=== PATIENT | male | born 1985 | race Caucasian/White ===

== ENCOUNTER 2017-10-22 20:14 | Inpatient (IN) | payer SELFPAY ==
[2017-10-22 22:25] LABS: BASO # 0.1 K/uL (0.0-0.2); BASO % 0.7 % (0.0-2.0); EOS # 0.3 K/uL (0.0-0.7); EOS % 2.9 % (0.0-4.0); HEMOGLOBIN 14.3 g/dL (12.0-18.0); LYMPH # 1.3 K/uL (1.0-4.3); LYMPH % 14.8 % (20.0-40.0); MEAN CELL VOLUME 81.7 fL (80.0-94.0); MEAN CORPUSCULAR HEMOGLOBIN 27.4 pg (27.0-31.0); MEAN CORPUSCULAR HGB CONC 33.5 g/dL (33.0-37.0); MEAN PLATELET VOLUME 7.8 fL (7.2-11.7); MONO # 0.8 K/uL (0.0-0.8); MONO % 8.7 % (0.0-10.0); NEUT # 6.6 K/uL (1.8-7.0); NEUT % 72.9 % (50.0-75.0); NRBC % 0.2 % (0.0-2.0); RBC 5.23 Mil/uL (4.40-5.90); RED CELL DISTRIBUTION WIDTH 20.6 % (11.5-14.5)
--- NOTE | 2017-10-22 22:36 | C.PDOC ---
History Of Present Illness 32yo male, with history of ID, PE, sickle cell disease, protein c deficiency, presents to ED for evaluation of chest pain, present since an hour prior to arrival. Patient states the pain is present to his bilateral chest and radiates to his arm. He states the pain is worse with deep inspiration. Patient reports he is on a daily regimen of Aspirin, Coumadin and Plavix due to his extensive history. He also reports an active DVT in his right lower extremity which was diagnosed 2 months ago. He denies any other complaints. Time Seen by Provider: 10/22/17 22:20 Chief Complaint (Nursing): Chest Pain History Per: Patient History/Exam Limitations: no limitations Onset/Duration Of Symptoms: Hrs (1 hour [employer]) Current Symptoms Are (Timing): Still Present Quality: "Pain" Exacerbating Factors: Deep Breathing Past Medical History Reviewed: Historical Data, Nursing Documentation, Vital Signs Vital Signs: Last Vital Signs Temp 98.0 F 10/22/17 20:25 Pulse 92 H 10/23/17 05:45 Resp 16 10/23/17 05:45 BP 150/64 10/23/17 05:45 Pulse Ox 98 10/23/17 06:16 - Medical History PMH: Asthma, Pulmonary Embolism, Seizures, Sickle Cell Disease Surgical History: Coronary Stent Family History: States: ID, CAD - Social History Hx Alcohol Use: No Hx Substance Use: No - Immunization History Hx Tetanus Toxoid Vaccination: No Hx Influenza Vaccination: No Hx Pneumococcal Vaccination: No Review Of Systems Except As Marked, All Systems Reviewed And Found Negative. Constitutional: Negative for: Fever, Chills Cardiovascular: Positive for: Chest Pain Physical Exam - Physical Exam Appears: Non-toxic Skin: Normal Color Head: Normacephalic Eye(s): bilateral: Normal Inspection Nose: Normal Neck: Normal ROM, Supple Chest: Symmetrical, No Tenderness Cardiovascular: Rhythm Regular Respiratory: Normal Breath Sounds, No Wheezing Neurological/Psych: Oriented x3, Normal Speech ED Course And Treatment - Laboratory Results Result Diagrams: 10/22/17 22:19 10/22/17 22:19 ECG: Interpreted By Me, Viewed By Me ECG Interpretation: Normal Interpretation Of ECG: Normal sinus rhythm, normal intervals, normal axis. No ectopy. No ST/T wave changes. Rate From EC O2 Sat by Pulse Oximetry: 98 Central Line Placement - Central Line Placement Indication: Unable To Obtain Adequate Peripheral Access Central Line Placement: Right: Femoral, Internal Jugular (unsuccessful, switched to femoral) The Area Was Thoroughly Prepared With: Betadine, Draped Using Sterile Technique Area Was Locally Anesthetized With: Lidocaine 1% Procedure: Triple Lumen, Placed Using Standard Seldinger Technique, Catheter Was Sewn Into Place, Sterile Dressing Placed Over Line, Procedure Tolerated Well Critical Care Time - Critical Care Note Total Time (in mins): 70 Documented critical care: time excludes all time spent performing seperately billable procedures. Medical Decision Making Medical Decision Making: Plan: -- Patient with low pulse oxygen levels, around 92% on room air during evaluation. -- O2 via Nasal cannula -- CT Angio Chest -- Labs -- EKG Time: [address] and complained he was about to have a seizure. At 0450 patient with generalized tonic clonic seizure. First seizure lasted 10 minutes despite patient being given 4mg Ativan and 1000mg bolus of Fosphenytoin. Seizure stopped at 05:11, and patient was seizure free for 3 minutes. Patient with another seizure lasting 10 minutes and resolved for total for 5-7 minutes. Patient with 3rd episode of seizure. Patient now receiving infusion 3gm of valproic acid and 6mg of Ativan. Decided patient better off metabolically to intubate and patient given Propofol bolus and intubated in RSI fashion w/o complication. Currently on propofol drip. Patient pending CT Head. Time: 0510 EXAM: CT Angiography Chest With Intravenous Contrast CLINICAL HISTORY: 32 years old, male; Pain; Chest pain; Additional info: R/O pe TECHNIQUE: Axial computed tomographic angiography images of the chest with intravenous contrast using pulmonary embolism protocol. All CT scans at this facility use one or more dose reduction techniques, viz.: automated exposure control; ma/kV adjustment per patient size (including targeted exams where dose is matched to indication; i.e. head); or iterative reconstruction technique. MIP reconstructed images were created and reviewed. Coronal and sagittal reformatted images were created and reviewed. CONTRAST: 100 mL of [id number] administered intravenously. COMPARISON: No relevant prior studies available. FINDINGS: Limitations: Suboptimal timing of bolus. Pulmonary arteries: No definite filling defects within main, lobar, segmental branches. Suboptimal evaluation of subsegmental branches. Aorta: No aneurysm. No dissection. Inferior vena cava: IVC filter. Lungs: Minimal atelectasis/scarring. No consolidation. Pleural space: No significant effusion. No pneumothorax. Heart: No cardiomegaly. No significant pericardial effusion. Bones/joints: Minimal gas within left glenohumeral joint. No acute fracture. Soft tissues: Minimal gynecomastia. Small midline ventral hernia containing fat within upper abdomen, incompletely imaged. Lymph nodes: No pathologically enlarged lymph nodes. Stomach and bowel: Postsurgical changes of stomach. IMPRESSION: 1. No definite pulmonary embolism. 2. Incidental/non-acute findings are described above. Time: 0616 Repeat EKG: Normal sinus rhythm, 80 BPM No ectopy. No interval abnormalities. ST segments within normal limits. Disposition - Disposition Disposition: HOSPITALIZED Disposition Time: 06:32 Condition: SERIOUS - Clinical Impression Clinical Impression: Status epilepticus - Scribe Statement The provider has reviewed the documentation as recorded by the Scribe (Estefanía Pulliam) Provider Attestation: All medical record entries made by the Scribe were at my direction and personally dictated by me. I have reviewed the chart and agree that the record accurately reflects my personal performance of the history, physical exam, medical decision making, and the department course for this patient. I have also personally directed, reviewed, and agree with the discharge instructions and disposition. Procedure: Intubation - Time Performed Time Performed: 05:40 - Time Out Time Out: Side verified, Site verified, Patient ID confirmed - Consent Obtained Consent obtained: Emergent consent implied - Performed By Performed by: Attending Physician - Indications Indication(s):: Airway protection - Method Method:: Oral-Laryngoscopy - Rapid Sequence Intubation Anesthetic:: Propofol - Tube type Tube type:: Endotracheal tube Tube size:: Cuffed (7.5) Number of attempts:: 1 Depth measured at lip: cm: 25 - Patient Tolerated Procedure Patient Tolerated Procedure:: Well
[2017-10-22 22:37] LABS: ALBUMIN 4.5 g/dL (3.5-5.0); CALCIUM 9.7 mg/dl (8.6-10.4); GFR AFRICAN-AMERICAN > 60; GFR NON-AFRICAN AMERICAN > 60
[2017-10-22 22:40] LABS: ALT/SGPT 32 U/L (21-72); AST/SGOT 56 U/L (17-59); BLOOD UREA NITROGEN 4 mg/dL (9-20)
[2017-10-22] MEDS ORDERED: Iodixanol 320 MG/ML 100 ML BOTTLE IV ONE (22:51)
[2017-10-23] MEDS ORDERED: DiphenhydrAMINE 50 mg/ml Inj IVP STA (00:29)
[2017-10-23] MEDS ORDERED: Morphine 4 MG/ML VIAL ONE (01:46)
[2017-10-23] MEDS ORDERED: Lidocaine 1% Inj (20ml) ONE (02:30)
[2017-10-23] MEDS ORDERED: Morphine 4 MG/ML VIAL IV ONE (03:02)
[2017-10-23 03:25] LABS: INR 1.1; PROTHROMBIN TIME 11.9 SECONDS (9.7-12.2)
[2017-10-23] MEDS ORDERED: DiphenhydrAMINE 50 mg/ml Inj ONE (03:46)
[2017-10-23] MEDS ORDERED: Fosphenytoin 500 MG in Dextrose 5% In Water 50 ML IV STA (04:42)
[2017-10-23] MEDS ORDERED: FOSPHENYTOIN IV STA (05:00)
[2017-10-23] MEDS ORDERED: SODIUM CHLORIDE 0.9% IV STA (05:00)
[2017-10-23] MEDS ORDERED: Magnesium Sulfate 1 gm in D5W 2 GM/200 ML BAG IVPB ONE (05:02)
[2017-10-23] MEDS ORDERED: VALPROATE IVPB ONE ×2 (05:10→11:19)
[2017-10-23] MEDS ORDERED: SODIUM CHLORIDE 0.9% IVPB ONE ×2 (05:10→11:19)
--- NOTE | 2017-10-23 05:10 | CT ---
EXAM: CT Angiography Chest With Intravenous Contrast CLINICAL HISTORY: 32 years old, male; Pain; Chest pain; Additional info: R/O pe TECHNIQUE: Axial computed tomographic angiography images of the chest with intravenous contrast using pulmonary embolism protocol. All CT scans at this facility use one or more dose reduction techniques, viz.: automated exposure control; ma/kV adjustment per patient size (including targeted exams where dose is matched to indication; i.e. head); or iterative reconstruction technique. MIP reconstructed images were created and reviewed. Coronal and sagittal reformatted images were created and reviewed. CONTRAST: 100 mL of [id number] administered intravenously. COMPARISON: No relevant prior studies available. FINDINGS: Limitations: Suboptimal timing of bolus. Pulmonary arteries: No definite filling defects within main, lobar, segmental branches. Suboptimal evaluation of subsegmental branches. Aorta: No aneurysm. No dissection. Inferior vena cava: IVC filter. Lungs: Minimal atelectasis/scarring. No consolidation. Pleural space: No significant effusion. No pneumothorax. Heart: No cardiomegaly. No significant pericardial effusion. Bones/joints: Minimal gas within left glenohumeral joint. No acute fracture. Soft tissues: Minimal gynecomastia. Small midline ventral hernia containing fat within upper abdomen, incompletely imaged. Lymph nodes: No pathologically enlarged lymph nodes. Stomach and bowel: Postsurgical changes of stomach. IMPRESSION: 1. No definite pulmonary embolism. 2. Incidental/non-acute findings are described above.
[2017-10-23] MEDS: Magnesium Sulfate 1 gm in D5W 1 GM/100 ML BAG IVPB SCH ×2 (05:17→05:19)
[2017-10-23] MEDS ORDERED: Propofol 10 mg/ml Inj (20 ML) ONE (05:40)
[2017-10-23] MEDS ORDERED: Propofol 10 mg/ml 1,000 MG/100 ML VIAL ONE (05:42)
[2017-10-23 05:48] LABS: SQUAMOUS EPITHIAL < 1 /hpf (0-5); URINE BILIRUBIN NEGATIVE (NEGATIVE); URINE BLOOD NEGATIVE (NEGATIVE); URINE CLARITY Clear (Clear); URINE COLOR Yellow (YELLOW); URINE GLUCOSE (UA) NORMAL (Normal); URINE LEUKOCYTE ESTERASE NEG Leu/uL (Negative); URINE NITRATE NEGATIVE (NEGATIVE); URINE PROTEIN NEGATIVE (NEGATIVE); URINE UROBILINOGEN NORMAL mg/dL (0.2-1.0)
[2017-10-23] MEDS ORDERED: Etomidate 20 mg/10ml Inj IV ONE (05:49)
[2017-10-23] MEDS ORDERED: Propofol 10 mg/ml 1,000 MG/100 ML VIAL IV PRN (05:50)
[2017-10-23] MEDS ORDERED: Propofol 10 mg/ml Inj (20 ML) IV ONE (05:55)
[2017-10-23 05:57] LABS: PHENCYCLIDINE, UR NEGATIVE (NEGATIVE)
[2017-10-23 06:07] LABS: BARBITURATES, UR POSITIVE (NEGATIVE); BENZODIAZEPINES, UR POSITIVE (NEGATIVE); OPIATES, UR POSITIVE (NEGATIVE)
[2017-10-23] MEDS: Propofol 10 mg/ml Inj (100 ml) IV ONE ×2 (06:17→07:08)
[2017-10-23 06:28] LABS: BASO % 0.3 % (0.0-2.0); EOS # 0.1 K/uL (0.0-0.7); EOS % 1.4 % (0.0-4.0); HEMOGLOBIN 10.4 g/dL (12.0-18.0); LYMPH # 0.7 K/uL (1.0-4.3); LYMPH % 12.3 % (20.0-40.0); MEAN CELL VOLUME 81.1 fL (80.0-94.0); MEAN CORPUSCULAR HEMOGLOBIN 27.5 pg (27.0-31.0); MEAN CORPUSCULAR HGB CONC 33.9 g/dL (33.0-37.0); MEAN PLATELET VOLUME 7.3 fL (7.2-11.7); MONO # 0.2 K/uL (0.0-0.8); MONO % 3.3 % (0.0-10.0); NEUT # 4.7 K/uL (1.8-7.0); NEUT % 82.7 % (50.0-75.0); RBC 3.78 Mil/uL (4.40-5.90); RED CELL DISTRIBUTION WIDTH 20.3 % (11.5-14.5); WHITE BLOOD COUNT 5.7 K/uL (4.8-10.8)
[2017-10-23] MEDS: Lactated Ringer's 1,000 ML IV SCH ×5 (06:31→20:30)
[2017-10-23] MEDS: Propofol 10 mg/ml 1,000 MG/100 ML VIAL IV PRN ×4 (06:32→22:07)
[2017-10-23 06:33] LABS: VENOUS BLOOD GAS BASE EXCESS -8.4 mmol/L (0.0-2.0); VENOUS BLOOD GAS PCO2 31 mmHg (40-60); VENOUS BLOOD GAS PO2 62 mm/Hg (30-55); VENOUS BLOOD PH 7.33 (7.32-7.43)
[2017-10-23 06:35] LABS: INR 1.1; PROTHROMBIN TIME 12.2 SECONDS (9.7-12.2)
--- NOTE | 2017-10-23 06:52 | CP.PCM.CON ---
History of Present Illness - History of Present Illness History of Present Illness: 32 M with h/o seizure disorder, ? CAD, VT, on plavix, h/o PE, on coumedin, h/o protein C deficiency, icu consult called for status epilepticus. Patient seen at the time of the seizures, hence not history could be obtained directly but from the ER records. Patient came ambulatory, was alert oriented x3 and came for chest pain. Had right groin femoral cath placed in ER due to poor iv access. Patient had normal inr on coumedin, hence PE study done, when patient came back form CT mentioned to the staff that he has having aura and soon he started to seize, patient was unresponsive during episode, rhythmic movement of the upper body, right arm more then left, foaming of the mouth. Patient received ativan 2mg x3, then iv cerebex 1000mg. Patient continued unresponsive and hence decision was made to give propofol and intubate. Intubated in ER etomidate 20mg, propofol 100mg iv bolus for intubation, when patient stopped jerking movement. PMH as above PSH, not known Meds allergies, as above Social not available Patient needed propofol 50mg twice post intubation, patient coughing vigorously , ng placed, jeffries placed, running iv LR, on propofol drip, going for head ct. Review of Systems - Review of Systems All systems: reviewed and no additional remarkable complaints except (HPI) Past Patient History - Past Social History Smoking Status: Never Smoked Alcohol: None Home Situation {Lives}: With Family Domestic Violence: Negative - CARDIAC Hx Heart Attack: Yes - PULMONARY Hx Asthma: Yes Hx Pulmonary Embolism: Yes - NEUROLOGICAL Hx Seizures: Yes - HEMATOLOGICAL/ONCOLOGICAL Hx Sickle Cell Disease: Yes - PSYCHIATRIC Hx Substance Use: No - SURGICAL HISTORY Hx Coronary Stent: Yes Meds Allergies/Adverse Reactions: Allergies Allergy/AdvReac Type Severity Reaction Status Date / Time ketorolac [From Toradol] Allergy Verified 10/22/17 20:39 shellfish derived Allergy Verified 10/22/17 20:39 - Medications Medications: Current Medications Aspirin (Aspirin Chewable) 81 mg PO DAILY KEVIN Clopidogrel Bisulfate (Plavix) 75 mg PO DAILY KEVIN Folic Acid (Folic Acid) 1 mg PO DAILY KEVIN Hydroxyurea (Hydrea) 500 mg PO BID KEVIN Propofol (Diprivan) 1,000 mg in 100 mls @ 11.43 mls/hr IV .Q8H45M PRN; Protocol ; 20 MCG/KG/MIN PRN Reason: TITRATE PER MD ORDER Levetiracetam 750 mg/ Sodium (Chloride) 107.5 mls @ 420 mls/hr IVPB Q12H KEVIN Lactated Ringer's (Lactated Ringer's) 1,000 mls @ 200 mls/hr IV .Q5H KEVIN Pantoprazole Sodium (Protonix Inj) 40 mg IVP DAILY KEVIN Phenytoin Sodium (Dilantin) 300 mg PO BID KEVIN Physical Exam - Additional Findings Additional findings: * HEENT eyes rolled up, foam on the mouth * Neck Supple * Chest a/e b/l post intubation * PA soft * Ext no edema * [employer] patient bending forward and coughing, still not following, no rhythmic or tonic clonic movements. * Skin normal turgor. Results - Vital Signs Recent Vital Signs: Last Vital Signs Temp 98.0 F 10/22/17 20:25 Pulse 92 H 10/23/17 05:45 Resp 16 10/23/17 05:45 BP 150/64 10/23/17 05:45 Pulse Ox 98 10/23/17 06:16 - Labs Result Diagrams: 10/22/17 22:19 10/22/17 22:19 Labs: Laboratory Results - last 24 hr 10/22/17 10/22/17 10/22/17 22:19 22:19 22:19 WBC 9.0 RBC 5.23 Hgb 14.3 Hct 42.7 MCV 81.7 MCH 27.4 MCHC 33.5 RDW 20.6 H Plt Count 492 H MPV 7.8 Neut % (Auto) 72.9 Lymph % (Auto) 14.8 L [place] % (Auto) 8.7 Eos % (Auto) 2.9 Baso % (Auto) 0.7 Neut # (Auto) 6.6 Lymph # (Auto) 1.3 [place] # (Auto) 0.8 Eos # (Auto) 0.3 Baso # (Auto) 0.1 Differential Comment PT INR APTT 19 L Sodium 143 Potassium 4.7 Chloride 100 Carbon Dioxide 28 Anion Gap 19 BUN 4 L Creatinine 0.7 L Est GFR ( Amer) > 60 Est GFR (Non-Af Amer) > 60 POC Glucose (mg/dL) Random Glucose 95 Calcium 9.7 Total Bilirubin 0.7 AST 56 ALT 32 Alkaline Phosphatase 98 Total Protein 9.1 H Albumin 4.5 Globulin 4.5 H Albumin/Globulin Ratio 1.0 Urine Color Urine Clarity Urine pH Ur Specific [place] Urine Protein Urine Glucose (UA) Urine Ketones Urine Blood Urine Nitrate Urine Bilirubin Urine Urobilinogen Ur Leukocyte Esterase Urine WBC (Auto) Urine RBC (Auto) Ur Squamous Epith Cells Hyaline Casts Urine Opiates Screen Urine Methadone Screen Ur Barbiturates Screen Phenytoin Ur Phencyclidine Scrn Ur Amphetamines Screen U Benzodiazepines Scrn U Oth Cocaine Metabols U Cannabinoids Screen 10/23/17 10/23/17 10/23/17 03:00 04:48 04:54 WBC RBC Hgb Hct MCV MCH MCHC RDW Plt Count MPV Neut % (Auto) Lymph % (Auto) [place] % (Auto) Eos % (Auto) Baso % (Auto) Neut # (Auto) Lymph # (Auto) [place] # (Auto) Eos # (Auto) Baso # (Auto) Differential Comment PT 11.9 INR 1.1 APTT Sodium Potassium Chloride Carbon Dioxide Anion Gap BUN Creatinine Est GFR ( Amer) Est GFR (Non-Af Amer) POC Glucose (mg/dL) 90 Random Glucose Calcium Total Bilirubin AST ALT Alkaline Phosphatase Total Protein Albumin Globulin Albumin/Globulin Ratio Urine Color Urine Clarity Urine pH Ur Specific [place] Urine Protein Urine Glucose (UA) Urine Ketones Urine Blood Urine Nitrate Urine Bilirubin Urine Urobilinogen Ur Leukocyte Esterase Urine WBC (Auto) Urine RBC (Auto) Ur Squamous Epith Cells Hyaline Casts Urine Opiates Screen Urine Methadone Screen Ur Barbiturates Screen Phenytoin 22.3 H Ur Phencyclidine Scrn Ur Amphetamines Screen U Benzodiazepines Scrn U Oth Cocaine Metabols U Cannabinoids Screen 10/23/17 10/23/17 05:36 05:36 WBC RBC Hgb Hct MCV MCH MCHC RDW Plt Count MPV Neut % (Auto) Lymph % (Auto) [place] % (Auto) Eos % (Auto) Baso % (Auto) Neut # (Auto) Lymph # (Auto) [place] # (Auto) Eos # (Auto) Baso # (Auto) Differential Comment PT INR APTT Sodium Potassium Chloride Carbon Dioxide Anion Gap BUN Creatinine Est GFR ( Amer) Est GFR (Non-Af Amer) POC Glucose (mg/dL) Random Glucose Calcium Total Bilirubin AST ALT Alkaline Phosphatase Total Protein Albumin Globulin Albumin/Globulin Ratio Urine Color Yellow Urine Clarity Clear Urine pH 6.0 Ur Specific [place] 1.020 Urine Protein Negative Urine Glucose (UA) Normal Urine Ketones Negative Urine Blood Negative Urine Nitrate Negative Urine Bilirubin Negative Urine Urobilinogen Normal Ur Leukocyte Esterase Neg Urine WBC (Auto) 2 Urine RBC (Auto) < 1 Ur Squamous Epith Cells < 1 Hyaline Casts 11-20 H Urine Opiates Screen Positive H Urine Methadone Screen Negative Ur Barbiturates Screen Positive H Phenytoin Ur Phencyclidine Scrn Negative Ur Amphetamines Screen Negative U Benzodiazepines Scrn Positive U Oth Cocaine Metabols Negative U Cannabinoids Screen Negative Assessment & Plan - Assessment and Plan (Free Text) Assessment: * Status epilepticus, hence intubated on propofol , going for head CT, s/p cerebex bolus, iv ativan * Came with cp, PE study not optimal but no cental pe visible * H/o CAD, * H/o PE, protein C def, on coumedin, not therapeutic. Plan: * Head CT * IVF, stat labs * maintain sedation for now * EEG, neurlogy consult * Kepra increased to 750mg q12 iv * Gi/DVT prophylaxis * See orders for detail * Obtain detailed history from records/family.
[2017-10-23 06:53] LABS: ALB/GLOB RATIO 1.1 (1.0-2.1); ALBUMIN 3.1 g/dL (3.5-5.0); ALT/SGPT 27 U/L (21-72); AST/SGOT 25 U/L (17-59); BLOOD UREA NITROGEN 5 mg/dL (9-20); CALCIUM 7.9 mg/dl (8.6-10.4); GFR AFRICAN-AMERICAN > 60; GFR NON-AFRICAN AMERICAN > 60; MAGNESIUM 2.6 mg/dL (1.6-2.3)
[2017-10-23] MEDS ORDERED: levETIRAcetam 1,000 MG in Sodium Chloride 0.9% 100 ML IVPB SCH (08:00)
--- NOTE | 2017-10-23 08:16 | CT ---
PROCEDURE: CT HEAD WITHOUT CONTRAST. HISTORY: status epilepticus COMPARISON: None available. TECHNIQUE: Axial computed tomography images were obtained through the head/brain without intravenous contrast. Radiation dose: Total exam DLP = 969 mGy-cm. This CT exam was performed using one or more of the following dose reduction techniques: Automated exposure control, adjustment of the mA and/or kV according to patient size, and/or use of iterative reconstruction technique. FINDINGS: HEMORRHAGE: No intracranial hemorrhage. BRAIN: No mass effect or edema. No atrophy or chronic microvascular ischemic changes. VENTRICLES: Unremarkable. No hydrocephalus. CALVARIUM: Unremarkable. PARANASAL SINUSES: Unremarkable as visualized. No significant inflammatory changes. MASTOID AIR CELLS: Unremarkable as visualized. No inflammatory changes. OTHER FINDINGS: Endotracheal tube in place. IMPRESSION: No acute intracranial abnormality. Endotracheal tube in place. If focal neurologic deficit persists, consider MRI. These findings were preliminarily reported at 7:50 a.m. on 10/23/[address] Dario Wright from [facility].
[2017-10-23 08:33] LABS: ARTERIAL BLOOD GAS HCO3 24.4 mmol/L (21-28); ARTERIAL BLOOD GAS O2 SAT 99.5 % (95-98); ARTERIAL BLOOD GAS PCO2 44 mm/Hg (35-45); ARTERIAL BLOOD GAS PH 7.36 (7.35-7.45); ARTERIAL BLOOD GAS PO2 208 mm/Hg (80-100); ARTERIAL BLOOD GAS TCO2 26.3 mmol/L (22-28)
--- NOTE | 2017-10-23 08:35 | RAD ---
HISTORY: s/p intubation COMPARISON: 10/22/2017 FINDINGS: The endotracheal tube terminates 2 cm proximal to the [place]. LUNGS: The lungs are clear. PLEURA: No significant pleural effusion identified, no pneumothorax apparent. CARDIOVASCULAR: Normal. OSSEOUS STRUCTURES: No significant abnormalities. VISUALIZED UPPER ABDOMEN: Normal. OTHER FINDINGS: None. IMPRESSION: Endotracheal tube terminates 2 cm proximal to the [place]. No acute findings.
--- NOTE | 2017-10-23 08:38 | RAD ---
HISTORY: post ng placement COMPARISON: 10/23/2017 at 6:16 a.m. FINDINGS: Endotracheal tube terminates 2.2 cm proximal to the [place]. The nasogastric tube terminates in the stomach. LUNGS: There is right lower lobe consolidation. The left lung is clear. PLEURA: Bilateral pleural effusions, larger on the right, no pneumothorax apparent. CARDIOVASCULAR: Normal. OSSEOUS STRUCTURES: No significant abnormalities. VISUALIZED UPPER ABDOMEN: Normal. OTHER FINDINGS: None. IMPRESSION: Nasogastric tube terminates in the stomach. Endotracheal tube terminates 2.2 cm proximal to the [place]. Right lower lobe consolidation and bilateral pleural effusions, larger on the right.
[2017-10-23] MEDS: levETIRAcetam 1,000 MG in Sodium Chloride 0.9% 100 ML IVPB SCH ×2 (09:08→20:35)
[2017-10-23 09:20] LABS: HDL CHOLESTEROL 43 mg/dL (30-70)
[2017-10-23 09:31] LABS: LDL CHOLESTEROL 111 mg/dL (0-129)
[2017-10-23] MEDS ORDERED: SODIUM CHLORIDE 0.9% IV ONE ×2 (09:34→16:00)
[2017-10-23] MEDS ORDERED: HEPARIN IV ONE (09:34)
[2017-10-23 09:41] LABS: IRON 21 ug/dL (49-181)
[2017-10-23 09:50] LABS: % IRON SATURATION 8 (20-55); TOTAL IRON BINDING CAPACITY 249 ug/dL (250-450)
--- NOTE | 2017-10-23 09:51 | CP.PCM.CON ---
History of Present Illness - History of Present Illness History of Present Illness: Neurology Consult Note for Dr. Laws Reason for consult: Status epilepticus This is a 32 year old male currently intubated and sedated in the ICU on propofol with PMHx presumed seizure disorder, ME, right leg DVT, sickle cell disease, protein c deficiency who initially presented with complaint of chest pain. History is limited to review of the EMR since the patient is currently sedated. After a CTA PE protocol was performed, patient had complained of an aura before he started seizing. Per review of the records, there was tonic movement of the upper extremities and foaming at the mouth. Patient then received three doses of Ativan 2 mg and Cerebex 1000 mg. This did not resolve the seizures, and so the patient was intubated thereafter. PMHx: presumed seizure disorder, ME, right leg DVT, sickle cell disease, protein c deficiency PSH, Unknown Allergies: Per EMR, Toradol and shellfish--reactions unknown Social Hx: Unknown Family Hx: Unknown Review of Systems - Review of Systems Systems not reviewed;Unavailable: Acuity of Condition, Intubated Past Patient History - Past Medical History & Family History Past Medical History?: Yes - Past Social History Smoking Status: Unknown If Ever Smoked - CARDIAC Hx Heart Attack: Yes - PULMONARY Hx Asthma: Yes Hx Pulmonary Embolism: Yes - NEUROLOGICAL Hx Seizures: Yes - HEMATOLOGICAL/ONCOLOGICAL Hx Sickle Cell Disease: Yes - MUSCULOSKELETAL/RHEUMATOLOGICAL Hx Falls: No - PSYCHIATRIC Hx Substance Use: No - SURGICAL HISTORY Hx Coronary Stent: Yes - ANESTHESIA Hx Anesthesia: Yes Hx Anesthesia Reactions: No Hx Malignant Hyperthermia: No Meds Allergies/Adverse Reactions: Allergies Allergy/AdvReac Type Severity Reaction Status Date / Time ketorolac [From Toradol] Allergy Verified 10/22/17 20:39 shellfish derived Allergy Verified 10/22/17 20:39 - Medications Medications: Current Medications Aspirin (Aspirin Chewable) 81 mg PO DAILY KEVIN Clopidogrel Bisulfate (Plavix) 75 mg PO DAILY KEVIN Folic Acid (Folic Acid) 1 mg PO DAILY KEVIN Hydroxyurea (Hydrea) 500 mg PO BID KEVIN Propofol (Diprivan) 1,000 mg in 100 mls @ 11.43 mls/hr IV .[id number] PRN; Protocol ; 20 MCG/KG/MIN PRN Reason: TITRATE PER MD ORDER Last Admin: 10/23/17 06:32 Dose: 20 mcg/kg/min, 11.43 mls/hr Lactated Ringer's (Lactated Ringer's) 1,000 mls @ 200 mls/hr IV .Q5H KEVIN Last Admin: 10/23/17 08:05 Dose: 200 mls/hr Levetiracetam 1,000 mg/ Sodium (Chloride) 110 mls @ 100 mls/hr IVPB Q12H KEVIN Last Admin: 10/23/17 09:08 Dose: 100 mls/hr Heparin Sodium/Sodium Chloride (Heparin 46758 Units/250ml 1/2 Normal Saline) 25 ,000 units in 250 mls @ 17.146 mls/hr IV .[id number] PRN; Protocol; 18 U/KG/HR PRN Reason: PROTOCOL Heparin Sodium (Porcine) 2,400 (units/ Sodium Chloride) 1,700 mls @ 50 mls/hr IV ONCE ONE Stop: 10/24/17 05:33 Pantoprazole Sodium (Protonix Inj) 40 mg IVP DAILY [facility] Phenytoin Sodium (Dilantin) 200 mg PO BID [facility] Physical Exam - Constitutional Appears: No Acute Distress - Head Exam Head Exam: ATRAUMATIC, NORMOCEPHALIC - Eye Exam Eye Exam: absent: Normal appearance (pinpoint pupils) - ENT Exam ENT Exam: Mucous Membranes Moist - Respiratory Exam Respiratory Exam: Clear to Auscultation Bilateral. absent: Rales, Rhonchi, Wheezes Additional comments: On mechanical ventilation - Cardiovascular Exam Cardiovascular Exam: REGULAR RHYTHM, +S1, +S2 - GI/Abdominal Exam GI & Abdominal Exam: Normal Bowel Sounds, Soft - Extremities Exam Extremities exam: Negative for: pedal edema - Neurological Exam Neurological exam: Altered (intubated and sedated) - Skin Skin Exam: Dry, Warm Results - Vital Signs Recent Vital Signs: Last Vital Signs Temp 98.7 F 10/23/17 02:30 Pulse 80 10/23/17 06:45 Resp 16 10/23/17 07:26 BP 100/45 L 10/23/17 06:45 Pulse Ox 100 10/23/17 07:26 - Labs Result Diagrams: 10/23/17 06:12 10/23/17 06:12 Labs: Laboratory Results - last 24 hr 10/22/17 10/22/17 10/22/17 22:19 22:19 22:19 WBC 9.0 RBC 5.23 Hgb 14.3 Hct 42.7 MCV 81.7 MCH 27.4 MCHC 33.5 RDW 20.6 H Plt Count 492 H MPV 7.8 Neut % (Auto) 72.9 Lymph % (Auto) 14.8 L [place] % (Auto) 8.7 Eos % (Auto) 2.9 Baso % (Auto) 0.7 Neut # (Auto) 6.6 Lymph # (Auto) 1.3 [place] # (Auto) 0.8 Eos # (Auto) 0.3 Baso # (Auto) 0.1 Differential Comment Retic Count PT INR APTT 19 L Fibrinogen Puncture Site pCO2 pO2 HCO3 ABG pH ABG Total CO2 ABG O2 Saturation ABG Base Excess Errol Test ABG Potassium VBG pH VBG pCO2 VBG HCO3 VBG Total CO2 VBG O2 Sat (Calc) VBG Base Excess VBG Potassium A-a O2 Difference Respiratory Index Glucose Lactate Vent Mode Mechanical Rate FiO2 Tidal Volume PEEP Sodium 143 Potassium 4.7 Chloride 100 Carbon Dioxide 28 Anion Gap 19 BUN 4 L Creatinine 0.7 L Est GFR ( Amer) > 60 Est GFR (Non-Af Amer) > 60 POC Glucose (mg/dL) Random Glucose 95 Hemoglobin A1c Calcium 9.7 Phosphorus Magnesium Iron Total Bilirubin 0.7 AST 56 ALT 32 Alkaline Phosphatase 98 Total Creatine Kinase Troponin I Total Protein 9.1 H Albumin 4.5 Globulin 4.5 H Albumin/Globulin Ratio 1.0 Triglycerides Cholesterol LDL Cholesterol Direct HDL Cholesterol Arterial Blood Potassium Venous Blood Potassium Urine Color Urine Clarity Urine pH Ur Specific [place] Urine Protein Urine Glucose (UA) Urine Ketones Urine Blood Urine Nitrate Urine Bilirubin Urine Urobilinogen Ur Leukocyte Esterase Urine WBC (Auto) Urine RBC (Auto) Ur Squamous Epith Cells Hyaline Casts Urine Opiates Screen Urine Methadone Screen Ur Barbiturates Screen Phenytoin Ur Phencyclidine Scrn Ur Amphetamines Screen U Benzodiazepines Scrn U Oth Cocaine Metabols U Cannabinoids Screen Alcohol, Quantitative 10/23/17 10/23/17 10/23/17 03:00 04:48 04:54 WBC RBC Hgb Hct MCV MCH MCHC RDW Plt Count MPV Neut % (Auto) Lymph % (Auto) [place] % (Auto) Eos % (Auto) Baso % (Auto) Neut # (Auto) Lymph # (Auto) [place] # (Auto) Eos # (Auto) Baso # (Auto) Differential Comment Retic Count PT 11.9 INR 1.1 APTT Fibrinogen Puncture Site pCO2 pO2 HCO3 ABG pH ABG Total CO2 ABG O2 Saturation ABG Base Excess Errol Test ABG Potassium VBG pH VBG pCO2 VBG HCO3 VBG Total CO2 VBG O2 Sat (Calc) VBG Base Excess VBG Potassium A-a O2 Difference Respiratory Index Glucose Lactate Vent Mode Mechanical Rate FiO2 Tidal Volume PEEP Sodium Potassium Chloride Carbon Dioxide Anion Gap BUN Creatinine Est GFR ( Amer) Est GFR (Non-Af Amer) POC Glucose (mg/dL) 90 Random Glucose Hemoglobin A1c Calcium Phosphorus Magnesium Iron Total Bilirubin AST ALT Alkaline Phosphatase Total Creatine Kinase Troponin I Total Protein Albumin Globulin Albumin/Globulin Ratio Triglycerides Cholesterol LDL Cholesterol Direct HDL Cholesterol Arterial Blood Potassium Venous Blood Potassium Urine Color Urine Clarity Urine pH Ur Specific [place] Urine Protein Urine Glucose (UA) Urine Ketones Urine Blood Urine Nitrate Urine Bilirubin Urine Urobilinogen Ur Leukocyte Esterase Urine WBC (Auto) Urine RBC (Auto) Ur Squamous Epith Cells Hyaline Casts Urine Opiates Screen Urine Methadone Screen Ur Barbiturates Screen Phenytoin 22.3 H Ur Phencyclidine Scrn Ur Amphetamines Screen U Benzodiazepines Scrn U Oth Cocaine Metabols U Cannabinoids Screen Alcohol, Quantitative 10/23/17 10/23/17 10/23/17 05:36 05:36 06:12 WBC 5.7 RBC 3.78 L Hgb 10.4 L D Hct 30.6 L MCV 81.1 MCH 27.5 MCHC 33.9 RDW 20.3 H Plt Count 435 H MPV 7.3 Neut % (Auto) 82.7 H Lymph % (Auto) 12.3 L [place] % (Auto) 3.3 Eos % (Auto) 1.4 Baso % (Auto) 0.3 Neut # (Auto) 4.7 Lymph # (Auto) 0.7 L [place] # (Auto) 0.2 Eos # (Auto) 0.1 Baso # (Auto) 0.0 Differential Comment Retic Count PT INR APTT Fibrinogen Puncture Site pCO2 pO2 HCO3 ABG pH ABG Total CO2 ABG O2 Saturation ABG Base Excess Errol Test ABG Potassium VBG pH VBG pCO2 VBG HCO3 VBG Total CO2 VBG O2 Sat (Calc) VBG Base Excess VBG Potassium A-a O2 Difference Respiratory Index Glucose Lactate Vent Mode Mechanical Rate FiO2 Tidal Volume PEEP Sodium Potassium Chloride Carbon Dioxide Anion Gap BUN Creatinine Est GFR ( Amer) Est GFR (Non-Af Amer) POC Glucose (mg/dL) Random Glucose Hemoglobin A1c Calcium Phosphorus Magnesium Iron Total Bilirubin AST ALT Alkaline Phosphatase Total Creatine Kinase Troponin I Total Protein Albumin Globulin Albumin/Globulin Ratio Triglycerides Cholesterol LDL Cholesterol Direct HDL Cholesterol Arterial Blood Potassium Venous Blood Potassium Urine Color Yellow Urine Clarity Clear Urine pH 6.0 Ur Specific [place] 1.020 Urine Protein Negative Urine Glucose (UA) Normal Urine Ketones Negative Urine Blood Negative Urine Nitrate Negative Urine Bilirubin Negative Urine Urobilinogen Normal Ur Leukocyte Esterase Neg Urine WBC (Auto) 2 Urine RBC (Auto) < 1 Ur Squamous Epith Cells < 1 Hyaline Casts 11-20 H Urine Opiates Screen Positive H Urine Methadone Screen Negative Ur Barbiturates Screen Positive H Phenytoin Ur Phencyclidine Scrn Negative Ur Amphetamines Screen Negative U Benzodiazepines Scrn Positive U Oth Cocaine Metabols Negative U Cannabinoids Screen Negative Alcohol, Quantitative 10/23/17 10/23/17 10/23/17 06:12 06:12 06:20 WBC RBC Hgb Hct MCV MCH MCHC RDW Plt Count MPV Neut % (Auto) Lymph % (Auto) [place] % (Auto) Eos % (Auto) Baso % (Auto) Neut # (Auto) Lymph # (Auto) [place] # (Auto) Eos # (Auto) Baso # (Auto) Differential Comment Retic Count PT 12.2 INR 1.1 APTT 31 D Fibrinogen Puncture Site pCO2 pO2 HCO3 ABG pH ABG Total CO2 ABG O2 Saturation ABG Base Excess Errol Test ABG Potassium VBG pH VBG pCO2 VBG HCO3 VBG Total CO2 VBG O2 Sat (Calc) VBG Base Excess VBG Potassium A-a O2 Difference Respiratory Index Glucose Lactate Vent Mode Mechanical Rate FiO2 Tidal Volume PEEP Sodium 141 Potassium 4.1 Chloride 105 Carbon Dioxide 24 Anion Gap 16 BUN 5 L Creatinine 0.6 L Est GFR ( Amer) > 60 Est GFR (Non-Af Amer) > 60 POC Glucose (mg/dL) Random Glucose 145 H Hemoglobin A1c Calcium 7.9 L Phosphorus 2.6 Magnesium 2.6 H Iron Total Bilirubin 0.2 AST 25 ALT 27 Alkaline Phosphatase 66 Total Creatine Kinase 79 Troponin I < 0.0120 Total Protein 6.0 L Albumin 3.1 L D Globulin 2.9 Albumin/Globulin Ratio 1.1 Triglycerides Cholesterol LDL Cholesterol Direct HDL Cholesterol Arterial Blood Potassium Venous Blood Potassium Urine Color Urine Clarity Urine pH Ur Specific [place] Urine Protein Urine Glucose (UA) Urine Ketones Urine Blood Urine Nitrate Urine Bilirubin Urine Urobilinogen Ur Leukocyte Esterase Urine WBC (Auto) Urine RBC (Auto) Ur Squamous Epith Cells Hyaline Casts Urine Opiates Screen Urine Methadone Screen Ur Barbiturates Screen Phenytoin 19.6 Ur Phencyclidine Scrn Ur Amphetamines Screen U Benzodiazepines Scrn U Oth Cocaine Metabols U Cannabinoids Screen Alcohol, Quantitative 10/23/17 10/23/17 10/23/17 06:27 08:30 08:37 WBC RBC Hgb Hct MCV MCH MCHC RDW Plt Count MPV Neut % (Auto) Lymph % (Auto) [place] % (Auto) Eos % (Auto) Baso % (Auto) Neut # (Auto) Lymph # (Auto) [place] # (Auto) Eos # (Auto) Baso # (Auto) Differential Comment Retic Count 3.7 H PT INR APTT Fibrinogen Puncture Site Rba pCO2 44 pO2 62 H 208 H HCO3 24.4 ABG pH 7.36 ABG Total CO2 26.3 ABG O2 Saturation 99.5 H ABG Base Excess -0.8 Errol Test Na ABG Potassium 4.9 VBG pH 7.33 VBG pCO2 31 L VBG HCO3 18.2 VBG Total CO2 17.3 L VBG O2 Sat (Calc) 95.6 H VBG Base Excess -8.4 L VBG Potassium 2.6 L A-a O2 Difference 612.0 379.0 Respiratory Index 1.8 Glucose 104 136 H Lactate 1.4 2.2 H Vent Mode Prvc Mechanical Rate 16 FiO2 100.0 90.0 Tidal Volume 470 PEEP 5 5 Sodium 143.0 138.0 Potassium Chloride 117.0 H 109.0 H Carbon Dioxide Anion Gap BUN Creatinine Est GFR ( Amer) Est GFR (Non-Af Amer) POC Glucose (mg/dL) Random Glucose Hemoglobin A1c Calcium Phosphorus Magnesium Iron Total Bilirubin AST ALT Alkaline Phosphatase Total Creatine Kinase Troponin I Total Protein Albumin Globulin Albumin/Globulin Ratio Triglycerides Cholesterol LDL Cholesterol Direct HDL Cholesterol Arterial Blood Potassium 4.9 Venous Blood Potassium 2.6 L Urine Color Urine Clarity Urine pH Ur Specific [place] Urine Protein Urine Glucose (UA) Urine Ketones Urine Blood Urine Nitrate Urine Bilirubin Urine Urobilinogen Ur Leukocyte Esterase Urine WBC (Auto) Urine RBC (Auto) Ur Squamous Epith Cells Hyaline Casts Urine Opiates Screen Urine Methadone Screen Ur Barbiturates Screen Phenytoin Ur Phencyclidine Scrn Ur Amphetamines Screen U Benzodiazepines Scrn U Oth Cocaine Metabols U Cannabinoids Screen Alcohol, Quantitative 10/23/17 10/23/17 10/23/17 08:37 08:37 08:47 WBC RBC Hgb Hct MCV MCH MCHC RDW Plt Count MPV Neut % (Auto) Lymph % (Auto) [place] % (Auto) Eos % (Auto) Baso % (Auto) Neut # (Auto) Lymph # (Auto) [place] # (Auto) Eos # (Auto) Baso # (Auto) Differential Comment Retic Count PT INR APTT Fibrinogen Puncture Site pCO2 pO2 HCO3 ABG pH ABG Total CO2 ABG O2 Saturation ABG Base Excess Errol Test ABG Potassium VBG pH VBG pCO2 VBG HCO3 VBG Total CO2 VBG O2 Sat (Calc) VBG Base Excess VBG Potassium A-a O2 Difference Respiratory Index Glucose Lactate Vent Mode Mechanical Rate FiO2 Tidal Volume PEEP Sodium Potassium Chloride Carbon Dioxide Anion Gap BUN Creatinine Est GFR ( Amer) Est GFR (Non-Af Amer) POC Glucose (mg/dL) Random Glucose Hemoglobin A1c 4.8 Calcium Phosphorus Magnesium Iron 21 L Total Bilirubin AST ALT Alkaline Phosphatase Total Creatine Kinase Troponin I Total Protein Albumin Globulin Albumin/Globulin Ratio Triglycerides 115 Cholesterol 199 LDL Cholesterol Direct 111 HDL Cholesterol 43 Arterial Blood Potassium Venous Blood Potassium Urine Color Urine Clarity Urine pH Ur Specific [place] Urine Protein Urine Glucose (UA) Urine Ketones Urine Blood Urine Nitrate Urine Bilirubin Urine Urobilinogen Ur Leukocyte Esterase Urine WBC (Auto) Urine RBC (Auto) Ur Squamous Epith Cells Hyaline Casts Urine Opiates Screen Urine Methadone Screen Ur Barbiturates Screen Phenytoin Ur Phencyclidine Scrn Ur Amphetamines Screen U Benzodiazepines Scrn U Oth Cocaine Metabols U Cannabinoids Screen Alcohol, Quantitative < 10 10/23/17 08:47 WBC RBC Hgb Hct MCV MCH MCHC RDW Plt Count MPV Neut % (Auto) Lymph % (Auto) [place] % (Auto) Eos % (Auto) Baso % (Auto) Neut # (Auto) Lymph # (Auto) [place] # (Auto) Eos # (Auto) Baso # (Auto) Differential Comment Retic Count PT INR APTT Fibrinogen 325 Puncture Site pCO2 pO2 HCO3 ABG pH ABG Total CO2 ABG O2 Saturation ABG Base Excess Errol Test ABG Potassium VBG pH VBG pCO2 VBG HCO3 VBG Total CO2 VBG O2 Sat (Calc) VBG Base Excess VBG Potassium A-a O2 Difference Respiratory Index Glucose Lactate Vent Mode Mechanical Rate FiO2 Tidal Volume PEEP Sodium Potassium Chloride Carbon Dioxide Anion Gap BUN Creatinine Est GFR ( Amer) Est GFR (Non-Af Amer) POC Glucose (mg/dL) Random Glucose Hemoglobin A1c Calcium Phosphorus Magnesium Iron Total Bilirubin AST ALT Alkaline Phosphatase Total Creatine Kinase Troponin I Total Protein Albumin Globulin Albumin/Globulin Ratio Triglycerides Cholesterol LDL Cholesterol Direct HDL Cholesterol Arterial Blood Potassium Venous Blood Potassium Urine Color Urine Clarity Urine pH Ur Specific [place] Urine Protein Urine Glucose (UA) Urine Ketones Urine Blood Urine Nitrate Urine Bilirubin Urine Urobilinogen Ur Leukocyte Esterase Urine WBC (Auto) Urine RBC (Auto) Ur Squamous Epith Cells Hyaline Casts Urine Opiates Screen Urine Methadone Screen Ur Barbiturates Screen Phenytoin Ur Phencyclidine Scrn Ur Amphetamines Screen U Benzodiazepines Scrn U Oth Cocaine Metabols U Cannabinoids Screen Alcohol, Quantitative Assessment & Plan - Assessment and Plan (Free Text) Assessment: This is a 32 year old male currently intubated and sedated in the ICU on propofol with PMHx presumed seizure disorder, ME, right leg DVT, sickle cell disease, protein c deficiency who initially presented with complaint of chest pain. However, he later experienced intractable seizures and was admitted to the ICU due to status epilepticus. Plan: Status Epilepticus Wean off of sedation slowly as tolerated Keppra 1000 mg IV Q12 Dilantin 200 mg BID Vimpat 200 mg loading dose and then switch to 100 mg Q12 thereafter Avoid hypo or hypertensive events Maintain euglycemia Avoid and limit night time interruptions EEG Infectious workup to investigate seizure triggers
[2017-10-23] MEDS ORDERED: Heparin25000 units/250ml 1/2NS 25,000 UNITS/250 ML BAG IV PRN (10:00)
--- NOTE | 2017-10-23 10:07 | RAD ---
HISTORY: Sepsis Patient COMPARISON: 10/23/2017. FINDINGS: LUNGS: The lungs are well inflated and clear. PLEURA: No significant pleural effusion identified, no pneumothorax apparent. CARDIOVASCULAR: Normal. OSSEOUS STRUCTURES: No significant abnormalities. VISUALIZED UPPER ABDOMEN: Normal. OTHER FINDINGS: None. IMPRESSION: No active pulmonary disease.
[2017-10-23 10:49] LABS: FOLATE 8.2 ng/mL
[2017-10-23] MEDS ORDERED: Midazolam 50 mg/10 ml 100 MG in Sodium Chloride 0.9% 80 ML IV SCH (12:00)
[2017-10-23] MEDS ORDERED: Phenylephrine 30 MG in Sodium Chloride 0.9% 247 ML IV PRN (12:44)
--- NOTE | 2017-10-23 12:48 | CP.PCM.HP ---
<Fadi Mosley - Last Filed: 10/23/17 17:16> History of Present Illness - History of Present Illness History of Present Illness: CC: Chest pain 32 year old male with a past medical history of mi cad (s/p stents), sickle cell disease, protein c deficiency, asthma, and seizure disorder who comes in to the emergency department complaining of chest pain. At the time of obtaining the history the patient was already sedated. Patient came ambulatory , was alert oriented x3 and came for chest pain. Had right groin femoral cath placed in ER due to poor iv access. Patient had normal inr on coumedin, hence PE study done, when patient came back form CT mentioned to the staff that he has having aura and soon he started to seize, patient was unresponsive during episode, rhythmic movement of the upper body, right arm more then left, foaming of the mouth. Patient received ativan 2mg x3, then iv cerebex 1000mg. Patient continued unresponsive and hence decision was made to give propofol and intubate. Intubated in ER etomidate 20mg, propofol 100mg iv bolus for intubation, when patient stopped jerking movement ICU was consulted for further close monitoring of seizure activity. Past medical history: mi, cad (s/p stents), sickle cell disease, protein c deficiency, asthma, seizure disorder Allergies: ketorolac, shellfish derived Past surgical history: s/p cardiac stents Social history history: sedated and intubated. Unable to obtain Family history: sedated and intubated. Unable to obtain at this time. Present on Admission - Present on Admission Any Indicators Present on Admission: Yes History of DVT/PE: Yes Review of Systems - Review of Systems Systems not reviewed;Unavailable: Acuity of Condition Past Patient History - Past Medical History & Family History Past Medical History?: Yes - Past Social History Smoking Status: Unknown If Ever Smoked - CARDIAC Hx Heart Attack: Yes - PULMONARY Hx Asthma: Yes Hx Pulmonary Embolism: Yes - NEUROLOGICAL Hx Seizures: Yes - HEMATOLOGICAL/ONCOLOGICAL Hx Sickle Cell Disease: Yes - MUSCULOSKELETAL/RHEUMATOLOGICAL Hx Falls: No - PSYCHIATRIC Hx Substance Use: No - SURGICAL HISTORY Hx Coronary Stent: Yes - ANESTHESIA Hx Anesthesia: Yes Hx Anesthesia Reactions: No Hx Malignant Hyperthermia: No Meds Allergies/Adverse Reactions: Allergies Allergy/AdvReac Type Severity Reaction Status Date / Time ketorolac [From Toradol] Allergy Verified 10/22/17 20:39 shellfish derived Allergy Verified 10/22/17 20:39 Physical Exam - Head Exam Head Exam: ATRAUMATIC, NORMAL INSPECTION, NORMOCEPHALIC - Eye Exam Eye Exam: EOMI, Normal appearance, PERRL. absent: Periorbital tenderness Pupil Exam: Miosis. absent: Irregular, Unequal Additional comments: pupils non-reactive, no accomodation - ENT Exam ENT Exam: Mucous Membranes Moist, Normal Oropharynx. absent: TM's Normal Bilaterally - Neck Exam Neck exam: Negative for: Lymphadenopathy, Thyromegaly - Respiratory Exam Respiratory Exam: Clear to Auscultation Bilateral, NORMAL BREATHING PATTERN. absent: Chest Wall Tenderness, Prolonged Expiratory Phase, Respiratory Distress - Cardiovascular Exam Cardiovascular Exam: Diastolic murmur, REGULAR RHYTHM, +S1, +S2. absent: Systolic Murmur - GI/Abdominal Exam GI & Abdominal Exam: Normal Bowel Sounds, Soft. absent: Organomegaly, Tenderness - Extremities Exam Extremities exam: Positive for: normal inspection. Negative for: full ROM, pedal edema - Back Exam Back exam: NORMAL INSPECTION. absent: CVA tenderness (R), paraspinal tenderness - Neurological Exam Neurological exam: Altered - Skin Skin Exam: Dry, Intact, Normal Color Results - Vital Signs Recent Vital Signs: Last Vital Signs Temp 98.7 F 10/23/17 02:30 Pulse 79 10/23/17 12:28 Resp 16 10/23/17 12:28 BP 91/48 L 10/23/17 12:28 Pulse Ox 100 10/23/17 12:28 - Labs Result Diagrams: 10/23/17 06:12 10/23/17 06:12 Labs: Laboratory Results - last 24 hr 10/22/17 10/22/17 10/22/17 22:19 22:19 22:19 WBC 9.0 RBC 5.23 Hgb 14.3 Hct 42.7 MCV 81.7 MCH 27.4 MCHC 33.5 RDW 20.6 H Plt Count 492 H MPV 7.8 Neut % (Auto) 72.9 Lymph % (Auto) 14.8 L Lucas % (Auto) 8.7 Eos % (Auto) 2.9 Baso % (Auto) 0.7 Neut # (Auto) 6.6 Lymph # (Auto) 1.3 Lucas # (Auto) 0.8 Eos # (Auto) 0.3 Baso # (Auto) 0.1 Differential Comment Retic Count PT INR APTT 19 L Fibrinogen Puncture Site pCO2 pO2 HCO3 ABG pH ABG Total CO2 ABG O2 Saturation ABG Base Excess Errol Test ABG Potassium VBG pH VBG pCO2 VBG HCO3 VBG Total CO2 VBG O2 Sat (Calc) VBG Base Excess VBG Potassium A-a O2 Difference Respiratory Index Glucose Lactate Vent Mode Mechanical Rate FiO2 Tidal Volume PEEP Sodium 143 Potassium 4.7 Chloride 100 Carbon Dioxide 28 Anion Gap 19 BUN 4 L Creatinine 0.7 L Est GFR ( Amer) > 60 Est GFR (Non-Af Amer) > 60 POC Glucose (mg/dL) Random Glucose 95 Hemoglobin A1c Calcium 9.7 Phosphorus Magnesium Iron TIBC % Saturation Total Bilirubin 0.7 AST 56 ALT 32 Alkaline Phosphatase 98 Total Creatine Kinase Troponin I Total Protein 9.1 H Albumin 4.5 Globulin 4.5 H Albumin/Globulin Ratio 1.0 Triglycerides Cholesterol LDL Cholesterol Direct HDL Cholesterol Vitamin B12 Folate Arterial Blood Potassium Venous Blood Potassium Urine Color Urine Clarity Urine pH Ur Specific [place] Urine Protein Urine Glucose (UA) Urine Ketones Urine Blood Urine Nitrate Urine Bilirubin Urine Urobilinogen Ur Leukocyte Esterase Urine WBC (Auto) Urine RBC (Auto) Ur Squamous Epith Cells Hyaline Casts Urine Opiates Screen Urine Methadone Screen Ur Barbiturates Screen Phenytoin Ur Phencyclidine Scrn Ur Amphetamines Screen U Benzodiazepines Scrn U Oth Cocaine Metabols U Cannabinoids Screen Alcohol, Quantitative 10/23/17 10/23/17 10/23/17 03:00 04:48 04:54 WBC RBC Hgb Hct MCV MCH MCHC RDW Plt Count MPV Neut % (Auto) Lymph % (Auto) Lucas % (Auto) Eos % (Auto) Baso % (Auto) Neut # (Auto) Lymph # (Auto) Lucas # (Auto) Eos # (Auto) Baso # (Auto) Differential Comment Retic Count PT 11.9 INR 1.1 APTT Fibrinogen Puncture Site pCO2 pO2 HCO3 ABG pH ABG Total CO2 ABG O2 Saturation ABG Base Excess Errol Test ABG Potassium VBG pH VBG pCO2 VBG HCO3 VBG Total CO2 VBG O2 Sat (Calc) VBG Base Excess VBG Potassium A-a O2 Difference Respiratory Index Glucose Lactate Vent Mode Mechanical Rate FiO2 Tidal Volume PEEP Sodium Potassium Chloride Carbon Dioxide Anion Gap BUN Creatinine Est GFR ( Amer) Est GFR (Non-Af Amer) POC Glucose (mg/dL) 90 Random Glucose Hemoglobin A1c Calcium Phosphorus Magnesium Iron TIBC % Saturation Total Bilirubin AST ALT Alkaline Phosphatase Total Creatine Kinase Troponin I Total Protein Albumin Globulin Albumin/Globulin Ratio Triglycerides Cholesterol LDL Cholesterol Direct HDL Cholesterol Vitamin B12 Folate Arterial Blood Potassium Venous Blood Potassium Urine Color Urine Clarity Urine pH Ur Specific [place] Urine Protein Urine Glucose (UA) Urine Ketones Urine Blood Urine Nitrate Urine Bilirubin Urine Urobilinogen Ur Leukocyte Esterase Urine WBC (Auto) Urine RBC (Auto) Ur Squamous Epith Cells Hyaline Casts Urine Opiates Screen Urine Methadone Screen Ur Barbiturates Screen Phenytoin 22.3 H Ur Phencyclidine Scrn Ur Amphetamines Screen U Benzodiazepines Scrn U Oth Cocaine Metabols U Cannabinoids Screen Alcohol, Quantitative 10/23/17 10/23/17 10/23/17 05:36 05:36 06:12 WBC 5.7 RBC 3.78 L Hgb 10.4 L D Hct 30.6 L MCV 81.1 MCH 27.5 MCHC 33.9 RDW 20.3 H Plt Count 435 H MPV 7.3 Neut % (Auto) 82.7 H Lymph % (Auto) 12.3 L Lucas % (Auto) 3.3 Eos % (Auto) 1.4 Baso % (Auto) 0.3 Neut # (Auto) 4.7 Lymph # (Auto) 0.7 L Lucas # (Auto) 0.2 Eos # (Auto) 0.1 Baso # (Auto) 0.0 Differential Comment Retic Count PT INR APTT Fibrinogen Puncture Site pCO2 pO2 HCO3 ABG pH ABG Total CO2 ABG O2 Saturation ABG Base Excess Errol Test ABG Potassium VBG pH VBG pCO2 VBG HCO3 VBG Total CO2 VBG O2 Sat (Calc) VBG Base Excess VBG Potassium A-a O2 Difference Respiratory Index Glucose Lactate Vent Mode Mechanical Rate FiO2 Tidal Volume PEEP Sodium Potassium Chloride Carbon Dioxide Anion Gap BUN Creatinine Est GFR ( Amer) Est GFR (Non-Af Amer) POC Glucose (mg/dL) Random Glucose Hemoglobin A1c Calcium Phosphorus Magnesium Iron TIBC % Saturation Total Bilirubin AST ALT Alkaline Phosphatase Total Creatine Kinase Troponin I Total Protein Albumin Globulin Albumin/Globulin Ratio Triglycerides Cholesterol LDL Cholesterol Direct HDL Cholesterol Vitamin B12 Folate Arterial Blood Potassium Venous Blood Potassium Urine Color Yellow Urine Clarity Clear Urine pH 6.0 Ur Specific [place] 1.020 Urine Protein Negative Urine Glucose (UA) Normal Urine Ketones Negative Urine Blood Negative Urine Nitrate Negative Urine Bilirubin Negative Urine Urobilinogen Normal Ur Leukocyte Esterase Neg Urine WBC (Auto) 2 Urine RBC (Auto) < 1 Ur Squamous Epith Cells < 1 Hyaline Casts 11-20 H Urine Opiates Screen Positive H Urine Methadone Screen Negative Ur Barbiturates Screen Positive H Phenytoin Ur Phencyclidine Scrn Negative Ur Amphetamines Screen Negative U Benzodiazepines Scrn Positive U Oth Cocaine Metabols Negative U Cannabinoids Screen Negative Alcohol, Quantitative 10/23/17 10/23/17 10/23/17 06:12 06:12 06:20 WBC RBC Hgb Hct MCV MCH MCHC RDW Plt Count MPV Neut % (Auto) Lymph % (Auto) Lucas % (Auto) Eos % (Auto) Baso % (Auto) Neut # (Auto) Lymph # (Auto) Lucas # (Auto) Eos # (Auto) Baso # (Auto) Differential Comment Retic Count PT 12.2 INR 1.1 APTT 31 D Fibrinogen Puncture Site pCO2 pO2 HCO3 ABG pH ABG Total CO2 ABG O2 Saturation ABG Base Excess Errol Test ABG Potassium VBG pH VBG pCO2 VBG HCO3 VBG Total CO2 VBG O2 Sat (Calc) VBG Base Excess VBG Potassium A-a O2 Difference Respiratory Index Glucose Lactate Vent Mode Mechanical Rate FiO2 Tidal Volume PEEP Sodium 141 Potassium 4.1 Chloride 105 Carbon Dioxide 24 Anion Gap 16 BUN 5 L Creatinine 0.6 L Est GFR ( Amer) > 60 Est GFR (Non-Af Amer) > 60 POC Glucose (mg/dL) Random Glucose 145 H Hemoglobin A1c Calcium 7.9 L Phosphorus 2.6 Magnesium 2.6 H Iron TIBC % Saturation Total Bilirubin 0.2 AST 25 ALT 27 Alkaline Phosphatase 66 Total Creatine Kinase 79 Troponin I < 0.0120 Total Protein 6.0 L Albumin 3.1 L D Globulin 2.9 Albumin/Globulin Ratio 1.1 Triglycerides Cholesterol LDL Cholesterol Direct HDL Cholesterol Vitamin B12 Folate Arterial Blood Potassium Venous Blood Potassium Urine Color Urine Clarity Urine pH Ur Specific [place] Urine Protein Urine Glucose (UA) Urine Ketones Urine Blood Urine Nitrate Urine Bilirubin Urine Urobilinogen Ur Leukocyte Esterase Urine WBC (Auto) Urine RBC (Auto) Ur Squamous Epith Cells Hyaline Casts Urine Opiates Screen Urine Methadone Screen Ur Barbiturates Screen Phenytoin 19.6 Ur Phencyclidine Scrn Ur Amphetamines Screen U Benzodiazepines Scrn U Oth Cocaine Metabols U Cannabinoids Screen Alcohol, Quantitative 10/23/17 10/23/17 10/23/17 06:27 08:30 08:37 WBC RBC Hgb Hct MCV MCH MCHC RDW Plt Count MPV Neut % (Auto) Lymph % (Auto) Lucas % (Auto) Eos % (Auto) Baso % (Auto) Neut # (Auto) Lymph # (Auto) Lucas # (Auto) Eos # (Auto) Baso # (Auto) Differential Comment Retic Count 3.7 H PT INR APTT Fibrinogen Puncture Site Rba pCO2 44 pO2 62 H 208 H HCO3 24.4 ABG pH 7.36 ABG Total CO2 26.3 ABG O2 Saturation 99.5 H ABG Base Excess -0.8 Errol Test Na ABG Potassium 4.9 VBG pH 7.33 VBG pCO2 31 L VBG HCO3 18.2 VBG Total CO2 17.3 L VBG O2 Sat (Calc) 95.6 H VBG Base Excess -8.4 L VBG Potassium 2.6 L A-a O2 Difference 612.0 379.0 Respiratory Index 1.8 Glucose 104 136 H Lactate 1.4 2.2 H Vent Mode Prvc Mechanical Rate 16 FiO2 100.0 90.0 Tidal Volume 470 PEEP 5 5 Sodium 143.0 138.0 Potassium Chloride 117.0 H 109.0 H Carbon Dioxide Anion Gap BUN Creatinine Est GFR ( Amer) Est GFR (Non-Af Amer) POC Glucose (mg/dL) Random Glucose Hemoglobin A1c Calcium Phosphorus Magnesium Iron TIBC % Saturation Total Bilirubin AST ALT Alkaline Phosphatase Total Creatine Kinase Troponin I Total Protein Albumin Globulin Albumin/Globulin Ratio Triglycerides Cholesterol LDL Cholesterol Direct HDL Cholesterol Vitamin B12 Folate Arterial Blood Potassium 4.9 Venous Blood Potassium 2.6 L Urine Color Urine Clarity Urine pH Ur Specific [place] Urine Protein Urine Glucose (UA) Urine Ketones Urine Blood Urine Nitrate Urine Bilirubin Urine Urobilinogen Ur Leukocyte Esterase Urine WBC (Auto) Urine RBC (Auto) Ur Squamous Epith Cells Hyaline Casts Urine Opiates Screen Urine Methadone Screen Ur Barbiturates Screen Phenytoin Ur Phencyclidine Scrn Ur Amphetamines Screen U Benzodiazepines Scrn U Oth Cocaine Metabols U Cannabinoids Screen Alcohol, Quantitative 10/23/17 10/23/17 10/23/17 08:37 08:37 08:47 WBC RBC Hgb Hct MCV MCH MCHC RDW Plt Count MPV Neut % (Auto) Lymph % (Auto) Lucas % (Auto) Eos % (Auto) Baso % (Auto) Neut # (Auto) Lymph # (Auto) Lucas # (Auto) Eos # (Auto) Baso # (Auto) Differential Comment Retic Count PT INR APTT Fibrinogen Puncture Site pCO2 pO2 HCO3 ABG pH ABG Total CO2 ABG O2 Saturation ABG Base Excess Errol Test ABG Potassium VBG pH VBG pCO2 VBG HCO3 VBG Total CO2 VBG O2 Sat (Calc) VBG Base Excess VBG Potassium A-a O2 Difference Respiratory Index Glucose Lactate Vent Mode Mechanical Rate FiO2 Tidal Volume PEEP Sodium Potassium Chloride Carbon Dioxide Anion Gap BUN Creatinine Est GFR ( Amer) Est GFR (Non-Af Amer) POC Glucose (mg/dL) Random Glucose Hemoglobin A1c 4.8 Calcium Phosphorus Magnesium Iron 21 L TIBC 249 L % Saturation 8 L Total Bilirubin AST ALT Alkaline Phosphatase Total Creatine Kinase Troponin I Total Protein Albumin Globulin Albumin/Globulin Ratio Triglycerides 115 Cholesterol 199 LDL Cholesterol Direct 111 HDL Cholesterol 43 Vitamin B12 735 Folate 8.2 Arterial Blood Potassium Venous Blood Potassium Urine Color Urine Clarity Urine pH Ur Specific [place] Urine Protein Urine Glucose (UA) Urine Ketones Urine Blood Urine Nitrate Urine Bilirubin Urine Urobilinogen Ur Leukocyte Esterase Urine WBC (Auto) Urine RBC (Auto) Ur Squamous Epith Cells Hyaline Casts Urine Opiates Screen Urine Methadone Screen Ur Barbiturates Screen Phenytoin Ur Phencyclidine Scrn Ur Amphetamines Screen U Benzodiazepines Scrn U Oth Cocaine Metabols U Cannabinoids Screen Alcohol, Quantitative < 10 10/23/17 10/23/17 08:47 11:52 WBC RBC Hgb Hct MCV MCH MCHC RDW Plt Count MPV Neut % (Auto) Lymph % (Auto) Lucas % (Auto) Eos % (Auto) Baso % (Auto) Neut # (Auto) Lymph # (Auto) Lucas # (Auto) Eos # (Auto) Baso # (Auto) Differential Comment Retic Count PT INR APTT Fibrinogen 325 Puncture Site pCO2 pO2 HCO3 ABG pH ABG Total CO2 ABG O2 Saturation ABG Base Excess Errol Test ABG Potassium VBG pH VBG pCO2 VBG HCO3 VBG Total CO2 VBG O2 Sat (Calc) VBG Base Excess VBG Potassium A-a O2 Difference Respiratory Index Glucose Lactate Vent Mode Mechanical Rate FiO2 Tidal Volume PEEP Sodium Potassium Chloride Carbon Dioxide Anion Gap BUN Creatinine Est GFR ( Amer) Est GFR (Non-Af Amer) POC Glucose (mg/dL) 132 H Random Glucose Hemoglobin A1c Calcium Phosphorus Magnesium Iron TIBC % Saturation Total Bilirubin AST ALT Alkaline Phosphatase Total Creatine Kinase Troponin I Total Protein Albumin Globulin Albumin/Globulin Ratio Triglycerides Cholesterol LDL Cholesterol Direct HDL Cholesterol Vitamin B12 Folate Arterial Blood Potassium Venous Blood Potassium Urine Color Urine Clarity Urine pH Ur Specific [place] Urine Protein Urine Glucose (UA) Urine Ketones Urine Blood Urine Nitrate Urine Bilirubin Urine Urobilinogen Ur Leukocyte Esterase Urine WBC (Auto) Urine RBC (Auto) Ur Squamous Epith Cells Hyaline Casts Urine Opiates Screen Urine Methadone Screen Ur Barbiturates Screen Phenytoin Ur Phencyclidine Scrn Ur Amphetamines Screen U Benzodiazepines Scrn U Oth Cocaine Metabols U Cannabinoids Screen Alcohol, Quantitative Assessment & Plan - Assessment and Plan (Free Text) Assessment: 32 year old male with a past medical history of cad(s/p cardiac stents), mi, pe , asthma, protein c deficiency, sickle cell disease who was admitted for status epilepticus. Plan: Neurology: Status epilepticus ED Course: 1 seizure @4:50a.m. (Alfa clonic): last 10 minutes: given 4 mg Ativan and 1000mg Fosphenytoin: seizure stopped @ 5:11a.m. 2 seizure last 5-7 minutes After 3 rd seizure patient was placed on propofol drip Head ct: shows no acute intracranial abnormality Dilantin 200mg PO BID Keppra 1000mg q12h IV Neurology consulted. Help appreciated Cardiology: CAD (s/p stents), [facility] Echo ordered. Will follow up with results Aspirin 81mg PO Daily Plavix 75mg PO Daily Hematology: Protein C deficiency, Sickle cell anemia Hydroxyurea 500mg PO BID Anemia profile ordered. Will f/u with results. PPX -Propofol drip @20mcg/hr -Phenylephrine @20mcg/hr -Heparin @18units/kg/hr -LR @ 200mls/hr <Denise Lee V - Last Filed: 10/23/17 22:52> Physical Exam - Head Exam Additional comments: no apparent head trauma no ecchyoses patient has swollen lips on exam intubated sedated - GI/Abdominal Exam Additional comments: markings of prior surgeries noted hard nodules palpated over left and right lower quadrants which appeared fixed - Extremities Exam Extremities exam: Positive for: pedal pulses present. Negative for: joint swelling - Skin Additional comments: has tatoos Results - Vital Signs Recent Vital Signs: Last Vital Signs Temp 98.7 F 10/23/17 02:30 Pulse 69 10/23/17 13:30 Resp 16 10/23/17 13:30 BP 122/65 10/23/17 13:19 Pulse Ox 100 10/23/17 13:30 - Labs Result Diagrams: 10/23/17 06:12 10/23/17 06:12 Labs: Laboratory Results - last 24 hr 10/22/17 10/22/17 10/22/17 22:19 22:19 22:19 WBC 9.0 RBC 5.23 Hgb 14.3 Hct 42.7 MCV 81.7 MCH 27.4 MCHC 33.5 RDW 20.6 H Plt Count 492 H MPV 7.8 Neut % (Auto) 72.9 Lymph % (Auto) 14.8 L Lucas % (Auto) 8.7 Eos % (Auto) 2.9 Baso % (Auto) 0.7 Neut # (Auto) 6.6 Lymph # (Auto) 1.3 Lucas # (Auto) 0.8 Eos # (Auto) 0.3 Baso # (Auto) 0.1 Differential Comment Retic Count PT INR APTT 19 L Fibrinogen Puncture Site pCO2 pO2 HCO3 ABG pH ABG Total CO2 ABG O2 Saturation ABG Base Excess Errol Test ABG Potassium VBG pH VBG pCO2 VBG HCO3 VBG Total CO2 VBG O2 Sat (Calc) VBG Base Excess VBG Potassium A-a O2 Difference Respiratory Index Glucose Lactate Vent Mode Mechanical Rate FiO2 Tidal Volume PEEP Sodium 143 Potassium 4.7 Chloride 100 Carbon Dioxide 28 Anion Gap 19 BUN 4 L Creatinine 0.7 L Est GFR ( Amer) > 60 Est GFR (Non-Af Amer) > 60 POC Glucose (mg/dL) Random Glucose 95 Hemoglobin A1c Calcium 9.7 Phosphorus Magnesium Iron TIBC % Saturation Total Bilirubin 0.7 AST 56 ALT 32 Alkaline Phosphatase 98 Total Creatine Kinase Troponin I Total Protein 9.1 H Albumin 4.5 Globulin 4.5 H Albumin/Globulin Ratio 1.0 Triglycerides Cholesterol LDL Cholesterol Direct HDL Cholesterol Vitamin B12 Folate Arterial Blood Potassium Venous Blood Potassium Urine Color Urine Clarity Urine pH Ur Specific [place] Urine Protein Urine Glucose (UA) Urine Ketones Urine Blood Urine Nitrate Urine Bilirubin Urine Urobilinogen Ur Leukocyte Esterase Urine WBC (Auto) Urine RBC (Auto) Ur Squamous Epith Cells Hyaline Casts Urine Opiates Screen Urine Methadone Screen Ur Barbiturates Screen Phenytoin Ur Phencyclidine Scrn Ur Amphetamines Screen U Benzodiazepines Scrn U Oth Cocaine Metabols U Cannabinoids Screen Alcohol, Quantitative 10/23/17 10/23/17 10/23/17 03:00 04:48 04:54 WBC RBC Hgb Hct MCV MCH MCHC RDW Plt Count MPV Neut % (Auto) Lymph % (Auto) Lucas % (Auto) Eos % (Auto) Baso % (Auto) Neut # (Auto) Lymph # (Auto) Lucas # (Auto) Eos # (Auto) Baso # (Auto) Differential Comment Retic Count PT 11.9 INR 1.1 APTT Fibrinogen Puncture Site pCO2 pO2 HCO3 ABG pH ABG Total CO2 ABG O2 Saturation ABG Base Excess Errol Test ABG Potassium VBG pH VBG pCO2 VBG HCO3 VBG Total CO2 VBG O2 Sat (Calc) VBG Base Excess VBG Potassium A-a O2 Difference Respiratory Index Glucose Lactate Vent Mode Mechanical Rate FiO2 Tidal Volume PEEP Sodium Potassium Chloride Carbon Dioxide Anion Gap BUN Creatinine Est GFR ( Amer) Est GFR (Non-Af Amer) POC Glucose (mg/dL) 90 Random Glucose Hemoglobin A1c Calcium Phosphorus Magnesium Iron TIBC % Saturation Total Bilirubin AST ALT Alkaline Phosphatase Total Creatine Kinase Troponin I Total Protein Albumin Globulin Albumin/Globulin Ratio Triglycerides Cholesterol LDL Cholesterol Direct HDL Cholesterol Vitamin B12 Folate Arterial Blood Potassium Venous Blood Potassium Urine Color Urine Clarity Urine pH Ur Specific [place] Urine Protein Urine Glucose (UA) Urine Ketones Urine Blood Urine Nitrate Urine Bilirubin Urine Urobilinogen Ur Leukocyte Esterase Urine WBC (Auto) Urine RBC (Auto) Ur Squamous Epith Cells Hyaline Casts Urine Opiates Screen Urine Methadone Screen Ur Barbiturates Screen Phenytoin 22.3 H Ur Phencyclidine Scrn Ur Amphetamines Screen U Benzodiazepines Scrn U Oth Cocaine Metabols U Cannabinoids Screen Alcohol, Quantitative 10/23/17 10/23/17 10/23/17 05:36 05:36 06:12 WBC 5.7 RBC 3.78 L Hgb 10.4 L D Hct 30.6 L MCV 81.1 MCH 27.5 MCHC 33.9 RDW 20.3 H Plt Count 435 H MPV 7.3 Neut % (Auto) 82.7 H Lymph % (Auto) 12.3 L Lucas % (Auto) 3.3 Eos % (Auto) 1.4 Baso % (Auto) 0.3 Neut # (Auto) 4.7 Lymph # (Auto) 0.7 L Lucas # (Auto) 0.2 Eos # (Auto) 0.1 Baso # (Auto) 0.0 Differential Comment Retic Count PT INR APTT Fibrinogen Puncture Site pCO2 pO2 HCO3 ABG pH ABG Total CO2 ABG O2 Saturation ABG Base Excess Errol Test ABG Potassium VBG pH VBG pCO2 VBG HCO3 VBG Total CO2 VBG O2 Sat (Calc) VBG Base Excess VBG Potassium A-a O2 Difference Respiratory Index Glucose Lactate Vent Mode Mechanical Rate FiO2 Tidal Volume PEEP Sodium Potassium Chloride Carbon Dioxide Anion Gap BUN Creatinine Est GFR ( Amer) Est GFR (Non-Af Amer) POC Glucose (mg/dL) Random Glucose Hemoglobin A1c Calcium Phosphorus Magnesium Iron TIBC % Saturation Total Bilirubin AST ALT Alkaline Phosphatase Total Creatine Kinase Troponin I Total Protein Albumin Globulin Albumin/Globulin Ratio Triglycerides Cholesterol LDL Cholesterol Direct HDL Cholesterol Vitamin B12 Folate Arterial Blood Potassium Venous Blood Potassium Urine Color Yellow Urine Clarity Clear Urine pH 6.0 Ur Specific [place] 1.020 Urine Protein Negative Urine Glucose (UA) Normal Urine Ketones Negative Urine Blood Negative Urine Nitrate Negative Urine Bilirubin Negative Urine Urobilinogen Normal Ur Leukocyte Esterase Neg Urine WBC (Auto) 2 Urine RBC (Auto) < 1 Ur Squamous Epith Cells < 1 Hyaline Casts 11-20 H Urine Opiates Screen Positive H Urine Methadone Screen Negative Ur Barbiturates Screen Positive H Phenytoin Ur Phencyclidine Scrn Negative Ur Amphetamines Screen Negative U Benzodiazepines Scrn Positive U Oth Cocaine Metabols Negative U Cannabinoids Screen Negative Alcohol, Quantitative 10/23/17 10/23/17 10/23/17 06:12 06:12 06:20 WBC RBC Hgb Hct MCV MCH MCHC RDW Plt Count MPV Neut % (Auto) Lymph % (Auto) Lucas % (Auto) Eos % (Auto) Baso % (Auto) Neut # (Auto) Lymph # (Auto) Lucas # (Auto) Eos # (Auto) Baso # (Auto) Differential Comment Retic Count PT 12.2 INR 1.1 APTT 31 D Fibrinogen Puncture Site pCO2 pO2 HCO3 ABG pH ABG Total CO2 ABG O2 Saturation ABG Base Excess Errol Test ABG Potassium VBG pH VBG pCO2 VBG HCO3 VBG Total CO2 VBG O2 Sat (Calc) VBG Base Excess VBG Potassium A-a O2 Difference Respiratory Index Glucose Lactate Vent Mode Mechanical Rate FiO2 Tidal Volume PEEP Sodium 141 Potassium 4.1 Chloride 105 Carbon Dioxide 24 Anion Gap 16 BUN 5 L Creatinine 0.6 L Est GFR ( Amer) > 60 Est GFR (Non-Af Amer) > 60 POC Glucose (mg/dL) Random Glucose 145 H Hemoglobin A1c Calcium 7.9 L Phosphorus 2.6 Magnesium 2.6 H Iron TIBC % Saturation Total Bilirubin 0.2 AST 25 ALT 27 Alkaline Phosphatase 66 Total Creatine Kinase 79 Troponin I < 0.0120 Total Protein 6.0 L Albumin 3.1 L D Globulin 2.9 Albumin/Globulin Ratio 1.1 Triglycerides Cholesterol LDL Cholesterol Direct HDL Cholesterol Vitamin B12 Folate Arterial Blood Potassium Venous Blood Potassium Urine Color Urine Clarity Urine pH Ur Specific [place] Urine Protein Urine Glucose (UA) Urine Ketones Urine Blood Urine Nitrate Urine Bilirubin Urine Urobilinogen Ur Leukocyte Esterase Urine WBC (Auto) Urine RBC (Auto) Ur Squamous Epith Cells Hyaline Casts Urine Opiates Screen Urine Methadone Screen Ur Barbiturates Screen Phenytoin 19.6 Ur Phencyclidine Scrn Ur Amphetamines Screen U Benzodiazepines Scrn U Oth Cocaine Metabols U Cannabinoids Screen Alcohol, Quantitative 10/23/17 10/23/17 10/23/17 06:27 08:30 08:37 WBC RBC Hgb Hct MCV MCH MCHC RDW Plt Count MPV Neut % (Auto) Lymph % (Auto) Lucas % (Auto) Eos % (Auto) Baso % (Auto) Neut # (Auto) Lymph # (Auto) Lucas # (Auto) Eos # (Auto) Baso # (Auto) Differential Comment Retic Count 3.7 H PT INR APTT Fibrinogen Puncture Site Rba pCO2 44 pO2 62 H 208 H HCO3 24.4 ABG pH 7.36 ABG Total CO2 26.3 ABG O2 Saturation 99.5 H ABG Base Excess -0.8 Errol Test Na ABG Potassium 4.9 VBG pH 7.33 VBG pCO2 31 L VBG HCO3 18.2 VBG Total CO2 17.3 L VBG O2 Sat (Calc) 95.6 H VBG Base Excess -8.4 L VBG Potassium 2.6 L A-a O2 Difference 612.0 379.0 Respiratory Index 1.8 Glucose 104 136 H Lactate 1.4 2.2 H Vent Mode Prvc Mechanical Rate 16 FiO2 100.0 90.0 Tidal Volume 470 PEEP 5 5 Sodium 143.0 138.0 Potassium Chloride 117.0 H 109.0 H Carbon Dioxide Anion Gap BUN Creatinine Est GFR ( Amer) Est GFR (Non-Af Amer) POC Glucose (mg/dL) Random Glucose Hemoglobin A1c Calcium Phosphorus Magnesium Iron TIBC % Saturation Total Bilirubin AST ALT Alkaline Phosphatase Total Creatine Kinase Troponin I Total Protein Albumin Globulin Albumin/Globulin Ratio Triglycerides Cholesterol LDL Cholesterol Direct HDL Cholesterol Vitamin B12 Folate Arterial Blood Potassium 4.9 Venous Blood Potassium 2.6 L Urine Color Urine Clarity Urine pH Ur Specific [place] Urine Protein Urine Glucose (UA) Urine Ketones Urine Blood Urine Nitrate Urine Bilirubin Urine Urobilinogen Ur Leukocyte Esterase Urine WBC (Auto) Urine RBC (Auto) Ur Squamous Epith Cells Hyaline Casts Urine Opiates Screen Urine Methadone Screen Ur Barbiturates Screen Phenytoin Ur Phencyclidine Scrn Ur Amphetamines Screen U Benzodiazepines Scrn U Oth Cocaine Metabols U Cannabinoids Screen Alcohol, Quantitative 10/23/17 10/23/17 10/23/17 08:37 08:37 08:47 WBC RBC Hgb Hct MCV MCH MCHC RDW Plt Count MPV Neut % (Auto) Lymph % (Auto) Lucas % (Auto) Eos % (Auto) Baso % (Auto) Neut # (Auto) Lymph # (Auto) Lucas # (Auto) Eos # (Auto) Baso # (Auto) Differential Comment Retic Count PT INR APTT Fibrinogen Puncture Site pCO2 pO2 HCO3 ABG pH ABG Total CO2 ABG O2 Saturation ABG Base Excess Errol Test ABG Potassium VBG pH VBG pCO2 VBG HCO3 VBG Total CO2 VBG O2 Sat (Calc) VBG Base Excess VBG Potassium A-a O2 Difference Respiratory Index Glucose Lactate Vent Mode Mechanical Rate FiO2 Tidal Volume PEEP Sodium Potassium Chloride Carbon Dioxide Anion Gap BUN Creatinine Est GFR ( Amer) Est GFR (Non-Af Amer) POC Glucose (mg/dL) Random Glucose Hemoglobin A1c 4.8 Calcium Phosphorus Magnesium Iron 21 L TIBC 249 L % Saturation 8 L Total Bilirubin AST ALT Alkaline Phosphatase Total Creatine Kinase Troponin I Total Protein Albumin Globulin Albumin/Globulin Ratio Triglycerides 115 Cholesterol 199 LDL Cholesterol Direct 111 HDL Cholesterol 43 Vitamin B12 735 Folate 8.2 Arterial Blood Potassium Venous Blood Potassium Urine Color Urine Clarity Urine pH Ur Specific [place] Urine Protein Urine Glucose (UA) Urine Ketones Urine Blood Urine Nitrate Urine Bilirubin Urine Urobilinogen Ur Leukocyte Esterase Urine WBC (Auto) Urine RBC (Auto) Ur Squamous Epith Cells Hyaline Casts Urine Opiates Screen Urine Methadone Screen Ur Barbiturates Screen Phenytoin Ur Phencyclidine Scrn Ur Amphetamines Screen U Benzodiazepines Scrn U Oth Cocaine Metabols U Cannabinoids Screen Alcohol, Quantitative < 10 10/23/17 10/23/17 10/23/17 08:47 11:52 12:30 WBC RBC Hgb Hct MCV MCH MCHC RDW Plt Count MPV Neut % (Auto) Lymph % (Auto) Lucas % (Auto) Eos % (Auto) Baso % (Auto) Neut # (Auto) Lymph # (Auto) Lucas # (Auto) Eos # (Auto) Baso # (Auto) Differential Comment Retic Count PT INR APTT Fibrinogen 325 Puncture Site pCO2 pO2 HCO3 ABG pH ABG Total CO2 ABG O2 Saturation ABG Base Excess Errol Test ABG Potassium VBG pH VBG pCO2 VBG HCO3 VBG Total CO2 VBG O2 Sat (Calc) VBG Base Excess VBG Potassium A-a O2 Difference Respiratory Index Glucose Lactate Vent Mode Mechanical Rate FiO2 Tidal Volume PEEP Sodium Potassium Chloride Carbon Dioxide Anion Gap BUN Creatinine Est GFR ( Amer) Est GFR (Non-Af Amer) POC Glucose (mg/dL) 132 H Random Glucose Hemoglobin A1c Calcium Phosphorus Magnesium Iron TIBC % Saturation Total Bilirubin AST ALT Alkaline Phosphatase Total Creatine Kinase Troponin I < 0.0120 Total Protein Albumin Globulin Albumin/Globulin Ratio Triglycerides Cholesterol LDL Cholesterol Direct HDL Cholesterol Vitamin B12 Folate Arterial Blood Potassium Venous Blood Potassium Urine Color Urine Clarity Urine pH Ur Specific [place] Urine Protein Urine Glucose (UA) Urine Ketones Urine Blood Urine Nitrate Urine Bilirubin Urine Urobilinogen Ur Leukocyte Esterase Urine WBC (Auto) Urine RBC (Auto) Ur Squamous Epith Cells Hyaline Casts Urine Opiates Screen Urine Methadone Screen Ur Barbiturates Screen Phenytoin Ur Phencyclidine Scrn Ur Amphetamines Screen U Benzodiazepines Scrn U Oth Cocaine Metabols U Cannabinoids Screen Alcohol, Quantitative Assessment & Plan (1) Status epilepticus Status: Acute Priority: High (2) Protein C deficiency Status: Acute (3) CAD (coronary artery disease) Status: Acute (4) Stented coronary artery Status: Acute (5) Pulmonary embolism Status: Acute (6) Prophylactic measure Status: Acute Attending/Attestation - Attestation I have personally seen and examined this patient.: Yes I have fully participated in the care of the patient.: Yes I have reviewed all pertinent clinical information: Yes Notes (Text): Patient seen, examined and case discussed with ICU resident. Patient seen at 7:30 AM this morning in the ICU Bed 1. Patient came following 3 witnessed episodes of seizures in the emergency room requiring intubation in the ED to protect the airway. Per ED Physician and ED nursing notes reviewed. * At 0450AM patient with generalized tonic clonic seizure. First seizure lasted 10 minutes despite patient being given 4mg Ativan and 1000mg bolus of Fosphenytoin. Seizure stopped at 05:11, and patient was seizure free for 3 minutes. * Pt began having tonic-clonic seizure again at 05:13 lasting until 05:23. * Patient with another seizure lasting 10 minutes and resolved for total for 5- 7 minutes. Patient with 3rd episode of seizure. * Patient now receiving infusion 3gm of valproic acid and 6mg of Ativan. Patient with a known history of seizure disorder, taking Dilantin and Keppa 500mg PO BID; Dilantin 300mg PO BID as outpatient medications. History obtained per review of EMR. Patient's family not present at bedside. Attempted to call brother's number however was directed to a [employer] on voice recording. Urine drug screen: shows opiates, barbiturates, Dilantin: 22.3 positive for benzos. Per review of record, patient has history of prior pulmonary embolus, DVT, protein C deficiency, and prior hx of CAD w stent. It is unclear if patient is compliant on his medications. Per review of ED triage, patient had came in as chest pain X1 hour radiating left arm. Troponin negative, NSR. CT Angio negative for PE. Patient has IVC filter. Will check for cardiac risk factors and check echocardiogram Will check venous dopplers to verify DVT+ Will check sickle screen/hemoglobinopathy electrophoresis to confirm prior hx Assessment/Plan 1) Status Epilepticus Known Seizure Disorder * Home medications: Keppa 500mg PO BID; Dilantin 300mg PO BID as outpatient medications. * Witnessed seizures in the ED * Intubated in the Ed 10/23/17 to protect airway * CT Head (10/23/17): no acute intracranial abnormality. Endotracheal tube in place. * Urine Drug Screen: +opiates, +barbiturates +Benzos * Blood alcohol <10 * Neurology (Dr. Laws) on consult * Seizure medications: * Keppra 1000mg IVPB Q12H * Dilantin 200mg PO BID * Seizures were refractory to propofol-->ICU needed to start Versed drip during the day 2) Chest Pain Possible History of Coronary Artery Disease Possible Stent/ Prior [facility]? * Aspirin 81mg PO daily * Plavix 75mg PO daily * Lipid panel ordered: T, Cholestrol: 199, LDL:111, HDL: 43 * Troponin X2: negative * EKG on admission: NSR * CT angio: No definite PE; post surgical changes of the stomach * Echocardiogram ordered * A1c: 4.8 3. History of Protein C deficiency History of Pulmonary Embolus History of DVT+ * Anthrombin III * Hemoglobinopathy eval * Sickle cell screen * pending protein C and S * INR: subtherapeutic * CT angio: No definite PE; post surgical changes of the stomach * +IVC filter * Ordered for venous dopplers to check for DVT; SCDS contraindicated * On heparin drip (CT Head negative for bleed) 4. History of Sickle Cell Disease * Hemoglobinopathy eval * Sickle cell screen 5. Anemia * Elevated reticulocyte count * Low iron, low TIBC, low percent iron * B12: 735, Folate: 8.2 * pending Ferritin * Hemoglobinopathy eval * Sickle cell screen 6. Prophylactic measure * Heparin drip * +IVC filter * Protonix 40mg IV daily * SCDS contraindicated given DVT+
[2017-10-23] MEDS ORDERED: Lacosamide 200mg/20ml Inj IVP ONE (15:43)
[2017-10-23] MEDS ORDERED: LACOSAMIDE IV ONE (16:00)
[2017-10-23] MEDS ORDERED: Dextrose 50% SYRINGE Inj (50 ml) IV STA (17:44)
--- NOTE | 2017-10-23 19:13 | CP.PCM.CON ---
History of Present Illness - History of Present Illness History of Present Illness: 32 year old male with a history of ? sickle cell disease, DVT ? protein C deficiency on coumadin, presented with chest pain and subsequently developed seizures and was intubated for airway protection. I was asked to see the patient to evaluate for sickle cell disease and the possibility that this could be contributing to his seizures. Review of his blood work shows the patient was admitted with a normal H/H, normal bilirubin, and low retic index. I have spoken to his brother Art Mcadams ([phone]) and he is not sure if his brother has sickle cell anemia. He does know of family who may have it but his parents and siblings do not have sickle cell anemia. His brother recently moved from [place] but was recently at [facility]. He also notes to his brother having lots of admissions in the past for seizures. Past medical, surgical, family, social history cannot be obtained from the patient. Allergies: Ketorolac, shellfish Review of systems cannot be obtained. Past Patient History - Past Medical History & Family History Past Medical History?: Yes - Past Social History Smoking Status: Unknown If Ever Smoked - CARDIAC Hx Heart Attack: Yes - PULMONARY Hx Asthma: Yes Hx Pulmonary Embolism: Yes - NEUROLOGICAL Hx Seizures: Yes - HEMATOLOGICAL/ONCOLOGICAL Hx Sickle Cell Disease: Yes - MUSCULOSKELETAL/RHEUMATOLOGICAL Hx Falls: No - PSYCHIATRIC Hx Substance Use: No - SURGICAL HISTORY Hx Coronary Stent: Yes - ANESTHESIA Hx Anesthesia: Yes Hx Anesthesia Reactions: No Hx Malignant Hyperthermia: No Meds Allergies/Adverse Reactions: Allergies Allergy/AdvReac Type Severity Reaction Status Date / Time ketorolac [From Toradol] Allergy Verified 10/22/17 20:39 shellfish derived Allergy Verified 10/22/17 20:39 - Medications Medications: Current Medications Aspirin (Aspirin Chewable) 81 mg PO DAILY [facility] Last Admin: 10/23/17 10:13 Dose: 81 mg Clopidogrel Bisulfate (Plavix) 75 mg PO DAILY [facility] Last Admin: 10/23/17 10:13 Dose: 75 mg Folic Acid (Folic Acid) 1 mg PO DAILY [facility] Last Admin: 10/23/17 10:13 Dose: 1 mg Hydroxyurea (Hydrea) 500 mg PO BID [facility] Last Admin: 10/23/17 17:20 Dose: 500 mg Propofol (Diprivan) 1,000 mg in 100 mls @ 11.43 mls/hr IV .[id number] PRN; Protocol ; 20 MCG/KG/MIN PRN Reason: TITRATE PER MD ORDER Last Titration: 10/23/17 18:42 Dose: 50 mcg/kg/min, 28.576 mls/hr Lactated Ringer's (Lactated Ringer's) 1,000 mls @ 200 mls/hr IV .Q5H KEVIN Last Admin: 10/23/17 15:30 Dose: 200 mls/hr Levetiracetam 1,000 mg/ Sodium (Chloride) 110 mls @ 100 mls/hr IVPB Q12H KEVIN Last Admin: 10/23/17 09:08 Dose: 100 mls/hr Heparin Sodium/Sodium Chloride (Heparin 76901 Units/250ml 1/2 Normal Saline) 25 ,000 units in 250 mls @ 17.146 mls/hr IV .[id number] PRN; Protocol; 18 U/KG/HR PRN Reason: PROTOCOL Last Titration: 10/23/17 18:47 Dose: 15 u/kg/hr, 14.288 mls/hr Midazolam HCl 100 mg/ Sodium (Chloride) 100 mls @ 1.95 mls/hr IV .Q24H KEVIN; 0.02 MG/KG/HR PRN Reason: Protocol Last Titration: 10/23/17 18:00 Dose: 0.08 mg/kg/hr, 8 mls/hr Phenylephrine HCl 30 mg/ (Sodium Chloride) 250 mls @ 10 mls/hr IV .Q24H PRN; Protocol; 20 MCG/MIN PRN Reason: TITRATE PER MD ORDER Pantoprazole Sodium (Protonix Inj) 40 mg IVP DAILY [facility] Last Admin: 10/23/17 10:12 Dose: 40 mg Phenytoin Sodium (Dilantin) 200 mg PO BID [facility] Last Admin: 10/23/17 17:20 Dose: 200 mg Physical Exam - Head Exam Head Exam: ATRAUMATIC - ENT Exam ENT Exam: Mucous Membranes Dry - Respiratory Exam Respiratory Exam: NORMAL BREATHING PATTERN - Cardiovascular Exam Cardiovascular Exam: +S1, +S2 - GI/Abdominal Exam GI & Abdominal Exam: Normal Bowel Sounds - Extremities Exam Extremities exam: Positive for: pedal edema - Neurological Exam Neurological exam: Oriented x3 - Psychiatric Exam Psychiatric exam: Normal Affect, Normal Mood - Skin Skin Exam: Warm Results - Vital Signs Recent Vital Signs: Last Vital Signs Temp 97.7 F 10/23/17 16:00 Pulse 82 10/23/17 18:27 Resp 15 10/23/17 18:27 BP 127/46 L 10/23/17 18:27 Pulse Ox 100 10/23/17 18:27 - Labs Result Diagrams: 10/23/17 06:12 10/23/17 06:12 Labs: Laboratory Results - last 24 hr 10/22/17 10/22/17 10/22/17 22:19 22:19 22:19 WBC 9.0 RBC 5.23 Hgb 14.3 Hct 42.7 MCV 81.7 MCH 27.4 MCHC 33.5 RDW 20.6 H Plt Count 492 H MPV 7.8 Neut % (Auto) 72.9 Lymph % (Auto) 14.[address] % (Auto) 8.7 Eos % (Auto) 2.9 Baso % (Auto) 0.7 Neut # (Auto) 6.6 Lymph # (Auto) 1.3 [place] # (Auto) 0.8 Eos # (Auto) 0.3 Baso # (Auto) 0.1 Differential Comment Retic Count PT INR APTT 19 L Fibrinogen Puncture Site pCO2 pO2 HCO3 ABG pH ABG Total CO2 ABG O2 Saturation ABG Base Excess Errol Test ABG Potassium VBG pH VBG pCO2 VBG HCO3 VBG Total CO2 VBG O2 Sat (Calc) VBG Base Excess VBG Potassium A-a O2 Difference Respiratory Index Glucose Lactate Vent Mode Mechanical Rate FiO2 Tidal Volume PEEP Sodium 143 Potassium 4.7 Chloride 100 Carbon Dioxide 28 Anion Gap 19 BUN 4 L Creatinine 0.7 L Est GFR ( Amer) > 60 Est GFR (Non-Af Amer) > 60 POC Glucose (mg/dL) Random Glucose 95 Hemoglobin A1c Lactic Acid Calcium 9.7 Phosphorus Magnesium Iron TIBC % Saturation Ferritin Total Bilirubin 0.7 AST 56 ALT 32 Alkaline Phosphatase 98 Total Creatine Kinase Troponin I Total Protein 9.1 H Albumin 4.5 Globulin 4.5 H Albumin/Globulin Ratio 1.0 Triglycerides Cholesterol LDL Cholesterol Direct HDL Cholesterol Vitamin B12 Folate Procalcitonin Arterial Blood Potassium Venous Blood Potassium Urine Color Urine Clarity Urine pH Ur Specific Marvin Urine Protein Urine Glucose (UA) Urine Ketones Urine Blood Urine Nitrate Urine Bilirubin Urine Urobilinogen Ur Leukocyte Esterase Urine WBC (Auto) Urine RBC (Auto) Ur Squamous Epith Cells Hyaline Casts Urine Opiates Screen Urine Methadone Screen Ur Barbiturates Screen Phenytoin Ur Phencyclidine Scrn Ur Amphetamines Screen U Benzodiazepines Scrn U Oth Cocaine Metabols U Cannabinoids Screen Alcohol, Quantitative 10/23/17 10/23/17 10/23/17 03:00 04:48 04:54 WBC RBC Hgb Hct MCV MCH MCHC RDW Plt Count MPV Neut % (Auto) Lymph % (Auto) [place] % (Auto) Eos % (Auto) Baso % (Auto) Neut # (Auto) Lymph # (Auto) [place] # (Auto) Eos # (Auto) Baso # (Auto) Differential Comment Retic Count PT 11.9 INR 1.1 APTT Fibrinogen Puncture Site pCO2 pO2 HCO3 ABG pH ABG Total CO2 ABG O2 Saturation ABG Base Excess Errol Test ABG Potassium VBG pH VBG pCO2 VBG HCO3 VBG Total CO2 VBG O2 Sat (Calc) VBG Base Excess VBG Potassium A-a O2 Difference Respiratory Index Glucose Lactate Vent Mode Mechanical Rate FiO2 Tidal Volume PEEP Sodium Potassium Chloride Carbon Dioxide Anion Gap BUN Creatinine Est GFR ( Amer) Est GFR (Non-Af Amer) POC Glucose (mg/dL) 90 Random Glucose Hemoglobin A1c Lactic Acid Calcium Phosphorus Magnesium Iron TIBC % Saturation Ferritin Total Bilirubin AST ALT Alkaline Phosphatase Total Creatine Kinase Troponin I Total Protein Albumin Globulin Albumin/Globulin Ratio Triglycerides Cholesterol LDL Cholesterol Direct HDL Cholesterol Vitamin B12 Folate Procalcitonin Arterial Blood Potassium Venous Blood Potassium Urine Color Urine Clarity Urine pH Ur Specific Marvin Urine Protein Urine Glucose (UA) Urine Ketones Urine Blood Urine Nitrate Urine Bilirubin Urine Urobilinogen Ur Leukocyte Esterase Urine WBC (Auto) Urine RBC (Auto) Ur Squamous Epith Cells Hyaline Casts Urine Opiates Screen Urine Methadone Screen Ur Barbiturates Screen Phenytoin 22.3 H Ur Phencyclidine Scrn Ur Amphetamines Screen U Benzodiazepines Scrn U Oth Cocaine Metabols U Cannabinoids Screen Alcohol, Quantitative 10/23/17 10/23/17 10/23/17 05:36 05:36 06:12 WBC 5.7 RBC 3.78 L Hgb 10.4 L D Hct 30.6 L MCV 81.1 MCH 27.5 MCHC 33.9 RDW 20.3 H Plt Count 435 H MPV 7.3 Neut % (Auto) 82.7 H Lymph % (Auto) 12.[address] % (Auto) 3.3 Eos % (Auto) 1.4 Baso % (Auto) 0.3 Neut # (Auto) 4.7 Lymph # (Auto) 0.[address] [place] # (Auto) 0.2 Eos # (Auto) 0.1 Baso # (Auto) 0.0 Differential Comment Retic Count PT INR APTT Fibrinogen Puncture Site pCO2 pO2 HCO3 ABG pH ABG Total CO2 ABG O2 Saturation ABG Base Excess Errol Test ABG Potassium VBG pH VBG pCO2 VBG HCO3 VBG Total CO2 VBG O2 Sat (Calc) VBG Base Excess VBG Potassium A-a O2 Difference Respiratory Index Glucose Lactate Vent Mode Mechanical Rate FiO2 Tidal Volume PEEP Sodium Potassium Chloride Carbon Dioxide Anion Gap BUN Creatinine Est GFR ( Amer) Est GFR (Non-Af Amer) POC Glucose (mg/dL) Random Glucose Hemoglobin A1c Lactic Acid Calcium Phosphorus Magnesium Iron TIBC % Saturation Ferritin Total Bilirubin AST ALT Alkaline Phosphatase Total Creatine Kinase Troponin I Total Protein Albumin Globulin Albumin/Globulin Ratio Triglycerides Cholesterol LDL Cholesterol Direct HDL Cholesterol Vitamin B12 Folate Procalcitonin Arterial Blood Potassium Venous Blood Potassium Urine Color Yellow Urine Clarity Clear Urine pH 6.0 Ur Specific Marvin 1.020 Urine Protein Negative Urine Glucose (UA) Normal Urine Ketones Negative Urine Blood Negative Urine Nitrate Negative Urine Bilirubin Negative Urine Urobilinogen Normal Ur Leukocyte Esterase Neg Urine WBC (Auto) 2 Urine RBC (Auto) < 1 Ur Squamous Epith Cells < 1 Hyaline Casts 11-20 H Urine Opiates Screen Positive H Urine Methadone Screen Negative Ur Barbiturates Screen Positive H Phenytoin Ur Phencyclidine Scrn Negative Ur Amphetamines Screen Negative U Benzodiazepines Scrn Positive U Oth Cocaine Metabols Negative U Cannabinoids Screen Negative Alcohol, Quantitative 10/23/17 10/23/17 10/23/17 06:12 06:12 06:20 WBC RBC Hgb Hct MCV MCH MCHC RDW Plt Count MPV Neut % (Auto) Lymph % (Auto) [place] % (Auto) Eos % (Auto) Baso % (Auto) Neut # (Auto) Lymph # (Auto) [place] # (Auto) Eos # (Auto) Baso # (Auto) Differential Comment Retic Count PT 12.2 INR 1.1 APTT 31 D Fibrinogen Puncture Site pCO2 pO2 HCO3 ABG pH ABG Total CO2 ABG O2 Saturation ABG Base Excess Errol Test ABG Potassium VBG pH VBG pCO2 VBG HCO3 VBG Total CO2 VBG O2 Sat (Calc) VBG Base Excess VBG Potassium A-a O2 Difference Respiratory Index Glucose Lactate Vent Mode Mechanical Rate FiO2 Tidal Volume PEEP Sodium 141 Potassium 4.1 Chloride 105 Carbon Dioxide 24 Anion Gap 16 BUN 5 L Creatinine 0.6 L Est GFR ( Amer) > 60 Est GFR (Non-Af Amer) > 60 POC Glucose (mg/dL) Random Glucose 145 H Hemoglobin A1c Lactic Acid Calcium 7.9 L Phosphorus 2.6 Magnesium 2.6 H Iron TIBC % Saturation Ferritin Total Bilirubin 0.2 AST 25 ALT 27 Alkaline Phosphatase 66 Total Creatine Kinase 79 Troponin I < 0.0120 Total Protein 6.0 L Albumin 3.1 L D Globulin 2.9 Albumin/Globulin Ratio 1.1 Triglycerides Cholesterol LDL Cholesterol Direct HDL Cholesterol Vitamin B12 Folate Procalcitonin Arterial Blood Potassium Venous Blood Potassium Urine Color Urine Clarity Urine pH Ur Specific Marvin Urine Protein Urine Glucose (UA) Urine Ketones Urine Blood Urine Nitrate Urine Bilirubin Urine Urobilinogen Ur Leukocyte Esterase Urine WBC (Auto) Urine RBC (Auto) Ur Squamous Epith Cells Hyaline Casts Urine Opiates Screen Urine Methadone Screen Ur Barbiturates Screen Phenytoin 19.6 Ur Phencyclidine Scrn Ur Amphetamines Screen U Benzodiazepines Scrn U Oth Cocaine Metabols U Cannabinoids Screen Alcohol, Quantitative 10/23/17 10/23/17 10/23/17 06:27 08:30 08:37 WBC RBC Hgb Hct MCV MCH MCHC RDW Plt Count MPV Neut % (Auto) Lymph % (Auto) [place] % (Auto) Eos % (Auto) Baso % (Auto) Neut # (Auto) Lymph # (Auto) [place] # (Auto) Eos # (Auto) Baso # (Auto) Differential Comment Retic Count 3.7 H PT INR APTT Fibrinogen Puncture Site Rba pCO2 44 pO2 62 H 208 H HCO3 24.4 ABG pH 7.36 ABG Total CO2 26.3 ABG O2 Saturation 99.5 H ABG Base Excess -0.8 Errol Test Na ABG Potassium 4.9 VBG pH 7.33 VBG pCO2 31 L VBG HCO3 18.2 VBG Total CO2 17.3 L VBG O2 Sat (Calc) 95.6 H VBG Base Excess -8.4 L VBG Potassium 2.6 L A-a O2 Difference 612.0 379.0 Respiratory Index 1.8 Glucose 104 136 H Lactate 1.4 2.2 H Vent Mode Prvc Mechanical Rate 16 FiO2 100.0 90.0 Tidal Volume 470 PEEP 5 5 Sodium 143.0 138.0 Potassium Chloride 117.0 H 109.0 H Carbon Dioxide Anion Gap BUN Creatinine Est GFR ( Amer) Est GFR (Non-Af Amer) POC Glucose (mg/dL) Random Glucose Hemoglobin A1c Lactic Acid Calcium Phosphorus Magnesium Iron TIBC % Saturation Ferritin Total Bilirubin AST ALT Alkaline Phosphatase Total Creatine Kinase Troponin I Total Protein Albumin Globulin Albumin/Globulin Ratio Triglycerides Cholesterol LDL Cholesterol Direct HDL Cholesterol Vitamin B12 Folate Procalcitonin Arterial Blood Potassium 4.9 Venous Blood Potassium 2.6 L Urine Color Urine Clarity Urine pH Ur Specific Marvin Urine Protein Urine Glucose (UA) Urine Ketones Urine Blood Urine Nitrate Urine Bilirubin Urine Urobilinogen Ur Leukocyte Esterase Urine WBC (Auto) Urine RBC (Auto) Ur Squamous Epith Cells Hyaline Casts Urine Opiates Screen Urine Methadone Screen Ur Barbiturates Screen Phenytoin Ur Phencyclidine Scrn Ur Amphetamines Screen U Benzodiazepines Scrn U Oth Cocaine Metabols U Cannabinoids Screen Alcohol, Quantitative 10/23/17 10/23/17 10/23/17 08:37 08:37 08:47 WBC RBC Hgb Hct MCV MCH MCHC RDW Plt Count MPV Neut % (Auto) Lymph % (Auto) [place] % (Auto) Eos % (Auto) Baso % (Auto) Neut # (Auto) Lymph # (Auto) [place] # (Auto) Eos # (Auto) Baso # (Auto) Differential Comment Retic Count PT INR APTT Fibrinogen Puncture Site pCO2 pO2 HCO3 ABG pH ABG Total CO2 ABG O2 Saturation ABG Base Excess Errol Test ABG Potassium VBG pH VBG pCO2 VBG HCO3 VBG Total CO2 VBG O2 Sat (Calc) VBG Base Excess VBG Potassium A-a O2 Difference Respiratory Index Glucose Lactate Vent Mode Mechanical Rate FiO2 Tidal Volume PEEP Sodium Potassium Chloride Carbon Dioxide Anion Gap BUN Creatinine Est GFR ( Amer) Est GFR (Non-Af Amer) POC Glucose (mg/dL) Random Glucose Hemoglobin A1c 4.8 Lactic Acid Calcium Phosphorus Magnesium Iron 21 L TIBC 249 L % Saturation 8 L Ferritin Total Bilirubin AST ALT Alkaline Phosphatase Total Creatine Kinase Troponin I Total Protein Albumin Globulin Albumin/Globulin Ratio Triglycerides 115 Cholesterol 199 LDL Cholesterol Direct 111 HDL Cholesterol 43 Vitamin B12 735 Folate 8.2 Procalcitonin Arterial Blood Potassium Venous Blood Potassium Urine Color Urine Clarity Urine pH Ur Specific Marvin Urine Protein Urine Glucose (UA) Urine Ketones Urine Blood Urine Nitrate Urine Bilirubin Urine Urobilinogen Ur Leukocyte Esterase Urine WBC (Auto) Urine RBC (Auto) Ur Squamous Epith Cells Hyaline Casts Urine Opiates Screen Urine Methadone Screen Ur Barbiturates Screen Phenytoin Ur Phencyclidine Scrn Ur Amphetamines Screen U Benzodiazepines Scrn U Oth Cocaine Metabols U Cannabinoids Screen Alcohol, Quantitative < 10 10/23/17 10/23/17 10/23/17 08:47 11:52 12:30 WBC RBC Hgb Hct MCV MCH MCHC RDW Plt Count MPV Neut % (Auto) Lymph % (Auto) [place] % (Auto) Eos % (Auto) Baso % (Auto) Neut # (Auto) Lymph # (Auto) [place] # (Auto) Eos # (Auto) Baso # (Auto) Differential Comment Retic Count PT INR APTT Fibrinogen 325 Puncture Site pCO2 pO2 HCO3 ABG pH ABG Total CO2 ABG O2 Saturation ABG Base Excess Errol Test ABG Potassium VBG pH VBG pCO2 VBG HCO3 VBG Total CO2 VBG O2 Sat (Calc) VBG Base Excess VBG Potassium A-a O2 Difference Respiratory Index Glucose Lactate Vent Mode Mechanical Rate FiO2 Tidal Volume PEEP Sodium Potassium Chloride Carbon Dioxide Anion Gap BUN Creatinine Est GFR ( Amer) Est GFR (Non-Af Amer) POC Glucose (mg/dL) 132 H Random Glucose Hemoglobin A1c Lactic Acid Calcium Phosphorus Magnesium Iron TIBC % Saturation Ferritin Total Bilirubin AST ALT Alkaline Phosphatase Total Creatine Kinase Troponin I < 0.0120 Total Protein Albumin Globulin Albumin/Globulin Ratio Triglycerides Cholesterol LDL Cholesterol Direct HDL Cholesterol Vitamin B12 Folate Procalcitonin Arterial Blood Potassium Venous Blood Potassium Urine Color Urine Clarity Urine pH Ur Specific Marvin Urine Protein Urine Glucose (UA) Urine Ketones Urine Blood Urine Nitrate Urine Bilirubin Urine Urobilinogen Ur Leukocyte Esterase Urine WBC (Auto) Urine RBC (Auto) Ur Squamous Epith Cells Hyaline Casts Urine Opiates Screen Urine Methadone Screen Ur Barbiturates Screen Phenytoin Ur Phencyclidine Scrn Ur Amphetamines Screen U Benzodiazepines Scrn U Oth Cocaine Metabols U Cannabinoids Screen Alcohol, Quantitative 10/23/17 10/23/17 10/23/17 13:15 16:01 16:26 WBC RBC Hgb Hct MCV MCH MCHC RDW Plt Count MPV Neut % (Auto) Lymph % (Auto) [place] % (Auto) Eos % (Auto) Baso % (Auto) Neut # (Auto) Lymph # (Auto) [place] # (Auto) Eos # (Auto) Baso # (Auto) Differential Comment Retic Count PT INR APTT Fibrinogen Puncture Site pCO2 pO2 HCO3 ABG pH ABG Total CO2 ABG O2 Saturation ABG Base Excess Errol Test ABG Potassium VBG pH VBG pCO2 VBG HCO3 VBG Total CO2 VBG O2 Sat (Calc) VBG Base Excess VBG Potassium A-a O2 Difference Respiratory Index Glucose Lactate Vent Mode Mechanical Rate FiO2 Tidal Volume PEEP Sodium Potassium Chloride Carbon Dioxide Anion Gap BUN Creatinine Est GFR ( Amer) Est GFR (Non-Af Amer) POC Glucose (mg/dL) Random Glucose Hemoglobin A1c Lactic Acid 1.0 Calcium Phosphorus Magnesium Iron TIBC % Saturation Ferritin 109.0 Total Bilirubin AST ALT Alkaline Phosphatase Total Creatine Kinase Troponin I Total Protein Albumin Globulin Albumin/Globulin Ratio Triglycerides Cholesterol LDL Cholesterol Direct HDL Cholesterol Vitamin B12 Folate Procalcitonin < 0.05 L Arterial Blood Potassium Venous Blood Potassium Urine Color Urine Clarity Urine pH Ur Specific Marvin Urine Protein Urine Glucose (UA) Urine Ketones Urine Blood Urine Nitrate Urine Bilirubin Urine Urobilinogen Ur Leukocyte Esterase Urine WBC (Auto) Urine RBC (Auto) Ur Squamous Epith Cells Hyaline Casts Urine Opiates Screen Urine Methadone Screen Ur Barbiturates Screen Phenytoin Ur Phencyclidine Scrn Ur Amphetamines Screen U Benzodiazepines Scrn U Oth Cocaine Metabols U Cannabinoids Screen Alcohol, Quantitative 10/23/17 10/23/17 10/23/17 17:17 17:37 17:41 WBC RBC Hgb Hct MCV MCH MCHC RDW Plt Count MPV Neut % (Auto) Lymph % (Auto) [place] % (Auto) Eos % (Auto) Baso % (Auto) Neut # (Auto) Lymph # (Auto) [place] # (Auto) Eos # (Auto) Baso # (Auto) Differential Comment Retic Count PT INR APTT 186 H* D Fibrinogen Puncture Site pCO2 pO2 HCO3 ABG pH ABG Total CO2 ABG O2 Saturation ABG Base Excess Errol Test ABG Potassium VBG pH VBG pCO2 VBG HCO3 VBG Total CO2 VBG O2 Sat (Calc) VBG Base Excess VBG Potassium A-a O2 Difference Respiratory Index Glucose Lactate Vent Mode Mechanical Rate FiO2 Tidal Volume PEEP Sodium Potassium Chloride Carbon Dioxide Anion Gap BUN Creatinine Est GFR ( Amer) Est GFR (Non-Af Amer) POC Glucose (mg/dL) 64 L 53 L Random Glucose Hemoglobin A1c Lactic Acid Calcium Phosphorus Magnesium Iron TIBC % Saturation Ferritin Total Bilirubin AST ALT Alkaline Phosphatase Total Creatine Kinase Troponin I Total Protein Albumin Globulin Albumin/Globulin Ratio Triglycerides Cholesterol LDL Cholesterol Direct HDL Cholesterol Vitamin B12 Folate Procalcitonin Arterial Blood Potassium Venous Blood Potassium Urine Color Urine Clarity Urine pH Ur Specific Marvin Urine Protein Urine Glucose (UA) Urine Ketones Urine Blood Urine Nitrate Urine Bilirubin Urine Urobilinogen Ur Leukocyte Esterase Urine WBC (Auto) Urine RBC (Auto) Ur Squamous Epith Cells Hyaline Casts Urine Opiates Screen Urine Methadone Screen Ur Barbiturates Screen Phenytoin Ur Phencyclidine Scrn Ur Amphetamines Screen U Benzodiazepines Scrn U Oth Cocaine Metabols U Cannabinoids Screen Alcohol, Quantitative 10/23/17 18:07 WBC RBC Hgb Hct MCV MCH MCHC RDW Plt Count MPV Neut % (Auto) Lymph % (Auto) [place] % (Auto) Eos % (Auto) Baso % (Auto) Neut # (Auto) Lymph # (Auto) [place] # (Auto) Eos # (Auto) Baso # (Auto) Differential Comment Retic Count PT INR APTT Fibrinogen Puncture Site pCO2 pO2 HCO3 ABG pH ABG Total CO2 ABG O2 Saturation ABG Base Excess Errol Test ABG Potassium VBG pH VBG pCO2 VBG HCO3 VBG Total CO2 VBG O2 Sat (Calc) VBG Base Excess VBG Potassium A-a O2 Difference Respiratory Index Glucose Lactate Vent Mode Mechanical Rate FiO2 Tidal Volume PEEP Sodium Potassium Chloride Carbon Dioxide Anion Gap BUN Creatinine Est GFR ( Amer) Est GFR (Non-Af Amer) POC Glucose (mg/dL) 131 H Random Glucose Hemoglobin A1c Lactic Acid Calcium Phosphorus Magnesium Iron TIBC % Saturation Ferritin Total Bilirubin AST ALT Alkaline Phosphatase Total Creatine Kinase Troponin I Total Protein Albumin Globulin Albumin/Globulin Ratio Triglycerides Cholesterol LDL Cholesterol Direct HDL Cholesterol Vitamin B12 Folate Procalcitonin Arterial Blood Potassium Venous Blood Potassium Urine Color Urine Clarity Urine pH Ur Specific Marvin Urine Protein Urine Glucose (UA) Urine Ketones Urine Blood Urine Nitrate Urine Bilirubin Urine Urobilinogen Ur Leukocyte Esterase Urine WBC (Auto) Urine RBC (Auto) Ur Squamous Epith Cells Hyaline Casts Urine Opiates Screen Urine Methadone Screen Ur Barbiturates Screen Phenytoin Ur Phencyclidine Scrn Ur Amphetamines Screen U Benzodiazepines Scrn U Oth Cocaine Metabols U Cannabinoids Screen Alcohol, Quantitative Assessment & Plan (1) Anemia Assessment and Plan: will check ferritin, retic count, b12, folate, hgb electropheresis suspicious of disease as H/H were normal and hemolysis labs negative for now no transfusion indication can hold hydroxyurea for now Status: Acute (2) Protein C deficiency Assessment and Plan: hx of DVT on heparin drip Status: Acute (3) Coagulopathy Assessment and Plan: secondary to anticoagulation Thank you for this ineresting consult. Status: Acute
--- NOTE | 2017-10-23 21:54 | CT ---
EXAM: CT Head Without Intravenous Contrast CLINICAL HISTORY: 32 years old, male; Signs and symptoms; Other: Seizure; Patient HX: F/u; Additional info: Assess for stroke, still seizing TECHNIQUE: Axial computed tomography images of the head/brain without intravenous contrast. All CT scans at this facility use one or more dose reduction techniques, viz.: automated exposure control; ma/kV adjustment per patient size (including targeted exams where dose is matched to indication; i.e. head); or iterative reconstruction technique. Coronal and sagittal reformatted images were created and reviewed. COMPARISON: CT - HEAD W/O CONTRAST 2017-10-23 06:51 FINDINGS: Limitations: Suboptimal positioning. Brain: Minimal atrophy. No intracranial hemorrhage. No mass. No definite edema. Ventricles: No hydrocephalus. Bones/joints: No acute fracture. Soft tissues: Unremarkable. Sinuses: No acute sinusitis. Mastoid air cells: No mastoid effusion. Orbits: Unremarkable as visualized. Tubes, lines and devices: Endotracheal tube. Orogastric tube. IMPRESSION: 1. No definite acute intracranial abnormality. 2. Incidental/non-acute findings are described above.
[2017-10-24] MEDS: Propofol 10 mg/ml 1,000 MG/100 ML VIAL IV PRN ×5 (02:00→20:30)
[2017-10-24] MEDS: Lactated Ringer's 1,000 ML IV SCH ×4 (02:35→16:33)
[2017-10-24 04:36] LABS: SICKLE CELL SCREEN Negative (Negative)
[2017-10-24 06:18] LABS: ARTERIAL BLOOD GAS HCO3 24.9 mmol/L (21-28); ARTERIAL BLOOD GAS HEMOGLOBIN 9.3 g/dL (11.7-17.4); ARTERIAL BLOOD GAS O2 SAT 99.7 % (95-98); ARTERIAL BLOOD GAS PCO2 34 mm/Hg (35-45); ARTERIAL BLOOD GAS PH 7.45 (7.35-7.45); ARTERIAL BLOOD GAS PO2 154 mm/Hg (80-100); ARTERIAL BLOOD GAS TCO2 24.6 mmol/L (22-28)
[2017-10-24 06:43] LABS: BASO % 0.6 % (0.0-2.0); EOS # 0.2 K/uL (0.0-0.7); EOS % 3.6 % (0.0-4.0); HEMOGLOBIN 9.1 g/dL (12.0-18.0); LYMPH # 1.2 K/uL (1.0-4.3); LYMPH % 27.5 % (20.0-40.0); MEAN CELL VOLUME 81.5 fL (80.0-94.0); MEAN CORPUSCULAR HEMOGLOBIN 27.9 pg (27.0-31.0); MEAN CORPUSCULAR HGB CONC 34.2 g/dL (33.0-37.0); MEAN PLATELET VOLUME 7.5 fL (7.2-11.7); MONO # 0.5 K/uL (0.0-0.8); MONO % 10.2 % (0.0-10.0); NEUT # 2.6 K/uL (1.8-7.0); NEUT % 58.1 % (50.0-75.0); NRBC % 0.1 % (0.0-2.0); RBC 3.26 Mil/uL (4.40-5.90); RED CELL DISTRIBUTION WIDTH 20.5 % (11.5-14.5); WHITE BLOOD COUNT 4.4 K/uL (4.8-10.8)
[2017-10-24 06:59] LABS: ALBUMIN 2.8 g/dL (3.5-5.0); ALT/SGPT 27 U/L (21-72); AST/SGOT 19 U/L (17-59); BLOOD UREA NITROGEN 2 mg/dL (9-20); GFR AFRICAN-AMERICAN > 60; GFR NON-AFRICAN AMERICAN > 60; MAGNESIUM 2.2 mg/dL (1.6-2.3)
--- NOTE | 2017-10-24 07:50 | CARD ---
APPROVED REPORT EKG Measurement Heart [id number] <Conclusion> Normal sinus rhythm Prolonged QT Abnormal ECG
[2017-10-24] MEDS: Midazolam 50 mg/10 ml 100 MG in Sodium Chloride 0.9% 80 ML IV PRN ×2 (08:16→22:20)
--- NOTE | 2017-10-24 08:43 | RAD ---
PROCEDURE: CHEST RADIOGRAPH, 1 VIEW HISTORY: vent COMPARISON: 10/23/2017 FINDINGS: The endotracheal tube terminates 3.5 cm proximal to the [place]. The nasogastric tube terminates in the stomach LUNGS: There is improved aeration in the right lower lobe. The left lung is clear the PLEURA: No pneumothorax. Bilateral small pleural effusions. CARDIOVASCULAR: Normal. OSSEOUS STRUCTURES: No significant abnormalities. VISUALIZED UPPER ABDOMEN: Normal. OTHER FINDINGS: None. IMPRESSION: Interval mild improved aeration in the right lower lobe with residual atelectasis/pneumonia. Small pleural effusions. Stable position of endotracheal and nasogastric tubes.
[2017-10-24] MEDS ORDERED: PHENOBARBITAL IV ONE (09:00)
[2017-10-24] MEDS ORDERED: SODIUM CHLORIDE 0.9% IV ONE (09:00)
[2017-10-24] MEDS: levETIRAcetam 1,000 MG in Sodium Chloride 0.9% 100 ML IVPB SCH (09:06)
[2017-10-24 09:13] LABS: MCH 26.8 pg (27.0-33.0); MCV 83.7 fL (80.0-100.0)
[2017-10-24] MEDS: Enoxaparin 100 mg Syringe SC SCH ×2 (11:00→21:02)
[2017-10-24] MEDS ORDERED: Phenytoin 100 mg/4 ml Oral Susp UD PO SCH (11:15)
[2017-10-24] MEDS: Phenytoin 100 mg/4 ml Oral Susp UD PO SCH ×2 (11:17→17:44)
--- NOTE | 2017-10-24 12:51 | CP.CCUPN ---
<DimitriVan - Last Filed: 10/24/17 13:11> CCU Subjective - Physician Review Subjective (Free Text): 10/24/17 12:50 Patient seen and examined at bedside. Per nursing no acute events occurred overnight. Critical Care Time Spent (in minutes): 45 CCU Objective - Vital Signs / Intake & Output Vital Signs (Last 4 hours): Vital Signs Temp Pulse Resp BP Pulse Ox 10/24/17 12:00 97.4 F L 56 L 16 99 10/24/17 11:10 57 L 16 98/45 L 100 10/24/17 11:00 56 L 16 100 10/24/17 10:00 48 L 16 100 10/24/17 09:36 47 L 16 105/38 L 100 10/24/17 09:00 55 L 16 99 Intake and Output (Last 8hrs): Intake & Output 10/23/17 10/24/17 10/24/17 22:59 06:59 14:59 Intake Total 1780.10 2482.6 1768 Output Total 1300 800 900 Balance 480.10 1682.6 868 Weight 223 lb 12.307 oz 223 lb 12.307 oz Intake: IV 261 334 150 Intake, IV Amount 1519.10 2148.6 1618 Right Distal Port Femoral 90 350 1200 Right Femoral 800 Right Femoral Distal 51.3 Right Femoral Medial Port 13.90 Right Medial Port Femoral 500 1706 223 Right Medial Port Femoral 21 46 Y-site Right Proximal Port 42.9 46.6 195 Femoral Output: Urine 1300 800 900 Urethral (Hawkins) 1300 800 900 - Physical Exam Head: Positive for: Atraumatic, Normocephalic Pupils: Positive for: PERRL Extroacular Muscles: Positive for: EOMI Conjunctiva: Positive for: Normal Mouth: Positive for: Moist Mucous Membranes Neck: Positive for: Normal Range of Motion. Negative for: Meningeal Signs, JVD , Lymphadenopathy Respiratory/Chest: Positive for: Clear to Auscultation, Good Air Exchange. Negative for: Wheezes Cardiovascular: Positive for: Regular Rate and Rhythm, Normal S1, S2 Abdomen: Positive for: Normal Bowel Sounds. Negative for: McBurney's Point Tender, Ostomy Tubes Upper Extremity: Positive for: Normal Inspection, Edema. Negative for: Cyanosis Lower Extremity: Positive for: Normal Inspection Skin: Positive for: Warm, Dry, Normal Color Psychiatric: Positive for: Alert - Medications Active Medications: Active Medications Generic Name Dose Route Start Last Admin Trade Name Freq PRN Reason Stop Dose Admin Aspirin 81 mg 10/23/17 10:00 10/24/17 10:52 Aspirin Chewable PO 81 mg DAILY KEVIN Administration Clopidogrel Bisulfate 75 mg 10/23/17 10:00 10/24/17 10:52 Plavix PO 75 mg DAILY KEVIN Administration Enoxaparin Sodium 100 mg 10/24/17 10:00 10/24/17 11:00 Lovenox SC 100 mg Q12 KEVIN Administration Folic Acid 1 mg 10/23/17 10:00 10/24/17 10:52 Folic Acid PO 1 mg DAILY KEVIN Administration Hydroxyurea 500 mg 10/23/17 10:00 10/23/17 17:20 Hydrea PO 500 mg BID KEVIN Administration Propofol 1,000 mg in 100 mls @ 11.43 mls/hr 10/23/17 06:00 10/24/17 12:05 Diprivan IV 20 mcg/kg/min .Q8H45M PRN 11.43 mls/hr TITRATE PER MD ORDER Titration Protocol 20 MCG/KG/MIN Lactated Ringer's 1,000 mls @ 200 mls/hr 10/23/17 06:15 10/24/17 12:26 Lactated Ringer's IV Not Given .Q5H KEVIN Levetiracetam 1,000 mg/ Sodium 110 mls @ 100 mls/hr 10/23/17 09:00 10/24/17 09:06 Chloride IVPB 100 mls/hr Q12H KEVIN Administration Phenylephrine HCl 30 mg/ 250 mls @ 10 mls/hr 10/23/17 12:44 Sodium Chloride IV .Q24H PRN TITRATE PER MD ORDER Protocol 20 MCG/MIN Midazolam HCl 100 mg/ Sodium 100 mls @ 1.95 mls/hr 10/24/17 08:15 10/24/17 08 :16 Chloride IV 0.06 mg/kg/hr .Q24H PRN 6 mls/hr Protocol Administration 0.02 MG/KG/HR Lorazepam 2 mg 10/24/17 07:17 Ativan IVP Q4H PRN Seizure activity Pantoprazole Sodium 40 mg 10/23/17 10:00 10/24/17 11:02 Protonix Inj IVP 40 mg DAILY KEVIN Administration Phenobarbital 97.2 mg 10/24/17 22:00 Phenobarbital Tab PO Q12 KEVIN Phenytoin 200 mg 10/24/17 11:15 10/24/17 11:17 Dilantin PO 200 mg BID KEVIN Administration - Patient Studies Lab Studies: Lab Studies 10/24/17 10/24/17 10/24/17 Range/Units 11:40 06:30 06:30 WBC (4.8-10.8) K/uL RBC (4.40-5.90) Mil/uL Hgb (12.0-18.0) g/dL Hct (35.0-51.0) % MCV (80.0-94.0) fL MCH (27.0-31.0) pg MCHC (33.0-37.0) g/dL RDW (11.5-14.5) % Plt Count (130-400) K/uL MPV (7.2-11.7) fL Neut % (Auto) (50.0-75.0) % Lymph % (Auto) (20.0-40.0) % Hayes % (Auto) (0.0-10.0) % Eos % (Auto) (0.0-4.0) % Baso % (Auto) (0.0-2.0) % Neut # (Auto) (1.8-7.0) K/uL Lymph # (Auto) (1.0-4.3) K/uL Hayes # (Auto) (0.0-0.8) K/uL Eos # (Auto) (0.0-0.7) K/uL Baso # (Auto) (0.0-0.2) K/uL Sickle Cell Screen (Negative) Hemoglobinopathy Red Blood Count (4.20-5.80) Mill/mcL Hemoglobinopathy Hct (38.5-50.0) % Hemoglobinopathy Hgb (13.2-17.1) g/dL Hemoglobinopathy MCV (80.0-100.0) fL Hemoglobinopathy MCH (27.0-33.0) pg Hemoglobinopathy RDW (11.0-15.0) % APTT 40 H D (21-34) SECONDS Puncture Site pCO2 (35-45) mm/Hg pO2 (80-100) mm/Hg HCO3 (21-28) mmol/L ABG pH (7.35-7.45) ABG Total CO2 (22-28) mmol/L ABG O2 Saturation (95-98) % ABG Base Excess (-2.0-3.0) mmol/L ABG Hemoglobin (11.7-17.4) g/dL ABG Carboxyhemoglobin (0.5-1.5) % POC ABG HHb (Measured) (0.0-5.0) % ABG Methemoglobin (0.0-3.0) % Errol Test A-a O2 Difference mm/Hg Respiratory Index Hgb O2 Saturation (95.0-98.0) % Vent Mode Mechanical Rate FiO2 % Tidal Volume PEEP Sodium 143 (132-148) mmol/L Potassium 3.5 L (3.6-5.2) mmol/L Chloride 110 H (98-107) mmol/L Carbon Dioxide 26 (22-30) mmol/L Anion Gap 12 (10-20) BUN 2 L (9-20) mg/dL Creatinine 0.5 L (0.8-1.5) mg/dL Est GFR ( Amer) > 60 Est GFR (Non-Af Amer) > 60 POC Glucose (mg/dL) 79 (65-110) mg/dL Random Glucose 80 (75-110) mg/dL Lactic Acid (0.7-2.1) mmol/L Calcium 8.0 L (8.6-10.4) mg/dl Phosphorus 3.3 (2.5-4.5) mg/dL Magnesium 2.2 (1.6-2.3) mg/dL Ferritin ng/mL Total Bilirubin 0.2 (0.2-1.3) mg/dL AST 19 (17-59) U/L ALT 27 (21-72) U/L Alkaline Phosphatase 60 (38-126) U/L Troponin I (0.00-0.120) ng/mL Total Protein 5.4 L (6.3-8.3) g/dL Albumin 2.8 L (3.5-5.0) g/dL Globulin 2.7 (2.2-3.9) gm/dL Albumin/Globulin Ratio 1.0 (1.0-2.1) Procalcitonin (0.19-0.49) NG/ML Blood Type Blood Type Confirm Antibody Screen 10/24/17 10/24/17 10/24/17 Range/Units 06:30 05:22 05:15 WBC 4.4 L (4.8-10.8) K/uL RBC 3.26 L (4.40-5.90) Mil/uL Hgb 9.1 L (12.0-18.0) g/dL Hct 26.6 L (35.0-51.0) % MCV 81.5 (80.0-94.0) fL MCH 27.9 (27.0-31.0) pg MCHC 34.2 (33.0-37.0) g/dL RDW 20.5 H (11.5-14.5) % Plt Count 385 (130-400) K/uL MPV 7.5 (7.2-11.7) fL Neut % (Auto) 58.1 (50.0-75.0) % Lymph % (Auto) 27.5 (20.0-40.0) % Hayes % (Auto) 10.2 H (0.0-10.0) % Eos % (Auto) 3.6 (0.0-4.0) % Baso % (Auto) 0.6 (0.0-2.0) % Neut # (Auto) 2.6 (1.8-7.0) K/uL Lymph # (Auto) 1.2 (1.0-4.3) K/uL Hayes # (Auto) 0.5 (0.0-0.8) K/uL Eos # (Auto) 0.2 (0.0-0.7) K/uL Baso # (Auto) 0.0 (0.0-0.2) K/uL Sickle Cell Screen (Negative) Hemoglobinopathy Red Blood Count (4.20-5.80) Mill/mcL Hemoglobinopathy Hct (38.5-50.0) % Hemoglobinopathy Hgb (13.2-17.1) g/dL Hemoglobinopathy MCV (80.0-100.0) fL Hemoglobinopathy MCH (27.0-33.0) pg Hemoglobinopathy RDW (11.0-15.0) % APTT (21-34) SECONDS Puncture Site Rb pCO2 34 L (35-45) mm/Hg pO2 154 H (80-100) mm/Hg HCO3 24.9 (21-28) mmol/L ABG pH 7.45 (7.35-7.45) ABG Total CO2 24.6 (22-28) mmol/L ABG O2 Saturation 99.7 H (95-98) % ABG Base Excess -0.1 (-2.0-3.0) mmol/L ABG Hemoglobin 9.3 L (11.7-17.4) g/dL ABG Carboxyhemoglobin 1.6 H (0.5-1.5) % POC ABG HHb (Measured) 0.3 (0.0-5.0) % ABG Methemoglobin 1.0 (0.0-3.0) % Errol Test Na A-a O2 Difference 89.0 mm/Hg Respiratory Index 0.6 Hgb O2 Saturation 97.1 (95.0-98.0) % Vent Mode Prvc Mechanical Rate 16 FiO2 40.0 % Tidal Volume 500 PEEP 5 Sodium (132-148) mmol/L Potassium (3.6-5.2) mmol/L Chloride (98-107) mmol/L Carbon Dioxide (22-30) mmol/L Anion Gap (10-20) BUN (9-20) mg/dL Creatinine (0.8-1.5) mg/dL Est GFR ( Amer) Est GFR (Non-Af Amer) POC Glucose (mg/dL) 77 (65-110) mg/dL Random Glucose (75-110) mg/dL Lactic Acid (0.7-2.1) mmol/L Calcium (8.6-10.4) mg/dl Phosphorus (2.5-4.5) mg/dL Magnesium (1.6-2.3) mg/dL Ferritin ng/mL Total Bilirubin (0.2-1.3) mg/dL AST (17-59) U/L ALT (21-72) U/L Alkaline Phosphatase (38-126) U/L Troponin I (0.00-0.120) ng/mL Total Protein (6.3-8.3) g/dL Albumin (3.5-5.0) g/dL Globulin (2.2-3.9) gm/dL Albumin/Globulin Ratio (1.0-2.1) Procalcitonin (0.19-0.49) NG/ML Blood Type Blood Type Confirm Antibody Screen 10/23/17 10/23/17 10/23/17 Range/Units 23:26 19:42 18:43 WBC (4.8-10.8) K/uL RBC (4.40-5.90) Mil/uL Hgb (12.0-18.0) g/dL Hct (35.0-51.0) % MCV (80.0-94.0) fL MCH (27.0-31.0) pg MCHC (33.0-37.0) g/dL RDW (11.5-14.5) % Plt Count (130-400) K/uL MPV (7.2-11.7) fL Neut % (Auto) (50.0-75.0) % Lymph % (Auto) (20.0-40.0) % Hayes % (Auto) (0.0-10.0) % Eos % (Auto) (0.0-4.0) % Baso % (Auto) (0.0-2.0) % Neut # (Auto) (1.8-7.0) K/uL Lymph # (Auto) (1.0-4.3) K/uL Hayes # (Auto) (0.0-0.8) K/uL Eos # (Auto) (0.0-0.7) K/uL Baso # (Auto) (0.0-0.2) K/uL Sickle Cell Screen (Negative) Hemoglobinopathy Red Blood Count (4.20-5.80) Mill/mcL Hemoglobinopathy Hct (38.5-50.0) % Hemoglobinopathy Hgb (13.2-17.1) g/dL Hemoglobinopathy MCV (80.0-100.0) fL Hemoglobinopathy MCH (27.0-33.0) pg Hemoglobinopathy RDW (11.0-15.0) % APTT (21-34) SECONDS Puncture Site pCO2 (35-45) mm/Hg pO2 (80-100) mm/Hg HCO3 (21-28) mmol/L ABG pH (7.35-7.45) ABG Total CO2 (22-28) mmol/L ABG O2 Saturation (95-98) % ABG Base Excess (-2.0-3.0) mmol/L ABG Hemoglobin (11.7-17.4) g/dL ABG Carboxyhemoglobin (0.5-1.5) % POC ABG HHb (Measured) (0.0-5.0) % ABG Methemoglobin (0.0-3.0) % Errol Test A-a O2 Difference mm/Hg Respiratory Index Hgb O2 Saturation (95.0-98.0) % Vent Mode Mechanical Rate FiO2 % Tidal Volume PEEP Sodium (132-148) mmol/L Potassium (3.6-5.2) mmol/L Chloride (98-107) mmol/L Carbon Dioxide (22-30) mmol/L Anion Gap (10-20) BUN (9-20) mg/dL Creatinine (0.8-1.5) mg/dL Est GFR ( Amer) Est GFR (Non-Af Amer) POC Glucose (mg/dL) 71 (65-110) mg/dL Random Glucose (75-110) mg/dL Lactic Acid (0.7-2.1) mmol/L Calcium (8.6-10.4) mg/dl Phosphorus (2.5-4.5) mg/dL Magnesium (1.6-2.3) mg/dL Ferritin ng/mL Total Bilirubin (0.2-1.3) mg/dL AST (17-59) U/L ALT (21-72) U/L Alkaline Phosphatase (38-126) U/L Troponin I < 0.0120 (0.00-0.120) ng/mL Total Protein (6.3-8.3) g/dL Albumin (3.5-5.0) g/dL Globulin (2.2-3.9) gm/dL Albumin/Globulin Ratio (1.0-2.1) Procalcitonin (0.19-0.49) NG/ML Blood Type A POSITIVE Blood Type Confirm A POSITIVE Antibody Screen Negative 10/23/17 10/23/17 10/23/17 Range/Units 18:07 17:41 17:37 WBC (4.8-10.8) K/uL RBC (4.40-5.90) Mil/uL Hgb (12.0-18.0) g/dL Hct (35.0-51.0) % MCV (80.0-94.0) fL MCH (27.0-31.0) pg MCHC (33.0-37.0) g/dL RDW (11.5-14.5) % Plt Count (130-400) K/uL MPV (7.2-11.7) fL Neut % (Auto) (50.0-75.0) % Lymph % (Auto) (20.0-40.0) % Hayes % (Auto) (0.0-10.0) % Eos % (Auto) (0.0-4.0) % Baso % (Auto) (0.0-2.0) % Neut # (Auto) (1.8-7.0) K/uL Lymph # (Auto) (1.0-4.3) K/uL Hayes # (Auto) (0.0-0.8) K/uL Eos # (Auto) (0.0-0.7) K/uL Baso # (Auto) (0.0-0.2) K/uL Sickle Cell Screen (Negative) Hemoglobinopathy Red Blood Count (4.20-5.80) Mill/mcL Hemoglobinopathy Hct (38.5-50.0) % Hemoglobinopathy Hgb (13.2-17.1) g/dL Hemoglobinopathy MCV (80.0-100.0) fL Hemoglobinopathy MCH (27.0-33.0) pg Hemoglobinopathy RDW (11.0-15.0) % APTT (21-34) SECONDS Puncture Site pCO2 (35-45) mm/Hg pO2 (80-100) mm/Hg HCO3 (21-28) mmol/L ABG pH (7.35-7.45) ABG Total CO2 (22-28) mmol/L ABG O2 Saturation (95-98) % ABG Base Excess (-2.0-3.0) mmol/L ABG Hemoglobin (11.7-17.4) g/dL ABG Carboxyhemoglobin (0.5-1.5) % POC ABG HHb (Measured) (0.0-5.0) % ABG Methemoglobin (0.0-3.0) % Errol Test A-a O2 Difference mm/Hg Respiratory Index Hgb O2 Saturation (95.0-98.0) % Vent Mode Mechanical Rate FiO2 % Tidal Volume PEEP Sodium (132-148) mmol/L Potassium (3.6-5.2) mmol/L Chloride (98-107) mmol/L Carbon Dioxide (22-30) mmol/L Anion Gap (10-20) BUN (9-20) mg/dL Creatinine (0.8-1.5) mg/dL Est GFR ( Amer) Est GFR (Non-Af Amer) POC Glucose (mg/dL) 131 H 53 L 64 L (65-110) mg/dL Random Glucose (75-110) mg/dL Lactic Acid (0.7-2.1) mmol/L Calcium (8.6-10.4) mg/dl Phosphorus (2.5-4.5) mg/dL Magnesium (1.6-2.3) mg/dL Ferritin ng/mL Total Bilirubin (0.2-1.3) mg/dL AST (17-59) U/L ALT (21-72) U/L Alkaline Phosphatase (38-126) U/L Troponin I (0.00-0.120) ng/mL Total Protein (6.3-8.3) g/dL Albumin (3.5-5.0) g/dL Globulin (2.2-3.9) gm/dL Albumin/Globulin Ratio (1.0-2.1) Procalcitonin (0.19-0.49) NG/ML Blood Type Blood Type Confirm Antibody Screen 10/23/17 10/23/17 10/23/17 Range/Units 17:17 16:26 16:01 WBC (4.8-10.8) K/uL RBC (4.40-5.90) Mil/uL Hgb (12.0-18.0) g/dL Hct (35.0-51.0) % MCV (80.0-94.0) fL MCH (27.0-31.0) pg MCHC (33.0-37.0) g/dL RDW (11.5-14.5) % Plt Count (130-400) K/uL MPV (7.2-11.7) fL Neut % (Auto) (50.0-75.0) % Lymph % (Auto) (20.0-40.0) % Hayes % (Auto) (0.0-10.0) % Eos % (Auto) (0.0-4.0) % Baso % (Auto) (0.0-2.0) % Neut # (Auto) (1.8-7.0) K/uL Lymph # (Auto) (1.0-4.3) K/uL Hayes # (Auto) (0.0-0.8) K/uL Eos # (Auto) (0.0-0.7) K/uL Baso # (Auto) (0.0-0.2) K/uL Sickle Cell Screen (Negative) Hemoglobinopathy Red Blood Count (4.20-5.80) Mill/mcL Hemoglobinopathy Hct (38.5-50.0) % Hemoglobinopathy Hgb (13.2-17.1) g/dL Hemoglobinopathy MCV (80.0-100.0) fL Hemoglobinopathy MCH (27.0-33.0) pg Hemoglobinopathy RDW (11.0-15.0) % APTT 186 H* D (21-34) SECONDS Puncture Site pCO2 (35-45) mm/Hg pO2 (80-100) mm/Hg HCO3 (21-28) mmol/L ABG pH (7.35-7.45) ABG Total CO2 (22-28) mmol/L ABG O2 Saturation (95-98) % ABG Base Excess (-2.0-3.0) mmol/L ABG Hemoglobin (11.7-17.4) g/dL ABG Carboxyhemoglobin (0.5-1.5) % POC ABG HHb (Measured) (0.0-5.0) % ABG Methemoglobin (0.0-3.0) % Errol Test A-a O2 Difference mm/Hg Respiratory Index Hgb O2 Saturation (95.0-98.0) % Vent Mode Mechanical Rate FiO2 % Tidal Volume PEEP Sodium (132-148) mmol/L Potassium (3.6-5.2) mmol/L Chloride (98-107) mmol/L Carbon Dioxide (22-30) mmol/L Anion Gap (10-20) BUN (9-20) mg/dL Creatinine (0.8-1.5) mg/dL Est GFR ( Amer) Est GFR (Non-Af Amer) POC Glucose (mg/dL) (65-110) mg/dL Random Glucose (75-110) mg/dL Lactic Acid 1.0 (0.7-2.1) mmol/L Calcium (8.6-10.4) mg/dl Phosphorus (2.5-4.5) mg/dL Magnesium (1.6-2.3) mg/dL Ferritin 109.0 ng/mL Total Bilirubin (0.2-1.3) mg/dL AST (17-59) U/L ALT (21-72) U/L Alkaline Phosphatase (38-126) U/L Troponin I (0.00-0.120) ng/mL Total Protein (6.3-8.3) g/dL Albumin (3.5-5.0) g/dL Globulin (2.2-3.9) gm/dL Albumin/Globulin Ratio (1.0-2.1) Procalcitonin (0.19-0.49) NG/ML Blood Type Blood Type Confirm Antibody Screen 10/23/17 10/23/17 10/23/17 Range/Units 13:15 12:30 08:53 WBC (4.8-10.8) K/uL RBC (4.40-5.90) Mil/uL Hgb (12.0-18.0) g/dL Hct (35.0-51.0) % MCV (80.0-94.0) fL MCH (27.0-31.0) pg MCHC (33.0-37.0) g/dL RDW (11.5-14.5) % Plt Count (130-400) K/uL MPV (7.2-11.7) fL Neut % (Auto) (50.0-75.0) % Lymph % (Auto) (20.0-40.0) % Hayes % (Auto) (0.0-10.0) % Eos % (Auto) (0.0-4.0) % Baso % (Auto) (0.0-2.0) % Neut # (Auto) (1.8-7.0) K/uL Lymph # (Auto) (1.0-4.3) K/uL Hayes # (Auto) (0.0-0.8) K/uL Eos # (Auto) (0.0-0.7) K/uL Baso # (Auto) (0.0-0.2) K/uL Sickle Cell Screen (Negative) Hemoglobinopathy Red Blood Count 3.89 L (4.20-5.80) Mill/mcL Hemoglobinopathy Hct 32.6 L (38.5-50.0) % Hemoglobinopathy Hgb 10.4 L (13.2-17.1) g/dL Hemoglobinopathy MCV 83.7 (80.0-100.0) fL Hemoglobinopathy MCH 26.8 L (27.0-33.0) pg Hemoglobinopathy RDW 21.5 H (11.0-15.0) % APTT (21-34) SECONDS Puncture Site pCO2 (35-45) mm/Hg pO2 (80-100) mm/Hg HCO3 (21-28) mmol/L ABG pH (7.35-7.45) ABG Total CO2 (22-28) mmol/L ABG O2 Saturation (95-98) % ABG Base Excess (-2.0-3.0) mmol/L ABG Hemoglobin (11.7-17.4) g/dL ABG Carboxyhemoglobin (0.5-1.5) % POC ABG HHb (Measured) (0.0-5.0) % ABG Methemoglobin (0.0-3.0) % Errol Test A-a O2 Difference mm/Hg Respiratory Index Hgb O2 Saturation (95.0-98.0) % Vent Mode Mechanical Rate FiO2 % Tidal Volume PEEP Sodium (132-148) mmol/L Potassium (3.6-5.2) mmol/L Chloride (98-107) mmol/L Carbon Dioxide (22-30) mmol/L Anion Gap (10-20) BUN (9-20) mg/dL Creatinine (0.8-1.5) mg/dL Est GFR ( Amer) Est GFR (Non-Af Amer) POC Glucose (mg/dL) (65-110) mg/dL Random Glucose (75-110) mg/dL Lactic Acid (0.7-2.1) mmol/L Calcium (8.6-10.4) mg/dl Phosphorus (2.5-4.5) mg/dL Magnesium (1.6-2.3) mg/dL Ferritin ng/mL Total Bilirubin (0.2-1.3) mg/dL AST (17-59) U/L ALT (21-72) U/L Alkaline Phosphatase (38-126) U/L Troponin I < 0.0120 (0.00-0.120) ng/mL Total Protein (6.3-8.3) g/dL Albumin (3.5-5.0) g/dL Globulin (2.2-3.9) gm/dL Albumin/Globulin Ratio (1.0-2.1) Procalcitonin < 0.05 L (0.19-0.49) NG/ML Blood Type Blood Type Confirm Antibody Screen 10/23/17 Range/Units 08:37 WBC (4.8-10.8) K/uL RBC (4.40-5.90) Mil/uL Hgb (12.0-18.0) g/dL Hct (35.0-51.0) % MCV (80.0-94.0) fL MCH (27.0-31.0) pg MCHC (33.0-37.0) g/dL RDW (11.5-14.5) % Plt Count (130-400) K/uL MPV (7.2-11.7) fL Neut % (Auto) (50.0-75.0) % Lymph % (Auto) (20.0-40.0) % Hayes % (Auto) (0.0-10.0) % Eos % (Auto) (0.0-4.0) % Baso % (Auto) (0.0-2.0) % Neut # (Auto) (1.8-7.0) K/uL Lymph # (Auto) (1.0-4.3) K/uL Hayes # (Auto) (0.0-0.8) K/uL Eos # (Auto) (0.0-0.7) K/uL Baso # (Auto) (0.0-0.2) K/uL Sickle Cell Screen Negative (Negative) Hemoglobinopathy Red Blood Count (4.20-5.80) Mill/mcL Hemoglobinopathy Hct (38.5-50.0) % Hemoglobinopathy Hgb (13.2-17.1) g/dL Hemoglobinopathy MCV (80.0-100.0) fL Hemoglobinopathy MCH (27.0-33.0) pg Hemoglobinopathy RDW (11.0-15.0) % APTT (21-34) SECONDS Puncture Site pCO2 (35-45) mm/Hg pO2 (80-100) mm/Hg HCO3 (21-28) mmol/L ABG pH (7.35-7.45) ABG Total CO2 (22-28) mmol/L ABG O2 Saturation (95-98) % ABG Base Excess (-2.0-3.0) mmol/L ABG Hemoglobin (11.7-17.4) g/dL ABG Carboxyhemoglobin (0.5-1.5) % POC ABG HHb (Measured) (0.0-5.0) % ABG Methemoglobin (0.0-3.0) % Errol Test A-a O2 Difference mm/Hg Respiratory Index Hgb O2 Saturation (95.0-98.0) % Vent Mode Mechanical Rate FiO2 % Tidal Volume PEEP Sodium (132-148) mmol/L Potassium (3.6-5.2) mmol/L Chloride (98-107) mmol/L Carbon Dioxide (22-30) mmol/L Anion Gap (10-20) BUN (9-20) mg/dL Creatinine (0.8-1.5) mg/dL Est GFR ( Amer) Est GFR (Non-Af Amer) POC Glucose (mg/dL) (65-110) mg/dL Random Glucose (75-110) mg/dL Lactic Acid (0.7-2.1) mmol/L Calcium (8.6-10.4) mg/dl Phosphorus (2.5-4.5) mg/dL Magnesium (1.6-2.3) mg/dL Ferritin ng/mL Total Bilirubin (0.2-1.3) mg/dL AST (17-59) U/L ALT (21-72) U/L Alkaline Phosphatase (38-126) U/L Troponin I (0.00-0.120) ng/mL Total Protein (6.3-8.3) g/dL Albumin (3.5-5.0) g/dL Globulin (2.2-3.9) gm/dL Albumin/Globulin Ratio (1.0-2.1) Procalcitonin (0.19-0.49) NG/ML Blood Type Blood Type Confirm Antibody Screen Laboratory Results - last 24 hr 10/23/17 10/23/17 10/23/17 08:37 08:53 12:30 WBC RBC Hgb Hct MCV MCH MCHC RDW Plt Count MPV Neut % (Auto) Lymph % (Auto) Hayes % (Auto) Eos % (Auto) Baso % (Auto) Neut # (Auto) Lymph # (Auto) Hayes # (Auto) Eos # (Auto) Baso # (Auto) Sickle Cell Screen Negative Hemoglobinopathy Red Blood Count 3.89 L Hemoglobinopathy Hct 32.6 L Hemoglobinopathy Hgb 10.4 L Hemoglobinopathy MCV 83.7 Hemoglobinopathy MCH 26.8 L Hemoglobinopathy RDW 21.5 H APTT Puncture Site pCO2 pO2 HCO3 ABG pH ABG Total CO2 ABG O2 Saturation ABG Base Excess ABG Hemoglobin ABG Carboxyhemoglobin POC ABG HHb (Measured) ABG Methemoglobin Errol Test A-a O2 Difference Respiratory Index Hgb O2 Saturation Vent Mode Mechanical Rate FiO2 Tidal Volume PEEP Sodium Potassium Chloride Carbon Dioxide Anion Gap BUN Creatinine Est GFR ( Amer) Est GFR (Non-Af Amer) POC Glucose (mg/dL) Random Glucose Lactic Acid Calcium Phosphorus Magnesium Ferritin Total Bilirubin AST ALT Alkaline Phosphatase Troponin I < 0.0120 Total Protein Albumin Globulin Albumin/Globulin Ratio Procalcitonin Blood Type Blood Type Confirm Antibody Screen 10/23/17 10/23/17 10/23/17 13:15 16:01 16:26 WBC RBC Hgb Hct MCV MCH MCHC RDW Plt Count MPV Neut % (Auto) Lymph % (Auto) Hayes % (Auto) Eos % (Auto) Baso % (Auto) Neut # (Auto) Lymph # (Auto) Hayes # (Auto) Eos # (Auto) Baso # (Auto) Sickle Cell Screen Hemoglobinopathy Red Blood Count Hemoglobinopathy Hct Hemoglobinopathy Hgb Hemoglobinopathy MCV Hemoglobinopathy MCH Hemoglobinopathy RDW APTT Puncture Site pCO2 pO2 HCO3 ABG pH ABG Total CO2 ABG O2 Saturation ABG Base Excess ABG Hemoglobin ABG Carboxyhemoglobin POC ABG HHb (Measured) ABG Methemoglobin Errol Test A-a O2 Difference Respiratory Index Hgb O2 Saturation Vent Mode Mechanical Rate FiO2 Tidal Volume PEEP Sodium Potassium Chloride Carbon Dioxide Anion Gap BUN Creatinine Est GFR ( Amer) Est GFR (Non-Af Amer) POC Glucose (mg/dL) Random Glucose Lactic Acid 1.0 Calcium Phosphorus Magnesium Ferritin 109.0 Total Bilirubin AST ALT Alkaline Phosphatase Troponin I Total Protein Albumin Globulin Albumin/Globulin Ratio Procalcitonin < 0.05 L Blood Type Blood Type Confirm Antibody Screen 10/23/17 10/23/17 10/23/17 17:17 17:37 17:41 WBC RBC Hgb Hct MCV MCH MCHC RDW Plt Count MPV Neut % (Auto) Lymph % (Auto) Hayes % (Auto) Eos % (Auto) Baso % (Auto) Neut # (Auto) Lymph # (Auto) Hayes # (Auto) Eos # (Auto) Baso # (Auto) Sickle Cell Screen Hemoglobinopathy Red Blood Count Hemoglobinopathy Hct Hemoglobinopathy Hgb Hemoglobinopathy MCV Hemoglobinopathy MCH Hemoglobinopathy RDW APTT 186 H* D Puncture Site pCO2 pO2 HCO3 ABG pH ABG Total CO2 ABG O2 Saturation ABG Base Excess ABG Hemoglobin ABG Carboxyhemoglobin POC ABG HHb (Measured) ABG Methemoglobin Errol Test A-a O2 Difference Respiratory Index Hgb O2 Saturation Vent Mode Mechanical Rate FiO2 Tidal Volume PEEP Sodium Potassium Chloride Carbon Dioxide Anion Gap BUN Creatinine Est GFR ( Amer) Est GFR (Non-Af Amer) POC Glucose (mg/dL) 64 L 53 L Random Glucose Lactic Acid Calcium Phosphorus Magnesium Ferritin Total Bilirubin AST ALT Alkaline Phosphatase Troponin I Total Protein Albumin Globulin Albumin/Globulin Ratio Procalcitonin Blood Type Blood Type Confirm Antibody Screen 10/23/17 10/23/17 10/23/17 18:07 18:43 19:42 WBC RBC Hgb Hct MCV MCH MCHC RDW Plt Count MPV Neut % (Auto) Lymph % (Auto) Hayes % (Auto) Eos % (Auto) Baso % (Auto) Neut # (Auto) Lymph # (Auto) Hayes # (Auto) Eos # (Auto) Baso # (Auto) Sickle Cell Screen Hemoglobinopathy Red Blood Count Hemoglobinopathy Hct Hemoglobinopathy Hgb Hemoglobinopathy MCV Hemoglobinopathy MCH Hemoglobinopathy RDW APTT Puncture Site pCO2 pO2 HCO3 ABG pH ABG Total CO2 ABG O2 Saturation ABG Base Excess ABG Hemoglobin ABG Carboxyhemoglobin POC ABG HHb (Measured) ABG Methemoglobin Errol Test A-a O2 Difference Respiratory Index Hgb O2 Saturation Vent Mode Mechanical Rate FiO2 Tidal Volume PEEP Sodium Potassium Chloride Carbon Dioxide Anion Gap BUN Creatinine Est GFR ( Amer) Est GFR (Non-Af Amer) POC Glucose (mg/dL) 131 H Random Glucose Lactic Acid Calcium Phosphorus Magnesium Ferritin Total Bilirubin AST ALT Alkaline Phosphatase Troponin I < 0.0120 Total Protein Albumin Globulin Albumin/Globulin Ratio Procalcitonin Blood Type A POSITIVE Blood Type Confirm A POSITIVE Antibody Screen Negative 10/23/17 10/24/17 10/24/17 23:26 05:15 05:22 WBC RBC Hgb Hct MCV MCH MCHC RDW Plt Count MPV Neut % (Auto) Lymph % (Auto) Hayes % (Auto) Eos % (Auto) Baso % (Auto) Neut # (Auto) Lymph # (Auto) Hayes # (Auto) Eos # (Auto) Baso # (Auto) Sickle Cell Screen Hemoglobinopathy Red Blood Count Hemoglobinopathy Hct Hemoglobinopathy Hgb Hemoglobinopathy MCV Hemoglobinopathy MCH Hemoglobinopathy RDW APTT Puncture Site Rb pCO2 34 L pO2 154 H HCO3 24.9 ABG pH 7.45 ABG Total CO2 24.6 ABG O2 Saturation 99.7 H ABG Base Excess -0.1 ABG Hemoglobin 9.3 L ABG Carboxyhemoglobin 1.6 H POC ABG HHb (Measured) 0.3 ABG Methemoglobin 1.0 Errol Test Na A-a O2 Difference 89.0 Respiratory Index 0.6 Hgb O2 Saturation 97.1 Vent Mode Prvc Mechanical Rate 16 FiO2 40.0 Tidal Volume 500 PEEP 5 Sodium Potassium Chloride Carbon Dioxide Anion Gap BUN Creatinine Est GFR ( Amer) Est GFR (Non-Af Amer) POC Glucose (mg/dL) 71 77 Random Glucose Lactic Acid Calcium Phosphorus Magnesium Ferritin Total Bilirubin AST ALT Alkaline Phosphatase Troponin I Total Protein Albumin Globulin Albumin/Globulin Ratio Procalcitonin Blood Type Blood Type Confirm Antibody Screen 10/24/17 10/24/17 10/24/17 06:30 06:30 06:30 WBC 4.4 L RBC 3.26 L Hgb 9.1 L Hct 26.6 L MCV 81.5 MCH 27.9 MCHC 34.2 RDW 20.5 H Plt Count 385 MPV 7.5 Neut % (Auto) 58.1 Lymph % (Auto) 27.5 Hayes % (Auto) 10.2 H Eos % (Auto) 3.6 Baso % (Auto) 0.6 Neut # (Auto) 2.6 Lymph # (Auto) 1.2 Hayes # (Auto) 0.5 Eos # (Auto) 0.2 Baso # (Auto) 0.0 Sickle Cell Screen Hemoglobinopathy Red Blood Count Hemoglobinopathy Hct Hemoglobinopathy Hgb Hemoglobinopathy MCV Hemoglobinopathy MCH Hemoglobinopathy RDW APTT 40 H D Puncture Site pCO2 pO2 HCO3 ABG pH ABG Total CO2 ABG O2 Saturation ABG Base Excess ABG Hemoglobin ABG Carboxyhemoglobin POC ABG HHb (Measured) ABG Methemoglobin Errol Test A-a O2 Difference Respiratory Index Hgb O2 Saturation Vent Mode Mechanical Rate FiO2 Tidal Volume PEEP Sodium 143 Potassium 3.5 L Chloride 110 H Carbon Dioxide 26 Anion Gap 12 BUN 2 L Creatinine 0.5 L Est GFR ( Amer) > 60 Est GFR (Non-Af Amer) > 60 POC Glucose (mg/dL) Random Glucose 80 Lactic Acid Calcium 8.0 L Phosphorus 3.3 Magnesium 2.2 Ferritin Total Bilirubin 0.2 AST 19 ALT 27 Alkaline Phosphatase 60 Troponin I Total Protein 5.4 L Albumin 2.8 L Globulin 2.7 Albumin/Globulin Ratio 1.0 Procalcitonin Blood Type Blood Type Confirm Antibody Screen 10/24/17 11:40 WBC RBC Hgb Hct MCV MCH MCHC RDW Plt Count MPV Neut % (Auto) Lymph % (Auto) Hayes % (Auto) Eos % (Auto) Baso % (Auto) Neut # (Auto) Lymph # (Auto) Hayes # (Auto) Eos # (Auto) Baso # (Auto) Sickle Cell Screen Hemoglobinopathy Red Blood Count Hemoglobinopathy Hct Hemoglobinopathy Hgb Hemoglobinopathy MCV Hemoglobinopathy MCH Hemoglobinopathy RDW APTT Puncture Site pCO2 pO2 HCO3 ABG pH ABG Total CO2 ABG O2 Saturation ABG Base Excess ABG Hemoglobin ABG Carboxyhemoglobin POC ABG HHb (Measured) ABG Methemoglobin Errol Test A-a O2 Difference Respiratory Index Hgb O2 Saturation Vent Mode Mechanical Rate FiO2 Tidal Volume PEEP Sodium Potassium Chloride Carbon Dioxide Anion Gap BUN Creatinine Est GFR ( Amer) Est GFR (Non-Af Amer) POC Glucose (mg/dL) 79 Random Glucose Lactic Acid Calcium Phosphorus Magnesium Ferritin Total Bilirubin AST ALT Alkaline Phosphatase Troponin I Total Protein Albumin Globulin Albumin/Globulin Ratio Procalcitonin Blood Type Blood Type Confirm Antibody Screen Fingerstick Blood Sugar Results: 79 Review of Systems - Review of Systems Systems not reviewed;Unavailable: Acuity of Condition Assessment/Plan - Assessment and Plan (Free Text) Assessment: 32 year old male with a past medical history of cad(s/p cardiac stents), mi, pe , asthma, protein c deficiency, sickle cell disease who was admitted for status epilepticus. Plan: Neurology: Status epilepticus ED Course: 1 seizure @4:50a.m. (Alfa clonic): last 10 minutes: given 4 mg Ativan and 1000mg Fosphenytoin: seizure stopped @ 5:11a.m. 2 seizure last 5-7 minutes After 3 rd seizure patient was placed on propofol drip Repeat Head ct: shows no acute intracranial abnormality Dilantin 200mg PO BID soln. Diprivan 20mcg/kg/min Keppra 100mg Q12 Phenobarbital 92.2 PO q12 Ativan 2 q4 PRN Neurology consulted. Help appreciated Cardiology: CAD (s/p stents), ND Echo ordered. Will follow up with results Aspirin 81mg PO Daily Plavix 75mg PO Daily Hematology: Protein C deficiency, Sickle cell anemia? Hydroxyurea 500mg PO BID held at this time. Anemia profile ordered. Will f/u with results. PPX -Propofol drip @20mcg/hr -LR @ 200mls/hr <Aidan Oliveira - Last Filed: 10/24/17 18:19> CCU Objective - Vital Signs / Intake & Output Vital Signs (Last 4 hours): Vital Signs Temp Pulse Resp BP Pulse Ox 10/24/17 14:12 53 L 16 130/75 100 10/24/17 14:00 59 L 16 100 10/24/17 13:00 51 L 16 102/60 99 10/24/17 12:00 97.4 F L 56 L 16 99 10/24/17 11:10 57 L 16 98/45 L 100 Intake and Output (Last 8hrs): Intake & Output 10/24/17 10/24/17 10/24/17 06:59 14:59 22:59 Intake Total 2482.6 2256 Output Total 800 1075 Balance 1682.6 1181 Weight 223 lb 12.307 oz 223 lb 12.307 oz Intake: IV 334 200 Intake, IV Amount 2148.6 2056 Right Distal Port Femoral 350 1600 Right Medial Port Femoral 1706 239 Right Medial Port Femoral 46 Y-site Right Proximal Port 46.6 217 Femoral Output: Urine 800 1075 Urethral (Hawkins) 800 1075 - Medications Active Medications: Active Medications Generic Name Dose Route Start Last Admin Trade Name Freq PRN Reason Stop Dose Admin Aspirin 81 mg 10/23/17 10:00 10/24/17 10:52 Aspirin Chewable PO 81 mg DAILY KEVIN Administration Clopidogrel Bisulfate 75 mg 10/23/17 10:00 10/24/17 10:52 Plavix PO 75 mg DAILY KEVIN Administration Enoxaparin Sodium 100 mg 10/24/17 10:00 10/24/17 11:00 Lovenox SC 100 mg Q12 KEVIN Administration Folic Acid 1 mg 10/23/17 10:00 10/24/17 10:52 Folic Acid PO 1 mg DAILY KEVIN Administration Hydroxyurea 500 mg 10/23/17 10:00 10/23/17 17:20 Hydrea PO 500 mg BID KEVIN Administration Propofol 1,000 mg in 100 mls @ 11.43 mls/hr 10/23/17 06:00 10/24/17 12:51 Diprivan IV 10 mcg/kg/min .Q8H45M PRN 5.715 mls/hr TITRATE PER MD ORDER Titration Protocol 20 MCG/KG/MIN Lactated Ringer's 1,000 mls @ 200 mls/hr 10/23/17 06:15 10/24/17 12:26 Lactated Ringer's IV Not Given .Q5H KEVIN Levetiracetam 1,000 mg/ Sodium 110 mls @ 100 mls/hr 10/23/17 09:00 10/24/17 09:06 Chloride IVPB 100 mls/hr Q12H KEVIN Administration Phenylephrine HCl 30 mg/ 250 mls @ 10 mls/hr 10/23/17 12:44 Sodium Chloride IV .Q24H PRN TITRATE PER MD ORDER Protocol 20 MCG/MIN Midazolam HCl 100 mg/ Sodium 100 mls @ 1.95 mls/hr 10/24/17 08:15 10/24/17 08 :16 Chloride IV 0.06 mg/kg/hr .Q24H PRN 6 mls/hr Protocol Administration 0.02 MG/KG/HR Lacosamide 100 mg/ Sodium 110 mls @ 440 mls/hr 10/24/17 14:00 10/24/17 14:31 Chloride IV 440 mls/hr Q12H KEVIN Administration Lorazepam 2 mg 10/24/17 07:17 Ativan IVP Q4H PRN Seizure activity Pantoprazole Sodium 40 mg 10/23/17 10:00 10/24/17 11:02 Protonix Inj IVP 40 mg DAILY KEVIN Administration Phenobarbital 97.2 mg 10/24/17 22:00 Phenobarbital Tab PO Q12 KEVIN Phenytoin 200 mg 10/24/17 11:15 10/24/17 11:17 Dilantin PO 200 mg BID KEVIN Administration - Patient Studies Lab Studies: Lab Studies 10/24/17 10/24/17 10/24/17 Range/Units 13:04 11:40 06:30 WBC 4.1 L (4.8-10.8) K/uL RBC 3.34 L (4.40-5.90) Mil/uL Hgb 9.3 L (12.0-18.0) g/dL Hct 27.1 L (35.0-51.0) % MCV 81.4 (80.0-94.0) fL MCH 27.8 (27.0-31.0) pg MCHC 34.1 (33.0-37.0) g/dL RDW 21.1 H (11.5-14.5) % Plt Count 388 (130-400) K/uL MPV 7.3 (7.2-11.7) fL Neut % (Auto) 56.1 (50.0-75.0) % Lymph % (Auto) 26.1 (20.0-40.0) % Hayes % (Auto) 10.8 H (0.0-10.0) % Eos % (Auto) 6.0 H (0.0-4.0) % Baso % (Auto) 1.0 (0.0-2.0) % Neut # (Auto) 2.3 (1.8-7.0) K/uL Lymph # (Auto) 1.1 (1.0-4.3) K/uL Hayes # (Auto) 0.4 (0.0-0.8) K/uL Eos # (Auto) 0.2 (0.0-0.7) K/uL Baso # (Auto) 0.0 (0.0-0.2) K/uL Sickle Cell Screen (Negative) Hemoglobinopathy Red Blood Count (4.20-5.80) Mill/mcL Hemoglobinopathy Hct (38.5-50.0) % Hemoglobinopathy Hgb (13.2-17.1) g/dL Hemoglobinopathy MCV (80.0-100.0) fL Hemoglobinopathy MCH (27.0-33.0) pg Hemoglobinopathy RDW (11.0-15.0) % APTT 40 H D (21-34) SECONDS Puncture Site pCO2 (35-45) mm/Hg pO2 (80-100) mm/Hg HCO3 (21-28) mmol/L ABG pH (7.35-7.45) ABG Total CO2 (22-28) mmol/L ABG O2 Saturation (95-98) % ABG Base Excess (-2.0-3.0) mmol/L ABG Hemoglobin (11.7-17.4) g/dL ABG Carboxyhemoglobin (0.5-1.5) % POC ABG HHb (Measured) (0.0-5.0) % ABG Methemoglobin (0.0-3.0) % Errol Test A-a O2 Difference mm/Hg Respiratory Index Hgb O2 Saturation (95.0-98.0) % Vent Mode Mechanical Rate FiO2 % Tidal Volume PEEP Sodium (132-148) mmol/L Potassium (3.6-5.2) mmol/L Chloride (98-107) mmol/L Carbon Dioxide (22-30) mmol/L Anion Gap (10-20) BUN (9-20) mg/dL Creatinine (0.8-1.5) mg/dL Est GFR ( Amer) Est GFR (Non-Af Amer) POC Glucose (mg/dL) 79 (65-110) mg/dL Random Glucose (75-110) mg/dL Lactic Acid (0.7-2.1) mmol/L Calcium (8.6-10.4) mg/dl Phosphorus (2.5-4.5) mg/dL Magnesium (1.6-2.3) mg/dL Ferritin ng/mL Total Bilirubin (0.2-1.3) mg/dL AST (17-59) U/L ALT (21-72) U/L Alkaline Phosphatase (38-126) U/L Troponin I (0.00-0.120) ng/mL Total Protein (6.3-8.3) g/dL Albumin (3.5-5.0) g/dL Globulin (2.2-3.9) gm/dL Albumin/Globulin Ratio (1.0-2.1) Procalcitonin (0.19-0.49) NG/ML Blood Type Blood Type Confirm Antibody Screen 10/24/17 10/24/17 10/24/17 Range/Units 06:30 06:30 05:22 WBC 4.4 L (4.8-10.8) K/uL RBC 3.26 L (4.40-5.90) Mil/uL Hgb 9.1 L (12.0-18.0) g/dL Hct 26.6 L (35.0-51.0) % MCV 81.5 (80.0-94.0) fL MCH 27.9 (27.0-31.0) pg MCHC 34.2 (33.0-37.0) g/dL RDW 20.5 H (11.5-14.5) % Plt Count 385 (130-400) K/uL MPV 7.5 (7.2-11.7) fL Neut % (Auto) 58.1 (50.0-75.0) % Lymph % (Auto) 27.5 (20.0-40.0) % Hayes % (Auto) 10.2 H (0.0-10.0) % Eos % (Auto) 3.6 (0.0-4.0) % Baso % (Auto) 0.6 (0.0-2.0) % Neut # (Auto) 2.6 (1.8-7.0) K/uL Lymph # (Auto) 1.2 (1.0-4.3) K/uL Hayes # (Auto) 0.5 (0.0-0.8) K/uL Eos # (Auto) 0.2 (0.0-0.7) K/uL Baso # (Auto) 0.0 (0.0-0.2) K/uL Sickle Cell Screen (Negative) Hemoglobinopathy Red Blood Count (4.20-5.80) Mill/mcL Hemoglobinopathy Hct (38.5-50.0) % Hemoglobinopathy Hgb (13.2-17.1) g/dL Hemoglobinopathy MCV (80.0-100.0) fL Hemoglobinopathy MCH (27.0-33.0) pg Hemoglobinopathy RDW (11.0-15.0) % APTT (21-34) SECONDS Puncture Site pCO2 (35-45) mm/Hg pO2 (80-100) mm/Hg HCO3 (21-28) mmol/L ABG pH (7.35-7.45) ABG Total CO2 (22-28) mmol/L ABG O2 Saturation (95-98) % ABG Base Excess (-2.0-3.0) mmol/L ABG Hemoglobin (11.7-17.4) g/dL ABG Carboxyhemoglobin (0.5-1.5) % POC ABG HHb (Measured) (0.0-5.0) % ABG Methemoglobin (0.0-3.0) % Errol Test A-a O2 Difference mm/Hg Respiratory Index Hgb O2 Saturation (95.0-98.0) % Vent Mode Mechanical Rate FiO2 % Tidal Volume PEEP Sodium 143 (132-148) mmol/L Potassium 3.5 L (3.6-5.2) mmol/L Chloride 110 H (98-107) mmol/L Carbon Dioxide 26 (22-30) mmol/L Anion Gap 12 (10-20) BUN 2 L (9-20) mg/dL Creatinine 0.5 L (0.8-1.5) mg/dL Est GFR ( Amer) > 60 Est GFR (Non-Af Amer) > 60 POC Glucose (mg/dL) 77 (65-110) mg/dL Random Glucose 80 (75-110) mg/dL Lactic Acid (0.7-2.1) mmol/L Calcium 8.0 L (8.6-10.4) mg/dl Phosphorus 3.3 (2.5-4.5) mg/dL Magnesium 2.2 (1.6-2.3) mg/dL Ferritin ng/mL Total Bilirubin 0.2 (0.2-1.3) mg/dL AST 19 (17-59) U/L ALT 27 (21-72) U/L Alkaline Phosphatase 60 (38-126) U/L Troponin I (0.00-0.120) ng/mL Total Protein 5.4 L (6.3-8.3) g/dL Albumin 2.8 L (3.5-5.0) g/dL Globulin 2.7 (2.2-3.9) gm/dL Albumin/Globulin Ratio 1.0 (1.0-2.1) Procalcitonin (0.19-0.49) NG/ML Blood Type Blood Type Confirm Antibody Screen 10/24/17 10/23/17 10/23/17 Range/Units 05:15 23:26 19:42 WBC (4.8-10.8) K/uL RBC (4.40-5.90) Mil/uL Hgb (12.0-18.0) g/dL Hct (35.0-51.0) % MCV (80.0-94.0) fL MCH (27.0-31.0) pg MCHC (33.0-37.0) g/dL RDW (11.5-14.5) % Plt Count (130-400) K/uL MPV (7.2-11.7) fL Neut % (Auto) (50.0-75.0) % Lymph % (Auto) (20.0-40.0) % Hayes % (Auto) (0.0-10.0) % Eos % (Auto) (0.0-4.0) % Baso % (Auto) (0.0-2.0) % Neut # (Auto) (1.8-7.0) K/uL Lymph # (Auto) (1.0-4.3) K/uL Hayes # (Auto) (0.0-0.8) K/uL Eos # (Auto) (0.0-0.7) K/uL Baso # (Auto) (0.0-0.2) K/uL Sickle Cell Screen (Negative) Hemoglobinopathy Red Blood Count (4.20-5.80) Mill/mcL Hemoglobinopathy Hct (38.5-50.0) % Hemoglobinopathy Hgb (13.2-17.1) g/dL Hemoglobinopathy MCV (80.0-100.0) fL Hemoglobinopathy MCH (27.0-33.0) pg Hemoglobinopathy RDW (11.0-15.0) % APTT (21-34) SECONDS Puncture Site Rb pCO2 34 L (35-45) mm/Hg pO2 154 H (80-100) mm/Hg HCO3 24.9 (21-28) mmol/L ABG pH 7.45 (7.35-7.45) ABG Total CO2 24.6 (22-28) mmol/L ABG O2 Saturation 99.7 H (95-98) % ABG Base Excess -0.1 (-2.0-3.0) mmol/L ABG Hemoglobin 9.3 L (11.7-17.4) g/dL ABG Carboxyhemoglobin 1.6 H (0.5-1.5) % POC ABG HHb (Measured) 0.3 (0.0-5.0) % ABG Methemoglobin 1.0 (0.0-3.0) % Errol Test Na A-a O2 Difference 89.0 mm/Hg Respiratory Index 0.6 Hgb O2 Saturation 97.1 (95.0-98.0) % Vent Mode Prvc Mechanical Rate 16 FiO2 40.0 % Tidal Volume 500 PEEP 5 Sodium (132-148) mmol/L Potassium (3.6-5.2) mmol/L Chloride (98-107) mmol/L Carbon Dioxide (22-30) mmol/L Anion Gap (10-20) BUN (9-20) mg/dL Creatinine (0.8-1.5) mg/dL Est GFR ( Amer) Est GFR (Non-Af Amer) POC Glucose (mg/dL) 71 (65-110) mg/dL Random Glucose (75-110) mg/dL Lactic Acid (0.7-2.1) mmol/L Calcium (8.6-10.4) mg/dl Phosphorus (2.5-4.5) mg/dL Magnesium (1.6-2.3) mg/dL Ferritin ng/mL Total Bilirubin (0.2-1.3) mg/dL AST (17-59) U/L ALT (21-72) U/L Alkaline Phosphatase (38-126) U/L Troponin I (0.00-0.120) ng/mL Total Protein (6.3-8.3) g/dL Albumin (3.5-5.0) g/dL Globulin (2.2-3.9) gm/dL Albumin/Globulin Ratio (1.0-2.1) Procalcitonin (0.19-0.49) NG/ML Blood Type A POSITIVE Blood Type Confirm A POSITIVE Antibody Screen Negative 10/23/17 10/23/1710/23/18 Range/Units 18:43 18:07 17:41 WBC (4.8-10.8) K/uL RBC (4.40-5.90) Mil/uL Hgb (12.0-18.0) g/dL Hct (35.0-51.0) % MCV (80.0-94.0) fL MCH (27.0-31.0) pg MCHC (33.0-37.0) g/dL RDW (11.5-14.5) % Plt Count (130-400) K/uL MPV (7.2-11.7) fL Neut % (Auto) (50.0-75.0) % Lymph % (Auto) (20.0-40.0) % Hayes % (Auto) (0.0-10.0) % Eos % (Auto) (0.0-4.0) % Baso % (Auto) (0.0-2.0) % Neut # (Auto) (1.8-7.0) K/uL Lymph # (Auto) (1.0-4.3) K/uL Hayes # (Auto) (0.0-0.8) K/uL Eos # (Auto) (0.0-0.7) K/uL Baso # (Auto) (0.0-0.2) K/uL Sickle Cell Screen (Negative) Hemoglobinopathy Red Blood Count (4.20-5.80) Mill/mcL Hemoglobinopathy Hct (38.5-50.0) % Hemoglobinopathy Hgb (13.2-17.1) g/dL Hemoglobinopathy MCV (80.0-100.0) fL Hemoglobinopathy MCH (27.0-33.0) pg Hemoglobinopathy RDW (11.0-15.0) % APTT (21-34) SECONDS Puncture Site pCO2 (35-45) mm/Hg pO2 (80-100) mm/Hg HCO3 (21-28) mmol/L ABG pH (7.35-7.45) ABG Total CO2 (22-28) mmol/L ABG O2 Saturation (95-98) % ABG Base Excess (-2.0-3.0) mmol/L ABG Hemoglobin (11.7-17.4) g/dL ABG Carboxyhemoglobin (0.5-1.5) % POC ABG HHb (Measured) (0.0-5.0) % ABG Methemoglobin (0.0-3.0) % Errol Test A-a O2 Difference mm/Hg Respiratory Index Hgb O2 Saturation (95.0-98.0) % Vent Mode Mechanical Rate FiO2 % Tidal Volume PEEP Sodium (132-148) mmol/L Potassium (3.6-5.2) mmol/L Chloride (98-107) mmol/L Carbon Dioxide (22-30) mmol/L Anion Gap (10-20) BUN (9-20) mg/dL Creatinine (0.8-1.5) mg/dL Est GFR ( Amer) Est GFR (Non-Af Amer) POC Glucose (mg/dL) 131 H 53 L (65-110) mg/dL Random Glucose (75-110) mg/dL Lactic Acid (0.7-2.1) mmol/L Calcium (8.6-10.4) mg/dl Phosphorus (2.5-4.5) mg/dL Magnesium (1.6-2.3) mg/dL Ferritin ng/mL Total Bilirubin (0.2-1.3) mg/dL AST (17-59) U/L ALT (21-72) U/L Alkaline Phosphatase (38-126) U/L Troponin I < 0.0120 (0.00-0.120) ng/mL Total Protein (6.3-8.3) g/dL Albumin (3.5-5.0) g/dL Globulin (2.2-3.9) gm/dL Albumin/Globulin Ratio (1.0-2.1) Procalcitonin (0.19-0.49) NG/ML Blood Type Blood Type Confirm Antibody Screen 10/23/17 10/23/17 10/23/17 Range/Units 17:37 17:17 16:26 WBC (4.8-10.8) K/uL RBC (4.40-5.90) Mil/uL Hgb (12.0-18.0) g/dL Hct (35.0-51.0) % MCV (80.0-94.0) fL MCH (27.0-31.0) pg MCHC (33.0-37.0) g/dL RDW (11.5-14.5) % Plt Count (130-400) K/uL MPV (7.2-11.7) fL Neut % (Auto) (50.0-75.0) % Lymph % (Auto) (20.0-40.0) % Hayes % (Auto) (0.0-10.0) % Eos % (Auto) (0.0-4.0) % Baso % (Auto) (0.0-2.0) % Neut # (Auto) (1.8-7.0) K/uL Lymph # (Auto) (1.0-4.3) K/uL Hayes # (Auto) (0.0-0.8) K/uL Eos # (Auto) (0.0-0.7) K/uL Baso # (Auto) (0.0-0.2) K/uL Sickle Cell Screen (Negative) Hemoglobinopathy Red Blood Count (4.20-5.80) Mill/mcL Hemoglobinopathy Hct (38.5-50.0) % Hemoglobinopathy Hgb (13.2-17.1) g/dL Hemoglobinopathy MCV (80.0-100.0) fL Hemoglobinopathy MCH (27.0-33.0) pg Hemoglobinopathy RDW (11.0-15.0) % APTT 186 H* D (21-34) SECONDS Puncture Site pCO2 (35-45) mm/Hg pO2 (80-100) mm/Hg HCO3 (21-28) mmol/L ABG pH (7.35-7.45) ABG Total CO2 (22-28) mmol/L ABG O2 Saturation (95-98) % ABG Base Excess (-2.0-3.0) mmol/L ABG Hemoglobin (11.7-17.4) g/dL ABG Carboxyhemoglobin (0.5-1.5) % POC ABG HHb (Measured) (0.0-5.0) % ABG Methemoglobin (0.0-3.0) % Errol Test A-a O2 Difference mm/Hg Respiratory Index Hgb O2 Saturation (95.0-98.0) % Vent Mode Mechanical Rate FiO2 % Tidal Volume PEEP Sodium (132-148) mmol/L Potassium (3.6-5.2) mmol/L Chloride (98-107) mmol/L Carbon Dioxide (22-30) mmol/L Anion Gap (10-20) BUN (9-20) mg/dL Creatinine (0.8-1.5) mg/dL Est GFR ( Amer) Est GFR (Non-Af Amer) POC Glucose (mg/dL) 64 L (65-110) mg/dL Random Glucose (75-110) mg/dL Lactic Acid 1.0 (0.7-2.1) mmol/L Calcium (8.6-10.4) mg/dl Phosphorus (2.5-4.5) mg/dL Magnesium (1.6-2.3) mg/dL Ferritin ng/mL Total Bilirubin (0.2-1.3) mg/dL AST (17-59) U/L ALT (21-72) U/L Alkaline Phosphatase (38-126) U/L Troponin I (0.00-0.120) ng/mL Total Protein (6.3-8.3) g/dL Albumin (3.5-5.0) g/dL Globulin (2.2-3.9) gm/dL Albumin/Globulin Ratio (1.0-2.1) Procalcitonin (0.19-0.49) NG/ML Blood Type Blood Type Confirm Antibody Screen 10/23/17 10/23/17 10/23/17 Range/Units 16:01 13:15 08:53 WBC (4.8-10.8) K/uL RBC (4.40-5.90) Mil/uL Hgb (12.0-18.0) g/dL Hct (35.0-51.0) % MCV (80.0-94.0) fL MCH (27.0-31.0) pg MCHC (33.0-37.0) g/dL RDW (11.5-14.5) % Plt Count (130-400) K/uL MPV (7.2-11.7) fL Neut % (Auto) (50.0-75.0) % Lymph % (Auto) (20.0-40.0) % Hayes % (Auto) (0.0-10.0) % Eos % (Auto) (0.0-4.0) % Baso % (Auto) (0.0-2.0) % Neut # (Auto) (1.8-7.0) K/uL Lymph # (Auto) (1.0-4.3) K/uL Hayes # (Auto) (0.0-0.8) K/uL Eos # (Auto) (0.0-0.7) K/uL Baso # (Auto) (0.0-0.2) K/uL Sickle Cell Screen (Negative) Hemoglobinopathy Red Blood Count 3.89 L (4.20-5.80) Mill/mcL Hemoglobinopathy Hct 32.6 L (38.5-50.0) % Hemoglobinopathy Hgb 10.4 L (13.2-17.1) g/dL Hemoglobinopathy MCV 83.7 (80.0-100.0) fL Hemoglobinopathy MCH 26.8 L (27.0-33.0) pg Hemoglobinopathy RDW 21.5 H (11.0-15.0) % APTT (21-34) SECONDS Puncture Site pCO2 (35-45) mm/Hg pO2 (80-100) mm/Hg HCO3 (21-28) mmol/L ABG pH (7.35-7.45) ABG Total CO2 (22-28) mmol/L ABG O2 Saturation (95-98) % ABG Base Excess (-2.0-3.0) mmol/L ABG Hemoglobin (11.7-17.4) g/dL ABG Carboxyhemoglobin (0.5-1.5) % POC ABG HHb (Measured) (0.0-5.0) % ABG Methemoglobin (0.0-3.0) % Errol Test A-a O2 Difference mm/Hg Respiratory Index Hgb O2 Saturation (95.0-98.0) % Vent Mode Mechanical Rate FiO2 % Tidal Volume PEEP Sodium (132-148) mmol/L Potassium (3.6-5.2) mmol/L Chloride (98-107) mmol/L Carbon Dioxide (22-30) mmol/L Anion Gap (10-20) BUN (9-20) mg/dL Creatinine (0.8-1.5) mg/dL Est GFR ( Amer) Est GFR (Non-Af Amer) POC Glucose (mg/dL) (65-110) mg/dL Random Glucose (75-110) mg/dL Lactic Acid (0.7-2.1) mmol/L Calcium (8.6-10.4) mg/dl Phosphorus (2.5-4.5) mg/dL Magnesium (1.6-2.3) mg/dL Ferritin 109.0 ng/mL Total Bilirubin (0.2-1.3) mg/dL AST (17-59) U/L ALT (21-72) U/L Alkaline Phosphatase (38-126) U/L Troponin I (0.00-0.120) ng/mL Total Protein (6.3-8.3) g/dL Albumin (3.5-5.0) g/dL Globulin (2.2-3.9) gm/dL Albumin/Globulin Ratio (1.0-2.1) Procalcitonin < 0.05 L (0.19-0.49) NG/ML Blood Type Blood Type Confirm Antibody Screen 10/23/17 Range/Units 08:37 WBC (4.8-10.8) K/uL RBC (4.40-5.90) Mil/uL Hgb (12.0-18.0) g/dL Hct (35.0-51.0) % MCV (80.0-94.0) fL MCH (27.0-31.0) pg MCHC (33.0-37.0) g/dL RDW (11.5-14.5) % Plt Count (130-400) K/uL MPV (7.2-11.7) fL Neut % (Auto) (50.0-75.0) % Lymph % (Auto) (20.0-40.0) % Hayes % (Auto) (0.0-10.0) % Eos % (Auto) (0.0-4.0) % Baso % (Auto) (0.0-2.0) % Neut # (Auto) (1.8-7.0) K/uL Lymph # (Auto) (1.0-4.3) K/uL Hayes # (Auto) (0.0-0.8) K/uL Eos # (Auto) (0.0-0.7) K/uL Baso # (Auto) (0.0-0.2) K/uL Sickle Cell Screen Negative (Negative) Hemoglobinopathy Red Blood Count (4.20-5.80) Mill/mcL Hemoglobinopathy Hct (38.5-50.0) % Hemoglobinopathy Hgb (13.2-17.1) g/dL Hemoglobinopathy MCV (80.0-100.0) fL Hemoglobinopathy MCH (27.0-33.0) pg Hemoglobinopathy RDW (11.0-15.0) % APTT (21-34) SECONDS Puncture Site pCO2 (35-45) mm/Hg pO2 (80-100) mm/Hg HCO3 (21-28) mmol/L ABG pH (7.35-7.45) ABG Total CO2 (22-28) mmol/L ABG O2 Saturation (95-98) % ABG Base Excess (-2.0-3.0) mmol/L ABG Hemoglobin (11.7-17.4) g/dL ABG Carboxyhemoglobin (0.5-1.5) % POC ABG HHb (Measured) (0.0-5.0) % ABG Methemoglobin (0.0-3.0) % Errol Test A-a O2 Difference mm/Hg Respiratory Index Hgb O2 Saturation (95.0-98.0) % Vent Mode Mechanical Rate FiO2 % Tidal Volume PEEP Sodium (132-148) mmol/L Potassium (3.6-5.2) mmol/L Chloride (98-107) mmol/L Carbon Dioxide (22-30) mmol/L Anion Gap (10-20) BUN (9-20) mg/dL Creatinine (0.8-1.5) mg/dL Est GFR ( Amer) Est GFR (Non-Af Amer) POC Glucose (mg/dL) (65-110) mg/dL Random Glucose (75-110) mg/dL Lactic Acid (0.7-2.1) mmol/L Calcium (8.6-10.4) mg/dl Phosphorus (2.5-4.5) mg/dL Magnesium (1.6-2.3) mg/dL Ferritin ng/mL Total Bilirubin (0.2-1.3) mg/dL AST (17-59) U/L ALT (21-72) U/L Alkaline Phosphatase (38-126) U/L Troponin I (0.00-0.120) ng/mL Total Protein (6.3-8.3) g/dL Albumin (3.5-5.0) g/dL Globulin (2.2-3.9) gm/dL Albumin/Globulin Ratio (1.0-2.1) Procalcitonin (0.19-0.49) NG/ML Blood Type Blood Type Confirm Antibody Screen Laboratory Results - last 24 hr 10/23/17 10/23/17 10/23/17 08:37 08:53 13:15 WBC RBC Hgb Hct MCV MCH MCHC RDW Plt Count MPV Neut % (Auto) Lymph % (Auto) Hayes % (Auto) Eos % (Auto) Baso % (Auto) Neut # (Auto) Lymph # (Auto) Hayes # (Auto) Eos # (Auto) Baso # (Auto) Sickle Cell Screen Negative Hemoglobinopathy Red Blood Count 3.89 L Hemoglobinopathy Hct 32.6 L Hemoglobinopathy Hgb 10.4 L Hemoglobinopathy MCV 83.7 Hemoglobinopathy MCH 26.8 L Hemoglobinopathy RDW 21.5 H APTT Puncture Site pCO2 pO2 HCO3 ABG pH ABG Total CO2 ABG O2 Saturation ABG Base Excess ABG Hemoglobin ABG Carboxyhemoglobin POC ABG HHb (Measured) ABG Methemoglobin Errol Test A-a O2 Difference Respiratory Index Hgb O2 Saturation Vent Mode Mechanical Rate FiO2 Tidal Volume PEEP Sodium Potassium Chloride Carbon Dioxide Anion Gap BUN Creatinine Est GFR ( Amer) Est GFR (Non-Af Amer) POC Glucose (mg/dL) Random Glucose Lactic Acid Calcium Phosphorus Magnesium Ferritin Total Bilirubin AST ALT Alkaline Phosphatase Troponin I Total Protein Albumin Globulin Albumin/Globulin Ratio Procalcitonin < 0.05 L Blood Type Blood Type Confirm Antibody Screen 10/23/17 10/23/17 10/23/17 16:01 16:26 17:17 WBC RBC Hgb Hct MCV MCH MCHC RDW Plt Count MPV Neut % (Auto) Lymph % (Auto) Hayes % (Auto) Eos % (Auto) Baso % (Auto) Neut # (Auto) Lymph # (Auto) Hayes # (Auto) Eos # (Auto) Baso # (Auto) Sickle Cell Screen Hemoglobinopathy Red Blood Count Hemoglobinopathy Hct Hemoglobinopathy Hgb Hemoglobinopathy MCV Hemoglobinopathy MCH Hemoglobinopathy RDW APTT 186 H* D Puncture Site pCO2 pO2 HCO3 ABG pH ABG Total CO2 ABG O2 Saturation ABG Base Excess ABG Hemoglobin ABG Carboxyhemoglobin POC ABG HHb (Measured) ABG Methemoglobin Errol Test A-a O2 Difference Respiratory Index Hgb O2 Saturation Vent Mode Mechanical Rate FiO2 Tidal Volume PEEP Sodium Potassium Chloride Carbon Dioxide Anion Gap BUN Creatinine Est GFR ( Amer) Est GFR (Non-Af Amer) POC Glucose (mg/dL) Random Glucose Lactic Acid 1.0 Calcium Phosphorus Magnesium Ferritin 109.0 Total Bilirubin AST ALT Alkaline Phosphatase Troponin I Total Protein Albumin Globulin Albumin/Globulin Ratio Procalcitonin Blood Type Blood Type Confirm Antibody Screen 10/23/17 10/23/17 10/23/17 17:37 17:41 18:07 WBC RBC Hgb Hct MCV MCH MCHC RDW Plt Count MPV Neut % (Auto) Lymph % (Auto) Hayes % (Auto) Eos % (Auto) Baso % (Auto) Neut # (Auto) Lymph # (Auto) Hayes # (Auto) Eos # (Auto) Baso # (Auto) Sickle Cell Screen Hemoglobinopathy Red Blood Count Hemoglobinopathy Hct Hemoglobinopathy Hgb Hemoglobinopathy MCV Hemoglobinopathy MCH Hemoglobinopathy RDW APTT Puncture Site pCO2 pO2 HCO3 ABG pH ABG Total CO2 ABG O2 Saturation ABG Base Excess ABG Hemoglobin ABG Carboxyhemoglobin POC ABG HHb (Measured) ABG Methemoglobin Errol Test A-a O2 Difference Respiratory Index Hgb O2 Saturation Vent Mode Mechanical Rate FiO2 Tidal Volume PEEP Sodium Potassium Chloride Carbon Dioxide Anion Gap BUN Creatinine Est GFR ( Amer) Est GFR (Non-Af Amer) POC Glucose (mg/dL) 64 L 53 L 131 H Random Glucose Lactic Acid Calcium Phosphorus Magnesium Ferritin Total Bilirubin AST ALT Alkaline Phosphatase Troponin I Total Protein Albumin Globulin Albumin/Globulin Ratio Procalcitonin Blood Type Blood Type Confirm Antibody Screen 10/23/17 10/23/17 10/23/17 18:43 19:42 23:26 WBC RBC Hgb Hct MCV MCH MCHC RDW Plt Count MPV Neut % (Auto) Lymph % (Auto) Hayes % (Auto) Eos % (Auto) Baso % (Auto) Neut # (Auto) Lymph # (Auto) Hayes # (Auto) Eos # (Auto) Baso # (Auto) Sickle Cell Screen Hemoglobinopathy Red Blood Count Hemoglobinopathy Hct Hemoglobinopathy Hgb Hemoglobinopathy MCV Hemoglobinopathy MCH Hemoglobinopathy RDW APTT Puncture Site pCO2 pO2 HCO3 ABG pH ABG Total CO2 ABG O2 Saturation ABG Base Excess ABG Hemoglobin ABG Carboxyhemoglobin POC ABG HHb (Measured) ABG Methemoglobin Errol Test A-a O2 Difference Respiratory Index Hgb O2 Saturation Vent Mode Mechanical Rate FiO2 Tidal Volume PEEP Sodium Potassium Chloride Carbon Dioxide Anion Gap BUN Creatinine Est GFR ( Amer) Est GFR (Non-Af Amer) POC Glucose (mg/dL) 71 Random Glucose Lactic Acid Calcium Phosphorus Magnesium Ferritin Total Bilirubin AST ALT Alkaline Phosphatase Troponin I < 0.0120 Total Protein Albumin Globulin Albumin/Globulin Ratio Procalcitonin Blood Type A POSITIVE Blood Type Confirm A POSITIVE Antibody Screen Negative 10/24/17 10/24/17 10/24/17 05:15 05:22 06:30 WBC 4.4 L RBC 3.26 L Hgb 9.1 L Hct 26.6 L MCV 81.5 MCH 27.9 MCHC 34.2 RDW 20.5 H Plt Count 385 MPV 7.5 Neut % (Auto) 58.1 Lymph % (Auto) 27.5 Hayes % (Auto) 10.2 H Eos % (Auto) 3.6 Baso % (Auto) 0.6 Neut # (Auto) 2.6 Lymph # (Auto) 1.2 Hayes # (Auto) 0.5 Eos # (Auto) 0.2 Baso # (Auto) 0.0 Sickle Cell Screen Hemoglobinopathy Red Blood Count Hemoglobinopathy Hct Hemoglobinopathy Hgb Hemoglobinopathy MCV Hemoglobinopathy MCH Hemoglobinopathy RDW APTT Puncture Site Rb pCO2 34 L pO2 154 H HCO3 24.9 ABG pH 7.45 ABG Total CO2 24.6 ABG O2 Saturation 99.7 H ABG Base Excess -0.1 ABG Hemoglobin 9.3 L ABG Carboxyhemoglobin 1.6 H POC ABG HHb (Measured) 0.3 ABG Methemoglobin 1.0 Rerol Test Na A-a O2 Difference 89.0 Respiratory Index 0.6 Hgb O2 Saturation 97.1 Vent Mode Prvc Mechanical Rate 16 FiO2 40.0 Tidal Volume 500 PEEP 5 Sodium Potassium Chloride Carbon Dioxide Anion Gap BUN Creatinine Est GFR ( Amer) Est GFR (Non-Af Amer) POC Glucose (mg/dL) 77 Random Glucose Lactic Acid Calcium Phosphorus Magnesium Ferritin Total Bilirubin AST ALT Alkaline Phosphatase Troponin I Total Protein Albumin Globulin Albumin/Globulin Ratio Procalcitonin Blood Type Blood Type Confirm Antibody Screen 0210/24/17 10/24/17 06:30 06:30 11:40 WBC RBC Hgb Hct MCV MCH MCHC RDW Plt Count MPV Neut % (Auto) Lymph % (Auto) Hayes % (Auto) Eos % (Auto) Baso % (Auto) Neut # (Auto) Lymph # (Auto) Hayes # (Auto) Eos # (Auto) Baso # (Auto) Sickle Cell Screen Hemoglobinopathy Red Blood Count Hemoglobinopathy Hct Hemoglobinopathy Hgb Hemoglobinopathy MCV Hemoglobinopathy MCH Hemoglobinopathy RDW APTT 40 H D Puncture Site pCO2 pO2 HCO3 ABG pH ABG Total CO2 ABG O2 Saturation ABG Base Excess ABG Hemoglobin ABG Carboxyhemoglobin POC ABG HHb (Measured) ABG Methemoglobin Errol Test A-a O2 Difference Respiratory Index Hgb O2 Saturation Vent Mode Mechanical Rate FiO2 Tidal Volume PEEP Sodium 143 Potassium 3.5 L Chloride 110 H Carbon Dioxide 26 Anion Gap 12 BUN 2 L Creatinine 0.5 L Est GFR ( Amer) > 60 Est GFR (Non-Af Amer) > 60 POC Glucose (mg/dL) 79 Random Glucose 80 Lactic Acid Calcium 8.0 L Phosphorus 3.3 Magnesium 2.2 Ferritin Total Bilirubin 0.2 AST 19 ALT 27 Alkaline Phosphatase 60 Troponin I Total Protein 5.4 L Albumin 2.8 L Globulin 2.7 Albumin/Globulin Ratio 1.0 Procalcitonin Blood Type Blood Type Confirm Antibody Screen 10/24/17 13:04 WBC 4.1 L RBC 3.34 L Hgb 9.3 L Hct 27.1 L MCV 81.4 MCH 27.8 MCHC 34.1 RDW 21.1 H Plt Count 388 MPV 7.3 Neut % (Auto) 56.1 Lymph % (Auto) 26.1 Hayes % (Auto) 10.8 H Eos % (Auto) 6.0 H Baso % (Auto) 1.0 Neut # (Auto) 2.3 Lymph # (Auto) 1.1 Hayes # (Auto) 0.4 Eos # (Auto) 0.2 Baso # (Auto) 0.0 Sickle Cell Screen Hemoglobinopathy Red Blood Count Hemoglobinopathy Hct Hemoglobinopathy Hgb Hemoglobinopathy MCV Hemoglobinopathy MCH Hemoglobinopathy RDW APTT Puncture Site pCO2 pO2 HCO3 ABG pH ABG Total CO2 ABG O2 Saturation ABG Base Excess ABG Hemoglobin ABG Carboxyhemoglobin POC ABG HHb (Measured) ABG Methemoglobin Errol Test A-a O2 Difference Respiratory Index Hgb O2 Saturation Vent Mode Mechanical Rate FiO2 Tidal Volume PEEP Sodium Potassium Chloride Carbon Dioxide Anion Gap BUN Creatinine Est GFR ( Amer) Est GFR (Non-Af Amer) POC Glucose (mg/dL) Random Glucose Lactic Acid Calcium Phosphorus Magnesium Ferritin Total Bilirubin AST ALT Alkaline Phosphatase Troponin I Total Protein Albumin Globulin Albumin/Globulin Ratio Procalcitonin Blood Type Blood Type Confirm Antibody Screen Attending/Attestation - Attestation I have personally seen and examined this patient.: Yes I have fully participated in the care of the patient.: Yes I have reviewed all pertinent clinical information: Yes Notes (Text): 10/24/17 15:12 I have seen and examined the patient. Medical records, lab studies, and imaging were reviewed by me and a management plan was formulated on multidisciplinary rounds with resident Dr. Mayer. I agree with their documented assessment and plan. Refractory seizures despite multiple medications, started on phenobarbital with clinical resolution, f/u EEG. Will titrate off propofol, keep versed drip, keppra, dilantin and phenobarbital. Addendum: patient seizing again, will start Ketamine drip, titrate off phenobarbital, continue keppra and dilantin. Critical Care Time 35 minutes. Multi-disciplinary rounds were performed with house staff, nursing, speech therapy, respiratory therapy, pharmacy and nutrition with integrated input from the primary team/attending and other consulting services. The documented time is cumulative and includes review of patient data/exams/labs/chart review and examination of the patient on rounds and throughout the day; time is exclusive of any procedures or teaching time. 10/24/17 18:19
[2017-10-24 13:24] LABS: EOS # 0.2 K/uL (0.0-0.7); HEMOGLOBIN 9.3 g/dL (12.0-18.0); LYMPH # 1.1 K/uL (1.0-4.3); LYMPH % 26.1 % (20.0-40.0); MEAN CELL VOLUME 81.4 fL (80.0-94.0); MEAN CORPUSCULAR HEMOGLOBIN 27.8 pg (27.0-31.0); MEAN CORPUSCULAR HGB CONC 34.1 g/dL (33.0-37.0); MEAN PLATELET VOLUME 7.3 fL (7.2-11.7); MONO # 0.4 K/uL (0.0-0.8); MONO % 10.8 % (0.0-10.0); NEUT # 2.3 K/uL (1.8-7.0); NEUT % 56.1 % (50.0-75.0); NRBC % 0.1 % (0.0-2.0); RBC 3.34 Mil/uL (4.40-5.90); RED CELL DISTRIBUTION WIDTH 21.1 % (11.5-14.5); WHITE BLOOD COUNT 4.1 K/uL (4.8-10.8)
[2017-10-24] MEDS ORDERED: Lacosamide 200mg/20ml 100 MG in Sodium Chloride 0.9% 100 ML IV SCH (14:00)
[2017-10-24] MEDS ORDERED: Lacosamide 200mg/20ml Inj IV SCH ×3 (14:00→22:00)
--- NOTE | 2017-10-24 14:54 | CP.PCM.PN ---
Subjective - Date & Time of Evaluation Date of Evaluation: 10/24/17 Time of Evaluation: 10:00 - Subjective Subjective: Neurology progress note for Dr. Lwas Patient seen and examined at bedside. Patient remains intubated and sedated. Patient had seizure overnight requiring phenobarbital. He is currently on both Versed and Propofol drips. Cannot ascertain ROS due to clinical status. Objective - Vital Signs/Intake and Output Vital Signs (last 24 hours): Temp Pulse Resp BP Pulse Ox 97.4 F L 53 L 16 130/75 100 10/24/17 12:00 10/24/17 14:12 10/24/17 14:12 10/24/17 14:12 10/24/17 14:12 Intake and Output: 10/24/17 10/24/17 06:59 18:59 Intake Total 3248.5 2256 Output Total 1400 1075 Balance 1848.5 1181 - Medications Medications: Current Medications Aspirin (Aspirin Chewable) 81 mg PO DAILY [facility] Last Admin: 10/24/17 10:52 Dose: 81 mg Clopidogrel Bisulfate (Plavix) 75 mg PO DAILY [facility] Last Admin: 10/24/17 10:52 Dose: 75 mg Enoxaparin Sodium (Lovenox) 100 mg SC Q12 [facility] Last Admin: 10/24/17 11:00 Dose: 100 mg Folic Acid (Folic Acid) 1 mg PO DAILY [facility] Last Admin: 10/24/17 10:52 Dose: 1 mg Hydroxyurea (Hydrea) 500 mg PO BID [facility] Last Admin: 10/23/17 17:20 Dose: 500 mg Propofol (Diprivan) 1,000 mg in 100 mls @ 11.43 mls/hr IV .Q8H45M PRN; Protocol ; 20 MCG/KG/MIN PRN Reason: TITRATE PER MD ORDER Last Titration: 10/24/17 12:51 Dose: 10 mcg/kg/min, 5.715 mls/hr Lactated Ringer's (Lactated Ringer's) 1,000 mls @ 200 mls/hr IV .Q5H [facility] Last Admin: 10/24/17 12:26 Dose: Not Given Levetiracetam 1,000 mg/ Sodium (Chloride) 110 mls @ 100 mls/hr IVPB Q12H [facility] Last Admin: 10/24/17 09:06 Dose: 100 mls/hr Phenylephrine HCl 30 mg/ (Sodium Chloride) 250 mls @ 10 mls/hr IV .Q24H PRN; Protocol; 20 MCG/MIN PRN Reason: TITRATE PER MD ORDER Midazolam HCl 100 mg/ Sodium (Chloride) 100 mls @ 1.95 mls/hr IV .Q24H PRN; 0.02 MG/KG/HR PRN Reason: Protocol Last Admin: 10/24/17 08:16 Dose: 0.06 mg/kg/hr, 6 mls/hr Lacosamide 100 mg/ Sodium (Chloride) 110 mls @ 440 mls/hr IV Q12H [facility] Last Admin: 10/24/17 14:31 Dose: 440 mls/hr Lorazepam (Ativan) 2 mg IVP Q4H PRN PRN Reason: Seizure activity Pantoprazole Sodium (Protonix Inj) 40 mg IVP DAILY [facility] Last Admin: 10/24/17 11:02 Dose: 40 mg Phenobarbital (Phenobarbital Tab) 97.2 mg PO Q12 KEVIN Phenytoin (Dilantin) 200 mg PO BID [facility] Last Admin: 10/24/17 11:17 Dose: 200 mg - Labs Labs: 10/24/17 13:04 10/24/17 06:30 PT 12.2 SECONDS (9.7-12.2) 10/23/17 06:12 INR 1.1 10/23/17 06:12 APTT 40 SECONDS (21-34) H D 10/24/17 06:30 - Additional Findings Additional findings: - Constitutional Appears: No Acute Distress - Head Exam Head Exam: ATRAUMATIC, NORMOCEPHALIC - Eye Exam Eye Exam: absent: Normal appearance (pinpoint pupils) - ENT Exam ENT Exam: Mucous Membranes Moist - Respiratory Exam Respiratory Exam: Clear to Auscultation Bilateral. absent: Rales, Rhonchi, Wheezes Additional comments: On mechanical ventilation - Cardiovascular Exam Cardiovascular Exam: REGULAR RHYTHM, +S1, +S2 - GI/Abdominal Exam GI & Abdominal Exam: Normal Bowel Sounds, Soft - Extremities Exam Extremities exam: Negative for: pedal edema - Neurological Exam Neurological exam: Altered (intubated and sedated) - Skin Skin Exam: Dry, Warm Assessment and Plan - Assessment and Plan (Free Text) Assessment: This is a 32 year old male currently intubated and sedated in the ICU on propofol with PMHx presumed seizure disorder, MN, right leg DVT, sickle cell disease, protein c deficiency who initially presented with complaint of chest pain. However, he later experienced intractable seizures and was admitted to the ICU due to status epilepticus. Plan: Status Epilepticus Wean off of sedation slowly as tolerated. Ideally wean off of the propofol first. Keppra 1000 mg IV Q12 Dilantin 200 mg BID Vimpat 100 mg Q12 Phenobarbital 97.2 mg PO Q12 Avoid hypo or hypertensive events Maintain euglycemia Avoid and limit night time interruptions Follow up EEG F/u Infectious workup to investigate seizure triggers, though procalitonin low If patient is still refractory to seizures after this, start Ketamine to reset the brain receptors. Start at 0.5 mg/kg and can go up to 2 mg/kg. Disposition: If still refractory to seizures, can begin ketamine as stated above. Patient currently on Versed and Propofol drips. Wean off of the propofol first. After weaning off of sedation completely, the seizure medications can be tapered and adjusted so that hopefully the patient is only on two oral agents after resolution of status epilepticus. Patient seen and discussed with Dr. Laws
[2017-10-24] MEDS ORDERED: levETIRAcetam 2,000 MG in Sodium Chloride 0.9% 100 ML IVPB SCH (15:45)
--- NOTE | 2017-10-24 16:31 | PCM.EEG ---
Electroencephalogram Report - Electroencephalogram Report Procedure Date: 10/24/17 Interpretation: Indication: Clinical Seizures. Medications were reviewed. Technical: This is a digitally recorded electroencephalogram. The international 10-20 electrode placement system is used for scalp electrode placement. Eighteen channels of scalp EEG are recorded Another channel was used for for ECG. The data are stored digitally and reviewed in reformatted montages for optimal display. Slower than normal posterior dominant rhythm at 4 Hz. Description: No focal slowing was seen. No seizure like activity was observed during this recording. Diffuse Abnormality: No well formed alpha activity was seen. Impression: This EEG is abnormal. Diffuse slowing is seen, suggestive of a diffuse abnormality of the brain. Lower than normal posterior dominant rhythm at 4 Hz. No seizures, drowsiness or sleep were detected. Clinical correlation is needed.
[2017-10-24] MEDS ORDERED: Dextrose 50% SYRINGE Inj (50 ml) IV STA ×2 (17:32→23:51)
[2017-10-24] MEDS ORDERED: levETIRAcetam 1,500 MG in Sodium Chloride 0.9% 100 ML IVPB SCH (18:20)
[2017-10-24] MEDS: levETIRAcetam 1,500 MG in Sodium Chloride 0.9% 100 ML IVPB SCH (20:30)
[2017-10-24] MEDS ORDERED: Lacosamide 200mg/20ml 200 MG in Sodium Chloride 0.9% 100 ML IV SCH (22:00)
--- NOTE | 2017-10-24 22:05 | CP.PCM.PN ---
Subjective - Date & Time of Evaluation Date of Evaluation: 10/24/17 Time of Evaluation: 17:30 - Subjective Subjective: Medical attending note: Patient seen, examined, case discussed with crabbing machine operator. Patient are phenobarbital light of his seizures and has been switched over to ketamine per recommendation from neurology. Unable to review systems given patient's clinical state. Objective - Vital Signs/Intake and Output Vital Signs (last 24 hours): Temp Pulse Resp BP Pulse Ox 97.5 F L 62 16 139/56 L 100 10/24/17 17:00 10/24/17 18:19 10/24/17 18:19 10/24/17 18:19 10/24/17 18:19 Intake and Output: 10/24/17 10/25/17 18:59 06:59 Intake Total 2949 135 Output Total 1680 Balance 1269 135 - Medications Medications: Current Medications Aspirin (Aspirin Chewable) 81 mg PO DAILY [facility] Last Admin: 10/24/17 10:52 Dose: 81 mg Clopidogrel Bisulfate (Plavix) 75 mg PO DAILY [facility] Last Admin: 10/24/17 10:52 Dose: 75 mg Enoxaparin Sodium (Lovenox) 100 mg SC Q12 [facility] Last Admin: 10/24/17 21:02 Dose: 100 mg Folic Acid (Folic Acid) 1 mg PO DAILY [facility] Last Admin: 10/24/17 10:52 Dose: 1 mg Hydroxyurea (Hydrea) 500 mg PO BID [facility] Last Admin: 10/23/17 17:20 Dose: 500 mg Propofol (Diprivan) 1,000 mg in 100 mls @ 11.43 mls/hr IV .Q8H45M PRN; Protocol ; 20 MCG/KG/MIN PRN Reason: TITRATE PER MD ORDER Last Admin: 10/24/17 20:30 Dose: 20 mcg/kg/min, 11.43 mls/hr Phenylephrine HCl 30 mg/ (Sodium Chloride) 250 mls @ 10 mls/hr IV .Q24H PRN; Protocol; 20 MCG/MIN PRN Reason: TITRATE PER MD ORDER Midazolam HCl 100 mg/ Sodium (Chloride) 100 mls @ 1.95 mls/hr IV .Q24H PRN; 0.02 MG/KG/HR PRN Reason: Protocol Last Titration: 10/24/17 20:35 Dose: 0.06 mg/kg/hr, 6 mls/hr Lactated Ringer's (Lactated Ringer's) 1,000 mls @ 75 mls/hr IV .[id number] [facility] Last Admin: 10/24/17 16:33 Dose: 75 mls/hr Lacosamide 100 mg/ Sodium (Chloride) 110 mls @ 110 mls/hr IV Q12 [facility] Levetiracetam 1,500 mg/ Sodium (Chloride) 115 mls @ 420 mls/hr IVPB Q12H [facility] Last Admin: 10/24/17 20:30 Dose: 420 mls/hr Lorazepam (Ativan) 2 mg IVP Q4H PRN PRN Reason: Seizure activity Last Admin: 10/24/17 15:55 Dose: 2 mg Pantoprazole Sodium (Protonix Inj) 40 mg IVP DAILY [facility] Last Admin: 10/24/17 11:02 Dose: 40 mg Phenobarbital (Phenobarbital Tab) 97.2 mg PO Q12 [facility] Phenytoin (Dilantin) 200 mg PO BID [facility] Last Admin: 10/24/17 17:44 Dose: 200 mg Pneumococcal Polyvalent Vaccine (Pneumovax 23 Vaccine) 0.5 ml IM .ONCE ONE Stop: 10/25/17 10:01 - Labs Labs: 10/24/17 13:04 10/24/17 06:30 PT 12.2 SECONDS (9.7-12.2) 10/23/17 06:12 INR 1.1 10/23/17 06:12 APTT 40 SECONDS (21-34) H D 10/24/17 06:30 - Constitutional Appears: No Acute Distress, Unkempt, Confused - Head Exam Additional comments: Patient's eyes spontaneously blinking and when eyes are confronted he does blink in response patient is not arousable to name Intubated with OG tube and has bilateral mittens had a Prevalon boots - Respiratory Exam Respiratory Exam: Decreased Breath Sounds, NORMAL BREATHING PATTERN. absent: Respiratory Distress, Stridor Additional comments: intubated - Cardiovascular Exam Cardiovascular Exam: REGULAR RHYTHM, +S1, +S2 - GI/Abdominal Exam GI & Abdominal Exam: Soft, Normal Bowel Sounds. absent: Distended, Firm, Guarding, Rigid, Tenderness, Rebound - Extremities Exam Extremities Exam: absent: Pedal Edema, Tenderness - Neurological Exam Neurological Exam: Altered - Skin Skin Exam: Dry, Normal Color, Warm Additional comments: lips remain swollen Assessment and Plan (1) Status epilepticus Status: Acute (2) Protein C deficiency Status: Acute (3) CAD (coronary artery disease) Status: Acute (4) Stented coronary artery Status: Acute (5) Pulmonary embolism Status: Acute (6) Prophylactic measure Status: Acute Attending/Attestation - Attestation I have personally seen and examined this patient.: Yes I have fully participated in the care of the patient.: Yes I have reviewed all pertinent clinical information, including history, physical exam and plan: Yes Notes (Text): Assessment/Plan 1) Status Epilepticus Known Seizure Disorder * Home medications: Keppa 500mg PO BID; Dilantin 300mg PO BID as outpatient medications. * Witnessed seizures in the ED on admission * Intubated in the Ed 10/23/17 to protect airway * CT Head (10/23/17): no acute intracranial abnormality. Endotracheal tube in place. * CT head (10/23/17): no definite acute intracranial abnormality. Incidental/non acute findings are described above * Urine Drug Screen: +opiates, +barbiturates +Benzos * Blood alcohol <10 * Neurology (Dr. Laws) on consult help appreciated * Seizure medications: * Keppra 1000mg IVPB Q12H * Dilantin 200mg PO BID * Seizures were refractory to propofol-->ICU needed to start Versed drip during the day on 10/23/17 * On 10/24/17, patient has recurrent seizure * Per neurology, medications adjusted as follows: * Vimpat 100mg IVQ12 * Keppra 1500mg IVPB Q12H * To titrate off Propofol * Dilantin 200mg PO BID * Phenobarbital 97.2mg PO Q12 * Versed Drip * Start Ketamine given persistent seizures if refractory * Procalcitonin: low * Blood culture: negative * Urine culture: no growth 2) Chest Pain Possible History of Coronary Artery Disease Possible Stent/ Prior NM? * Aspirin 81mg PO daily * Plavix 75mg PO daily * Lipid panel ordered: T, Cholestrol: 199, LDL:111, HDL: 43 * Troponin X2: negative * EKG on admission: NSR * CT angio: No definite PE; post surgical changes of the stomach * Echocardiogram ordered: pending official report * A1c: 4.8 3. History of Protein C deficiency History of Pulmonary Embolus History of DVT+ * Heme-oncology on board-->help appreciated * Anthrombin III * Hemoglobinopathy eval * Sickle cell screen: negative * pending protein C and S * Patient was on Coumadin-->i * INR: subtherapeutic * CT angio: No definite PE; post surgical changes of the stomach * +IVC filter * Ordered for venous dopplers to check for DVT which is pending; SCDS contraindicated * On heparin drip (CT Head negative for bleed) 4. History of Sickle Cell Disease?? * Heme-oncology on board-->Help appreciated * Per consult, I have spoken to his brother Art Mcadams ([phone]) and he is not sure if his brother has sickle cell anemia. He does know of family who may have it but his parents and siblings do not have sickle cell anemia. His brother recently moved from [place] but was recently at [facility]. He also notes to his brother having lots of admissions in the past for seizures. * Hemoglobinopathy eval: pending * Sickle cell screen: negative 5. Anemia * Elevated reticulocyte count * Low iron, low TIBC, low percent iron * B12: 735, Folate: 8.2 * pending Ferritin * Hemoglobinopathy eval: pending * Sickle cell screen: negative 6. Prophylactic measure * Heparin drip * +IVC filter * Protonix 40mg IV daily * SCDS contraindicated given DVT+ * pending venous doppler report * Brother: Art Mcadams ([phone])
[2017-10-24] MEDS: Lacosamide 200mg/20ml 100 MG in Sodium Chloride 0.9% 100 ML IV SCH (22:15)
--- NOTE | 2017-10-24 23:15 | CARD ---
APPROVED REPORT EXAM: Two-dimensional and M-mode echocardiogram with Doppler and color Doppler. Other Information Quality : GoodRhythm : INDICATION Cardiac Disease: CAD Pulmonary Embolism LV Function:Systolic 2D DIMENSIONS IVSd1.2 (0.7-1.1cm)LVDd4.2 (3.9-5.9cm) PWd1.3 (0.7-1.1cm)LVDs2.9 (2.5-4.0cm) FS (%) 31.4 %LVEF (%)59.6 (>50%) M-Mode DIMENSIONS RVDd1.28 (2.1-3.2cm)Left Atrium (MM)3.17 (2.5-4.0cm) IVSd1.91 (0.7-1.1cm)Aortic Root2.82 (2.2-3.7cm) LVDd4.65 (4.0-5.6cm)Aortic Cusp Exc.2.05 (1.5-2.0cm) PWd1.49 (0.7-1.1cm)FS (%) 34 % LVDs3.05 (2.0-3.8cm)LVEF (%)63 (>50%) Mitral Valve MV E Spuyfakg81.0cm/sMV A Mtrtcjlq87.4cm/sE/A ratio2.8 TDI E/Lateral E'0.0E/Medial E'0.0 Tricuspid Valve TR Peak [id number] Peak [id number] LEFT VENTRICLE There is mild to moderate concentric left ventricular hypertrophy. Left ventricle systolic function is normal. The Ejection Fraction is 60-65%. There is normal LV segmental wall motion. The left ventricular diastolic function is normal. No left ventricle thrombus noted on this study. RIGHT VENTRICLE The right ventricle is normal size. The right ventricular systolic function is normal. ATRIA The left atrium size is normal. The right atrium size is normal. AORTIC VALVE The aortic valve is mildly sclerotic. The aortic valve is trileaflet. No aortic regurgitation is present. There is no aortic valvular stenosis. There is no aortic valvular vegetation. MITRAL VALVE Mitral annular calcification is mild. There is no evidence of mitral valve prolapse. There is no mitral valve stenosis. There is no mitral valve regurgitation noted. TRICUSPID VALVE The tricuspid valve is normal in structure. There is mild tricuspid regurgitation. Right ventricular systolic pressure is estimated at less than 30 mmHg. There is no pulmonary hypertension. There is no tricuspid valve prolapse or vegetation. There is no tricuspid valve stenosis. PULMONIC VALVE The pulmonary valve is normal in structure. There is mild pulmonic valvular regurgitation. There is no pulmonic valvular stenosis. GREAT VESSELS The aortic root is normal in size. The IVC is normal in size and collapses >50% with inspiration. PERICARDIAL EFFUSION There is no pericardial effusion. There is no pleural effusion. <Conclusion> There is mild to moderate concentric left ventricular hypertrophy. Left ventricle systolic function is normal. The Ejection Fraction is 60-65%. The left ventricular diastolic function is normal. The right ventricle is normal size. The right ventricular systolic function is normal. The left atrium size is normal. The right atrium size is normal. There is mild tricuspid regurgitation. There is no pulmonary hypertension. There is mild pulmonic valvular regurgitation.
[2017-10-25 00:54] LABS: BLOOD UREA NITROGEN 3 mg/dL (9-20); CALCIUM 8.1 mg/dl (8.6-10.4); GFR AFRICAN-AMERICAN > 60; GFR NON-AFRICAN AMERICAN > 60
[2017-10-25] MEDS: Lactated Ringer's 1,000 ML IV SCH ×2 (01:15→05:00)
[2017-10-25] MEDS: Propofol 10 mg/ml 1,000 MG/100 ML VIAL IV PRN ×4 (05:20→23:00)
[2017-10-25 06:07] LABS: ARTERIAL BLOOD GAS HCO3 24.2 mmol/L (21-28); ARTERIAL BLOOD GAS HEMOGLOBIN 9.3 g/dL (11.7-17.4); ARTERIAL BLOOD GAS O2 SAT 99.5 % (95-98); ARTERIAL BLOOD GAS PCO2 27 mm/Hg (35-45); ARTERIAL BLOOD GAS PH 7.51 (7.35-7.45); ARTERIAL BLOOD GAS PO2 106 mm/Hg (80-100); ARTERIAL BLOOD GAS TCO2 22.3 mmol/L (22-28)
[2017-10-25 06:49] LABS: BASO % 0.8 % (0.0-2.0); EOS # 0.3 K/uL (0.0-0.7); EOS % 6.4 % (0.0-4.0); HEMOGLOBIN 9.8 g/dL (12.0-18.0); LYMPH # 1.2 K/uL (1.0-4.3); LYMPH % 26.8 % (20.0-40.0); MEAN CELL VOLUME 82.1 fL (80.0-94.0); MEAN CORPUSCULAR HEMOGLOBIN 27.6 pg (27.0-31.0); MEAN CORPUSCULAR HGB CONC 33.7 g/dL (33.0-37.0); MEAN PLATELET VOLUME 7.5 fL (7.2-11.7); MONO # 0.5 K/uL (0.0-0.8); MONO % 10.9 % (0.0-10.0); NEUT # 2.5 K/uL (1.8-7.0); NEUT % 55.1 % (50.0-75.0); NRBC % 0.1 % (0.0-2.0); RBC 3.56 Mil/uL (4.40-5.90); RED CELL DISTRIBUTION WIDTH 21.4 % (11.5-14.5); WHITE BLOOD COUNT 4.6 K/uL (4.8-10.8)
[2017-10-25 07:49] LABS: BLOOD UREA NITROGEN 2 mg/dL (9-20)
[2017-10-25 07:50] LABS: ALB/GLOB RATIO 1.1 (1.0-2.1); ALBUMIN 3.1 g/dL (3.5-5.0); CALCIUM 7.9 mg/dl (8.6-10.4); GFR AFRICAN-AMERICAN > 60; GFR NON-AFRICAN AMERICAN > 60
[2017-10-25 07:51] LABS: ALT/SGPT 23 U/L (21-72); AST/SGOT 20 U/L (17-59)
[2017-10-25 08:11] LABS: HEMOGLOBIN A 96.6 Percent (>96.0); HEMOGLOBIN A2 2.4 Percent (1.8-3.5)
--- NOTE | 2017-10-25 08:52 | RAD ---
Chest x-ray single frontal view History: Ventilator. Comparison: 10/24/2017 Findings Lines and tubes in stable position. Confluent consolidative changes at the right lung base with trace right pleural effusion. Right hilar prominence. Venous congestion. Cardiomegaly. Impression: Lines and tubes in stable position. Confluent consolidative changes at the right lung base with trace right pleural effusion. Right hilar prominence. Venous congestion. Cardiomegaly.
[2017-10-25] MEDS ORDERED: Influenza Vaccine 60 mcg/0.5 mL SYR (4YR UP) IM ONE (10:00)
[2017-10-25] MEDS ORDERED: Pneumococcal 23-Valent Vaccine IM ONE (10:00)
[2017-10-25] MEDS: Phenytoin 100 mg/4 ml Oral Susp UD PO SCH ×2 (10:15→18:00)
[2017-10-25] MEDS: Enoxaparin 100 mg Syringe SC SCH ×2 (10:15→22:17)
--- NOTE | 2017-10-25 10:23 | CP.CCUPN ---
<Fadi Mosley - Last Filed: 10/25/17 10:37> CCU Subjective - Physician Review Subjective (Free Text): 10/24/17 12:50 Patient seen and examined at bedside. Per nursing no acute events occurred overnight. 10/25/17 10:22 Patient seen and examined at bedside. Per nursing no seizures occurred overnight. Critical Care Time Spent (in minutes): 40 CCU Objective - Vital Signs / Intake & Output Vital Signs (Last 4 hours): Vital Signs Temp Pulse Resp BP Pulse Ox 10/25/17 08:00 98.3 F 79 18 100 10/25/17 07:16 60 16 151/86 H 100 Intake and Output (Last 8hrs): Intake & Output 10/24/17 10/25/17 10/25/17 22:59 06:59 14:59 Intake Total 1511 1202 278 Output Total 805 300 150 Balance 706 902 128 Weight 224 lb 13.944 oz Intake: IV 170 115 Intake, IV Amount 961 767 198 Right Distal Port Femoral 586 135 150 Right Medial Port Femoral 315 531 12 Right Medial Port Femoral 17 41 Y-site Right Proximal Port 43 60 36 Femoral Oral 220 Tube Feeding 160 320 80 Output: Urine 805 300 150 Urethral (Hawkins) 805 300 150 - Physical Exam Head: Positive for: Atraumatic, Normocephalic Pupils: Positive for: PERRL, Sluggish Extroacular Muscles: Positive for: EOMI Conjunctiva: Positive for: Normal Mouth: Positive for: Moist Mucous Membranes Neck: Positive for: Normal Range of Motion. Negative for: Meningeal Signs, JVD , Lymphadenopathy Respiratory/Chest: Positive for: Clear to Auscultation, Good Air Exchange. Negative for: Wheezes Cardiovascular: Positive for: Regular Rate and Rhythm, Normal S1, S2 Abdomen: Positive for: Normal Bowel Sounds. Negative for: McBurney's Point Tender, Ostomy Tubes Upper Extremity: Positive for: Normal Inspection, Edema. Negative for: Cyanosis Lower Extremity: Positive for: Normal Inspection Skin: Positive for: Warm, Dry, Normal Color Psychiatric: Positive for: Alert - Medications Active Medications: Active Medications Generic Name Dose Route Start Last Admin Trade Name Freq PRN Reason Stop Dose Admin Aspirin 81 mg 10/23/17 10:00 10/25/17 10:16 Aspirin Chewable PO 81 mg DAILY KEVIN Administration Chlordiazepoxide 150 mg 10/25/17 10:17 Librium GT 10/25/17 10:18 STAT STA Chlordiazepoxide 75 mg 10/25/17 12:00 Librium PO Q6 KEVIN Clopidogrel Bisulfate 75 mg 10/23/17 10:00 10/25/17 10:16 Plavix PO 75 mg DAILY KEVIN Administration Enoxaparin Sodium 100 mg 10/24/17 10:00 10/25/17 10:15 Lovenox SC 100 mg Q12 KEVIN Administration Folic Acid 1 mg 10/23/17 10:00 10/25/17 10:16 Folic Acid PO 1 mg DAILY KEVIN Administration Hydroxyurea 500 mg 10/23/17 10:00 10/23/17 17:20 Hydrea PO 500 mg BID KEVIN Administration Phenylephrine HCl 30 mg/ 250 mls @ 10 mls/hr 10/23/17 12:44 Sodium Chloride IV .Q24H PRN TITRATE PER MD ORDER Protocol 20 MCG/MIN Midazolam HCl 100 mg/ Sodium 100 mls @ 1.95 mls/hr 10/24/17 08:15 10/25/17 02 :00 Chloride IV 0.06 mg/kg/hr .Q24H PRN 6 mls/hr Protocol Titration 0.02 MG/KG/HR Lactated Ringer's 1,000 mls @ 75 mls/hr 10/24/17 16:28 10/25/17 05:00 Lactated Ringer's IV Not Given .[id number] KEVIN Lacosamide 100 mg/ Sodium 110 mls @ 110 mls/hr 10/24/17 22:00 10/24/17 22:15 Chloride IV 110 mls/hr Q12 KEVIN Administration Levetiracetam 1,500 mg/ Sodium 115 mls @ 420 mls/hr 10/24/17 21:00 10/24/17 20:30 Chloride IVPB 420 mls/hr Q12H KEVIN Administration Propofol 1,000 mg in 100 mls @ 6.12 mls/hr 10/25/17 09:30 Diprivan IV .[id number] PRN TITRATE PER MD ORDER Protocol 10 MCG/KG/MIN Lorazepam 2 mg 10/24/17 07:17 10/24/17 15:55 Ativan IVP 2 mg Q4H PRN Administration Seizure activity Pantoprazole Sodium 40 mg 10/23/17 10:00 10/25/17 10:12 Protonix Inj IVP 40 mg DAILY KEVIN Administration Phenobarbital 97.2 mg 10/24/17 22:00 10/25/17 10:15 Phenobarbital Tab PO 97.2 mg Q12 KEVIN Administration Phenytoin 200 mg 10/24/17 11:15 10/25/17 10:15 Dilantin PO 200 mg BID KEVIN Administration Pneumococcal Polyvalent Vaccine 0.5 ml 10/28/17 10:15 Pneumovax 23 Vaccine IM 10/28/17 10:16 .ONCE ONE - Patient Studies Lab Studies: Microbiology Studies 10/23/17 10:07 Urine Culture - Final Urine No Growth (<1,000 CFU/ML) 10/23/17 12:30 Blood Culture - Preliminary Blood NO GROWTH AFTER 24 HOURS 10/23/17 13:00 Blood Culture - Preliminary Blood NO GROWTH AFTER 24 HOURS Lab Studies 10/25/17 10/25/17 10/25/17 Range/Units 06:36 06:28 06:08 WBC 4.6 L (4.8-10.8) K/uL RBC 3.56 L (4.40-5.90) Mil/uL Hgb 9.8 L (12.0-18.0) g/dL Hct 29.2 L (35.0-51.0) % MCV 82.1 (80.0-94.0) fL MCH 27.6 (27.0-31.0) pg MCHC 33.7 (33.0-37.0) g/dL RDW 21.4 H (11.5-14.5) % Plt Count 463 H (130-400) K/uL MPV 7.5 (7.2-11.7) fL Neut % (Auto) 55.1 (50.0-75.0) % Lymph % (Auto) 26.8 (20.0-40.0) % [place] % (Auto) 10.9 H (0.0-10.0) % Eos % (Auto) 6.4 H (0.0-4.0) % Baso % (Auto) 0.8 (0.0-2.0) % Neut # (Auto) 2.5 (1.8-7.0) K/uL Lymph # (Auto) 1.2 (1.0-4.3) K/uL [place] # (Auto) 0.5 (0.0-0.8) K/uL Eos # (Auto) 0.3 (0.0-0.7) K/uL Baso # (Auto) 0.0 (0.0-0.2) K/uL Hemoglobin A (>96.0) Percent Hemoglobin A2 (1.8-3.5) Percent Hemoglobin C (0.0-0.0) Percent Hemoglobin F () (<2.0) Percent Hemoglobin S (0.0-0.0) Percent Variant Hemoglobin (0.0-0.0) Percent Hemoglobinopathy Interp Puncture Site pCO2 (35-45) mm/Hg pO2 (80-100) mm/Hg HCO3 (21-28) mmol/L ABG pH (7.35-7.45) ABG Total CO2 (22-28) mmol/L ABG O2 Saturation (95-98) % ABG Base Excess (-2.0-3.0) mmol/L ABG Hemoglobin (11.7-17.4) g/dL ABG Carboxyhemoglobin (0.5-1.5) % POC ABG HHb (Measured) (0.0-5.0) % ABG Methemoglobin (0.0-3.0) % Errol Test A-a O2 Difference mm/Hg Respiratory Index Hgb O2 Saturation (95.0-98.0) % Vent Mode Mechanical Rate FiO2 % Tidal Volume PEEP Sodium 143 (132-148) mmol/L Potassium 3.7 (3.6-5.2) mmol/L Chloride 109 H (98-107) mmol/L Carbon Dioxide 27 (22-30) mmol/L Anion Gap 11 (10-20) BUN 2 L (9-20) mg/dL Creatinine 0.5 L (0.8-1.5) mg/dL Est GFR ( Amer) > 60 Est GFR (Non-Af Amer) > 60 POC Glucose (mg/dL) 72 (65-110) mg/dL Random Glucose 72 L (75-110) mg/dL Calcium 7.9 L (8.6-10.4) mg/dl Phosphorus 4.3 (2.5-4.5) mg/dL Magnesium 2.0 (1.6-2.3) mg/dL Total Bilirubin 0.2 (0.2-1.3) mg/dL AST 20 (17-59) U/L ALT 23 (21-72) U/L Alkaline Phosphatase 65 (38-126) U/L Total Protein 6.0 L (6.3-8.3) g/dL Albumin 3.1 L (3.5-5.0) g/dL Globulin 2.9 (2.2-3.9) gm/dL Albumin/Globulin Ratio 1.1 (1.0-2.1) 10/25/17 10/25/17 10/25/17 Range/Units 05:12 00:24 00:15 WBC (4.8-10.8) K/uL RBC (4.40-5.90) Mil/uL Hgb (12.0-18.0) g/dL Hct (35.0-51.0) % MCV (80.0-94.0) fL MCH (27.0-31.0) pg MCHC (33.0-37.0) g/dL RDW (11.5-14.5) % Plt Count (130-400) K/uL MPV (7.2-11.7) fL Neut % (Auto) (50.0-75.0) % Lymph % (Auto) (20.0-40.0) % [place] % (Auto) (0.0-10.0) % Eos % (Auto) (0.0-4.0) % Baso % (Auto) (0.0-2.0) % Neut # (Auto) (1.8-7.0) K/uL Lymph # (Auto) (1.0-4.3) K/uL [place] # (Auto) (0.0-0.8) K/uL Eos # (Auto) (0.0-0.7) K/uL Baso # (Auto) (0.0-0.2) K/uL Hemoglobin A (>96.0) Percent Hemoglobin A2 (1.8-3.5) Percent Hemoglobin C (0.0-0.0) Percent Hemoglobin F () (<2.0) Percent Hemoglobin S (0.0-0.0) Percent Variant Hemoglobin (0.0-0.0) Percent Hemoglobinopathy Interp Puncture Site Lb pCO2 27 L (35-45) mm/Hg pO2 106 H (80-100) mm/Hg HCO3 24.2 (21-28) mmol/L ABG pH 7.51 H (7.35-7.45) ABG Total CO2 22.3 (22-28) mmol/L ABG O2 Saturation 99.5 H (95-98) % ABG Base Excess -0.9 (-2.0-3.0) mmol/L ABG Hemoglobin 9.3 L (11.7-17.4) g/dL ABG Carboxyhemoglobin 1.7 H (0.5-1.5) % POC ABG HHb (Measured) 0.5 (0.0-5.0) % ABG Methemoglobin 0.9 (0.0-3.0) % Errol Test Na A-a O2 Difference 145.0 mm/Hg Respiratory Index 1.4 Hgb O2 Saturation 96.9 (95.0-98.0) % Vent Mode Prvc Mechanical Rate 16 FiO2 40.0 % Tidal Volume 500 PEEP 5 Sodium 143 (132-148) mmol/L Potassium 3.6 (3.6-5.2) mmol/L Chloride 109 H (98-107) mmol/L Carbon Dioxide 26 (22-30) mmol/L Anion Gap 11 (10-20) BUN 3 L (9-20) mg/dL Creatinine 0.5 L (0.8-1.5) mg/dL Est GFR ( Amer) > 60 Est GFR (Non-Af Amer) > 60 POC Glucose (mg/dL) 81 (65-110) mg/dL Random Glucose 98 (75-110) mg/dL Calcium 8.1 L (8.6-10.4) mg/dl Phosphorus (2.5-4.5) mg/dL Magnesium (1.6-2.3) mg/dL Total Bilirubin (0.2-1.3) mg/dL AST (17-59) U/L ALT (21-72) U/L Alkaline Phosphatase (38-126) U/L Total Protein (6.3-8.3) g/dL Albumin (3.5-5.0) g/dL Globulin (2.2-3.9) gm/dL Albumin/Globulin Ratio (1.0-2.1) 02/28/18 02/28/18 02/28/18 Range/Units 23:22 23:19 17:52 WBC (4.8-10.8) K/uL RBC (4.40-5.90) Mil/uL Hgb (12.0-18.0) g/dL Hct (35.0-51.0) % MCV (80.0-94.0) fL MCH (27.0-31.0) pg MCHC (33.0-37.0) g/dL RDW (11.5-14.5) % Plt Count (130-400) K/uL MPV (7.2-11.7) fL Neut % (Auto) (50.0-75.0) % Lymph % (Auto) (20.0-40.0) % [place] % (Auto) (0.0-10.0) % Eos % (Auto) (0.0-4.0) % Baso % (Auto) (0.0-2.0) % Neut # (Auto) (1.8-7.0) K/uL Lymph # (Auto) (1.0-4.3) K/uL [place] # (Auto) (0.0-0.8) K/uL Eos # (Auto) (0.0-0.7) K/uL Baso # (Auto) (0.0-0.2) K/uL Hemoglobin A (>96.0) Percent Hemoglobin A2 (1.8-3.5) Percent Hemoglobin C (0.0-0.0) Percent Hemoglobin F () (<2.0) Percent Hemoglobin S (0.0-0.0) Percent Variant Hemoglobin (0.0-0.0) Percent Hemoglobinopathy Interp Puncture Site pCO2 (35-45) mm/Hg pO2 (80-100) mm/Hg HCO3 (21-28) mmol/L ABG pH (7.35-7.45) ABG Total CO2 (22-28) mmol/L ABG O2 Saturation (95-98) % ABG Base Excess (-2.0-3.0) mmol/L ABG Hemoglobin (11.7-17.4) g/dL ABG Carboxyhemoglobin (0.5-1.5) % POC ABG HHb (Measured) (0.0-5.0) % ABG Methemoglobin (0.0-3.0) % Errol Test A-a O2 Difference mm/Hg Respiratory Index Hgb O2 Saturation (95.0-98.0) % Vent Mode Mechanical Rate FiO2 % Tidal Volume PEEP Sodium (132-148) mmol/L Potassium (3.6-5.2) mmol/L Chloride (98-107) mmol/L Carbon Dioxide (22-30) mmol/L Anion Gap (10-20) BUN (9-20) mg/dL Creatinine (0.8-1.5) mg/dL Est GFR ( Amer) Est GFR (Non-Af Amer) POC Glucose (mg/dL) 61 L 37 L* 100 (65-110) mg/dL Random Glucose (75-110) mg/dL Calcium (8.6-10.4) mg/dl Phosphorus (2.5-4.5) mg/dL Magnesium (1.6-2.3) mg/dL Total Bilirubin (0.2-1.3) mg/dL AST (17-59) U/L ALT (21-72) U/L Alkaline Phosphatase (38-126) U/L Total Protein (6.3-8.3) g/dL Albumin (3.5-5.0) g/dL Globulin (2.2-3.9) gm/dL Albumin/Globulin Ratio (1.0-2.1) 10/24/17 10/24/17 10/24/17 Range/Units 17:31 17:28 13:04 WBC 4.1 L (4.8-10.8) K/uL RBC 3.34 L (4.40-5.90) Mil/uL Hgb 9.3 L (12.0-18.0) g/dL Hct 27.1 L (35.0-51.0) % MCV 81.4 (80.0-94.0) fL MCH 27.8 (27.0-31.0) pg MCHC 34.1 (33.0-37.0) g/dL RDW 21.1 H (11.5-14.5) % Plt Count 388 (130-400) K/uL MPV 7.3 (7.2-11.7) fL Neut % (Auto) 56.1 (50.0-75.0) % Lymph % (Auto) 26.1 (20.0-40.0) % [place] % (Auto) 10.8 H (0.0-10.0) % Eos % (Auto) 6.0 H (0.0-4.0) % Baso % (Auto) 1.0 (0.0-2.0) % Neut # (Auto) 2.3 (1.8-7.0) K/uL Lymph # (Auto) 1.1 (1.0-4.3) K/uL [place] # (Auto) 0.4 (0.0-0.8) K/uL Eos # (Auto) 0.2 (0.0-0.7) K/uL Baso # (Auto) 0.0 (0.0-0.2) K/uL Hemoglobin A (>96.0) Percent Hemoglobin A2 (1.8-3.5) Percent Hemoglobin C (0.0-0.0) Percent Hemoglobin F () (<2.0) Percent Hemoglobin S (0.0-0.0) Percent Variant Hemoglobin (0.0-0.0) Percent Hemoglobinopathy Interp Puncture Site pCO2 (35-45) mm/Hg pO2 (80-100) mm/Hg HCO3 (21-28) mmol/L ABG pH (7.35-7.45) ABG Total CO2 (22-28) mmol/L ABG O2 Saturation (95-98) % ABG Base Excess (-2.0-3.0) mmol/L ABG Hemoglobin (11.7-17.4) g/dL ABG Carboxyhemoglobin (0.5-1.5) % POC ABG HHb (Measured) (0.0-5.0) % ABG Methemoglobin (0.0-3.0) % Errol Test A-a O2 Difference mm/Hg Respiratory Index Hgb O2 Saturation (95.0-98.0) % Vent Mode Mechanical Rate FiO2 % Tidal Volume PEEP Sodium (132-148) mmol/L Potassium (3.6-5.2) mmol/L Chloride (98-107) mmol/L Carbon Dioxide (22-30) mmol/L Anion Gap (10-20) BUN (9-20) mg/dL Creatinine (0.8-1.5) mg/dL Est GFR ( Amer) Est GFR (Non-Af Amer) POC Glucose (mg/dL) 39 L 35 L* (65-110) mg/dL Random Glucose (75-110) mg/dL Calcium (8.6-10.4) mg/dl Phosphorus (2.5-4.5) mg/dL Magnesium (1.6-2.3) mg/dL Total Bilirubin (0.2-1.3) mg/dL AST (17-59) U/L ALT (21-72) U/L Alkaline Phosphatase (38-126) U/L Total Protein (6.3-8.3) g/dL Albumin (3.5-5.0) g/dL Globulin (2.2-3.9) gm/dL Albumin/Globulin Ratio (1.0-2.1) 10/24/17 10/23/17 Range/Units 11:40 08:53 WBC (4.8-10.8) K/uL RBC (4.40-5.90) Mil/uL Hgb (12.0-18.0) g/dL Hct (35.0-51.0) % MCV (80.0-94.0) fL MCH (27.0-31.0) pg MCHC (33.0-37.0) g/dL RDW (11.5-14.5) % Plt Count (130-400) K/uL MPV (7.2-11.7) fL Neut % (Auto) (50.0-75.0) % Lymph % (Auto) (20.0-40.0) % [place] % (Auto) (0.0-10.0) % Eos % (Auto) (0.0-4.0) % Baso % (Auto) (0.0-2.0) % Neut # (Auto) (1.8-7.0) K/uL Lymph # (Auto) (1.0-4.3) K/uL [place] # (Auto) (0.0-0.8) K/uL Eos # (Auto) (0.0-0.7) K/uL Baso # (Auto) (0.0-0.2) K/uL Hemoglobin A 96.6 (>96.0) Percent Hemoglobin A2 2.4 (1.8-3.5) Percent Hemoglobin C 0.0 (0.0-0.0) Percent Hemoglobin F () <1.0 (<2.0) Percent Hemoglobin S 0.0 (0.0-0.0) Percent Variant Hemoglobin 0.0 (0.0-0.0) Percent Hemoglobinopathy Interp See note Puncture Site pCO2 (35-45) mm/Hg pO2 (80-100) mm/Hg HCO3 (21-28) mmol/L ABG pH (7.35-7.45) ABG Total CO2 (22-28) mmol/L ABG O2 Saturation (95-98) % ABG Base Excess (-2.0-3.0) mmol/L ABG Hemoglobin (11.7-17.4) g/dL ABG Carboxyhemoglobin (0.5-1.5) % POC ABG HHb (Measured) (0.0-5.0) % ABG Methemoglobin (0.0-3.0) % Errol Test A-a O2 Difference mm/Hg Respiratory Index Hgb O2 Saturation (95.0-98.0) % Vent Mode Mechanical Rate FiO2 % Tidal Volume PEEP Sodium (132-148) mmol/L Potassium (3.6-5.2) mmol/L Chloride (98-107) mmol/L Carbon Dioxide (22-30) mmol/L Anion Gap (10-20) BUN (9-20) mg/dL Creatinine (0.8-1.5) mg/dL Est GFR ( Amer) Est GFR (Non-Af Amer) POC Glucose (mg/dL) 79 (65-110) mg/dL Random Glucose (75-110) mg/dL Calcium (8.6-10.4) mg/dl Phosphorus (2.5-4.5) mg/dL Magnesium (1.6-2.3) mg/dL Total Bilirubin (0.2-1.3) mg/dL AST (17-59) U/L ALT (21-72) U/L Alkaline Phosphatase (38-126) U/L Total Protein (6.3-8.3) g/dL Albumin (3.5-5.0) g/dL Globulin (2.2-3.9) gm/dL Albumin/Globulin Ratio (1.0-2.1) Laboratory Results - last 24 hr 10/23/17 10/24/17 10/24/17 08:53 11:40 13:04 WBC 4.1 L RBC 3.34 L Hgb 9.3 L Hct 27.1 L MCV 81.4 MCH 27.8 MCHC 34.1 RDW 21.1 H Plt Count 388 MPV 7.3 Neut % (Auto) 56.1 Lymph % (Auto) 26.1 [place] % (Auto) 10.8 H Eos % (Auto) 6.0 H Baso % (Auto) 1.0 Neut # (Auto) 2.3 Lymph # (Auto) 1.1 [place] # (Auto) 0.4 Eos # (Auto) 0.2 Baso # (Auto) 0.0 Hemoglobin A 96.6 Hemoglobin A2 2.4 Hemoglobin C 0.0 Hemoglobin F () <1.0 Hemoglobin S 0.0 Variant Hemoglobin 0.0 Hemoglobinopathy Interp See note Puncture Site pCO2 pO2 HCO3 ABG pH ABG Total CO2 ABG O2 Saturation ABG Base Excess ABG Hemoglobin ABG Carboxyhemoglobin POC ABG HHb (Measured) ABG Methemoglobin Errol Test A-a O2 Difference Respiratory Index Hgb O2 Saturation Vent Mode Mechanical Rate FiO2 Tidal Volume PEEP Sodium Potassium Chloride Carbon Dioxide Anion Gap BUN Creatinine Est GFR ( Amer) Est GFR (Non-Af Amer) POC Glucose (mg/dL) 79 Random Glucose Calcium Phosphorus Magnesium Total Bilirubin AST ALT Alkaline Phosphatase Total Protein Albumin Globulin Albumin/Globulin Ratio 10/24/17 10/24/17 10/24/17 17:28 17:31 17:52 WBC RBC Hgb Hct MCV MCH MCHC RDW Plt Count MPV Neut % (Auto) Lymph % (Auto) [place] % (Auto) Eos % (Auto) Baso % (Auto) Neut # (Auto) Lymph # (Auto) [place] # (Auto) Eos # (Auto) Baso # (Auto) Hemoglobin A Hemoglobin A2 Hemoglobin C Hemoglobin F () Hemoglobin S Variant Hemoglobin Hemoglobinopathy Interp Puncture Site pCO2 pO2 HCO3 ABG pH ABG Total CO2 ABG O2 Saturation ABG Base Excess ABG Hemoglobin ABG Carboxyhemoglobin POC ABG HHb (Measured) ABG Methemoglobin Errol Test A-a O2 Difference Respiratory Index Hgb O2 Saturation Vent Mode Mechanical Rate FiO2 Tidal Volume PEEP Sodium Potassium Chloride Carbon Dioxide Anion Gap BUN Creatinine Est GFR ( Amer) Est GFR (Non-Af Amer) POC Glucose (mg/dL) 35 L* 39 L 100 Random Glucose Calcium Phosphorus Magnesium Total Bilirubin AST ALT Alkaline Phosphatase Total Protein Albumin Globulin Albumin/Globulin Ratio 10/24/17 10/24/17 10/25/17 23:19 23:22 00:15 WBC RBC Hgb Hct MCV MCH MCHC RDW Plt Count MPV Neut % (Auto) Lymph % (Auto) [place] % (Auto) Eos % (Auto) Baso % (Auto) Neut # (Auto) Lymph # (Auto) [place] # (Auto) Eos # (Auto) Baso # (Auto) Hemoglobin A Hemoglobin A2 Hemoglobin C Hemoglobin F () Hemoglobin S Variant Hemoglobin Hemoglobinopathy Interp Puncture Site pCO2 pO2 HCO3 ABG pH ABG Total CO2 ABG O2 Saturation ABG Base Excess ABG Hemoglobin ABG Carboxyhemoglobin POC ABG HHb (Measured) ABG Methemoglobin Errol Test A-a O2 Difference Respiratory Index Hgb O2 Saturation Vent Mode Mechanical Rate FiO2 Tidal Volume PEEP Sodium 143 Potassium 3.6 Chloride 109 H Carbon Dioxide 26 Anion Gap 11 BUN 3 L Creatinine 0.5 L Est GFR ( Amer) > 60 Est GFR (Non-Af Amer) > 60 POC Glucose (mg/dL) 37 L* 61 L Random Glucose 98 Calcium 8.1 L Phosphorus Magnesium Total Bilirubin AST ALT Alkaline Phosphatase Total Protein Albumin Globulin Albumin/Globulin Ratio 10/25/17 10/25/17 10/25/17 00:24 05:12 06:08 WBC RBC Hgb Hct MCV MCH MCHC RDW Plt Count MPV Neut % (Auto) Lymph % (Auto) [place] % (Auto) Eos % (Auto) Baso % (Auto) Neut # (Auto) Lymph # (Auto) [place] # (Auto) Eos # (Auto) Baso # (Auto) Hemoglobin A Hemoglobin A2 Hemoglobin C Hemoglobin F () Hemoglobin S Variant Hemoglobin Hemoglobinopathy Interp Puncture Site Lb pCO2 27 L pO2 106 H HCO3 24.2 ABG pH 7.51 H ABG Total CO2 22.3 ABG O2 Saturation 99.5 H ABG Base Excess -0.9 ABG Hemoglobin 9.3 L ABG Carboxyhemoglobin 1.7 H POC ABG HHb (Measured) 0.5 ABG Methemoglobin 0.9 Errol Test Na A-a O2 Difference 145.0 Respiratory Index 1.4 Hgb O2 Saturation 96.9 Vent Mode Prvc Mechanical Rate 16 FiO2 40.0 Tidal Volume 500 PEEP 5 Sodium Potassium Chloride Carbon Dioxide Anion Gap BUN Creatinine Est GFR ( Amer) Est GFR (Non-Af Amer) POC Glucose (mg/dL) 81 72 Random Glucose Calcium Phosphorus Magnesium Total Bilirubin AST ALT Alkaline Phosphatase Total Protein Albumin Globulin Albumin/Globulin Ratio 10/25/17 10/25/17 06:28 06:36 WBC 4.6 L RBC 3.56 L Hgb 9.8 L Hct 29.2 L MCV 82.1 MCH 27.6 MCHC 33.7 RDW 21.4 H Plt Count 463 H MPV 7.5 Neut % (Auto) 55.1 Lymph % (Auto) 26.8 [place] % (Auto) 10.9 H Eos % (Auto) 6.4 H Baso % (Auto) 0.8 Neut # (Auto) 2.5 Lymph # (Auto) 1.2 [place] # (Auto) 0.5 Eos # (Auto) 0.3 Baso # (Auto) 0.0 Hemoglobin A Hemoglobin A2 Hemoglobin C Hemoglobin F () Hemoglobin S Variant Hemoglobin Hemoglobinopathy Interp Puncture Site pCO2 pO2 HCO3 ABG pH ABG Total CO2 ABG O2 Saturation ABG Base Excess ABG Hemoglobin ABG Carboxyhemoglobin POC ABG HHb (Measured) ABG Methemoglobin Errol Test A-a O2 Difference Respiratory Index Hgb O2 Saturation Vent Mode Mechanical Rate FiO2 Tidal Volume PEEP Sodium 143 Potassium 3.7 Chloride 109 H Carbon Dioxide 27 Anion Gap 11 BUN 2 L Creatinine 0.5 L Est GFR ( Amer) > 60 Est GFR (Non-Af Amer) > 60 POC Glucose (mg/dL) Random Glucose 72 L Calcium 7.9 L Phosphorus 4.3 Magnesium 2.0 Total Bilirubin 0.2 AST 20 ALT 23 Alkaline Phosphatase 65 Total Protein 6.0 L Albumin 3.1 L Globulin 2.9 Albumin/Globulin Ratio 1.1 Fingerstick Blood Sugar Results: 72 Review of Systems - Review of Systems Systems not reviewed;Unavailable: Acuity of Condition Assessment/Plan - Assessment and Plan (Free Text) Assessment: 32 year old male with a past medical history of cad(s/p cardiac stents), mi, pe , asthma, protein c deficiency, sickle cell disease who was admitted for status epilepticus. Plan: Neurology: Status epilepticus (2/ to benzo withdrawal) ED Course: 1 seizure @4:50a.m. (Alfa clonic): last 10 minutes: given 4 mg Ativan and 1000mg Fosphenytoin: seizure stopped @ 5:11a.m. 2 seizure last 5-7 minutes After 3 rd seizure patient was placed on propofol drip UDS: (+) Opiates, barbituates, benzodiazepines Repeat Head ct: shows no acute intracranial abnormality Brain MRI ordered. Will complete once patient can be removed from ventilation support and moved to imaging. Librium 150mg STAT dose. Librium 75mg Q6 started. Dilantin 200mg PO BID soln. Diprivan 20mcg/kg/min Keppra 100mg Q12 Phenobarbital 92.2 PO q12 Neurology consulted. Help appreciated Cardiology: CAD (s/p stents), [place] Echo (10/23/17): EF 60-65%, mild tricuspid regurgitation, mild pulmonic valvular regurgitation. Aspirin 81mg PO Daily Plavix 75mg PO Daily Hematology: Protein C deficiency, Sickle cell anemia? 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 Hydroxyurea 500mg PO BID held. PPX -Propofol drip @20mcg/hr -LR @ 200mls/hr <Rubina Sinclair - Last Filed: 10/25/17 14:53> CCU Objective - Vital Signs / Intake & Output Vital Signs (Last 4 hours): Vital Signs Pulse Resp BP Pulse Ox 10/25/17 12:02 67 14 140/79 100 10/25/17 12:00 65 14 100 10/25/17 11:18 57 L 16 92/36 L 100 10/25/17 11:03 58 L 16 89/34 L 100 10/25/17 11:00 59 L 16 100 Intake and Output (Last 8hrs): Intake & Output 10/24/17 10/25/17 10/25/17 22:59 06:59 14:59 Intake Total 1511 1202 1183 Output Total 805 300 775 Balance 706 902 408 Weight 224 lb 13.944 oz Intake: IV 170 115 100 Intake, IV Amount 961 767 773 Right Distal Port Femoral 586 135 575 Right Medial Port Femoral 315 531 42 Right Medial Port Femoral 17 41 Y-site Right Proximal Port 43 60 156 Femoral Oral 220 Tube Feeding 160 320 310 Output: Urine 805 300 775 Urethral (Hawkins) 805 300 775 - Medications Active Medications: Active Medications Generic Name Dose Route Start Last Admin Trade Name Freq PRN Reason Stop Dose Admin Albuterol/Ipratropium 3 ml 10/25/17 20:00 Duoneb 3 Mg/0.5 Mg (3 Ml) Ud INH RQ6 KEVIN Aspirin 81 mg 10/23/17 10:00 10/25/17 10:16 Aspirin Chewable PO 81 mg DAILY KEVIN Administration Chlordiazepoxide 75 mg 10/25/17 12:00 10/25/17 13:00 Librium PO Not Given Q6 KEVIN Clopidogrel Bisulfate 75 mg 10/23/17 10:00 10/25/17 10:16 Plavix PO 75 mg DAILY KEVIN Administration Enoxaparin Sodium 100 mg 10/24/17 10:00 10/25/17 10:15 Lovenox SC 100 mg Q12 KEVIN Administration Folic Acid 1 mg 10/23/17 10:00 10/25/17 10:16 Folic Acid PO 1 mg DAILY KEVIN Administration Furosemide 20 mg 10/25/17 15:00 Lasix IVP 10/25/17 15:01 ONCE ONE Hydroxyurea 500 mg 10/23/17 10:00 10/23/17 17:20 Hydrea PO 500 mg BID KEVIN Administration Midazolam HCl 100 mg/ Sodium 100 mls @ 1.95 mls/hr 10/24/17 08:15 10/25/17 02 :00 Chloride IV 0.06 mg/kg/hr .Q24H PRN 6 mls/hr Protocol Titration 0.02 MG/KG/HR Lacosamide 100 mg/ Sodium 110 mls @ 110 mls/hr 10/24/17 22:00 10/25/17 11:46 Chloride IV 110 mls/hr Q12 KEVIN Administration Levetiracetam 1,500 mg/ Sodium 115 mls @ 420 mls/hr 10/24/17 21:00 10/25/17 10:25 Chloride IVPB 420 mls/hr Q12H KEVIN Administration Propofol 1,000 mg in 100 mls @ 6.12 mls/hr 10/25/17 09:30 10/25/17 14:30 Diprivan IV 16.33 mcg/kg/min .[id number] PRN 10 mls/hr TITRATE PER MD ORDER Titration Protocol 10 MCG/KG/MIN Lorazepam 2 mg 10/24/17 07:17 10/24/17 15:55 Ativan IVP 2 mg Q4H PRN Administration Seizure activity Pantoprazole Sodium 40 mg 10/23/17 10:00 10/25/17 10:12 Protonix Inj IVP 40 mg DAILY KEVIN Administration Phenobarbital 97.2 mg 10/24/17 22:00 10/25/17 10:15 Phenobarbital Tab PO 97.2 mg Q12 KEVIN Administration Phenytoin 200 mg 10/24/17 11:15 10/25/17 10:15 Dilantin PO 200 mg BID KEVIN Administration Pneumococcal Polyvalent Vaccine 0.5 ml 10/28/17 10:15 Pneumovax 23 Vaccine IM 10/28/17 10:16 .ONCE ONE - Patient Studies Lab Studies: Microbiology Studies 10/23/17 10:07 Urine Culture - Final Urine No Growth (<1,000 CFU/ML) 10/23/17 12:30 Blood Culture - Preliminary Blood NO GROWTH AFTER 24 HOURS 10/23/17 13:00 Blood Culture - Preliminary Blood NO GROWTH AFTER 24 HOURS Lab Studies 10/25/17 10/25/17 10/25/17 Range/Units 11:27 06:36 06:28 WBC 4.6 L (4.8-10.8) K/uL RBC 3.56 L (4.40-5.90) Mil/uL Hgb 9.8 L (12.0-18.0) g/dL Hct 29.2 L (35.0-51.0) % MCV 82.1 (80.0-94.0) fL MCH 27.6 (27.0-31.0) pg MCHC 33.7 (33.0-37.0) g/dL RDW 21.4 H (11.5-14.5) % Plt Count 463 H (130-400) K/uL MPV 7.5 (7.2-11.7) fL Neut % (Auto) 55.1 (50.0-75.0) % Lymph % (Auto) 26.8 (20.0-40.0) % [place] % (Auto) 10.9 H (0.0-10.0) % Eos % (Auto) 6.4 H (0.0-4.0) % Baso % (Auto) 0.8 (0.0-2.0) % Neut # (Auto) 2.5 (1.8-7.0) K/uL Lymph # (Auto) 1.2 (1.0-4.3) K/uL [place] # (Auto) 0.5 (0.0-0.8) K/uL Eos # (Auto) 0.3 (0.0-0.7) K/uL Baso # (Auto) 0.0 (0.0-0.2) K/uL Hemoglobin A (>96.0) Percent Hemoglobin A2 (1.8-3.5) Percent Hemoglobin C (0.0-0.0) Percent Hemoglobin F () (<2.0) Percent Hemoglobin S (0.0-0.0) Percent Variant Hemoglobin (0.0-0.0) Percent Hemoglobinopathy Interp Puncture Site pCO2 (35-45) mm/Hg pO2 (80-100) mm/Hg HCO3 (21-28) mmol/L ABG pH (7.35-7.45) ABG Total CO2 (22-28) mmol/L ABG O2 Saturation (95-98) % ABG Base Excess (-2.0-3.0) mmol/L ABG Hemoglobin (11.7-17.4) g/dL ABG Carboxyhemoglobin (0.5-1.5) % POC ABG HHb (Measured) (0.0-5.0) % ABG Methemoglobin (0.0-3.0) % Errol Test A-a O2 Difference mm/Hg Respiratory Index Hgb O2 Saturation (95.0-98.0) % Vent Mode Mechanical Rate FiO2 % Tidal Volume PEEP Sodium 143 (132-148) mmol/L Potassium 3.7 (3.6-5.2) mmol/L Chloride 109 H (98-107) mmol/L Carbon Dioxide 27 (22-30) mmol/L Anion Gap 11 (10-20) BUN 2 L (9-20) mg/dL Creatinine 0.5 L (0.8-1.5) mg/dL Est GFR ( Amer) > 60 Est GFR (Non-Af Amer) > 60 POC Glucose (mg/dL) 98 (65-110) mg/dL Random Glucose 72 L (75-110) mg/dL Calcium 7.9 L (8.6-10.4) mg/dl Phosphorus 4.3 (2.5-4.5) mg/dL Magnesium 2.0 (1.6-2.3) mg/dL Total Bilirubin 0.2 (0.2-1.3) mg/dL AST 20 (17-59) U/L ALT 23 (21-72) U/L Alkaline Phosphatase 65 (38-126) U/L Total Protein 6.0 L (6.3-8.3) g/dL Albumin 3.1 L (3.5-5.0) g/dL Globulin 2.9 (2.2-3.9) gm/dL Albumin/Globulin Ratio 1.1 (1.0-2.1) 10/25/17 10/25/17 10/25/17 Range/Units 06:08 05:12 00:24 WBC (4.8-10.8) K/uL RBC (4.40-5.90) Mil/uL Hgb (12.0-18.0) g/dL Hct (35.0-51.0) % MCV (80.0-94.0) fL MCH (27.0-31.0) pg MCHC (33.0-37.0) g/dL RDW (11.5-14.5) % Plt Count (130-400) K/uL MPV (7.2-11.7) fL Neut % (Auto) (50.0-75.0) % Lymph % (Auto) (20.0-40.0) % [place] % (Auto) (0.0-10.0) % Eos % (Auto) (0.0-4.0) % Baso % (Auto) (0.0-2.0) % Neut # (Auto) (1.8-7.0) K/uL Lymph # (Auto) (1.0-4.3) K/uL [place] # (Auto) (0.0-0.8) K/uL Eos # (Auto) (0.0-0.7) K/uL Baso # (Auto) (0.0-0.2) K/uL Hemoglobin A (>96.0) Percent Hemoglobin A2 (1.8-3.5) Percent Hemoglobin C (0.0-0.0) Percent Hemoglobin F () (<2.0) Percent Hemoglobin S (0.0-0.0) Percent Variant Hemoglobin (0.0-0.0) Percent Hemoglobinopathy Interp Puncture Site Lb pCO2 27 L (35-45) mm/Hg pO2 106 H (80-100) mm/Hg HCO3 24.2 (21-28) mmol/L ABG pH 7.51 H (7.35-7.45) ABG Total CO2 22.3 (22-28) mmol/L ABG O2 Saturation 99.5 H (95-98) % ABG Base Excess -0.9 (-2.0-3.0) mmol/L ABG Hemoglobin 9.3 L (11.7-17.4) g/dL ABG Carboxyhemoglobin 1.7 H (0.5-1.5) % POC ABG HHb (Measured) 0.5 (0.0-5.0) % ABG Methemoglobin 0.9 (0.0-3.0) % Errol Test Na A-a O2 Difference 145.0 mm/Hg Respiratory Index 1.4 Hgb O2 Saturation 96.9 (95.0-98.0) % Vent Mode Prvc Mechanical Rate 16 FiO2 40.0 % Tidal Volume 500 PEEP 5 Sodium (132-148) mmol/L Potassium (3.6-5.2) mmol/L Chloride (98-107) mmol/L Carbon Dioxide (22-30) mmol/L Anion Gap (10-20) BUN (9-20) mg/dL Creatinine (0.8-1.5) mg/dL Est GFR ( Amer) Est GFR (Non-Af Amer) POC Glucose (mg/dL) 72 81 (65-110) mg/dL Random Glucose (75-110) mg/dL Calcium (8.6-10.4) mg/dl Phosphorus (2.5-4.5) mg/dL Magnesium (1.6-2.3) mg/dL Total Bilirubin (0.2-1.3) mg/dL AST (17-59) U/L ALT (21-72) U/L Alkaline Phosphatase (38-126) U/L Total Protein (6.3-8.3) g/dL Albumin (3.5-5.0) g/dL Globulin (2.2-3.9) gm/dL Albumin/Globulin Ratio (1.0-2.1) 10/25/17 10/24/17 10/24/17 Range/Units 00:15 23:22 23:19 WBC (4.8-10.8) K/uL RBC (4.40-5.90) Mil/uL Hgb (12.0-18.0) g/dL Hct (35.0-51.0) % MCV (80.0-94.0) fL MCH (27.0-31.0) pg MCHC (33.0-37.0) g/dL RDW (11.5-14.5) % Plt Count (130-400) K/uL MPV (7.2-11.7) fL Neut % (Auto) (50.0-75.0) % Lymph % (Auto) (20.0-40.0) % [place] % (Auto) (0.0-10.0) % Eos % (Auto) (0.0-4.0) % Baso % (Auto) (0.0-2.0) % Neut # (Auto) (1.8-7.0) K/uL Lymph # (Auto) (1.0-4.3) K/uL [place] # (Auto) (0.0-0.8) K/uL Eos # (Auto) (0.0-0.7) K/uL Baso # (Auto) (0.0-0.2) K/uL Hemoglobin A (>96.0) Percent Hemoglobin A2 (1.8-3.5) Percent Hemoglobin C (0.0-0.0) Percent Hemoglobin F () (<2.0) Percent Hemoglobin S (0.0-0.0) Percent Variant Hemoglobin (0.0-0.0) Percent Hemoglobinopathy Interp Puncture Site pCO2 (35-45) mm/Hg pO2 (80-100) mm/Hg HCO3 (21-28) mmol/L ABG pH (7.35-7.45) ABG Total CO2 (22-28) mmol/L ABG O2 Saturation (95-98) % ABG Base Excess (-2.0-3.0) mmol/L ABG Hemoglobin (11.7-17.4) g/dL ABG Carboxyhemoglobin (0.5-1.5) % POC ABG HHb (Measured) (0.0-5.0) % ABG Methemoglobin (0.0-3.0) % Errol Test A-a O2 Difference mm/Hg Respiratory Index Hgb O2 Saturation (95.0-98.0) % Vent Mode Mechanical Rate FiO2 % Tidal Volume PEEP Sodium 143 (132-148) mmol/L Potassium 3.6 (3.6-5.2) mmol/L Chloride 109 H (98-107) mmol/L Carbon Dioxide 26 (22-30) mmol/L Anion Gap 11 (10-20) BUN 3 L (9-20) mg/dL Creatinine 0.5 L (0.8-1.5) mg/dL Est GFR ( Amer) > 60 Est GFR (Non-Af Amer) > 60 POC Glucose (mg/dL) 61 L 37 L* (65-110) mg/dL Random Glucose 98 (75-110) mg/dL Calcium 8.1 L (8.6-10.4) mg/dl Phosphorus (2.5-4.5) mg/dL Magnesium (1.6-2.3) mg/dL Total Bilirubin (0.2-1.3) mg/dL AST (17-59) U/L ALT (21-72) U/L Alkaline Phosphatase (38-126) U/L Total Protein (6.3-8.3) g/dL Albumin (3.5-5.0) g/dL Globulin (2.2-3.9) gm/dL Albumin/Globulin Ratio (1.0-2.1) 10/24/17 10/24/17 10/24/17 Range/Units 17:52 17:31 17:28 WBC (4.8-10.8) K/uL RBC (4.40-5.90) Mil/uL Hgb (12.0-18.0) g/dL Hct (35.0-51.0) % MCV (80.0-94.0) fL MCH (27.0-31.0) pg MCHC (33.0-37.0) g/dL RDW (11.5-14.5) % Plt Count (130-400) K/uL MPV (7.2-11.7) fL Neut % (Auto) (50.0-75.0) % Lymph % (Auto) (20.0-40.0) % [place] % (Auto) (0.0-10.0) % Eos % (Auto) (0.0-4.0) % Baso % (Auto) (0.0-2.0) % Neut # (Auto) (1.8-7.0) K/uL Lymph # (Auto) (1.0-4.3) K/uL [place] # (Auto) (0.0-0.8) K/uL Eos # (Auto) (0.0-0.7) K/uL Baso # (Auto) (0.0-0.2) K/uL Hemoglobin A (>96.0) Percent Hemoglobin A2 (1.8-3.5) Percent Hemoglobin C (0.0-0.0) Percent Hemoglobin F () (<2.0) Percent Hemoglobin S (0.0-0.0) Percent Variant Hemoglobin (0.0-0.0) Percent Hemoglobinopathy Interp Puncture Site pCO2 (35-45) mm/Hg pO2 (80-100) mm/Hg HCO3 (21-28) mmol/L ABG pH (7.35-7.45) ABG Total CO2 (22-28) mmol/L ABG O2 Saturation (95-98) % ABG Base Excess (-2.0-3.0) mmol/L ABG Hemoglobin (11.7-17.4) g/dL ABG Carboxyhemoglobin (0.5-1.5) % POC ABG HHb (Measured) (0.0-5.0) % ABG Methemoglobin (0.0-3.0) % Errol Test A-a O2 Difference mm/Hg Respiratory Index Hgb O2 Saturation (95.0-98.0) % Vent Mode Mechanical Rate FiO2 % Tidal Volume PEEP Sodium (132-148) mmol/L Potassium (3.6-5.2) mmol/L Chloride (98-107) mmol/L Carbon Dioxide (22-30) mmol/L Anion Gap (10-20) BUN (9-20) mg/dL Creatinine (0.8-1.5) mg/dL Est GFR ( Amer) Est GFR (Non-Af Amer) POC Glucose (mg/dL) 100 39 L 35 L* (65-110) mg/dL Random Glucose (75-110) mg/dL Calcium (8.6-10.4) mg/dl Phosphorus (2.5-4.5) mg/dL Magnesium (1.6-2.3) mg/dL Total Bilirubin (0.2-1.3) mg/dL AST (17-59) U/L ALT (21-72) U/L Alkaline Phosphatase (38-126) U/L Total Protein (6.3-8.3) g/dL Albumin (3.5-5.0) g/dL Globulin (2.2-3.9) gm/dL Albumin/Globulin Ratio (1.0-2.1) 10/23/17 Range/Units 08:53 WBC (4.8-10.8) K/uL RBC (4.40-5.90) Mil/uL Hgb (12.0-18.0) g/dL Hct (35.0-51.0) % MCV (80.0-94.0) fL MCH (27.0-31.0) pg MCHC (33.0-37.0) g/dL RDW (11.5-14.5) % Plt Count (130-400) K/uL MPV (7.2-11.7) fL Neut % (Auto) (50.0-75.0) % Lymph % (Auto) (20.0-40.0) % [place] % (Auto) (0.0-10.0) % Eos % (Auto) (0.0-4.0) % Baso % (Auto) (0.0-2.0) % Neut # (Auto) (1.8-7.0) K/uL Lymph # (Auto) (1.0-4.3) K/uL [place] # (Auto) (0.0-0.8) K/uL Eos # (Auto) (0.0-0.7) K/uL Baso # (Auto) (0.0-0.2) K/uL Hemoglobin A 96.6 (>96.0) Percent Hemoglobin A2 2.4 (1.8-3.5) Percent Hemoglobin C 0.0 (0.0-0.0) Percent Hemoglobin F () <1.0 (<2.0) Percent Hemoglobin S 0.0 (0.0-0.0) Percent Variant Hemoglobin 0.0 (0.0-0.0) Percent Hemoglobinopathy Interp See note Puncture Site pCO2 (35-45) mm/Hg pO2 (80-100) mm/Hg HCO3 (21-28) mmol/L ABG pH (7.35-7.45) ABG Total CO2 (22-28) mmol/L ABG O2 Saturation (95-98) % ABG Base Excess (-2.0-3.0) mmol/L ABG Hemoglobin (11.7-17.4) g/dL ABG Carboxyhemoglobin (0.5-1.5) % POC ABG HHb (Measured) (0.0-5.0) % ABG Methemoglobin (0.0-3.0) % Errol Test A-a O2 Difference mm/Hg Respiratory Index Hgb O2 Saturation (95.0-98.0) % Vent Mode Mechanical Rate FiO2 % Tidal Volume PEEP Sodium (132-148) mmol/L Potassium (3.6-5.2) mmol/L Chloride (98-107) mmol/L Carbon Dioxide (22-30) mmol/L Anion Gap (10-20) BUN (9-20) mg/dL Creatinine (0.8-1.5) mg/dL Est GFR ( Amer) Est GFR (Non-Af Amer) POC Glucose (mg/dL) (65-110) mg/dL Random Glucose (75-110) mg/dL Calcium (8.6-10.4) mg/dl Phosphorus (2.5-4.5) mg/dL Magnesium (1.6-2.3) mg/dL Total Bilirubin (0.2-1.3) mg/dL AST (17-59) U/L ALT (21-72) U/L Alkaline Phosphatase (38-126) U/L Total Protein (6.3-8.3) g/dL Albumin (3.5-5.0) g/dL Globulin (2.2-3.9) gm/dL Albumin/Globulin Ratio (1.0-2.1) Laboratory Results - last 24 hr 10/23/17 10/24/17 10/24/17 08:53 17:28 17:31 WBC RBC Hgb Hct MCV MCH MCHC RDW Plt Count MPV Neut % (Auto) Lymph % (Auto) [place] % (Auto) Eos % (Auto) Baso % (Auto) Neut # (Auto) Lymph # (Auto) [place] # (Auto) Eos # (Auto) Baso # (Auto) Hemoglobin A 96.6 Hemoglobin A2 2.4 Hemoglobin C 0.0 Hemoglobin F () <1.0 Hemoglobin S 0.0 Variant Hemoglobin 0.0 Hemoglobinopathy Interp See note Puncture Site pCO2 pO2 HCO3 ABG pH ABG Total CO2 ABG O2 Saturation ABG Base Excess ABG Hemoglobin ABG Carboxyhemoglobin POC ABG HHb (Measured) ABG Methemoglobin Errol Test A-a O2 Difference Respiratory Index Hgb O2 Saturation Vent Mode Mechanical Rate FiO2 Tidal Volume PEEP Sodium Potassium Chloride Carbon Dioxide Anion Gap BUN Creatinine Est GFR ( Amer) Est GFR (Non-Af Amer) POC Glucose (mg/dL) 35 L* 39 L Random Glucose Calcium Phosphorus Magnesium Total Bilirubin AST ALT Alkaline Phosphatase Total Protein Albumin Globulin Albumin/Globulin Ratio 10/24/17 10/24/17 10/24/17 17:52 23:19 23:22 WBC RBC Hgb Hct MCV MCH MCHC RDW Plt Count MPV Neut % (Auto) Lymph % (Auto) [place] % (Auto) Eos % (Auto) Baso % (Auto) Neut # (Auto) Lymph # (Auto) [place] # (Auto) Eos # (Auto) Baso # (Auto) Hemoglobin A Hemoglobin A2 Hemoglobin C Hemoglobin F () Hemoglobin S Variant Hemoglobin Hemoglobinopathy Interp Puncture Site pCO2 pO2 HCO3 ABG pH ABG Total CO2 ABG O2 Saturation ABG Base Excess ABG Hemoglobin ABG Carboxyhemoglobin POC ABG HHb (Measured) ABG Methemoglobin Errol Test A-a O2 Difference Respiratory Index Hgb O2 Saturation Vent Mode Mechanical Rate FiO2 Tidal Volume PEEP Sodium Potassium Chloride Carbon Dioxide Anion Gap BUN Creatinine Est GFR ( Amer) Est GFR (Non-Af Amer) POC Glucose (mg/dL) 100 37 L* 61 L Random Glucose Calcium Phosphorus Magnesium Total Bilirubin AST ALT Alkaline Phosphatase Total Protein Albumin Globulin Albumin/Globulin Ratio 10/25/17 10/25/17 10/25/17 00:15 00:24 05:12 WBC RBC Hgb Hct MCV MCH MCHC RDW Plt Count MPV Neut % (Auto) Lymph % (Auto) [place] % (Auto) Eos % (Auto) Baso % (Auto) Neut # (Auto) Lymph # (Auto) [place] # (Auto) Eos # (Auto) Baso # (Auto) Hemoglobin A Hemoglobin A2 Hemoglobin C Hemoglobin F () Hemoglobin S Variant Hemoglobin Hemoglobinopathy Interp Puncture Site Lb pCO2 27 L pO2 106 H HCO3 24.2 ABG pH 7.51 H ABG Total CO2 22.3 ABG O2 Saturation 99.5 H ABG Base Excess -0.9 ABG Hemoglobin 9.3 L ABG Carboxyhemoglobin 1.7 H POC ABG HHb (Measured) 0.5 ABG Methemoglobin 0.9 Errol Test Na A-a O2 Difference 145.0 Respiratory Index 1.4 Hgb O2 Saturation 96.9 Vent Mode Prvc Mechanical Rate 16 FiO2 40.0 Tidal Volume 500 PEEP 5 Sodium 143 Potassium 3.6 Chloride 109 H Carbon Dioxide 26 Anion Gap 11 BUN 3 L Creatinine 0.5 L Est GFR ( Amer) > 60 Est GFR (Non-Af Amer) > 60 POC Glucose (mg/dL) 81 Random Glucose 98 Calcium 8.1 L Phosphorus Magnesium Total Bilirubin AST ALT Alkaline Phosphatase Total Protein Albumin Globulin Albumin/Globulin Ratio 10/25/17 10/25/17 10/25/17 06:08 06:28 06:36 WBC 4.6 L RBC 3.56 L Hgb 9.8 L Hct 29.2 L MCV 82.1 MCH 27.6 MCHC 33.7 RDW 21.4 H Plt Count 463 H MPV 7.5 Neut % (Auto) 55.1 Lymph % (Auto) 26.8 [place] % (Auto) 10.9 H Eos % (Auto) 6.4 H Baso % (Auto) 0.8 Neut # (Auto) 2.5 Lymph # (Auto) 1.2 [place] # (Auto) 0.5 Eos # (Auto) 0.3 Baso # (Auto) 0.0 Hemoglobin A Hemoglobin A2 Hemoglobin C Hemoglobin F () Hemoglobin S Variant Hemoglobin Hemoglobinopathy Interp Puncture Site pCO2 pO2 HCO3 ABG pH ABG Total CO2 ABG O2 Saturation ABG Base Excess ABG Hemoglobin ABG Carboxyhemoglobin POC ABG HHb (Measured) ABG Methemoglobin Errol Test A-a O2 Difference Respiratory Index Hgb O2 Saturation Vent Mode Mechanical Rate FiO2 Tidal Volume PEEP Sodium 143 Potassium 3.7 Chloride 109 H Carbon Dioxide 27 Anion Gap 11 BUN 2 L Creatinine 0.5 L Est GFR ( Amer) > 60 Est GFR (Non-Af Amer) > 60 POC Glucose (mg/dL) 72 Random Glucose 72 L Calcium 7.9 L Phosphorus 4.3 Magnesium 2.0 Total Bilirubin 0.2 AST 20 ALT 23 Alkaline Phosphatase 65 Total Protein 6.0 L Albumin 3.1 L Globulin 2.9 Albumin/Globulin Ratio 1.1 10/25/17 11:27 WBC RBC Hgb Hct MCV MCH MCHC RDW Plt Count MPV Neut % (Auto) Lymph % (Auto) [place] % (Auto) Eos % (Auto) Baso % (Auto) Neut # (Auto) Lymph # (Auto) [place] # (Auto) Eos # (Auto) Baso # (Auto) Hemoglobin A Hemoglobin A2 Hemoglobin C Hemoglobin F () Hemoglobin S Variant Hemoglobin Hemoglobinopathy Interp Puncture Site pCO2 pO2 HCO3 ABG pH ABG Total CO2 ABG O2 Saturation ABG Base Excess ABG Hemoglobin ABG Carboxyhemoglobin POC ABG HHb (Measured) ABG Methemoglobin Errol Test A-a O2 Difference Respiratory Index Hgb O2 Saturation Vent Mode Mechanical Rate FiO2 Tidal Volume PEEP Sodium Potassium Chloride Carbon Dioxide Anion Gap BUN Creatinine Est GFR ( Amer) Est GFR (Non-Af Amer) POC Glucose (mg/dL) 98 Random Glucose Calcium Phosphorus Magnesium Total Bilirubin AST ALT Alkaline Phosphatase Total Protein Albumin Globulin Albumin/Globulin Ratio Assessment/Plan - Assessment and Plan (Free Text) Plan: Patient seen and examiend at bedside with ICU team. Patient has h/o opoid and benzo abuse now preesnts to [facility] for seizures (suspect benzo withdrawal) -LFts normal -titrate off IV versed, load with oral librium -CXR reveals congestion, avoid IVF and infuse 20 mg of lasix -SeizureS: continue all other AED -CAD/WA: continue dual antiplatelets and full dose AC, MAP >65 off pressors -continue NG tube feeds -ISS Aspart -continue DVT/PUD ppx cc time 40 minutes - Date & Time Date: 10/25/17 Time: 14:53
[2017-10-25] MEDS: levETIRAcetam 1,500 MG in Sodium Chloride 0.9% 100 ML IVPB SCH ×2 (10:25→20:33)
[2017-10-25] MEDS: Lacosamide 200mg/20ml 100 MG in Sodium Chloride 0.9% 100 ML IV SCH ×2 (11:46→22:17)
--- NOTE | 2017-10-25 12:47 | PCM.PROC ---
<Fadi Mosley - Last Filed: 10/25/17 12:44> Procedures Attestation:: I certify that I have explained the specified Operation(s) or Procedure(s), risks, benefits and reasonable alternatives to the Patient and/or other person responsible. The opportunity was given to ask questions and all questions answered - Central Line Placement Left Internal Jugular Aseptic technique was employed throughout the procedure: Hand Hygiene done prior to procedure, Full sterile barriers (mask, hair cover, sterile gown, sterile gloves), Chloraprep Antiseptic: 30 second prep for IJ or SC sites Pt. Placed on Pulse Ox Monitor: Yes Central Line Prep: Povidone-Iodine 1% Local Anesthesia Used: Lidocaine 1% Ultrasound Used for Placement: Yes Central Line Length: 20 cm Post Procedure: Sutured in Place Secured by: Securement device Post procedure dressing: Clear vapor permeable, Chlorhexidine disc (Biopatch) Post Procedure X-Ray: Yes Patient Tolerated Procedure: No Complications Immediate Complications: None Additional Comments: Multiple attempts were made to contact his next of kin via [employer] with no answer this morning. Administrative consent was given. <Rubina Sinclair - Last Filed: 10/25/17 14:49> Procedures Attestation:: I certify that I have explained the specified Operation(s) or Procedure(s), risks, benefits and reasonable alternatives to the Patient and/or other person responsible. The opportunity was given to ask questions and all questions answered - Central Line Placement Left Internal Jugular Additional Comments: I was present during entire procedure. indicatoin: poor IV access -d/c femoral tlc -OK to use left IJ TLC
--- NOTE | 2017-10-25 12:53 | CP.PCM.PN ---
Subjective - Date & Time of Evaluation Date of Evaluation: 10/25/17 Time of Evaluation: 10:00 - Subjective Subjective: Neurology progress note for Dr. Laws Patient seen and examined at bedside. Patient remains intubated and sedated. Patient is now on Dilantin, Phenobarbital, Vimpat, Keppra, Librium for his status epilepticus. He had been started on Librium due to clinical suspicion that his seizures could possibly be due to benzodiazepine withdrawal. He remains currently on both Versed and Propofol drips. Cannot ascertain ROS due to clinical status. Objective - Vital Signs/Intake and Output Vital Signs (last 24 hours): Temp Pulse Resp BP Pulse Ox 98.3 F 67 14 140/79 100 10/25/17 08:00 10/25/17 12:02 10/25/17 12:02 10/25/17 12:02 10/25/17 12:02 Intake and Output: 10/25/17 10/25/17 06:59 18:59 Intake Total 2050 771 Output Total 500 450 Balance 1550 321 - Medications Medications: Current Medications Aspirin (Aspirin Chewable) 81 mg PO DAILY [facility] Last Admin: 10/25/17 10:16 Dose: 81 mg Chlordiazepoxide (Librium) 75 mg PO Q6 [facility] Clopidogrel Bisulfate (Plavix) 75 mg PO DAILY [facility] Last Admin: 10/25/17 10:16 Dose: 75 mg Enoxaparin Sodium (Lovenox) 100 mg SC Q12 [facility] Last Admin: 10/25/17 10:15 Dose: 100 mg Folic Acid (Folic Acid) 1 mg PO DAILY [facility] Last Admin: 10/25/17 10:16 Dose: 1 mg Hydroxyurea (Hydrea) 500 mg PO BID [facility] Last Admin: 10/23/17 17:20 Dose: 500 mg Phenylephrine HCl 30 mg/ (Sodium Chloride) 250 mls @ 10 mls/hr IV .Q24H PRN; Protocol; 20 MCG/MIN PRN Reason: TITRATE PER MD ORDER Midazolam HCl 100 mg/ Sodium (Chloride) 100 mls @ 1.95 mls/hr IV .Q24H PRN; 0.02 MG/KG/HR PRN Reason: Protocol Last Titration: 10/25/17 02:00 Dose: 0.06 mg/kg/hr, 6 mls/hr Lactated Ringer's (Lactated Ringer's) 1,000 mls @ 75 mls/hr IV .[id number] [facility] Last Admin: 10/25/17 05:00 Dose: Not Given Lacosamide 100 mg/ Sodium (Chloride) 110 mls @ 110 mls/hr IV Q12 [facility] Last Admin: 10/25/17 11:46 Dose: 110 mls/hr Levetiracetam 1,500 mg/ Sodium (Chloride) 115 mls @ 420 mls/hr IVPB Q12H [facility] Last Admin: 10/25/17 10:25 Dose: 420 mls/hr Propofol (Diprivan) 1,000 mg in 100 mls @ 6.12 mls/hr IV .[id number] PRN; Protocol ; 10 MCG/KG/MIN PRN Reason: TITRATE PER MD ORDER Last Admin: 10/25/17 10:33 Dose: 40.84 mcg/kg/min, 25 mls/hr Lorazepam (Ativan) 2 mg IVP Q4H PRN PRN Reason: Seizure activity Last Admin: 10/24/17 15:55 Dose: 2 mg Pantoprazole Sodium (Protonix Inj) 40 mg IVP DAILY [facility] Last Admin: 10/25/17 10:12 Dose: 40 mg Phenobarbital (Phenobarbital Tab) 97.2 mg PO Q12 [facility] Last Admin: 10/25/17 10:15 Dose: 97.2 mg Phenytoin (Dilantin) 200 mg PO BID [facility] Last Admin: 10/25/17 10:15 Dose: 200 mg Pneumococcal Polyvalent Vaccine (Pneumovax 23 Vaccine) 0.5 ml IM .ONCE ONE Stop: 10/28/17 10:16 - Labs Labs: 10/25/17 06:36 10/25/17 06:28 PT 12.2 SECONDS (9.7-12.2) 10/23/17 06:12 INR 1.1 10/23/17 06:12 APTT 40 SECONDS (21-34) H D 10/24/17 06:30 - Additional Findings Additional findings: - Constitutional Appears: No Acute Distress - Head Exam Head Exam: ATRAUMATIC, NORMOCEPHALIC - Eye Exam Eye Exam: absent: Normal appearance (pinpoint pupils) - ENT Exam ENT Exam: Mucous Membranes Moist - Respiratory Exam Respiratory Exam: Clear to Auscultation Bilateral. absent: Rales, Rhonchi, Wheezes Additional comments: On mechanical ventilation - Cardiovascular Exam Cardiovascular Exam: REGULAR RHYTHM, +S1, +S2 - GI/Abdominal Exam GI & Abdominal Exam: Normal Bowel Sounds, Soft - Extremities Exam Extremities exam: Negative for: pedal edema - Neurological Exam Neurological exam: Altered (intubated and sedated) - Skin Skin Exam: Dry, Warm Assessment and Plan - Assessment and Plan (Free Text) Assessment: This is a 32 year old male currently intubated and sedated in the ICU on propofol with PMHx presumed seizure disorder, PR, right leg DVT, sickle cell disease, protein c deficiency who initially presented with complaint of chest pain. However, he later experienced intractable seizures and was admitted to the ICU due to status epilepticus. Patient self extubated on rounds today on 10/25. Plan: Status Epilepticus Wean off of Versed as tolerated. Keppra 1500 mg IV Q12 Dilantin 200 mg BID Vimpat 100 mg Q12 Librium 75 mg PO Q6H Reduce the phenobarbital dose by half today (10/25/17) to 50 mg Q12 and maintain for 4-5 days. After 4-5 days, reduce the phenobarbital dose to 25 mg Q12 for another 5 days before discontinuing altogether. Avoid hypo or hypertensive events Maintain euglycemia Avoid and limit night time interruptions EEG 10/24: Abnormal EEG with diffuse slowing. No seizures noted on this study. Disposition: Patient self extubated and was able to speak afterwards. Wean off of Versed. Titrate the phenobarbital as stated above. Ideally, by the end of all this, he will only be on Keppra, Dilantin, and Vimpat. Patient seen and discussed with Dr. Laws
--- NOTE | 2017-10-25 13:32 | VASCLAB ---
PROCEDURE: Lower Extremity Venous Duplex Exam. HISTORY: hx of dvt PRIORS: None. TECHNIQUE: Bilateral common femoral, femoral, popliteal and posterior tibial, peroneal and great saphenous veins were evaluated. Flow was assessed with color Doppler, compressibility, assessment of phasic flow and augmentation response. Report prepared by Omar Hammonds, HEIDI, RVT FINDINGS: RIGHT: 1. Common Femoral Vein: 1.1. Compressibility - Fully compressible: Thrombus - None : Flow - Phasic: Augmentation -Normal: Reflux - None. 2. Femoral Vein: 2.1. Compressibility - Fully compressible: Thrombus - None : Flow - Phasic: Augmentation -Normal: Reflux - None. 3. Popliteal Vein: 3.1. Compressibility - Fully compressible: Thrombus - None : Flow - Phasic: Augmentation -Normal: Reflux - None. 4. Posterior Tibial Vein: 4.1. Compressibility - Fully compressible: Thrombus - None: Flow - Phasic: Augmentation -Normal: Reflux - None. 5. Peroneal Vein: 5.1. Compressibility - Fully compressible: Thrombus - None: Flow - Phasic: Augmentation -Normal: Reflux - None. 6. Great Saphenous Vein: 6.1. Compressibility - : Thrombus - : Flow - : Augmentation - : Reflux - . LEFT: 1. Common Femoral Vein: 1.1. Compressibility - Fully compressible: Thrombus - None: Flow - Phasic: Augmentation -Normal: Reflux - None. 2. Femoral Vein: 2.1. Compressibility - Fully compressible: Thrombus - None: Flow - Phasic: Augmentation -Normal: Reflux - None. 3. Popliteal Vein: 3.1. Compressibility - Fully compressible: Thrombus - None : Flow - Phasic: Augmentation -Normal: Reflux - None. 4. Posterior Tibial Vein: 4.1. Compressibility - Fully compressible: Thrombus - None: Flow - Phasic: Augmentation -Normal: Reflux - None. 5. Peroneal Vein: 5.1. Compressibility - Fully compressible: Thrombus - None: Flow - Phasic: Augmentation -Normal: Reflux - None. 6. Great Saphenous Vein: 6.1. Compressibility - : Thrombus - : Flow - : Augmentation - : Reflux - . OTHER FINDINGS: Technically limited study due to patient continuous movements. IMPRESSION: Right: No evidence of deep or superficial vein thrombosis of the right lower extremity. Normal valve function noted of the right side. Left: No evidence of deep or superficial vein thrombosis of the left lower extremity. Normal valve function noted of the left side.
--- NOTE | 2017-10-25 13:54 | CP.PCM.PN ---
Subjective - Date & Time of Evaluation Date of Evaluation: 10/25/17 Time of Evaluation: 13:50 - Subjective Subjective: Medical Attending Note: Patient seen and examined at bedside. Patient is sedated bedside. Patient has Propfol and Versed running. Propofol being titrated off. Patient received Librium earlier when he was agitated per nursing. No noted seizure per nurse. Patient's femoral removed and TLC replaced this morning. No family present at bedside. Unable to do ROS secondary to clinical condition. Objective - Vital Signs/Intake and Output Vital Signs (last 24 hours): Temp Pulse Resp BP Pulse Ox 98.3 F 67 14 140/79 100 10/25/17 08:00 10/25/17 12:02 10/25/17 12:02 10/25/17 12:02 10/25/17 12:02 Intake and Output: 10/25/17 10/25/17 06:59 18:59 Intake Total 2050 871 Output Total 500 450 Balance 1550 421 - Medications Medications: Current Medications Aspirin (Aspirin Chewable) 81 mg PO DAILY [facility] Last Admin: 10/25/17 10:16 Dose: 81 mg Chlordiazepoxide (Librium) 75 mg PO Q6 [facility] Last Admin: 10/25/17 13:00 Dose: Not Given Clopidogrel Bisulfate (Plavix) 75 mg PO DAILY [facility] Last Admin: 10/25/17 10:16 Dose: 75 mg Enoxaparin Sodium (Lovenox) 100 mg SC Q12 [facility] Last Admin: 10/25/17 10:15 Dose: 100 mg Folic Acid (Folic Acid) 1 mg PO DAILY [facility] Last Admin: 10/25/17 10:16 Dose: 1 mg Hydroxyurea (Hydrea) 500 mg PO BID [facility] Last Admin: 10/23/17 17:20 Dose: 500 mg Phenylephrine HCl 30 mg/ (Sodium Chloride) 250 mls @ 10 mls/hr IV .Q24H PRN; Protocol; 20 MCG/MIN PRN Reason: TITRATE PER MD ORDER Midazolam HCl 100 mg/ Sodium (Chloride) 100 mls @ 1.95 mls/hr IV .Q24H PRN; 0.02 MG/KG/HR PRN Reason: Protocol Last Titration: 10/25/17 02:00 Dose: 0.06 mg/kg/hr, 6 mls/hr Lactated Ringer's (Lactated Ringer's) 1,000 mls @ 75 mls/hr IV .[id number] [facility] Last Admin: 10/25/17 05:00 Dose: Not Given Lacosamide 100 mg/ Sodium (Chloride) 110 mls @ 110 mls/hr IV Q12 [facility] Last Admin: 10/25/17 11:46 Dose: 110 mls/hr Levetiracetam 1,500 mg/ Sodium (Chloride) 115 mls @ 420 mls/hr IVPB Q12H [facility] Last Admin: 10/25/17 10:25 Dose: 420 mls/hr Propofol (Diprivan) 1,000 mg in 100 mls @ 6.12 mls/hr IV .[id number] PRN; Protocol ; 10 MCG/KG/MIN PRN Reason: TITRATE PER MD ORDER Last Admin: 10/25/17 13:37 Dose: 32.67 mcg/kg/min, 20 mls/hr Lorazepam (Ativan) 2 mg IVP Q4H PRN PRN Reason: Seizure activity Last Admin: 10/24/17 15:55 Dose: 2 mg Pantoprazole Sodium (Protonix Inj) 40 mg IVP DAILY [facility] Last Admin: 10/25/17 10:12 Dose: 40 mg Phenobarbital (Phenobarbital Tab) 97.2 mg PO Q12 [facility] Last Admin: 10/25/17 10:15 Dose: 97.2 mg Phenytoin (Dilantin) 200 mg PO BID [facility] Last Admin: 10/25/17 10:15 Dose: 200 mg Pneumococcal Polyvalent Vaccine (Pneumovax 23 Vaccine) 0.5 ml IM .ONCE ONE Stop: 10/28/17 10:16 - Labs Labs: 10/25/17 06:36 10/25/17 06:28 PT 12.2 SECONDS (9.7-12.2) 10/23/17 06:12 INR 1.1 10/23/17 06:12 APTT 40 SECONDS (21-34) H D 10/24/17 06:30 - Constitutional Appears: Non-toxic, No Acute Distress - Head Exam Head Exam: NORMAL INSPECTION Additional comments: lips swelling - Eye Exam Pupil Exam: Miosis - ENT Exam ENT Exam: Mucous Membranes Dry - Respiratory Exam Respiratory Exam: Decreased Breath Sounds. absent: Stridor Additional comments: intubated - Cardiovascular Exam Cardiovascular Exam: Bradycardia, +S1, +S2 - GI/Abdominal Exam GI & Abdominal Exam: Soft, Normal Bowel Sounds. absent: Distended, Firm, Guarding, Rigid, Tenderness, Rebound Additional comments: firmness nodules over the left and right lowe quadrants (present from before) - Neurological Exam Neurological Exam: Altered - Skin Skin Exam: Dry, Intact, Normal Color, Warm Assessment and Plan (1) Status epilepticus Status: Acute (2) Protein C deficiency Status: Acute (3) CAD (coronary artery disease) Status: Acute (4) Stented coronary artery Status: Acute (5) Pulmonary embolism Status: Acute (6) Prophylactic measure Status: Acute Attending/Attestation - Attestation I have personally seen and examined this patient.: Yes I have fully participated in the care of the patient.: Yes I have reviewed all pertinent clinical information, including history, physical exam and plan: Yes Notes (Text): Assessment/Plan 1) Status Epilepticus Known Seizure Disorder * Home medications: Keppa 500mg PO BID; Dilantin 300mg PO BID as outpatient medications. * Witnessed seizures in the ED on admission * Intubated in the Ed 10/23/17 to protect airway * CT Head (10/23/17): no acute intracranial abnormality. Endotracheal tube in place. * CT head (10/23/17): no definite acute intracranial abnormality. Incidental/non acute findings are described above * Urine Drug Screen: +opiates, +barbiturates +Benzos * Blood alcohol <10 * Neurology (Dr. Laws) on consult help appreciated * Seizure medications: * Keppra 1000mg IVPB Q12H * Dilantin 200mg PO BID * Seizures were refractory to propofol-->ICU needed to start Versed drip during the day on 10/23/17 * EEG (10/24/17): EEG is abnormal. Diffuse slowing is seen, suggestive of diffuse abnormality of the brain. Lower than normal posterio dominant rhythm at 4 Hz. No seizures, drowsiness or sleep were detected. * On 10/24/17, patient has recurrent seizure * Per neurology, medications adjusted as follows: * Vimpat 100mg IVQ12 * Keppra 1500mg IVPB Q12H * To titrate off Propofol * Dilantin 200mg PO BID * Phenobarbital 97.2mg PO Q12 * Versed Drip * Start Ketamine given persistent seizures if refractory * 10/25: patient is sedated. No noted visible seizure activity. Needed Librium today. * Procalcitonin: low * Blood culture: negative * Urine culture: no growth 2) Chest Pain Possible History of Coronary Artery Disease Possible Stent/ Prior [place]? * Aspirin 81mg PO daily * Plavix 75mg PO daily * Lipid panel ordered: T, Cholestrol: 199, LDL:111, HDL: 43 * Troponin X2: negative * EKG on admission: NSR * CT angio: No definite PE; post surgical changes of the stomach * Echocardiogram (10/24/17): * Mild to moderate concentric LVH * Left ventricle systolic function is normal. EF: 60-65%, left ventricular diastolic function is normal. Right ventricle is normal size, right ventricular systolic function is normal. Left atrium size is normal. Right atrium size is normal, mild tricuspid regurgitation, no pulmonary hypertension, mild pulmonic valvular regurgitation * A1c: 4.8 3. History of Protein C deficiency (unlikely)? History of Pulmonary Embolus History of DVT+ * Heme-oncology on board-->help appreciated * Anthrombin III * Hemoglobinopathy eval * Sickle cell screen: negative * pending protein C and S * CT angio: No definite PE; post surgical changes of the stomach * +IVC filter * Ordered for venous dopplers to check for DVT which is pending; SCDS contraindicated * On heparin drip (CT Head negative for bleed) * Echocardiogram (10/24/17): * Mild to moderate concentric LVH * Left ventricle systolic function is normal. EF: 60-65%, left ventricular diastolic function is normal. Right ventricle is normal size, right ventricular systolic function is normal. Left atrium size is normal. Right atrium size is normal, mild tricuspid regurgitation, no pulmonary hypertension, mild pulmonic valvular regurgitation 4. Possible Sickle Cell (unlikely) * Heme-oncology on board-->Help appreciated * Per consult, I have spoken to his brother Art Mcadams ([phone]) and he is not sure if his brother has sickle cell anemia. He does know of family who may have it but his parents and siblings do not have sickle cell anemia. His brother recently moved from [place] but was recently at [facility]. He also notes to his brother having lots of admissions in the past for seizures. * Hemoglobinopathy eval: normal pattern, possible alpha thalassemia * Sickle cell screen: negative 5. Anemia * Elevated reticulocyte count * Low iron, low TIBC, low percent iron * B12: 735, Folate: 8.2 * pending Ferritin * Hemoglobinopathy eval: normal pattern, possible alpha thalassemia * Sickle cell screen: negative 6. Prophylactic measure * Heparin drip * +IVC filter * Protonix 40mg IV daily * SCDS contraindicated given DVT+ * pending venous doppler report * Brother: Art Mcadams ([phone]) * TLC 10/25/17
--- NOTE | 2017-10-25 14:31 | RAD ---
Chest, one view Indication: Right IJ procedure Comparison: Chest x-ray performed 10/25/17 at 736 hours Findings: Examination limited by habitus and hypoinflation. Left IJ approach central venous catheter extends expected location of the SVC. Endotracheal tube terminates approximately 5.1 cm above the [place]. Nasogastric tube extends expected location of the stomach. Numerous external wires and leads obscure evaluation of the underlying parenchyma. Cardiomegaly. Consolidative changes re-identified at the right lung base. Small right pleural effusion. No definite pneumothorax. Degenerative changes of the spine. Impression: Limited study. Left IJ approach central venous catheter extends expected location of the SVC. Endotracheal tube terminates approximately 5.1 cm above the [place]. Nasogastric tube extends expected location of the stomach. Cardiomegaly. Consolidative changes re-identified at the right lung base. Small right pleural effusion.
[2017-10-25] MEDS: Midazolam 50 mg/10 ml 100 MG in Sodium Chloride 0.9% 80 ML IV PRN (16:08)
[2017-10-25] MEDS ORDERED: Dextrose 50% SYRINGE Inj (50 ml) IV ONE (17:45)
[2017-10-25] MEDS ORDERED: Dextrose 50% SYRINGE Inj (50 ml) ONE (17:49)
[2017-10-25] MEDS ORDERED: Phenytoin 100 mg/2 ml Inj IVP ONE (18:46)
[2017-10-25] MEDS ORDERED: SODIUM CHLORIDE 0.9% IVP ONE (19:00)
[2017-10-25] MEDS ORDERED: PHENYTOIN IVP ONE (19:00)
[2017-10-25] MEDS ORDERED: Rocuronium 10 mg/ml (5 ml) IV ONE ×2 (19:22→19:36)
[2017-10-25 20:14] LABS: ABG ALLEN TEST UNABLE; ARTERIAL BLOOD GAS HCO3 28.5 mmol/L (21-28); ARTERIAL BLOOD GAS O2 SAT 99.2 % (95-98); ARTERIAL BLOOD GAS PCO2 31 mm/Hg (35-45); ARTERIAL BLOOD GAS PH 7.54 (7.35-7.45); ARTERIAL BLOOD GAS PO2 92 mm/Hg (80-100); ARTERIAL BLOOD GAS TCO2 27.5 mmol/L (22-28)
[2017-10-25 20:18] LABS: ALB/GLOB RATIO 1.1 (1.0-2.1); ALBUMIN 3.3 g/dL (3.5-5.0); ALT/SGPT 22 U/L (21-72); AST/SGOT 18 U/L (17-59); BLOOD UREA NITROGEN < 2 mg/dL (9-20); GFR AFRICAN-AMERICAN > 60; GFR NON-AFRICAN AMERICAN > 60
[2017-10-25] MEDS: Albuterol-Ipratrop 3 mg / 0.5 (3 ml) UD INH SCH (20:18)
[2017-10-25] MEDS ORDERED: Lactated Ringer's 1,000 ML IV SCH (20:30)
[2017-10-25 22:16] VITALS: O2SAT 100
--- NOTE | 2017-10-25 22:20 | CARD ---
APPROVED REPORT EKG Measurement Heart [id number] <Conclusion> Normal sinus rhythm Normal ECG
--- NOTE | 2017-10-25 22:23 | CP.PCM.PN ---
Subjective - Date & Time of Evaluation Date of Evaluation: 10/25/17 Time of Evaluation: 14:45 - Subjective Subjective: Vented Objective - Vital Signs/Intake and Output Vital Signs (last 24 hours): Temp Pulse Resp BP Pulse Ox 98.5 F 72 12 123/81 100 10/25/17 20:00 10/25/17 22:04 10/25/17 22:04 10/25/17 22:04 10/25/17 22:04 Intake and Output: 10/25/17 10/26/17 18:59 06:59 Intake Total 1605 472 Output Total 2200 2100 Balance -595 -4321 - Medications Medications: Current Medications Albuterol/Ipratropium (Duoneb 3 Mg/0.5 Mg (3 Ml) Ud) 3 ml INH RQ6 [facility] Last Admin: 10/25/17 20:18 Dose: 3 ml Aspirin (Aspirin Chewable) 81 mg PO DAILY [facility] Last Admin: 10/25/17 10:16 Dose: 81 mg Chlordiazepoxide (Librium) 75 mg PO Q6 [facility] Last Admin: 10/25/17 18:02 Dose: 75 mg Clopidogrel Bisulfate (Plavix) 75 mg PO DAILY [facility] Last Admin: 10/25/17 10:16 Dose: 75 mg Enoxaparin Sodium (Lovenox) 100 mg SC Q12 [facility] Last Admin: 10/25/17 22:17 Dose: 100 mg Folic Acid (Folic Acid) 1 mg PO DAILY [facility] Last Admin: 10/25/17 10:16 Dose: 1 mg Hydroxyurea (Hydrea) 500 mg PO BID [facility] Last Admin: 10/23/17 17:20 Dose: 500 mg Midazolam HCl 100 mg/ Sodium (Chloride) 100 mls @ 1.95 mls/hr IV .Q24H PRN; 0.02 MG/KG/HR PRN Reason: Protocol Last Admin: 10/25/17 16:08 Dose: 0.06 mg/kg/hr, 6 mls/hr Lacosamide 100 mg/ Sodium (Chloride) 110 mls @ 110 mls/hr IV Q12 [facility] Last Admin: 10/25/17 22:17 Dose: 110 mls/hr Levetiracetam 1,500 mg/ Sodium (Chloride) 115 mls @ 420 mls/hr IVPB Q12H [facility] Last Admin: 10/25/17 20:33 Dose: 420 mls/hr Propofol (Diprivan) 1,000 mg in 100 mls @ 6.12 mls/hr IV .[id number] PRN; Protocol ; 10 MCG/KG/MIN PRN Reason: TITRATE PER MD ORDER Last Titration: 10/25/17 14:30 Dose: 16.33 mcg/kg/min, 10 mls/hr Norepinephrine Bitartrate 4 mg (/ Sodium Chloride) 254 mls @ 15.24 mls/hr IV .[id number] PRN; Protocol; 4 MCG/MIN PRN Reason: TITRATE PER MD ORDER Lactated Ringer's (Lactated Ringer's) 1,000 mls @ 75 mls/hr IV .[id number] [facility] Last Admin: 10/25/17 20:18 Dose: 75 mls/hr Lorazepam (Ativan) 2 mg IVP Q4H PRN PRN Reason: Seizure activity Last Admin: 10/24/17 15:55 Dose: 2 mg Pantoprazole Sodium (Protonix Inj) 40 mg IVP DAILY [facility] Last Admin: 10/25/17 10:12 Dose: 40 mg Phenobarbital (Phenobarbital Tab) 97.2 mg PO Q12 [facility] Last Admin: 10/25/17 22:16 Dose: 32.4 mg Phenytoin (Dilantin) 200 mg PO BID [facility] Last Admin: 10/25/17 18:00 Dose: 200 mg Pneumococcal Polyvalent Vaccine (Pneumovax 23 Vaccine) 0.5 ml IM .ONCE ONE Stop: 10/28/17 10:16 - Labs Labs: 10/25/17 06:36 10/25/17 20:02 PT 12.2 SECONDS (9.7-12.2) 10/23/17 06:12 INR 1.1 10/23/17 06:12 APTT 40 SECONDS (21-34) H D 10/24/17 06:30 - Head Exam Head Exam: ATRAUMATIC - Eye Exam Eye Exam: Normal appearance - ENT Exam ENT Exam: Mucous Membranes Dry - Respiratory Exam Respiratory Exam: NORMAL BREATHING PATTERN - Cardiovascular Exam Cardiovascular Exam: +S1, +S2 - GI/Abdominal Exam GI & Abdominal Exam: Normal Bowel Sounds Assessment and Plan (1) Anemia Assessment & Plan: no evidence of sickle cell anemia aneia of chronic disease can D/C hydroxyurea Status: Acute (2) Protein C deficiency Assessment & Plan: on anticoagulation Status: Acute (3) Coagulopathy Assessment & Plan: secondary to anticoagulation Status: Acute
[2017-10-25] MEDS ORDERED: Dextrose 50% SYRINGE Inj (50 ml) IV STA (23:37)
[2017-10-26] MEDS: Albuterol-Ipratrop 3 mg / 0.5 (3 ml) UD INH SCH ×3 (01:15→14:17)
[2017-10-26 01:56] VITALS: RESP 18
[2017-10-26] MEDS: Propofol 10 mg/ml 1,000 MG/100 ML VIAL IV PRN ×3 (05:39→17:00)
[2017-10-26 06:09] LABS: ARTERIAL BLOOD GAS HCO3 23.8 mmol/L (21-28); ARTERIAL BLOOD GAS HEMOGLOBIN 9.2 g/dL (11.7-17.4); ARTERIAL BLOOD GAS O2 SAT 99.7 % (95-98); ARTERIAL BLOOD GAS PCO2 35 mm/Hg (35-45); ARTERIAL BLOOD GAS PH 7.42 (7.35-7.45); ARTERIAL BLOOD GAS PO2 117 mm/Hg (80-100); ARTERIAL BLOOD GAS TCO2 23.8 mmol/L (22-28)
[2017-10-26 06:24] LABS: BASO % 0.7 % (0.0-2.0); EOS # 0.3 K/uL (0.0-0.7); EOS % 5.6 % (0.0-4.0); HEMOGLOBIN 9.7 g/dL (12.0-18.0); LYMPH # 1.4 K/uL (1.0-4.3); LYMPH % 31.8 % (20.0-40.0); MEAN CELL VOLUME 82.7 fL (80.0-94.0); MEAN CORPUSCULAR HGB CONC 33.9 g/dL (33.0-37.0); MEAN PLATELET VOLUME 7.7 fL (7.2-11.7); MONO # 0.6 K/uL (0.0-0.8); MONO % 12.9 % (0.0-10.0); NEUT # 2.2 K/uL (1.8-7.0); RBC 3.46 Mil/uL (4.40-5.90); RED CELL DISTRIBUTION WIDTH 21.5 % (11.5-14.5); WHITE BLOOD COUNT 4.5 K/uL (4.8-10.8)
[2017-10-26] MEDS: Dextrose 5%/0.9% NS 1,000 ML IV SCH ×2 (06:33→16:00)
[2017-10-26 06:46] LABS: ALB/GLOB RATIO 1.1 (1.0-2.1); ALBUMIN 3.1 g/dL (3.5-5.0); ALT/SGPT 21 U/L (21-72); AST/SGOT 25 U/L (17-59); BLOOD UREA NITROGEN < 2 mg/dL (9-20); CALCIUM 7.6 mg/dl (8.6-10.4); GFR AFRICAN-AMERICAN > 60; GFR NON-AFRICAN AMERICAN > 60; MAGNESIUM 1.9 mg/dL (1.6-2.3)
--- NOTE | 2017-10-26 07:45 | RAD ---
Chest x-ray single frontal view History: Intubation. Comparison: 10/25/2017 Findings: Endotracheal tube extending into the mid thoracic trachea. Left central venous catheter extending into the proximal right SVC. Right hilar prominence. Patchy increased markings at both lung bases which may represent mild atelectasis and or infiltrate. Trace right pleural effusion. Mild cardiomegaly. Degenerative changes in the spine and shoulders. IVC filter in place. Impression: Endotracheal tube extending into the mid thoracic trachea. Left central venous catheter extending into the proximal right SVC. Right hilar prominence. Patchy increased markings at both lung bases which may represent mild atelectasis and or infiltrate. Trace right pleural effusion. Mild cardiomegaly.
--- NOTE | 2017-10-26 09:31 | RAD ---
HISTORY: intubation COMPARISON: Chest x-ray performed 10/25/17 TECHNIQUE: Chest, one view. FINDINGS: Endotracheal tube tip terminates approximately 3 cm above the [place]. Left-sided IJ approach central venous catheter extends to the SVC. Nasogastric tube extends expected location of the stomach. LUNGS: Small layering right pleural effusion and associated consolidation. Mild pulmonary venous congestion. No definite pneumothorax. CARDIOVASCULAR: Cardiomegaly. OSSEOUS STRUCTURES: No acute osseous abnormality identified. VISUALIZED UPPER ABDOMEN: Unremarkable. OTHER FINDINGS: None. IMPRESSION: Endotracheal tube tip terminates approximately 3 cm above the [place]. Left-sided IJ approach central venous catheter extends to the SVC. Nasogastric tube extends expected location of the stomach. Small layering right pleural effusion and associated consolidation. Mild pulmonary venous congestion. Cardiomegaly.
[2017-10-26] MEDS ORDERED: Multiple Vitamins Oral Solution PO SCH (10:00)
--- NOTE | 2017-10-26 10:19 | CP.CCUPN ---
<DimitriVan - Last Filed: 10/26/17 17:30> CCU Subjective - Physician Review Subjective (Free Text): 10/24/17 12:50 Patient seen and examined at bedside. Per nursing no acute events occurred overnight. 10/25/17 10:22 Patient seen and examined at bedside. Per nursing no seizures occurred overnight. 10/26/17 10:17 Patient seen and examined at bedside. Per nursing no seizures occurred overnight. Critical Care Time Spent (in minutes): 40 CCU Objective - Vital Signs / Intake & Output Vital Signs (Last 4 hours): Vital Signs Pulse Resp Pulse Ox 10/26/17 07:00 77 18 100 Intake and Output (Last 8hrs): Intake & Output 10/25/17 10/26/17 10/26/17 22:59 06:59 14:59 Intake Total 753 754 100 Output Total 3675 640 50 Balance -2922 114 50 Weight 224 lb 9 oz Intake: IV 85 0 Intake, IV Amount 518 754 100 Right Distal Port Femoral 395 625 100 Right Medial Port Femoral 25 33 Right Proximal Port 98 96 Femoral Oral 50 Tube Feeding 100 Output: Urine 3675 640 50 Urethral (Hawkins) 3675 640 50 - Physical Exam Head: Positive for: Atraumatic, Normocephalic Pupils: Positive for: PERRL, Sluggish Extroacular Muscles: Positive for: EOMI Conjunctiva: Positive for: Normal Mouth: Positive for: Moist Mucous Membranes, Other (intubated.) Neck: Positive for: Normal Range of Motion. Negative for: Meningeal Signs, JVD , Lymphadenopathy Respiratory/Chest: Positive for: Clear to Auscultation, Good Air Exchange. Negative for: Wheezes Cardiovascular: Positive for: Regular Rate and Rhythm, Normal S1, S2 Abdomen: Positive for: Normal Bowel Sounds. Negative for: McBurney's Point Tender, Ostomy Tubes Upper Extremity: Positive for: Normal Inspection, Edema. Negative for: Cyanosis Lower Extremity: Positive for: Normal Inspection Skin: Positive for: Warm, Dry, Normal Color Psychiatric: Positive for: Alert - Medications Active Medications: Active Medications Generic Name Dose Route Start Last Admin Trade Name Freq PRN Reason Stop Dose Admin Albuterol/Ipratropium 3 ml 10/25/17 20:00 10/26/17 08:56 Duoneb 3 Mg/0.5 Mg (3 Ml) Ud INH 3 ml RQ6 KEVIN Administration Ascorbic Acid 500 mg 10/26/17 10:00 Vitamin C 500 Mg Tab NG DAILY KEVIN Aspirin 81 mg 10/23/17 10:00 10/25/17 10:16 Aspirin Chewable PO 81 mg DAILY KEVIN Administration Chlordiazepoxide 75 mg 10/25/17 12:00 10/26/17 06:00 Librium PO 75 mg Q6 KEVIN Administration Clopidogrel Bisulfate 75 mg 10/23/17 10:00 10/25/17 10:16 Plavix PO 75 mg DAILY KEVIN Administration Enoxaparin Sodium 100 mg 10/24/17 10:00 10/25/17 22:17 Lovenox SC 100 mg Q12 KEVIN Administration Folic Acid 1 mg 10/23/17 10:00 10/25/17 10:16 Folic Acid PO 1 mg DAILY KEVIN Administration Hydroxyurea 500 mg 10/23/17 10:00 10/23/17 17:20 Hydrea PO 500 mg BID KEVIN Administration Midazolam HCl 100 mg/ Sodium 100 mls @ 1.95 mls/hr 10/24/17 08:15 10/25/17 16 :08 Chloride IV 0.06 mg/kg/hr .Q24H PRN 6 mls/hr Protocol Administration 0.02 MG/KG/HR Lacosamide 100 mg/ Sodium 110 mls @ 110 mls/hr 10/24/17 22:00 10/25/17 22:17 Chloride IV 110 mls/hr Q12 KEVIN Administration Levetiracetam 1,500 mg/ Sodium 115 mls @ 420 mls/hr 10/24/17 21:00 10/25/17 20:33 Chloride IVPB 420 mls/hr Q12H KEVIN Administration Propofol 1,000 mg in 100 mls @ 6.12 mls/hr 10/25/17 09:30 10/26/17 05:39 Diprivan IV 19.6 mcg/kg/min .[id number] PRN 12 mls/hr TITRATE PER MD ORDER Administration Protocol 10 MCG/KG/MIN Norepinephrine Bitartrate 4 mg 254 mls @ 15.24 mls/hr 10/25/17 19:15 / Sodium Chloride IV .[id number] PRN TITRATE PER MD ORDER Protocol 4 MCG/MIN Lactated Ringer's 1,000 mls @ 75 mls/hr 10/25/17 20:30 10/25/17 20:18 Lactated Ringer's IV 75 mls/hr .[id number] KEVIN Administration Dextrose/Sodium Chloride 1,000 mls @ 100 mls/hr 10/26/17 06:15 10/26/17 06:33 Dextrose 5%/0.9% Ns 1000 Ml IV 100 mls/hr .Q10H KEVIN Administration Potassium Chloride 10 meq in 100 mls @ 100 mls/hr 10/26/17 10:00 Potassium Chloride 10 Meq/100 Ml IVPB 10/26/17 10:59 ONCE ONE Lorazepam 2 mg 10/24/17 07:17 10/24/17 15:55 Ativan IVP 2 mg Q4H PRN Administration Seizure activity Multivitamins/Vitamin C 5 ml 10/26/17 10:00 Multi-Delyn Liquid PO DAILY [facility] Pantoprazole Sodium 40 mg 10/23/17 10:00 10/25/17 10:12 Protonix Inj IVP 40 mg DAILY KEVIN Administration Phenobarbital 97.2 mg 10/25/17 22:00 10/25/17 22:16 Phenobarbital Tab PO 97.2 mg Q12 KEVIN Administration Phenytoin 200 mg 10/24/17 11:15 10/25/17 18:00 Dilantin PO 200 mg BID KEVIN Administration Pneumococcal Polyvalent Vaccine 0.5 ml 10/28/17 10:15 Pneumovax 23 Vaccine IM 10/28/17 10:16 .ONCE ONE Thiamine HCl 200 mg 10/26/17 08:15 Vitamin B1 Inj IV Q8 [facility] Valproate Sodium 500 mg 10/26/17 10:00 Depakene Cap PO Q8 [facility] - Patient Studies Lab Studies: Microbiology Studies 10/23/17 07:17 MRSA Culture (Admit) - Final Naris MRSA NOT DETECTED 10/23/17 12:30 Blood Culture - Preliminary Blood NO GROWTH AFTER 48 HOURS 10/23/17 13:00 Blood Culture - Preliminary Blood NO GROWTH AFTER 48 HOURS Lab Studies 10/26/17 10/26/17 10/26/17 Range/Units 06:16 06:16 05:47 WBC 4.5 L (4.8-10.8) K/uL RBC 3.46 L (4.40-5.90) Mil/uL Hgb 9.7 L (12.0-18.0) g/dL Hct 28.6 L (35.0-51.0) % MCV 82.7 (80.0-94.0) fL MCH 28.0 (27.0-31.0) pg MCHC 33.9 (33.0-37.0) g/dL RDW 21.5 H (11.5-14.5) % Plt Count 409 H (130-400) K/uL MPV 7.7 (7.2-11.7) fL Neut % (Auto) 49.0 L (50.0-75.0) % Lymph % (Auto) 31.8 (20.0-40.0) % Hudson % (Auto) 12.9 H (0.0-10.0) % Eos % (Auto) 5.6 H (0.0-4.0) % Baso % (Auto) 0.7 (0.0-2.0) % Neut # (Auto) 2.2 (1.8-7.0) K/uL Lymph # (Auto) 1.4 (1.0-4.3) K/uL Hudson # (Auto) 0.6 (0.0-0.8) K/uL Eos # (Auto) 0.3 (0.0-0.7) K/uL Baso # (Auto) 0.0 (0.0-0.2) K/uL Antithrombin III Activ (80-120) % activity Puncture Site pCO2 (35-45) mm/Hg pO2 (80-100) mm/Hg HCO3 (21-28) mmol/L ABG pH (7.35-7.45) ABG Total CO2 (22-28) mmol/L ABG O2 Saturation (95-98) % ABG Base Excess (-2.0-3.0) mmol/L ABG Hemoglobin (11.7-17.4) g/dL ABG Carboxyhemoglobin (0.5-1.5) % POC ABG HHb (Measured) (0.0-5.0) % ABG Methemoglobin (0.0-3.0) % Errol Test ABG Potassium (3.6-5.2) mmol/L A-a O2 Difference mm/Hg Respiratory Index Hgb O2 Saturation (95.0-98.0) % Sodium 143 (132-148) mmol/l Chloride 108 H (98-107) mmol/L Glucose (75-110) mg/dl Lactate (0.7-2.1) mmol/L Vent Mode Mechanical Rate FiO2 % Tidal Volume PEEP Potassium 3.3 L (3.6-5.2) mmol/L Carbon Dioxide 26 (22-30) mmol/L Anion Gap 12 (10-20) BUN < 2 L (9-20) mg/dL Creatinine 0.5 L (0.8-1.5) mg/dL Est GFR ( Amer) > 60 Est GFR (Non-Af Amer) > 60 POC Glucose (mg/dL) 69 (65-110) mg/dL Random Glucose 66 L (75-110) mg/dL Calcium 7.6 L (8.6-10.4) mg/dl Phosphorus 4.2 (2.5-4.5) mg/dL Magnesium 1.9 (1.6-2.3) mg/dL Total Bilirubin 0.3 (0.2-1.3) mg/dL AST 25 (17-59) U/L ALT 21 (21-72) U/L Alkaline Phosphatase 74 (38-126) U/L Total Protein 6.0 L (6.3-8.3) g/dL Albumin 3.1 L (3.5-5.0) g/dL Globulin 2.9 (2.2-3.9) gm/dL Albumin/Globulin Ratio 1.1 (1.0-2.1) Arterial Blood Potassium (3.6-5.2) mmol/L 10/26/17 10/26/17 10/26/17 Range/Units 05:42 05:10 00:59 WBC (4.8-10.8) K/uL RBC (4.40-5.90) Mil/uL Hgb (12.0-18.0) g/dL Hct (35.0-51.0) % MCV (80.0-94.0) fL MCH (27.0-31.0) pg MCHC (33.0-37.0) g/dL RDW (11.5-14.5) % Plt Count (130-400) K/uL MPV (7.2-11.7) fL Neut % (Auto) (50.0-75.0) % Lymph % (Auto) (20.0-40.0) % Hudson % (Auto) (0.0-10.0) % Eos % (Auto) (0.0-4.0) % Baso % (Auto) (0.0-2.0) % Neut # (Auto) (1.8-7.0) K/uL Lymph # (Auto) (1.0-4.3) K/uL Hudson # (Auto) (0.0-0.8) K/uL Eos # (Auto) (0.0-0.7) K/uL Baso # (Auto) (0.0-0.2) K/uL Antithrombin III Activ (80-120) % activity Puncture Site Rb pCO2 35 (35-45) mm/Hg pO2 117 H (80-100) mm/Hg HCO3 23.8 (21-28) mmol/L ABG pH 7.42 (7.35-7.45) ABG Total CO2 23.8 (22-28) mmol/L ABG O2 Saturation 99.7 H (95-98) % ABG Base Excess -1.5 (-2.0-3.0) mmol/L ABG Hemoglobin 9.2 L (11.7-17.4) g/dL ABG Carboxyhemoglobin 1.8 H (0.5-1.5) % POC ABG HHb (Measured) 0.3 (0.0-5.0) % ABG Methemoglobin 0.9 (0.0-3.0) % Errol Test Na ABG Potassium (3.6-5.2) mmol/L A-a O2 Difference 124.0 mm/Hg Respiratory Index 1.1 Hgb O2 Saturation 96.9 (95.0-98.0) % Sodium (132-148) mmol/l Chloride (98-107) mmol/L Glucose (75-110) mg/dl Lactate (0.7-2.1) mmol/L Vent Mode Prvc Mechanical Rate 18 FiO2 40.0 % Tidal Volume 450 PEEP 5 Potassium (3.6-5.2) mmol/L Carbon Dioxide (22-30) mmol/L Anion Gap (10-20) BUN (9-20) mg/dL Creatinine (0.8-1.5) mg/dL Est GFR ( Amer) Est GFR (Non-Af Amer) POC Glucose (mg/dL) 62 L 99 (65-110) mg/dL Random Glucose (75-110) mg/dL Calcium (8.6-10.4) mg/dl Phosphorus (2.5-4.5) mg/dL Magnesium (1.6-2.3) mg/dL Total Bilirubin (0.2-1.3) mg/dL AST (17-59) U/L ALT (21-72) U/L Alkaline Phosphatase (38-126) U/L Total Protein (6.3-8.3) g/dL Albumin (3.5-5.0) g/dL Globulin (2.2-3.9) gm/dL Albumin/Globulin Ratio (1.0-2.1) Arterial Blood Potassium (3.6-5.2) mmol/L 10/25/17 10/25/17 10/25/17 Range/Units 23:38 23:35 20:02 WBC (4.8-10.8) K/uL RBC (4.40-5.90) Mil/uL Hgb (12.0-18.0) g/dL Hct (35.0-51.0) % MCV (80.0-94.0) fL MCH (27.0-31.0) pg MCHC (33.0-37.0) g/dL RDW (11.5-14.5) % Plt Count (130-400) K/uL MPV (7.2-11.7) fL Neut % (Auto) (50.0-75.0) % Lymph % (Auto) (20.0-40.0) % Hudson % (Auto) (0.0-10.0) % Eos % (Auto) (0.0-4.0) % Baso % (Auto) (0.0-2.0) % Neut # (Auto) (1.8-7.0) K/uL Lymph # (Auto) (1.0-4.3) K/uL Hudson # (Auto) (0.0-0.8) K/uL Eos # (Auto) (0.0-0.7) K/uL Baso # (Auto) (0.0-0.2) K/uL Antithrombin III Activ (80-120) % activity Puncture Site pCO2 (35-45) mm/Hg pO2 (80-100) mm/Hg HCO3 (21-28) mmol/L ABG pH (7.35-7.45) ABG Total CO2 (22-28) mmol/L ABG O2 Saturation (95-98) % ABG Base Excess (-2.0-3.0) mmol/L ABG Hemoglobin (11.7-17.4) g/dL ABG Carboxyhemoglobin (0.5-1.5) % POC ABG HHb (Measured) (0.0-5.0) % ABG Methemoglobin (0.0-3.0) % Errol Test ABG Potassium (3.6-5.2) mmol/L A-a O2 Difference mm/Hg Respiratory Index Hgb O2 Saturation (95.0-98.0) % Sodium 145 (132-148) mmol/l Chloride 106 (98-107) mmol/L Glucose (75-110) mg/dl Lactate (0.7-2.1) mmol/L Vent Mode Mechanical Rate FiO2 % Tidal Volume PEEP Potassium 3.3 L (3.6-5.2) mmol/L Carbon Dioxide 28 (22-30) mmol/L Anion Gap 14 (10-20) BUN < 2 L (9-20) mg/dL Creatinine 0.5 L (0.8-1.5) mg/dL Est GFR ( Amer) > 60 Est GFR (Non-Af Amer) > 60 POC Glucose (mg/dL) 63 L 58 L (65-110) mg/dL Random Glucose 81 (75-110) mg/dL Calcium 8.0 L (8.6-10.4) mg/dl Phosphorus 3.5 (2.5-4.5) mg/dL Magnesium 2.0 (1.6-2.3) mg/dL Total Bilirubin 0.2 (0.2-1.3) mg/dL AST 18 (17-59) U/L ALT 22 (21-72) U/L Alkaline Phosphatase 71 (38-126) U/L Total Protein 6.3 (6.3-8.3) g/dL Albumin 3.3 L (3.5-5.0) g/dL Globulin 3.0 (2.2-3.9) gm/dL Albumin/Globulin Ratio 1.1 (1.0-2.1) Arterial Blood Potassium (3.6-5.2) mmol/L 10/25/17 10/25/17 10/25/17 Range/Units 19:59 18:44 17:41 WBC (4.8-10.8) K/uL RBC (4.40-5.90) Mil/uL Hgb (12.0-18.0) g/dL Hct (35.0-51.0) % MCV (80.0-94.0) fL MCH (27.0-31.0) pg MCHC (33.0-37.0) g/dL RDW (11.5-14.5) % Plt Count (130-400) K/uL MPV (7.2-11.7) fL Neut % (Auto) (50.0-75.0) % Lymph % (Auto) (20.0-40.0) % Hudson % (Auto) (0.0-10.0) % Eos % (Auto) (0.0-4.0) % Baso % (Auto) (0.0-2.0) % Neut # (Auto) (1.8-7.0) K/uL Lymph # (Auto) (1.0-4.3) K/uL Hudson # (Auto) (0.0-0.8) K/uL Eos # (Auto) (0.0-0.7) K/uL Baso # (Auto) (0.0-0.2) K/uL Antithrombin III Activ (80-120) % activity Puncture Site Lr pCO2 31 L (35-45) mm/Hg pO2 92 (80-100) mm/Hg HCO3 28.5 H (21-28) mmol/L ABG pH 7.54 H (7.35-7.45) ABG Total CO2 27.5 (22-28) mmol/L ABG O2 Saturation 99.2 H (95-98) % ABG Base Excess 4.5 H (-2.0-3.0) mmol/L ABG Hemoglobin (11.7-17.4) g/dL ABG Carboxyhemoglobin (0.5-1.5) % POC ABG HHb (Measured) (0.0-5.0) % ABG Methemoglobin (0.0-3.0) % Errol Test Unable ABG Potassium 3.0 L (3.6-5.2) mmol/L A-a O2 Difference 154.0 mm/Hg Respiratory Index 1.7 Hgb O2 Saturation (95.0-98.0) % Sodium 144.0 (132-148) mmol/l Chloride 112.0 H (98-107) mmol/L Glucose 77 (75-110) mg/dl Lactate 1.1 (0.7-2.1) mmol/L Vent Mode Prvc Mechanical Rate FiO2 40.0 % Tidal Volume 500 PEEP 5 Potassium (3.6-5.2) mmol/L Carbon Dioxide (22-30) mmol/L Anion Gap (10-20) BUN (9-20) mg/dL Creatinine (0.8-1.5) mg/dL Est GFR ( Amer) Est GFR (Non-Af Amer) POC Glucose (mg/dL) 90 43 L (65-110) mg/dL Random Glucose (75-110) mg/dL Calcium (8.6-10.4) mg/dl Phosphorus (2.5-4.5) mg/dL Magnesium (1.6-2.3) mg/dL Total Bilirubin (0.2-1.3) mg/dL AST (17-59) U/L ALT (21-72) U/L Alkaline Phosphatase (38-126) U/L Total Protein (6.3-8.3) g/dL Albumin (3.5-5.0) g/dL Globulin (2.2-3.9) gm/dL Albumin/Globulin Ratio (1.0-2.1) Arterial Blood Potassium 3.0 L (3.6-5.2) mmol/L 10/25/17 10/25/17 10/23/17 Range/Units 17:39 11:27 08:37 WBC (4.8-10.8) K/uL RBC (4.40-5.90) Mil/uL Hgb (12.0-18.0) g/dL Hct (35.0-51.0) % MCV (80.0-94.0) fL MCH (27.0-31.0) pg MCHC (33.0-37.0) g/dL RDW (11.5-14.5) % Plt Count (130-400) K/uL MPV (7.2-11.7) fL Neut % (Auto) (50.0-75.0) % Lymph % (Auto) (20.0-40.0) % Hudson % (Auto) (0.0-10.0) % Eos % (Auto) (0.0-4.0) % Baso % (Auto) (0.0-2.0) % Neut # (Auto) (1.8-7.0) K/uL Lymph # (Auto) (1.0-4.3) K/uL Hudson # (Auto) (0.0-0.8) K/uL Eos # (Auto) (0.0-0.7) K/uL Baso # (Auto) (0.0-0.2) K/uL Antithrombin III Activ 127 H (80-120) % activity Puncture Site pCO2 (35-45) mm/Hg pO2 (80-100) mm/Hg HCO3 (21-28) mmol/L ABG pH (7.35-7.45) ABG Total CO2 (22-28) mmol/L ABG O2 Saturation (95-98) % ABG Base Excess (-2.0-3.0) mmol/L ABG Hemoglobin (11.7-17.4) g/dL ABG Carboxyhemoglobin (0.5-1.5) % POC ABG HHb (Measured) (0.0-5.0) % ABG Methemoglobin (0.0-3.0) % Errol Test ABG Potassium (3.6-5.2) mmol/L A-a O2 Difference mm/Hg Respiratory Index Hgb O2 Saturation (95.0-98.0) % Sodium (132-148) mmol/l Chloride (98-107) mmol/L Glucose (75-110) mg/dl Lactate (0.7-2.1) mmol/L Vent Mode Mechanical Rate FiO2 % Tidal Volume PEEP Potassium (3.6-5.2) mmol/L Carbon Dioxide (22-30) mmol/L Anion Gap (10-20) BUN (9-20) mg/dL Creatinine (0.8-1.5) mg/dL Est GFR ( Amer) Est GFR (Non-Af Amer) POC Glucose (mg/dL) 36 L* 98 (65-110) mg/dL Random Glucose (75-110) mg/dL Calcium (8.6-10.4) mg/dl Phosphorus (2.5-4.5) mg/dL Magnesium (1.6-2.3) mg/dL Total Bilirubin (0.2-1.3) mg/dL AST (17-59) U/L ALT (21-72) U/L Alkaline Phosphatase (38-126) U/L Total Protein (6.3-8.3) g/dL Albumin (3.5-5.0) g/dL Globulin (2.2-3.9) gm/dL Albumin/Globulin Ratio (1.0-2.1) Arterial Blood Potassium (3.6-5.2) mmol/L Laboratory Results - last 24 hr 10/23/17 10/25/17 10/25/17 08:37 11:27 17:39 WBC RBC Hgb Hct MCV MCH MCHC RDW Plt Count MPV Neut % (Auto) Lymph % (Auto) Hudson % (Auto) Eos % (Auto) Baso % (Auto) Neut # (Auto) Lymph # (Auto) Hudson # (Auto) Eos # (Auto) Baso # (Auto) Antithrombin III Activ 127 H Puncture Site pCO2 pO2 HCO3 ABG pH ABG Total CO2 ABG O2 Saturation ABG Base Excess ABG Hemoglobin ABG Carboxyhemoglobin POC ABG HHb (Measured) ABG Methemoglobin Errol Test ABG Potassium A-a O2 Difference Respiratory Index Hgb O2 Saturation Sodium Chloride Glucose Lactate Vent Mode Mechanical Rate FiO2 Tidal Volume PEEP Potassium Carbon Dioxide Anion Gap BUN Creatinine Est GFR ( Amer) Est GFR (Non-Af Amer) POC Glucose (mg/dL) 98 36 L* Random Glucose Calcium Phosphorus Magnesium Total Bilirubin AST ALT Alkaline Phosphatase Total Protein Albumin Globulin Albumin/Globulin Ratio Arterial Blood Potassium 10/25/17 10/25/17 10/25/17 17:41 18:44 19:59 WBC RBC Hgb Hct MCV MCH MCHC RDW Plt Count MPV Neut % (Auto) Lymph % (Auto) Hudson % (Auto) Eos % (Auto) Baso % (Auto) Neut # (Auto) Lymph # (Auto) Hudson # (Auto) Eos # (Auto) Baso # (Auto) Antithrombin III Activ Puncture Site Lr pCO2 31 L pO2 92 HCO3 28.5 H ABG pH 7.54 H ABG Total CO2 27.5 ABG O2 Saturation 99.2 H ABG Base Excess 4.5 H ABG Hemoglobin ABG Carboxyhemoglobin POC ABG HHb (Measured) ABG Methemoglobin Errol Test Unable ABG Potassium 3.0 L A-a O2 Difference 154.0 Respiratory Index 1.7 Hgb O2 Saturation Sodium 144.0 Chloride 112.0 H Glucose 77 Lactate 1.1 Vent Mode Prvc Mechanical Rate FiO2 40.0 Tidal Volume 500 PEEP 5 Potassium Carbon Dioxide Anion Gap BUN Creatinine Est GFR ( Amer) Est GFR (Non-Af Amer) POC Glucose (mg/dL) 43 L 90 Random Glucose Calcium Phosphorus Magnesium Total Bilirubin AST ALT Alkaline Phosphatase Total Protein Albumin Globulin Albumin/Globulin Ratio Arterial Blood Potassium 3.0 L 10/25/17 10/25/17 10/25/17 20:02 23:35 23:38 WBC RBC Hgb Hct MCV MCH MCHC RDW Plt Count MPV Neut % (Auto) Lymph % (Auto) Hudson % (Auto) Eos % (Auto) Baso % (Auto) Neut # (Auto) Lymph # (Auto) Hudson # (Auto) Eos # (Auto) Baso # (Auto) Antithrombin III Activ Puncture Site pCO2 pO2 HCO3 ABG pH ABG Total CO2 ABG O2 Saturation ABG Base Excess ABG Hemoglobin ABG Carboxyhemoglobin POC ABG HHb (Measured) ABG Methemoglobin Errol Test ABG Potassium A-a O2 Difference Respiratory Index Hgb O2 Saturation Sodium 145 Chloride 106 Glucose Lactate Vent Mode Mechanical Rate FiO2 Tidal Volume PEEP Potassium 3.3 L Carbon Dioxide 28 Anion Gap 14 BUN < 2 L Creatinine 0.5 L Est GFR ( Amer) > 60 Est GFR (Non-Af Amer) > 60 POC Glucose (mg/dL) 58 L 63 L Random Glucose 81 Calcium 8.0 L Phosphorus 3.5 Magnesium 2.0 Total Bilirubin 0.2 AST 18 ALT 22 Alkaline Phosphatase 71 Total Protein 6.3 Albumin 3.3 L Globulin 3.0 Albumin/Globulin Ratio 1.1 Arterial Blood Potassium 10/26/17 10/26/17 10/26/17 00:59 05:10 05:42 WBC RBC Hgb Hct MCV MCH MCHC RDW Plt Count MPV Neut % (Auto) Lymph % (Auto) Hudson % (Auto) Eos % (Auto) Baso % (Auto) Neut # (Auto) Lymph # (Auto) Hudson # (Auto) Eos # (Auto) Baso # (Auto) Antithrombin III Activ Puncture Site Rb pCO2 35 pO2 117 H HCO3 23.8 ABG pH 7.42 ABG Total CO2 23.8 ABG O2 Saturation 99.7 H ABG Base Excess -1.5 ABG Hemoglobin 9.2 L ABG Carboxyhemoglobin 1.8 H POC ABG HHb (Measured) 0.3 ABG Methemoglobin 0.9 Errol Test Na ABG Potassium A-a O2 Difference 124.0 Respiratory Index 1.1 Hgb O2 Saturation 96.9 Sodium Chloride Glucose Lactate Vent Mode Prvc Mechanical Rate 18 FiO2 40.0 Tidal Volume 450 PEEP 5 Potassium Carbon Dioxide Anion Gap BUN Creatinine Est GFR ( Amer) Est GFR (Non-Af Amer) POC Glucose (mg/dL) 99 62 L Random Glucose Calcium Phosphorus Magnesium Total Bilirubin AST ALT Alkaline Phosphatase Total Protein Albumin Globulin Albumin/Globulin Ratio Arterial Blood Potassium 10/26/17 10/26/17 10/26/17 05:47 06:16 06:16 WBC 4.5 L RBC 3.46 L Hgb 9.7 L Hct 28.6 L MCV 82.7 MCH 28.0 MCHC 33.9 RDW 21.5 H Plt Count 409 H MPV 7.7 Neut % (Auto) 49.0 L Lymph % (Auto) 31.8 Hudson % (Auto) 12.9 H Eos % (Auto) 5.6 H Baso % (Auto) 0.7 Neut # (Auto) 2.2 Lymph # (Auto) 1.4 Hudson # (Auto) 0.6 Eos # (Auto) 0.3 Baso # (Auto) 0.0 Antithrombin III Activ Puncture Site pCO2 pO2 HCO3 ABG pH ABG Total CO2 ABG O2 Saturation ABG Base Excess ABG Hemoglobin ABG Carboxyhemoglobin POC ABG HHb (Measured) ABG Methemoglobin Errol Test ABG Potassium A-a O2 Difference Respiratory Index Hgb O2 Saturation Sodium 143 Chloride 108 H Glucose Lactate Vent Mode Mechanical Rate FiO2 Tidal Volume PEEP Potassium 3.3 L Carbon Dioxide 26 Anion Gap 12 BUN < 2 L Creatinine 0.5 L Est GFR ( Amer) > 60 Est GFR (Non-Af Amer) > 60 POC Glucose (mg/dL) 69 Random Glucose 66 L Calcium 7.6 L Phosphorus 4.2 Magnesium 1.9 Total Bilirubin 0.3 AST 25 ALT 21 Alkaline Phosphatase 74 Total Protein 6.0 L Albumin 3.1 L Globulin 2.9 Albumin/Globulin Ratio 1.1 Arterial Blood Potassium Fingerstick Blood Sugar Results: 69 Review of Systems - Review of Systems Systems not reviewed;Unavailable: Acuity of Condition Critical Care Progress Note - Nutrition Nutrition: Nutrition Category Date Time Status Regular Diet [DIET] Diets 10/25/17 Dinner Active Assessment/Plan - Assessment and Plan (Free Text) Assessment: 32 year old male with a past medical history of cad(s/p cardiac stents), mi, pe , asthma, protein c deficiency, sickle cell disease who was admitted for status epilepticus. Plan: Neurology: Status epilepticus (2/ to benzo withdrawal) ED Course: 1 seizure @4:50a.m. (Alfa clonic): last 10 minutes: given 4 mg Ativan and 1000mg Fosphenytoin: seizure stopped @ 5:11a.m. 2 seizure last 5-7 minutes After 3 rd seizure patient was placed on propofol drip UDS: (+) Opiates, barbituates, benzodiazepines Repeat Head ct: shows no acute intracranial abnormality Brain MRI ordered. Will complete once patient can be removed from ventilation support and moved to imaging. Keppra 1500mg q12 Midazolam 100mg @.02mg/kg/hr NE 4MG @4MCG/MIN Phenytoin 200mg PO BID Propofol 1000mg @10mcg/kg/min Valproic acid 500mg NG Q8. Patient self- extubated yesterday. After remaining stable afterwards the patient subsequently started to have seizures and had to re-intubate the patient. Neurology following. Will f/u with further recommendations. Cardiology: CAD (s/p stents), [place] Echo (10/23/17): EF 60-65%, mild tricuspid regurgitation, mild pulmonic valvular regurgitation. Aspirin 81mg PO Daily Plavix 75mg PO Daily Hematology: Protein C deficiency, Sickle cell anemia? 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 Plavix 75mg PO Daily Aspirin 81mg PO Daily Hydroxyurea 500mg PO BID held. PPX -Propofol drip @10mcg/hr -Dextrose 5%/.9% NS @100mls/hr <Rubina Sinclair Luis - Last Filed: 10/26/17 18:10> CCU Objective - Vital Signs / Intake & Output Vital Signs (Last 4 hours): Vital Signs Pulse Resp BP Pulse Ox 10/26/17 16:00 50 L 18 100 10/26/17 15:04 50 L 18 99/42 L 100 10/26/17 15:00 48 L 18 100 Intake and Output (Last 8hrs): Intake & Output 10/26/17 10/26/17 10/26/17 06:59 14:59 22:59 Intake Total 754 187 100 Output Total 640 50 Balance 114 137 100 Weight 224 lb 9 oz Intake: IV 0 100 Intake, IV Amount 754 187 Right Distal Port Femoral 625 100 Right Medial Port Femoral 33 15 Right Proximal Port 96 72 Femoral Output: Urine 640 50 Urethral (Hawkins) 640 50 - Medications Active Medications: Active Medications Generic Name Dose Route Start Last Admin Trade Name Freq PRN Reason Stop Dose Admin Albuterol/Ipratropium 3 ml 10/25/17 20:00 10/26/17 14:17 Duoneb 3 Mg/0.5 Mg (3 Ml) Ud INH 3 ml RQ6 KEVIN Administration Ascorbic Acid 500 mg 10/26/17 10:00 10/26/17 11:22 Vitamin C 500 Mg Tab NG 500 mg DAILY KEVIN Administration Aspirin 81 mg 10/23/17 10:00 10/26/17 11:21 Aspirin Chewable PO 81 mg DAILY KEVIN Administration Chlordiazepoxide 75 mg 10/25/17 12:00 10/26/17 11:49 Librium PO 75 mg Q6 KEVIN Administration Clopidogrel Bisulfate 75 mg 10/23/17 10:00 10/26/17 11:22 Plavix PO 75 mg DAILY KEVIN Administration Enoxaparin Sodium 100 mg 10/24/17 10:00 10/26/17 11:38 Lovenox SC 100 mg Q12 KEVIN Administration Folic Acid 1 mg 10/23/17 10:00 10/26/17 11:22 Folic Acid PO 1 mg DAILY KEVIN Administration Midazolam HCl 100 mg/ Sodium 100 mls @ 1.95 mls/hr 10/24/17 08:15 10/25/17 16 :08 Chloride IV 0.06 mg/kg/hr .Q24H PRN 6 mls/hr Protocol Administration 0.02 MG/KG/HR Lacosamide 100 mg/ Sodium 110 mls @ 110 mls/hr 10/24/17 22:00 10/26/17 11:00 Chloride IV 110 mls/hr Q12 KEVIN Administration Levetiracetam 1,500 mg/ Sodium 115 mls @ 420 mls/hr 10/24/17 21:00 10/26/17 11:22 Chloride IVPB 420 mls/hr Q12H KEVIN Administration Propofol 1,000 mg in 100 mls @ 6.12 mls/hr 10/25/17 09:30 10/26/17 05:39 Diprivan IV 19.6 mcg/kg/min .[id number] PRN 12 mls/hr TITRATE PER MD ORDER Administration Protocol 10 MCG/KG/MIN Norepinephrine Bitartrate 4 mg 254 mls @ 15.24 mls/hr 10/25/17 19:15 / Sodium Chloride IV .[id number] PRN TITRATE PER MD ORDER Protocol 4 MCG/MIN Lactated Ringer's 1,000 mls @ 75 mls/hr 10/25/17 20:30 10/25/17 20:18 Lactated Ringer's IV 75 mls/hr .[id number] KEVIN Administration Dextrose/Sodium Chloride 1,000 mls @ 100 mls/hr 10/26/17 06:15 10/26/17 16:00 Dextrose 5%/0.9% Ns 1000 Ml IV Not Given .Q10H KEVIN Propofol 1,000 mg in 100 mls @ 24.446 mls/hr 10/26/17 11:32 10/26/17 17:00 Diprivan IV 40 mcg/kg/min .Q4H6M PRN 24.446 mls/hr TITRATE PER MD ORDER Administration Protocol 40 MCG/KG/MIN Ketamine HCl 500 mg/ Sodium 500 mls @ 101.86 mls/hr 10/27/17 17:15 Chloride IV .Q4H55M KEVIN 1 MG/KG/HR Ketamine HCl 500 mg/ Sodium 500 mls @ 50.93 mls/hr 10/26/17 17:00 Chloride IV 10/27/17 17:01 .Q9H50M KEVIN 0.5 MG/KG/HR Lorazepam 2 mg 10/24/17 07:17 10/24/17 15:55 Ativan IVP 2 mg Q4H PRN Administration Seizure activity Multivitamins/Vitamin C 5 ml 10/26/17 10:00 10/26/17 11:40 Multi-Delyn Liquid PO 5 ml DAILY KEVIN Administration Pantoprazole Sodium 40 mg 10/23/17 10:00 10/26/17 11:17 Protonix Inj IVP 40 mg DAILY KEVIN Administration Phenobarbital 48.6 mg 10/27/17 10:00 Phenobarbital Tab PO Q12 KEVIN Phenobarbital 64.8 mg 10/26/17 22:00 Phenobarbital Tab PO 10/26/17 22:01 Q12 KEVIN Phenytoin 200 mg 10/24/17 11:15 10/26/17 11:49 Dilantin PO 200 mg BID KEVIN Administration Pneumococcal Polyvalent Vaccine 0.5 ml 10/28/17 10:15 Pneumovax 23 Vaccine IM 10/28/17 10:16 .ONCE ONE Thiamine HCl 200 mg 10/26/17 08:15 10/26/17 14:00 Vitamin B1 Inj IV Not Given Q8 KEVIN Valproate Sodium 500 mg 10/26/17 10:00 10/26/17 14:00 Depakene Cap PO Not Given Q8 KEVIN - Patient Studies Lab Studies: Microbiology Studies 10/23/17 12:30 Blood Culture - Preliminary Blood NO GROWTH AFTER 3 DAYS 10/23/17 13:00 Blood Culture - Preliminary Blood NO GROWTH AFTER 3 DAYS 10/23/17 07:17 MRSA Culture (Admit) - Final Naris MRSA NOT DETECTED Lab Studies 10/26/17 10/26/17 10/26/17 Range/Units 17:09 13:17 12:43 WBC (4.8-10.8) K/uL RBC (4.40-5.90) Mil/uL Hgb (12.0-18.0) g/dL Hct (35.0-51.0) % MCV (80.0-94.0) fL MCH (27.0-31.0) pg MCHC (33.0-37.0) g/dL RDW (11.5-14.5) % Plt Count (130-400) K/uL MPV (7.2-11.7) fL Neut % (Auto) (50.0-75.0) % Lymph % (Auto) (20.0-40.0) % Hudson % (Auto) (0.0-10.0) % Eos % (Auto) (0.0-4.0) % Baso % (Auto) (0.0-2.0) % Neut # (Auto) (1.8-7.0) K/uL Lymph # (Auto) (1.0-4.3) K/uL Hudson # (Auto) (0.0-0.8) K/uL Eos # (Auto) (0.0-0.7) K/uL Baso # (Auto) (0.0-0.2) K/uL Antithrombin III Activ (80-120) % activity Puncture Site pCO2 (35-45) mm/Hg pO2 (80-100) mm/Hg HCO3 (21-28) mmol/L ABG pH (7.35-7.45) ABG Total CO2 (22-28) mmol/L ABG O2 Saturation (95-98) % ABG Base Excess (-2.0-3.0) mmol/L ABG Hemoglobin (11.7-17.4) g/dL ABG Carboxyhemoglobin (0.5-1.5) % POC ABG HHb (Measured) (0.0-5.0) % ABG Methemoglobin (0.0-3.0) % Errol Test ABG Potassium (3.6-5.2) mmol/L A-a O2 Difference mm/Hg Respiratory Index Hgb O2 Saturation (95.0-98.0) % Sodium (132-148) mmol/l Chloride (98-107) mmol/L Glucose (75-110) mg/dl Lactate (0.7-2.1) mmol/L Vent Mode Mechanical Rate FiO2 % Tidal Volume PEEP Potassium (3.6-5.2) mmol/L Carbon Dioxide (22-30) mmol/L Anion Gap (10-20) BUN (9-20) mg/dL Creatinine (0.8-1.5) mg/dL Est GFR ( Amer) Est GFR (Non-Af Amer) POC Glucose (mg/dL) 89 107 116 H (65-110) mg/dL Random Glucose (75-110) mg/dL Calcium (8.6-10.4) mg/dl Phosphorus (2.5-4.5) mg/dL Magnesium (1.6-2.3) mg/dL Total Bilirubin (0.2-1.3) mg/dL AST (17-59) U/L ALT (21-72) U/L Alkaline Phosphatase (38-126) U/L Total Protein (6.3-8.3) g/dL Albumin (3.5-5.0) g/dL Globulin (2.2-3.9) gm/dL Albumin/Globulin Ratio (1.0-2.1) Arterial Blood Potassium (3.6-5.2) mmol/L 10/26/17 10/26/17 10/26/17 Range/Units 11:55 11:36 11:33 WBC (4.8-10.8) K/uL RBC (4.40-5.90) Mil/uL Hgb (12.0-18.0) g/dL Hct (35.0-51.0) % MCV (80.0-94.0) fL MCH (27.0-31.0) pg MCHC (33.0-37.0) g/dL RDW (11.5-14.5) % Plt Count (130-400) K/uL MPV (7.2-11.7) fL Neut % (Auto) (50.0-75.0) % Lymph % (Auto) (20.0-40.0) % Hudson % (Auto) (0.0-10.0) % Eos % (Auto) (0.0-4.0) % Baso % (Auto) (0.0-2.0) % Neut # (Auto) (1.8-7.0) K/uL Lymph # (Auto) (1.0-4.3) K/uL Hudson # (Auto) (0.0-0.8) K/uL Eos # (Auto) (0.0-0.7) K/uL Baso # (Auto) (0.0-0.2) K/uL Antithrombin III Activ (80-120) % activity Puncture Site pCO2 (35-45) mm/Hg pO2 (80-100) mm/Hg HCO3 (21-28) mmol/L ABG pH (7.35-7.45) ABG Total CO2 (22-28) mmol/L ABG O2 Saturation (95-98) % ABG Base Excess (-2.0-3.0) mmol/L ABG Hemoglobin (11.7-17.4) g/dL ABG Carboxyhemoglobin (0.5-1.5) % POC ABG HHb (Measured) (0.0-5.0) % ABG Methemoglobin (0.0-3.0) % Errol Test ABG Potassium (3.6-5.2) mmol/L A-a O2 Difference mm/Hg Respiratory Index Hgb O2 Saturation (95.0-98.0) % Sodium (132-148) mmol/l Chloride (98-107) mmol/L Glucose (75-110) mg/dl Lactate (0.7-2.1) mmol/L Vent Mode Mechanical Rate FiO2 % Tidal Volume PEEP Potassium (3.6-5.2) mmol/L Carbon Dioxide (22-30) mmol/L Anion Gap (10-20) BUN (9-20) mg/dL Creatinine (0.8-1.5) mg/dL Est GFR ( Amer) Est GFR (Non-Af Amer) POC Glucose (mg/dL) 53 L 76 49 L (65-110) mg/dL Random Glucose (75-110) mg/dL Calcium (8.6-10.4) mg/dl Phosphorus (2.5-4.5) mg/dL Magnesium (1.6-2.3) mg/dL Total Bilirubin (0.2-1.3) mg/dL AST (17-59) U/L ALT (21-72) U/L Alkaline Phosphatase (38-126) U/L Total Protein (6.3-8.3) g/dL Albumin (3.5-5.0) g/dL Globulin (2.2-3.9) gm/dL Albumin/Globulin Ratio (1.0-2.1) Arterial Blood Potassium (3.6-5.2) mmol/L 10/26/17 10/26/17 10/26/17 Range/Units 06:16 06:16 05:47 WBC 4.5 L (4.8-10.8) K/uL RBC 3.46 L (4.40-5.90) Mil/uL Hgb 9.7 L (12.0-18.0) g/dL Hct 28.6 L (35.0-51.0) % MCV 82.7 (80.0-94.0) fL MCH 28.0 (27.0-31.0) pg MCHC 33.9 (33.0-37.0) g/dL RDW 21.5 H (11.5-14.5) % Plt Count 409 H (130-400) K/uL MPV 7.7 (7.2-11.7) fL Neut % (Auto) 49.0 L (50.0-75.0) % Lymph % (Auto) 31.8 (20.0-40.0) % Hudson % (Auto) 12.9 H (0.0-10.0) % Eos % (Auto) 5.6 H (0.0-4.0) % Baso % (Auto) 0.7 (0.0-2.0) % Neut # (Auto) 2.2 (1.8-7.0) K/uL Lymph # (Auto) 1.4 (1.0-4.3) K/uL Hudson # (Auto) 0.6 (0.0-0.8) K/uL Eos # (Auto) 0.3 (0.0-0.7) K/uL Baso # (Auto) 0.0 (0.0-0.2) K/uL Antithrombin III Activ (80-120) % activity Puncture Site pCO2 (35-45) mm/Hg pO2 (80-100) mm/Hg HCO3 (21-28) mmol/L ABG pH (7.35-7.45) ABG Total CO2 (22-28) mmol/L ABG O2 Saturation (95-98) % ABG Base Excess (-2.0-3.0) mmol/L ABG Hemoglobin (11.7-17.4) g/dL ABG Carboxyhemoglobin (0.5-1.5) % POC ABG HHb (Measured) (0.0-5.0) % ABG Methemoglobin (0.0-3.0) % Errol Test ABG Potassium (3.6-5.2) mmol/L A-a O2 Difference mm/Hg Respiratory Index Hgb O2 Saturation (95.0-98.0) % Sodium 143 (132-148) mmol/l Chloride 108 H (98-107) mmol/L Glucose (75-110) mg/dl Lactate (0.7-2.1) mmol/L Vent Mode Mechanical Rate FiO2 % Tidal Volume PEEP Potassium 3.3 L (3.6-5.2) mmol/L Carbon Dioxide 26 (22-30) mmol/L Anion Gap 12 (10-20) BUN < 2 L (9-20) mg/dL Creatinine 0.5 L (0.8-1.5) mg/dL Est GFR ( Amer) > 60 Est GFR (Non-Af Amer) > 60 POC Glucose (mg/dL) 69 (65-110) mg/dL Random Glucose 66 L (75-110) mg/dL Calcium 7.6 L (8.6-10.4) mg/dl Phosphorus 4.2 (2.5-4.5) mg/dL Magnesium 1.9 (1.6-2.3) mg/dL Total Bilirubin 0.3 (0.2-1.3) mg/dL AST 25 (17-59) U/L ALT 21 (21-72) U/L Alkaline Phosphatase 74 (38-126) U/L Total Protein 6.0 L (6.3-8.3) g/dL Albumin 3.1 L (3.5-5.0) g/dL Globulin 2.9 (2.2-3.9) gm/dL Albumin/Globulin Ratio 1.1 (1.0-2.1) Arterial Blood Potassium (3.6-5.2) mmol/L 10/26/17 10/26/17 10/26/17 Range/Units 05:42 05:10 00:59 WBC (4.8-10.8) K/uL RBC (4.40-5.90) Mil/uL Hgb (12.0-18.0) g/dL Hct (35.0-51.0) % MCV (80.0-94.0) fL MCH (27.0-31.0) pg MCHC (33.0-37.0) g/dL RDW (11.5-14.5) % Plt Count (130-400) K/uL MPV (7.2-11.7) fL Neut % (Auto) (50.0-75.0) % Lymph % (Auto) (20.0-40.0) % Hudson % (Auto) (0.0-10.0) % Eos % (Auto) (0.0-4.0) % Baso % (Auto) (0.0-2.0) % Neut # (Auto) (1.8-7.0) K/uL Lymph # (Auto) (1.0-4.3) K/uL Hudson # (Auto) (0.0-0.8) K/uL Eos # (Auto) (0.0-0.7) K/uL Baso # (Auto) (0.0-0.2) K/uL Antithrombin III Activ (80-120) % activity Puncture Site Rb pCO2 35 (35-45) mm/Hg pO2 117 H (80-100) mm/Hg HCO3 23.8 (21-28) mmol/L ABG pH 7.42 (7.35-7.45) ABG Total CO2 23.8 (22-28) mmol/L ABG O2 Saturation 99.7 H (95-98) % ABG Base Excess -1.5 (-2.0-3.0) mmol/L ABG Hemoglobin 9.2 L (11.7-17.4) g/dL ABG Carboxyhemoglobin 1.8 H (0.5-1.5) % POC ABG HHb (Measured) 0.3 (0.0-5.0) % ABG Methemoglobin 0.9 (0.0-3.0) % Errol Test Na ABG Potassium (3.6-5.2) mmol/L A-a O2 Difference 124.0 mm/Hg Respiratory Index 1.1 Hgb O2 Saturation 96.9 (95.0-98.0) % Sodium (132-148) mmol/l Chloride (98-107) mmol/L Glucose (75-110) mg/dl Lactate (0.7-2.1) mmol/L Vent Mode Prvc Mechanical Rate 18 FiO2 40.0 % Tidal Volume 450 PEEP 5 Potassium (3.6-5.2) mmol/L Carbon Dioxide (22-30) mmol/L Anion Gap (10-20) BUN (9-20) mg/dL Creatinine (0.8-1.5) mg/dL Est GFR ( Amer) Est GFR (Non-Af Amer) POC Glucose (mg/dL) 62 L 99 (65-110) mg/dL Random Glucose (75-110) mg/dL Calcium (8.6-10.4) mg/dl Phosphorus (2.5-4.5) mg/dL Magnesium (1.6-2.3) mg/dL Total Bilirubin (0.2-1.3) mg/dL AST (17-59) U/L ALT (21-72) U/L Alkaline Phosphatase (38-126) U/L Total Protein (6.3-8.3) g/dL Albumin (3.5-5.0) g/dL Globulin (2.2-3.9) gm/dL Albumin/Globulin Ratio (1.0-2.1) Arterial Blood Potassium (3.6-5.2) mmol/L 10/25/17 10/25/17 10/25/17 Range/Units 23:38 23:35 20:02 WBC (4.8-10.8) K/uL RBC (4.40-5.90) Mil/uL Hgb (12.0-18.0) g/dL Hct (35.0-51.0) % MCV (80.0-94.0) fL MCH (27.0-31.0) pg MCHC (33.0-37.0) g/dL RDW (11.5-14.5) % Plt Count (130-400) K/uL MPV (7.2-11.7) fL Neut % (Auto) (50.0-75.0) % Lymph % (Auto) (20.0-40.0) % Hudson % (Auto) (0.0-10.0) % Eos % (Auto) (0.0-4.0) % Baso % (Auto) (0.0-2.0) % Neut # (Auto) (1.8-7.0) K/uL Lymph # (Auto) (1.0-4.3) K/uL Hudson # (Auto) (0.0-0.8) K/uL Eos # (Auto) (0.0-0.7) K/uL Baso # (Auto) (0.0-0.2) K/uL Antithrombin III Activ (80-120) % activity Puncture Site pCO2 (35-45) mm/Hg pO2 (80-100) mm/Hg HCO3 (21-28) mmol/L ABG pH (7.35-7.45) ABG Total CO2 (22-28) mmol/L ABG O2 Saturation (95-98) % ABG Base Excess (-2.0-3.0) mmol/L ABG Hemoglobin (11.7-17.4) g/dL ABG Carboxyhemoglobin (0.5-1.5) % POC ABG HHb (Measured) (0.0-5.0) % ABG Methemoglobin (0.0-3.0) % Errol Test ABG Potassium (3.6-5.2) mmol/L A-a O2 Difference mm/Hg Respiratory Index Hgb O2 Saturation (95.0-98.0) % Sodium 145 (132-148) mmol/l Chloride 106 (98-107) mmol/L Glucose (75-110) mg/dl Lactate (0.7-2.1) mmol/L Vent Mode Mechanical Rate FiO2 % Tidal Volume PEEP Potassium 3.3 L (3.6-5.2) mmol/L Carbon Dioxide 28 (22-30) mmol/L Anion Gap 14 (10-20) BUN < 2 L (9-20) mg/dL Creatinine 0.5 L (0.8-1.5) mg/dL Est GFR ( Amer) > 60 Est GFR (Non-Af Amer) > 60 POC Glucose (mg/dL) 63 L 58 L (65-110) mg/dL Random Glucose 81 (75-110) mg/dL Calcium 8.0 L (8.6-10.4) mg/dl Phosphorus 3.5 (2.5-4.5) mg/dL Magnesium 2.0 (1.6-2.3) mg/dL Total Bilirubin 0.2 (0.2-1.3) mg/dL AST 18 (17-59) U/L ALT 22 (21-72) U/L Alkaline Phosphatase 71 (38-126) U/L Total Protein 6.3 (6.3-8.3) g/dL Albumin 3.3 L (3.5-5.0) g/dL Globulin 3.0 (2.2-3.9) gm/dL Albumin/Globulin Ratio 1.1 (1.0-2.1) Arterial Blood Potassium (3.6-5.2) mmol/L 10/25/17 10/25/17 10/23/17 Range/Units 19:59 18:44 08:37 WBC (4.8-10.8) K/uL RBC (4.40-5.90) Mil/uL Hgb (12.0-18.0) g/dL Hct (35.0-51.0) % MCV (80.0-94.0) fL MCH (27.0-31.0) pg MCHC (33.0-37.0) g/dL RDW (11.5-14.5) % Plt Count (130-400) K/uL MPV (7.2-11.7) fL Neut % (Auto) (50.0-75.0) % Lymph % (Auto) (20.0-40.0) % Hudson % (Auto) (0.0-10.0) % Eos % (Auto) (0.0-4.0) % Baso % (Auto) (0.0-2.0) % Neut # (Auto) (1.8-7.0) K/uL Lymph # (Auto) (1.0-4.3) K/uL Hudson # (Auto) (0.0-0.8) K/uL Eos # (Auto) (0.0-0.7) K/uL Baso # (Auto) (0.0-0.2) K/uL Antithrombin III Activ 127 H (80-120) % activity Puncture Site Lr pCO2 31 L (35-45) mm/Hg pO2 92 (80-100) mm/Hg HCO3 28.5 H (21-28) mmol/L ABG pH 7.54 H (7.35-7.45) ABG Total CO2 27.5 (22-28) mmol/L ABG O2 Saturation 99.2 H (95-98) % ABG Base Excess 4.5 H (-2.0-3.0) mmol/L ABG Hemoglobin (11.7-17.4) g/dL ABG Carboxyhemoglobin (0.5-1.5) % POC ABG HHb (Measured) (0.0-5.0) % ABG Methemoglobin (0.0-3.0) % Errol Test Unable ABG Potassium 3.0 L (3.6-5.2) mmol/L A-a O2 Difference 154.0 mm/Hg Respiratory Index 1.7 Hgb O2 Saturation (95.0-98.0) % Sodium 144.0 (132-148) mmol/l Chloride 112.0 H (98-107) mmol/L Glucose 77 (75-110) mg/dl Lactate 1.1 (0.7-2.1) mmol/L Vent Mode Prvc Mechanical Rate FiO2 40.0 % Tidal Volume 500 PEEP 5 Potassium (3.6-5.2) mmol/L Carbon Dioxide (22-30) mmol/L Anion Gap (10-20) BUN (9-20) mg/dL Creatinine (0.8-1.5) mg/dL Est GFR ( Amer) Est GFR (Non-Af Amer) POC Glucose (mg/dL) 90 (65-110) mg/dL Random Glucose (75-110) mg/dL Calcium (8.6-10.4) mg/dl Phosphorus (2.5-4.5) mg/dL Magnesium (1.6-2.3) mg/dL Total Bilirubin (0.2-1.3) mg/dL AST (17-59) U/L ALT (21-72) U/L Alkaline Phosphatase (38-126) U/L Total Protein (6.3-8.3) g/dL Albumin (3.5-5.0) g/dL Globulin (2.2-3.9) gm/dL Albumin/Globulin Ratio (1.0-2.1) Arterial Blood Potassium 3.0 L (3.6-5.2) mmol/L Laboratory Results - last 24 hr 10/23/17 10/25/17 10/25/17 08:37 18:44 19:59 WBC RBC Hgb Hct MCV MCH MCHC RDW Plt Count MPV Neut % (Auto) Lymph % (Auto) Hudson % (Auto) Eos % (Auto) Baso % (Auto) Neut # (Auto) Lymph # (Auto) Hudson # (Auto) Eos # (Auto) Baso # (Auto) Antithrombin III Activ 127 H Puncture Site Lr pCO2 31 L pO2 92 HCO3 28.5 H ABG pH 7.54 H ABG Total CO2 27.5 ABG O2 Saturation 99.2 H ABG Base Excess 4.5 H ABG Hemoglobin ABG Carboxyhemoglobin POC ABG HHb (Measured) ABG Methemoglobin Errol Test Unable ABG Potassium 3.0 L A-a O2 Difference 154.0 Respiratory Index 1.7 Hgb O2 Saturation Sodium 144.0 Chloride 112.0 H Glucose 77 Lactate 1.1 Vent Mode Prvc Mechanical Rate FiO2 40.0 Tidal Volume 500 PEEP 5 Potassium Carbon Dioxide Anion Gap BUN Creatinine Est GFR ( Amer) Est GFR (Non-Af Amer) POC Glucose (mg/dL) 90 Random Glucose Calcium Phosphorus Magnesium Total Bilirubin AST ALT Alkaline Phosphatase Total Protein Albumin Globulin Albumin/Globulin Ratio Arterial Blood Potassium 3.0 L 10/25/17 10/25/17 10/25/17 20:02 23:35 23:38 WBC RBC Hgb Hct MCV MCH MCHC RDW Plt Count MPV Neut % (Auto) Lymph % (Auto) Hudson % (Auto) Eos % (Auto) Baso % (Auto) Neut # (Auto) Lymph # (Auto) Hudson # (Auto) Eos # (Auto) Baso # (Auto) Antithrombin III Activ Puncture Site pCO2 pO2 HCO3 ABG pH ABG Total CO2 ABG O2 Saturation ABG Base Excess ABG Hemoglobin ABG Carboxyhemoglobin POC ABG HHb (Measured) ABG Methemoglobin Errol Test ABG Potassium A-a O2 Difference Respiratory Index Hgb O2 Saturation Sodium 145 Chloride 106 Glucose Lactate Vent Mode Mechanical Rate FiO2 Tidal Volume PEEP Potassium 3.3 L Carbon Dioxide 28 Anion Gap 14 BUN < 2 L Creatinine 0.5 L Est GFR ( Amer) > 60 Est GFR (Non-Af Amer) > 60 POC Glucose (mg/dL) 58 L 63 L Random Glucose 81 Calcium 8.0 L Phosphorus 3.5 Magnesium 2.0 Total Bilirubin 0.2 AST 18 ALT 22 Alkaline Phosphatase 71 Total Protein 6.3 Albumin 3.3 L Globulin 3.0 Albumin/Globulin Ratio 1.1 Arterial Blood Potassium 10/26/17 10/26/1710/26/18 00:59 05:10 05:42 WBC RBC Hgb Hct MCV MCH MCHC RDW Plt Count MPV Neut % (Auto) Lymph % (Auto) Hudson % (Auto) Eos % (Auto) Baso % (Auto) Neut # (Auto) Lymph # (Auto) Hudson # (Auto) Eos # (Auto) Baso # (Auto) Antithrombin III Activ Puncture Site Rb pCO2 35 pO2 117 H HCO3 23.8 ABG pH 7.42 ABG Total CO2 23.8 ABG O2 Saturation 99.7 H ABG Base Excess -1.5 ABG Hemoglobin 9.2 L ABG Carboxyhemoglobin 1.8 H POC ABG HHb (Measured) 0.3 ABG Methemoglobin 0.9 Errol Test Na ABG Potassium A-a O2 Difference 124.0 Respiratory Index 1.1 Hgb O2 Saturation 96.9 Sodium Chloride Glucose Lactate Vent Mode Prvc Mechanical Rate 18 FiO2 40.0 Tidal Volume 450 PEEP 5 Potassium Carbon Dioxide Anion Gap BUN Creatinine Est GFR ( Amer) Est GFR (Non-Af Amer) POC Glucose (mg/dL) 99 62 L Random Glucose Calcium Phosphorus Magnesium Total Bilirubin AST ALT Alkaline Phosphatase Total Protein Albumin Globulin Albumin/Globulin Ratio Arterial Blood Potassium 10/26/17 10/26/17 10/26/17 05:47 06:16 06:16 WBC 4.5 L RBC 3.46 L Hgb 9.7 L Hct 28.6 L MCV 82.7 MCH 28.0 MCHC 33.9 RDW 21.5 H Plt Count 409 H MPV 7.7 Neut % (Auto) 49.0 L Lymph % (Auto) 31.8 Hudson % (Auto) 12.9 H Eos % (Auto) 5.6 H Baso % (Auto) 0.7 Neut # (Auto) 2.2 Lymph # (Auto) 1.4 Hudson # (Auto) 0.6 Eos # (Auto) 0.3 Baso # (Auto) 0.0 Antithrombin III Activ Puncture Site pCO2 pO2 HCO3 ABG pH ABG Total CO2 ABG O2 Saturation ABG Base Excess ABG Hemoglobin ABG Carboxyhemoglobin POC ABG HHb (Measured) ABG Methemoglobin Errol Test ABG Potassium A-a O2 Difference Respiratory Index Hgb O2 Saturation Sodium 143 Chloride 108 H Glucose Lactate Vent Mode Mechanical Rate FiO2 Tidal Volume PEEP Potassium 3.3 L Carbon Dioxide 26 Anion Gap 12 BUN < 2 L Creatinine 0.5 L Est GFR ( Amer) > 60 Est GFR (Non-Af Amer) > 60 POC Glucose (mg/dL) 69 Random Glucose 66 L Calcium 7.6 L Phosphorus 4.2 Magnesium 1.9 Total Bilirubin 0.3 AST 25 ALT 21 Alkaline Phosphatase 74 Total Protein 6.0 L Albumin 3.1 L Globulin 2.9 Albumin/Globulin Ratio 1.1 Arterial Blood Potassium 10/26/17 10/26/17 10/26/17 11:33 11:36 11:55 WBC RBC Hgb Hct MCV MCH MCHC RDW Plt Count MPV Neut % (Auto) Lymph % (Auto) Hudson % (Auto) Eos % (Auto) Baso % (Auto) Neut # (Auto) Lymph # (Auto) Hudson # (Auto) Eos # (Auto) Baso # (Auto) Antithrombin III Activ Puncture Site pCO2 pO2 HCO3 ABG pH ABG Total CO2 ABG O2 Saturation ABG Base Excess ABG Hemoglobin ABG Carboxyhemoglobin POC ABG HHb (Measured) ABG Methemoglobin Errol Test ABG Potassium A-a O2 Difference Respiratory Index Hgb O2 Saturation Sodium Chloride Glucose Lactate Vent Mode Mechanical Rate FiO2 Tidal Volume PEEP Potassium Carbon Dioxide Anion Gap BUN Creatinine Est GFR ( Amer) Est GFR (Non-Af Amer) POC Glucose (mg/dL) 49 L 76 53 L Random Glucose Calcium Phosphorus Magnesium Total Bilirubin AST ALT Alkaline Phosphatase Total Protein Albumin Globulin Albumin/Globulin Ratio Arterial Blood Potassium 10/26/17 10/26/17 10/26/17 12:43 13:17 17:09 WBC RBC Hgb Hct MCV MCH MCHC RDW Plt Count MPV Neut % (Auto) Lymph % (Auto) Hudson % (Auto) Eos % (Auto) Baso % (Auto) Neut # (Auto) Lymph # (Auto) Hudson # (Auto) Eos # (Auto) Baso # (Auto) Antithrombin III Activ Puncture Site pCO2 pO2 HCO3 ABG pH ABG Total CO2 ABG O2 Saturation ABG Base Excess ABG Hemoglobin ABG Carboxyhemoglobin POC ABG HHb (Measured) ABG Methemoglobin Errol Test ABG Potassium A-a O2 Difference Respiratory Index Hgb O2 Saturation Sodium Chloride Glucose Lactate Vent Mode Mechanical Rate FiO2 Tidal Volume PEEP Potassium Carbon Dioxide Anion Gap BUN Creatinine Est GFR ( Amer) Est GFR (Non-Af Amer) POC Glucose (mg/dL) 116 H 107 89 Random Glucose Calcium Phosphorus Magnesium Total Bilirubin AST ALT Alkaline Phosphatase Total Protein Albumin Globulin Albumin/Globulin Ratio Arterial Blood Potassium Critical Care Progress Note - Nutrition Nutrition: Nutrition Category Date Time Status Regular Diet [DIET] Diets 10/25/17 Dinner Active Assessment/Plan - Assessment and Plan (Free Text) Plan: Patient seen and examiend at bedside with ICU team. Patient has h/o opoid and benzo abuse now preesnts to [place] for seizures (suspect benzo withdrawal). Patient self extubated and had to be reintubated for recurrent seizures requiring high dose of propofol. -Recurrent seizures (uncontrolled): obtain neurology input regarding optimal AED -Hypoxic respiratory failure:continue ventilation keep spo2 >92 and pH b/w 7.35- 7.45 -SeizureS: continue all other AED as per neruology -CAD/OK: continue dual antiplatelets and full dose AC, MAP >65 off pressors -Sickle cell: off hydroxyurea as per heme/onc -factor C deficiency: continue lovenox, possible switch to oral when stable -continue NG tube feeds -ISS Aspart -continue DVT/PUD ppx -d/w patient's partner who understands that patient may be transferred to a facility where 24 hour continuous EEG is available. cc time 32 minutes - Date & Time Date: 10/26/17 Time: 18:10
[2017-10-26] MEDS: Lacosamide 200mg/20ml 100 MG in Sodium Chloride 0.9% 100 ML IV SCH (11:00)
--- NOTE | 2017-10-26 11:04 | CP.PCM.PN ---
Subjective - Date & Time of Evaluation Date of Evaluation: 10/26/17 Time of Evaluation: 11:00 - Subjective Subjective: Neurology progress note for Dr. Laws Patient seen and examined at bedside. Patient is re-intubated and sedated. This is because yesterday evening, patient complained of an aura before experiencing tonic clonic seizure. Patient is intubated and sedated on Diprivan and Versed drips. Therefore, cannot obtain ROS. Objective - Vital Signs/Intake and Output Vital Signs (last 24 hours): Temp Pulse Resp BP Pulse Ox 98.5 F 77 18 143/63 100 10/26/17 04:00 10/26/17 07:00 10/26/17 07:00 10/26/17 06:11 10/26/17 07:00 Intake and Output: 10/26/17 10/26/17 06:59 18:59 Intake Total 1226 100 Output Total 2890 50 Balance -1664 50 - Medications Medications: Current Medications Albuterol/Ipratropium (Duoneb 3 Mg/0.5 Mg (3 Ml) Ud) 3 ml INH RQ6 [facility] Last Admin: 10/26/17 08:56 Dose: 3 ml Ascorbic Acid (Vitamin C 500 Mg Tab) 500 mg NG DAILY [facility] Aspirin (Aspirin Chewable) 81 mg PO DAILY [facility] Last Admin: 10/25/17 10:16 Dose: 81 mg Chlordiazepoxide (Librium) 75 mg PO Q6 [facility] Last Admin: 10/26/17 06:00 Dose: 75 mg Clopidogrel Bisulfate (Plavix) 75 mg PO DAILY [facility] Last Admin: 10/25/17 10:16 Dose: 75 mg Enoxaparin Sodium (Lovenox) 100 mg SC Q12 [facility] Last Admin: 10/25/17 22:17 Dose: 100 mg Folic Acid (Folic Acid) 1 mg PO DAILY [facility] Last Admin: 10/25/17 10:16 Dose: 1 mg Hydroxyurea (Hydrea) 500 mg PO BID [facility] Last Admin: 10/23/17 17:20 Dose: 500 mg Midazolam HCl 100 mg/ Sodium (Chloride) 100 mls @ 1.95 mls/hr IV .Q24H PRN; 0.02 MG/KG/HR PRN Reason: Protocol Last Admin: 10/25/17 16:08 Dose: 0.06 mg/kg/hr, 6 mls/hr Lacosamide 100 mg/ Sodium (Chloride) 110 mls @ 110 mls/hr IV Q12 [facility] Last Admin: 10/25/17 22:17 Dose: 110 mls/hr Levetiracetam 1,500 mg/ Sodium (Chloride) 115 mls @ 420 mls/hr IVPB Q12H [facility] Last Admin: 10/25/17 20:33 Dose: 420 mls/hr Propofol (Diprivan) 1,000 mg in 100 mls @ 6.12 mls/hr IV .[id number] PRN; Protocol ; 10 MCG/KG/MIN PRN Reason: TITRATE PER MD ORDER Last Admin: 10/26/17 05:39 Dose: 19.6 mcg/kg/min, 12 mls/hr Norepinephrine Bitartrate 4 mg (/ Sodium Chloride) 254 mls @ 15.24 mls/hr IV .[id number] PRN; Protocol; 4 MCG/MIN PRN Reason: TITRATE PER MD ORDER Lactated Ringer's (Lactated Ringer's) 1,000 mls @ 75 mls/hr IV .[id number] [facility] Last Admin: 10/25/17 20:18 Dose: 75 mls/hr Dextrose/Sodium Chloride (Dextrose 5%/0.9% Ns 1000 Ml) 1,000 mls @ 100 mls/hr IV .Q10H [facility] Last Admin: 10/26/17 06:33 Dose: 100 mls/hr Lorazepam (Ativan) 2 mg IVP Q4H PRN PRN Reason: Seizure activity Last Admin: 10/24/17 15:55 Dose: 2 mg Multivitamins/Vitamin C (Multi-Delyn Liquid) 5 ml PO DAILY [facility] Pantoprazole Sodium (Protonix Inj) 40 mg IVP DAILY [facility] Last Admin: 10/25/17 10:12 Dose: 40 mg Phenobarbital (Phenobarbital Tab) 97.2 mg PO Q12 [facility] Last Admin: 10/25/17 22:16 Dose: 97.2 mg Phenytoin (Dilantin) 200 mg PO BID [facility] Last Admin: 10/25/17 18:00 Dose: 200 mg Pneumococcal Polyvalent Vaccine (Pneumovax 23 Vaccine) 0.5 ml IM .ONCE ONE Stop: 10/28/17 10:16 Thiamine HCl (Vitamin B1 Inj) 200 mg IV Q8 [facility] Valproate Sodium (Depakene Cap) 500 mg PO Q8 [facility] - Labs Labs: 10/26/17 06:16 10/26/17 06:16 PT 12.2 SECONDS (9.7-12.2) 10/23/17 06:12 INR 1.1 10/23/17 06:12 APTT 40 SECONDS (21-34) H D 10/24/17 06:30 - Constitutional Appears: No Acute Distress - Head Exam Head Exam: absent: ATRAUMATIC, NORMOCEPHALIC - Eye Exam Additional comments: Left pupil 4 mm and right pupil 3 mm. Both are reactive to light. - ENT Exam ENT Exam: Mucous Membranes Moist - Respiratory Exam Respiratory Exam: Clear to Ausculation Bilateral. absent: Rales, Rhonchi, Wheezes Additional comments: On mechanical ventilation - Cardiovascular Exam Cardiovascular Exam: REGULAR RHYTHM, +S1, +S2 - GI/Abdominal Exam GI & Abdominal Exam: Soft, Normal Bowel Sounds. absent: Tenderness - Extremities Exam Extremities Exam: absent: Pedal Edema - Neurological Exam Neurological Exam: Altered (intubated/sedated) - Skin Skin Exam: Dry, Warm Assessment and Plan - Assessment and Plan (Free Text) Assessment: This is a 32 year old male currently intubated and sedated in the ICU on propofol with PMHx presumed seizure disorder, ME, right leg DVT, sickle cell disease, protein c deficiency who initially presented with complaint of chest pain. However, he later experienced intractable seizures and was admitted to the ICU due to status epilepticus. Patient self extubated on rounds on 10/25/17 but later had a seizure requiring re-intubation. Plan: Status Epilepticus The plan is as follows: 1. Start Ketamine drip at 0.5 mg/kg/hr. 2. Decrease Phenobarbital dose to 48.6 mg Q12H 3. After 12 hours (5 AM), decrease the Versed drip by half to 2.5 mg/hr 4. In the next 12 hours (5 PM), decrease the propofol to 20 mcg/hr 5. Get the EEG at this point. 6. If no seizure-like activity on the EEG, shut off the Propofol. 7. Then increase the Ketamine to 1 mg/kg/hr. Disposition: Transfer patient to [facility] for continuous EEG monitoring when bed is available. Patient seen and discussed with Dr. Laws
[2017-10-26] MEDS: Thiamine 100 mg/ml Inj IV SCH ×2 (11:21→14:00)
[2017-10-26] MEDS: levETIRAcetam 1,500 MG in Sodium Chloride 0.9% 100 ML IVPB SCH (11:22)
[2017-10-26] MEDS ORDERED: Dextrose 50% SYRINGE Inj (50 ml) IV STA (11:34)
[2017-10-26] MEDS: Enoxaparin 100 mg Syringe SC SCH (11:38)
[2017-10-26] MEDS: Phenytoin 100 mg/4 ml Oral Susp UD PO SCH ×2 (11:49→19:02)
--- NOTE | 2017-10-26 13:15 | CP.PCM.PN ---
Subjective - Date & Time of Evaluation Date of Evaluation: 10/26/17 Time of Evaluation: 13:00 - Subjective Subjective: Medical Attending Note: Patient seen and examined this afternoon. Patient re-intubated last night following seizure. Unable to ROS secondary to clinical condition. No family at bedside. Objective - Vital Signs/Intake and Output Vital Signs (last 24 hours): Temp Pulse Resp BP Pulse Ox 98.5 F 77 18 143/63 100 10/26/17 04:00 10/26/17 07:00 10/26/17 07:00 10/26/17 06:11 10/26/17 07:00 Intake and Output: 10/26/17 10/26/17 06:59 18:59 Intake Total 1226 100 Output Total 2890 50 Balance -1664 50 - Medications Medications: Current Medications Albuterol/Ipratropium (Duoneb 3 Mg/0.5 Mg (3 Ml) Ud) 3 ml INH RQ6 [facility] Last Admin: 10/26/17 08:56 Dose: 3 ml Ascorbic Acid (Vitamin C 500 Mg Tab) 500 mg NG DAILY [facility] Last Admin: 10/26/17 11:22 Dose: 500 mg Aspirin (Aspirin Chewable) 81 mg PO DAILY [facility] Last Admin: 10/26/17 11:21 Dose: 81 mg Chlordiazepoxide (Librium) 75 mg PO Q6 [facility] Last Admin: 10/26/17 11:49 Dose: 75 mg Clopidogrel Bisulfate (Plavix) 75 mg PO DAILY [facility] Last Admin: 10/26/17 11:22 Dose: 75 mg Enoxaparin Sodium (Lovenox) 100 mg SC Q12 [facility] Last Admin: 10/26/17 11:38 Dose: 100 mg Folic Acid (Folic Acid) 1 mg PO DAILY [facility] Last Admin: 10/26/17 11:22 Dose: 1 mg Hydroxyurea (Hydrea) 500 mg PO BID [facility] Last Admin: 10/23/17 17:20 Dose: 500 mg Midazolam HCl 100 mg/ Sodium (Chloride) 100 mls @ 1.95 mls/hr IV .Q24H PRN; 0.02 MG/KG/HR PRN Reason: Protocol Last Admin: 10/25/17 16:08 Dose: 0.06 mg/kg/hr, 6 mls/hr Lacosamide 100 mg/ Sodium (Chloride) 110 mls @ 110 mls/hr IV Q12 [facility] Last Admin: 10/25/17 22:17 Dose: 110 mls/hr Levetiracetam 1,500 mg/ Sodium (Chloride) 115 mls @ 420 mls/hr IVPB Q12H [facility] Last Admin: 10/26/17 11:22 Dose: 420 mls/hr Propofol (Diprivan) 1,000 mg in 100 mls @ 6.12 mls/hr IV .[id number] PRN; Protocol ; 10 MCG/KG/MIN PRN Reason: TITRATE PER MD ORDER Last Admin: 10/26/17 05:39 Dose: 19.6 mcg/kg/min, 12 mls/hr Norepinephrine Bitartrate 4 mg (/ Sodium Chloride) 254 mls @ 15.24 mls/hr IV .[id number] PRN; Protocol; 4 MCG/MIN PRN Reason: TITRATE PER MD ORDER Lactated Ringer's (Lactated Ringer's) 1,000 mls @ 75 mls/hr IV .[id number] [facility] Last Admin: 10/25/17 20:18 Dose: 75 mls/hr Dextrose/Sodium Chloride (Dextrose 5%/0.9% Ns 1000 Ml) 1,000 mls @ 100 mls/hr IV .Q10H [facility] Last Admin: 10/26/17 06:33 Dose: 100 mls/hr Propofol (Diprivan) 1,000 mg in 100 mls @ 24.446 mls/hr IV .Q4H6M PRN; Protocol ; 40 MCG/KG/MIN PRN Reason: TITRATE PER MD ORDER Lorazepam (Ativan) 2 mg IVP Q4H PRN PRN Reason: Seizure activity Last Admin: 10/24/17 15:55 Dose: 2 mg Multivitamins/Vitamin C (Multi-Delyn Liquid) 5 ml PO DAILY [facility] Last Admin: 10/26/17 11:40 Dose: 5 ml Pantoprazole Sodium (Protonix Inj) 40 mg IVP DAILY [facility] Last Admin: 10/26/17 11:17 Dose: 40 mg Phenobarbital (Phenobarbital Tab) 97.2 mg PO Q12 [facility] Last Admin: 10/26/17 11:50 Dose: 97.2 mg Phenytoin (Dilantin) 200 mg PO BID [facility] Last Admin: 10/26/17 11:49 Dose: 200 mg Pneumococcal Polyvalent Vaccine (Pneumovax 23 Vaccine) 0.5 ml IM .ONCE ONE Stop: 10/28/17 10:16 Thiamine HCl (Vitamin B1 Inj) 200 mg IV Q8 [facility] Last Admin: 10/26/17 11:21 Dose: 200 mg Valproate Sodium (Depakene Cap) 500 mg PO Q8 [facility] Last Admin: 10/26/17 11:40 Dose: 500 mg - Labs Labs: 10/26/17 06:16 10/26/17 06:16 PT 12.2 SECONDS (9.7-12.2) 10/23/17 06:12 INR 1.1 10/23/17 06:12 APTT 40 SECONDS (21-34) H D 10/24/17 06:30 - Constitutional Appears: Agitated, Confused - Head Exam Head Exam: NORMAL INSPECTION - ENT Exam ENT Exam: Mucous Membranes Moist - Respiratory Exam Respiratory Exam: Decreased Breath Sounds - Cardiovascular Exam Cardiovascular Exam: REGULAR RHYTHM, +S1, +S2 - GI/Abdominal Exam GI & Abdominal Exam: Soft, Normal Bowel Sounds. absent: Distended, Firm, Guarding, Rigid, Tenderness, Rebound - Extremities Exam Extremities Exam: absent: Pedal Edema, Tenderness - Psychiatric Exam Psychiatric exam: Normal Affect, Normal Mood - Skin Skin Exam: Dry, Intact, Normal Color, Warm Assessment and Plan (1) Status epilepticus Status: Acute (2) Protein C deficiency Status: Acute (3) CAD (coronary artery disease) Status: Acute (4) Stented coronary artery Status: Acute (5) Pulmonary embolism Status: Acute (6) Prophylactic measure Status: Acute Attending/Attestation - Attestation I have personally seen and examined this patient.: Yes I have fully participated in the care of the patient.: Yes I have reviewed all pertinent clinical information, including history, physical exam and plan: Yes Notes (Text): Patient seen and examined today. Pending neurology rounds. Patient is currently on Versed and Propofol. I have accessed the [facility] to check patient's controlled medications he is not receiving any controlled substance noted over the past two years and is not recorded in the [place] when cross checked. Assessment/Plan 1) Status Epilepticus Known Seizure Disorder * Home medications: Keppa 500mg PO BID; Dilantin 300mg PO BID as outpatient medications. * Witnessed seizures in the ED on admission * Intubated in the Ed 10/23/17 to protect airway * CT Head (10/23/17): no acute intracranial abnormality. Endotracheal tube in place. * CT head (10/23/17): no definite acute intracranial abnormality. Incidental/non acute findings are described above * Urine Drug Screen: +opiates, +barbiturates +Benzos * Blood alcohol <10 * Neurology (Dr. Laws) on consult help appreciated * Seizure medications: * Keppra 1000mg IVPB Q12H * Dilantin 200mg PO BID * Seizures were refractory to propofol-->ICU needed to start Versed drip during the day on 10/23/17 * EEG (10/24/17): EEG is abnormal. Diffuse slowing is seen, suggestive of diffuse abnormality of the brain. Lower than normal posterio dominant rhythm at 4 Hz. No seizures, drowsiness or sleep were detected. * On 10/24/17, patient has recurrent seizure * Per neurology, medications adjusted as follows: * Vimpat 100mg IVQ12 * Keppra 1500mg IVPB Q12H * To titrate off Propofol * Dilantin 200mg PO BID * Phenobarbital 97.2mg PO Q12 * Versed Drip * Start Ketamine given persistent seizures if refractory * 10/25: patient is sedated. No noted visible seizure activity. Needed Librium today. Patient self extubated himself in evening. He was articulatory. Patient had subsequent seizure and prompted intubated. Patient reported seizures started at age 16 following concussion in football has never played since. Patient report his last seizure prior to the ED was 6-7 months ago. Patient REMEMBERED that he came into ED for chest pain and recalls he had an aura on day of admission. Patient was pending Brain MRI set for tomorrow since he was extubated. * 10/26: [facility] no controlled substances noted under patient's name; pending neurology rounds. * Procalcitonin: low * Blood culture: negative * Urine culture: no growth 2) Chest Pain Possible History of Coronary Artery Disease Possible Stent/ Prior [place]? * Aspirin 81mg PO daily * Plavix 75mg PO daily * Lipid panel ordered: T, Cholestrol: 199, LDL:111, HDL: 43 * Troponin X2: negative * EKG on admission: NSR * CT angio: No definite PE; post surgical changes of the stomach * Echocardiogram (10/24/17): * Mild to moderate concentric LVH * Left ventricle systolic function is normal. EF: 60-65%, left ventricular diastolic function is normal. Right ventricle is normal size, right ventricular systolic function is normal. Left atrium size is normal. Right atrium size is normal, mild tricuspid regurgitation, no pulmonary hypertension, mild pulmonic valvular regurgitation * A1c: 4.8 * Patient reports he has had 3 heart attacks 3. History of Protein C deficiency (unlikely)? History of Pulmonary Embolus History of DVT+ * Heme-oncology on board-->help appreciated * Anthrombin III * Hemoglobinopathy eval: does not seem to support * Sickle cell screen: negative * pending protein C and S * CT angio: No definite PE; post surgical changes of the stomach * +IVC filter * Ordered for venous dopplers to check for DVT which is pending; SCDS contraindicated * On heparin drip (CT Head negative for bleed) * Echocardiogram (10/24/17): * Mild to moderate concentric LVH * Left ventricle systolic function is normal. EF: 60-65%, left ventricular diastolic function is normal. Right ventricle is normal size, right ventricular systolic function is normal. Left atrium size is normal. Right atrium size is normal, mild tricuspid regurgitation, no pulmonary hypertension, mild pulmonic valvular regurgitation * Will follow-up with heme-oncology given patient noted he saw a Dr Xiao at [facility] (heme-onc) for sickle cell and protein C/S deficiency was diagnosed 6- 7 years ago 4. Possible Sickle Cell (unlikely) * Heme-oncology on board-->Help appreciated * Per consult, I have spoken to his brother Art Mcadams ([phone]) and he is not sure if his brother has sickle cell anemia. He does know of family who may have it but his parents and siblings do not have sickle cell anemia. His brother recently moved from [place] but was recently at [facility]. He also notes to his brother having lots of admissions in the past for seizures. * Hemoglobinopathy eval: normal pattern, possible alpha thalassemia * Sickle cell screen: negative * Will follow-up with heme-oncology given patient noted he saw a Dr Xiao at [facility] (heme-onc) for sickle cell and protein C/S deficiency was diagnosed 6- 7 years ago 5. Anemia * Elevated reticulocyte count * Low iron, low TIBC, low percent iron * B12: 735, Folate: 8.2 * pending Ferritin * Hemoglobinopathy eval: normal pattern, possible alpha thalassemia * Sickle cell screen: negative 6. Prophylactic measure * Heparin drip * +IVC filter * Protonix 40mg IV daily * SCDS contraindicated given DVT+ * pending venous doppler report * Brother: Art Mcadams ([phone]) * TLC 10/25/17
[2017-10-26] MEDS ORDERED: Ketamine 500 MG in Sodium Chloride 0.9% 490 ML IV SCH (17:00)
[2017-10-26] MEDS ORDERED: SODIUM CHLORIDE 0.9% IV SCH (17:00)
[2017-10-26] MEDS ORDERED: KETAMINE IV SCH (17:00)
[2017-10-26] MEDS: Midazolam 50 mg/10 ml 100 MG in Sodium Chloride 0.9% 80 ML IV PRN (18:56)
[2017-10-26 21:04] VITALS: BP 124/59; PULSE 46
[2017-10-26 21:13] VITALS: TEMP 98.1
--- NOTE | 2017-10-27 06:06 | CP.PCM.DIS ---
Provider - Provider Date of Admission: 10/23/17 06:09 Attending physician: Jonathan Leal MD Consults: Dr. Laws (neurology) Dr. Jordon Gonzalez (heme-oncology) Critical care Time Spent in preparation of Discharge (in minutes): 31 Diagnosis - Discharge Diagnosis (1) Status epilepticus Status: Acute Priority: High Comment: Patient transferred to [facility] for continous EEG monitoring which is not available at this facility at this time. Arrangements made per neurology. Accepting physician, Dr Keanu Hugo and to available bed at neurocriticial care unit. (2) Protein C deficiency Status: Chronic Comment: Per patient. Unable to verify with patient's physician. Reports diagnosed 6-7 years ago. Patient previously on Coumadin (3) CAD (coronary artery disease) Status: Suspected Comment: Patient reports history of 3 MIs. Unable to verify with patient's physician (4) Stented coronary artery Status: Chronic Comment: Patient reports stent per EMR (5) Pulmonary embolism Status: Chronic Comment: Has IVC filter. Was previously on Coumadin. CT angio does not show new PE (6) DVT (deep venous thrombosis) Status: Chronic Comment: Patient reports hx of DVT over right leg, was on Coumadin though subtherapetic INR on admission. Venous dopplers of lower extremities do not show DVT. On anticoagulation during admission. IVC filter noted in Ct Angio report (7) Prophylactic measure Status: Acute Hospital Course - Lab Results Lab Results: Micro Results 10/23/17 12:30 Blood Blood Culture - Preliminary NO GROWTH AFTER 3 DAYS 10/23/17 13:00 Blood Blood Culture - Preliminary NO GROWTH AFTER 3 DAYS 10/23/17 07:17 Naris MRSA Culture (Admit) - Final MRSA NOT DETECTED 10/23/17 10:07 Urine Urine Culture - Final No Growth (<1,000 CFU/ML) Most Recent Lab Values WBC 4.5 K/uL (4.8-10.8) L 10/26/17 06:16 RBC 3.46 Mil/uL (4.40-5.90) L 10/26/17 06:16 Hgb 9.7 g/dL (12.0-18.0) L 10/26/17 06:16 Hct 28.6 % (35.0-51.0) L 10/26/17 06:16 MCV 82.7 fL (80.0-94.0) 03/02/18 06:16 MCH 28.0 pg (27.0-31.0) 10/26/17 06:16 MCHC 33.9 g/dL (33.0-37.0) 10/26/17 06:16 RDW 21.5 % (11.5-14.5) H 10/26/17 06:16 Plt Count 409 K/uL (130-400) H 10/26/17 06:16 MPV 7.7 fL (7.2-11.7) 10/26/17 06:16 Neut % (Auto) 49.0 % (50.0-75.0) L 10/26/17 06:16 Lymph % (Auto) 31.8 % (20.0-40.0) 10/26/17 06:16 [place] % (Auto) 12.9 % (0.0-10.0) H 10/26/17 06:16 Eos % (Auto) 5.6 % (0.0-4.0) H 10/26/17 06:16 Baso % (Auto) 0.7 % (0.0-2.0) 10/26/17 06:16 Neut # (Auto) 2.2 K/uL (1.8-7.0) 10/26/17 06:16 Lymph # (Auto) 1.4 K/uL (1.0-4.3) 10/26/17 06:16 [place] # (Auto) 0.6 K/uL (0.0-0.8) 10/26/17 06:16 Eos # (Auto) 0.3 K/uL (0.0-0.7) 10/26/17 06:16 Baso # (Auto) 0.0 K/uL (0.0-0.2) 10/26/17 06:16 Differential Comment 10/22/17 22:19 Retic Count 3.7 % (0.5-1.5) H 10/23/17 08:37 Sickle Cell Screen Negative (Negative) 10/23/17 08:37 Hemoglobin A 96.6 Percent (>96.0) 10/23/17 08:53 Hemoglobin A2 2.4 Percent (1.8-3.5) 10/23/17 08:53 Hemoglobin C 0.0 Percent (0.0-0.0) 10/23/17 08:53 Hemoglobin F () <1.0 Percent (<2.0) 10/23/17 08:53 Hemoglobin S 0.0 Percent (0.0-0.0) 10/23/17 08:53 Variant Hemoglobin 0.0 Percent (0.0-0.0) 10/23/17 08:53 Hemoglobinopathy Red Blood Count 3.89 Mill/mcL (4.20-5.80) L 10/23/17 08:53 Hemoglobinopathy Hct 32.6 % (38.5-50.0) L 10/23/17 08:53 Hemoglobinopathy Hgb 10.4 g/dL (13.2-17.1) L 10/23/17 08:53 Hemoglobinopathy MCV 83.7 fL (80.0-100.0) 10/23/17 08:53 Hemoglobinopathy MCH 26.8 pg (27.0-33.0) L 10/23/17 08:53 Hemoglobinopathy RDW 21.5 % (11.0-15.0) H 10/23/17 08:53 Hemoglobinopathy Interp See note 10/23/17 08:53 PT 12.2 SECONDS (9.7-12.2) 10/23/17 06:12 INR 1.1 10/23/17 06:12 APTT 40 SECONDS (21-34) H D 10/24/17 06:30 Fibrinogen 325 mg/dL (200-400) 10/23/17 08:47 Protein C Activity 127 % (70-180) 10/23/17 08:43 Antithrombin III Activ 127 % activity (80-120) H 10/23/17 08:37 Puncture Site Rb 10/26/17 05:10 pCO2 35 mm/Hg (35-45) 10/26/17 05:10 pO2 117 mm/Hg (80-100) H 10/26/17 05:10 HCO3 23.8 mmol/L (21-28) 10/26/17 05:10 ABG pH 7.42 (7.35-7.45) 10/26/17 05:10 ABG Total CO2 23.8 mmol/L (22-28) 10/26/17 05:10 ABG O2 Saturation 99.7 % (95-98) H 10/26/17 05:10 ABG Base Excess -1.5 mmol/L (-2.0-3.0) 10/26/17 05:10 ABG Hemoglobin 9.2 g/dL (11.7-17.4) L 10/26/17 05:10 ABG Carboxyhemoglobin 1.8 % (0.5-1.5) H 10/26/17 05:10 POC ABG HHb (Measured) 0.3 % (0.0-5.0) 10/26/17 05:10 ABG Methemoglobin 0.9 % (0.0-3.0) 10/26/17 05:10 Errol Test Na 10/26/17 05:10 ABG Potassium 3.0 mmol/L (3.6-5.2) L 10/25/17 19:59 VBG pH 7.33 (7.32-7.43) 10/23/17 06:27 VBG pCO2 31 mmHg (40-60) L 10/23/17 06:27 VBG HCO3 18.2 mmol/L 10/23/17 06:27 VBG Total CO2 17.3 mmol/L (22-28) L 10/23/17 06:27 VBG O2 Sat (Calc) 95.6 % (40-65) H 10/23/17 06:27 VBG Base Excess -8.4 mmol/L (0.0-2.0) L 10/23/17 06:27 VBG Potassium 2.6 mmol/L (3.6-5.2) L 10/23/17 06:27 A-a O2 Difference 124.0 mm/Hg 10/26/17 05:10 Respiratory Index 1.1 10/26/17 05:10 Hgb O2 Saturation 96.9 % (95.0-98.0) 10/26/17 05:10 Sodium 144.0 mmol/l (132-148) 10/25/17 19:59 Chloride 112.0 mmol/L (98-107) H 10/25/17 19:59 Glucose 77 mg/dl (75-110) 10/25/17 19:59 Lactate 1.1 mmol/L (0.7-2.1) 10/25/17 19:59 Vent Mode Prvc 10/26/17 05:10 Mechanical Rate 18 10/26/17 05:10 FiO2 40.0 % 10/26/17 05:10 Tidal Volume 450 10/26/17 05:10 PEEP 5 10/26/17 05:10 Sodium 143 mmol/L (132-148) 10/26/17 06:16 Potassium 3.3 mmol/L (3.6-5.2) L 10/26/17 06:16 Chloride 108 mmol/L (98-107) H 10/26/17 06:16 Carbon Dioxide 26 mmol/L (22-30) 10/26/17 06:16 Anion Gap 12 (10-20) 10/26/17 06:16 BUN < 2 mg/dL (9-20) L 10/26/17 06:16 Creatinine 0.5 mg/dL (0.8-1.5) L 10/26/17 06:16 Est GFR ( Amer) > 60 10/26/17 06:16 Est GFR (Non-Af Amer) > 60 10/26/17 06:16 POC Glucose (mg/dL) 89 mg/dL (65-110) 10/26/17 17:09 Random Glucose 66 mg/dL (75-110) L 10/26/17 06:16 Hemoglobin A1c 4.8 % (4.2-6.5) 10/23/17 08:47 Lactic Acid 1.0 mmol/L (0.7-2.1) 10/23/17 16:26 Calcium 7.6 mg/dl (8.6-10.4) L 10/26/17 06:16 Phosphorus 4.2 mg/dL (2.5-4.5) 10/26/17 06:16 Magnesium 1.9 mg/dL (1.6-2.3) 10/26/17 06:16 Iron 21 ug/dL (49-181) L 10/23/17 08:37 TIBC 249 ug/dL (250-450) L 10/23/17 08:37 % Saturation 8 (20-55) L 10/23/17 08:37 Ferritin 109.0 ng/mL 10/23/17 16:01 Total Bilirubin 0.3 mg/dL (0.2-1.3) 10/26/17 06:16 AST 25 U/L (17-59) 10/26/17 06:16 ALT 21 U/L (21-72) 10/26/17 06:16 Alkaline Phosphatase 74 U/L (38-126) 10/26/17 06:16 Total Creatine Kinase 79 U/L (55-170) 10/23/17 06:12 Troponin I < 0.0120 ng/mL (0.00-0.120) 10/23/17 18:43 Total Protein 6.0 g/dL (6.3-8.3) L 10/26/17 06:16 Albumin 3.1 g/dL (3.5-5.0) L 10/26/17 06:16 Globulin 2.9 gm/dL (2.2-3.9) 10/26/17 06:16 Albumin/Globulin Ratio 1.1 (1.0-2.1) 10/26/17 06:16 Triglycerides 115 mg/dL (0-149) 10/23/17 08:37 Cholesterol 199 mg/dL (0-199) 10/23/17 08:37 LDL Cholesterol Direct 111 mg/dL (0-129) 10/23/17 08:37 HDL Cholesterol 43 mg/dL (30-70) 10/23/17 08:37 Vitamin B12 735 pg/mL (239-931) 10/23/17 08:37 Folate 8.2 ng/mL 10/23/17 08:37 Procalcitonin < 0.05 NG/ML (0.19-0.49) L 10/23/17 13:15 Arterial Blood Potassium 3.0 mmol/L (3.6-5.2) L 10/25/17 19:59 Venous Blood Potassium 2.6 mmol/L (3.6-5.2) L 10/23/17 06:27 Urine Color Yellow (YELLOW) 10/23/17 05:36 Urine Clarity Clear (Clear) 10/23/17 05:36 Urine pH 6.0 (5.0-8.0) 10/23/17 05:36 Ur Specific [place] 1.020 (1.003-1.030) 10/23/17 05:36 Urine Protein Negative mg/dL (NEGATIVE) 10/23/17 05:36 Urine Glucose (UA) Normal mg/dL (Normal) 10/23/17 05:36 Urine Ketones Negative mg/dL (NEGATIVE) 10/23/17 05:36 Urine Blood Negative (NEGATIVE) 10/23/17 05:36 Urine Nitrate Negative (NEGATIVE) 10/23/17 05:36 Urine Bilirubin Negative (NEGATIVE) 10/23/17 05:36 Urine Urobilinogen Normal mg/dL (0.2-1.0) 10/23/17 05:36 Ur Leukocyte Esterase Neg Aimee/uL (Negative) 10/23/17 05:36 Urine WBC (Auto) 2 /hpf (0-5) 10/23/17 05:36 Urine RBC (Auto) < 1 /hpf (0-3) 10/23/17 05:36 Ur Squamous Epith Cells < 1 /hpf (0-5) 10/23/17 05:36 Hyaline Casts 11-20 /lpf (0-2) H 10/23/17 05:36 Urine Opiates Screen Positive (NEGATIVE) H 10/23/17 05:36 Urine Methadone Screen Negative (NEGATIVE) 10/23/17 05:36 Ur Barbiturates Screen Positive (NEGATIVE) H 10/23/17 05:36 Phenytoin 19.6 ug/mL (10-20) 10/23/17 06:20 Ur Phencyclidine Scrn Negative (NEGATIVE) 10/23/17 05:36 Ur Amphetamines Screen Negative (NEGATIVE) 10/23/17 05:36 U Benzodiazepines Scrn Positive (NEGATIVE) 10/23/17 05:36 U Oth Cocaine Metabols Negative (NEGATIVE) 10/23/17 05:36 U Cannabinoids Screen Negative (NEGATIVE) 10/23/17 05:36 Alcohol, Quantitative < 10 mg/dl (0-10) 10/23/17 08:37 Blood Type A POSITIVE 10/23/17 19:42 Blood Type Confirm A POSITIVE 10/23/17 19:42 Antibody Screen Negative 10/23/17 19:42 - Hospital Course Hospital Course: Per H&P< "32 year old male with a past medical history of mi cad (s/p stents), sickle cell disease, protein c deficiency, asthma, and seizure disorder who comes in to the emergency department complaining of chest pain. At the time of obtaining the history the patient was already sedated. Patient came ambulatory , was alert oriented x3 and came for chest pain. Had right groin femoral cath placed in ER due to poor iv access. Patient had normal inr on coumedin, hence PE study done, when patient came back form CT mentioned to the staff that he has having aura and soon he started to seize, patient was unresponsive during episode, rhythmic movement of the upper body, right arm more then left, foaming of the mouth. Patient received ativan 2mg x3, then iv cerebex 1000mg. Patient continued unresponsive and hence decision was made to give propofol and intubate. Intubated in ER etomidate 20mg, propofol 100mg iv bolus for intubation, when patient stopped jerking movement ICU was consulted for further close monitoring of seizure activity. Past medical history: mi, cad (s/p stents), sickle cell disease, protein c deficiency, asthma, seizure disorder Allergies: ketorolac, shellfish derived Past surgical history: s/p cardiac stents Social history history: sedated and intubated. Unable to obtain Family history: sedated and intubated. Unable to obtain at this time. " Patient admitted to the intensive care unit for status ellipitcius. Patient intubated to avoid airway compromise on admission. Neurology consulted on the case. Patient require many anti-elleptic medications, and sedatives. Patient under went multiple CT Heads and completed EEG. Patient unable to receive Brain MRI because he is currently intubated. Patient self extubated day prior however recurrent seizure prompted reintubation. Heme-oncology consulted in light of patient's history including PE, DVT, Protein C deficiency, sickle cell, and patient was reported on Coumadin. Patient's sickle cell screen and hemoglobinopathy do not support sickle cell and subsequently hydroxyerua discontinued. Neurology recommended and arranged for patient to be transferred to [facility] for continous EEG monitoring which is not present at this facility at this present time. Patient's fiance at bedside is aware and we have also attempted to get in contact with patient's brother at time of transfer. This is a summary of patient's hospitalization. Please review EMR for further history and details in regards to medications, imaging and further data. Please use physical exam from 10/26/17. - Date & Time of H&P Date of H&P: 10/23/17 Time of H&P: 12:47 Discharge Exam - Head Exam Head Exam: absent: ATRAUMATIC, NORMOCEPHALIC Discharge Plan - Follow Up Plan Condition: SERIOUS Disposition: Trans to Other Acute Care Hosp
[2017-10-27] MEDS ORDERED: Ketamine 500 MG in Sodium Chloride 0.9% 490 ML IV SCH (17:15)
[2017-10-28] MEDS ORDERED: Influenza Vaccine 60 mcg/0.5 mL SYR (4YR UP) IM ONE (10:15)
[2017-10-28] MEDS ORDERED: Pneumococcal 23-Valent Vaccine IM ONE (10:15)
== END 2017-10-26 21:00 | disposition short-term general hospital (02) | DRG 100 ==
LOC: C.ER 20:14 → C.9I 10-23 06:09
PROVIDERS: ADMIT Family Medicine; ATTEND Family Medicine
PROC: 0BH17EZ Insertion of Endotracheal Airway into Trachea, Via Natural or Artificial Opening (ICD-10-PCS; principal; 2017-10-23)
PROC: 5A1945Z Respiratory Ventilation, 24-96 Consecutive Hours (ICD-10-PCS; 2017-10-23)
PROC: 05HN33Z Insertion of Infusion Device into Left Internal Jugular Vein, Percutaneous Approach (ICD-10-PCS; 2017-10-25)
DX: G40.911 Epilepsy, unspecified, intractable, with status epilepticus (principal); J96.91 Respiratory failure, unspecified with hypoxia; D68.59 Other primary thrombophilia; I82.5Z1 Chronic embolism and thrombosis of unspecified deep veins of right distal lower extremity; I25.10 Atherosclerotic heart disease of native coronary artery without angina pectoris; I25.2 Old myocardial infarction; J45.909 Unspecified asthma, uncomplicated; Z79.82 Long term (current) use of aspirin; Z86.711 Personal history of pulmonary embolism; Z95.5 Presence of coronary angioplasty implant and graft